=== PATIENT | male | born 1955 | race Caucasian/White ===

== ENCOUNTER 2020-04-02 14:04 | Outpatient (REF) | payer OTHER, SELFPAY ==
--- NOTE | 2020-04-02 14:09 | XR_ITS ---
EXAMINATION: XR CHEST CLINICAL INFORMATION: Wheezing COMPARISON: None TECHNIQUE: 2 views of the chest were obtained. FINDINGS: No significant abnormality is noted involving the heart, lungs, mediastinum, bony thorax or soft tissues. XR/XR chest 2V IMPRESSION: Unremarkable chest exam.
== END 2020-04-02 14:05 | disposition home or self-care (01) ==
LOC: HO.HMGCX 14:04
PROVIDERS: PCP Nurse Practitioner Family; Visit Provider Nurse Practitioner Family
DX: R06.2 Wheezing (principal)
CPT/HCPCS: 71046

== ENCOUNTER 2020-04-08 13:48 | Outpatient (REF) | payer OTHER, SELFPAY ==
--- NOTE | 2020-04-13 | PFT_ITS ---
Forced vital capacity and FEV1 are both slightly decreased. [id number] slightly decreased. The MVV normal. Post bronchodilator therapy, significant improvement noted in [id number]. No other significant change. Total lung capacity and residual volume normal. Diffusion capacity normal. CONCLUSION: A very mild degree of small airway obstructive disorder is noted, which improves after bronchodilator therapy. This finding may be indicative of mild bronchial asthma. Clinical correlation recommended. MD JOHANNA Baker/CONCHA / [id number]
== END 2020-04-08 13:49 | disposition home or self-care (01) ==
LOC: HO.RESP 13:48
PROVIDERS: PCP Nurse Practitioner Family; Visit Provider Nurse Practitioner Family
DX: R06.2 Wheezing (principal)
CPT/HCPCS: 94060; 94727; 94729

== ENCOUNTER → 2020-04-28 14:52 | Outpatient (BNVA) | payer OTHER, SELFPAY | PROVIDERS: PCP Nurse Practitioner Family; Visit Provider Internal Medicine | DX: Z76.89 Persons encountering health services in other specified circumstances (principal) ==

== ENCOUNTER 2020-07-05 | Outpatient (REF) | payer OTHER, SELFPAY ==
[2020-07-06 11:38] LABS: Urine Cytology See Pathology rpt
== END 2020-07-05 00:01 | disposition home or self-care (01) ==
LOC: HO.LNP
PROVIDERS: Visit Provider Nurse Practitioner Family
DX: R31.9 Hematuria, unspecified (principal)
CPT/HCPCS: 87086; 88112

== ENCOUNTER → 2020-08-09 13:29 | Outpatient (BNVA) | payer OTHER, SELFPAY | PROVIDERS: PCP Nurse Practitioner Family; Visit Provider Internal Medicine ==

== ENCOUNTER 2020-08-11 12:06 | Outpatient (REF) | payer OTHER, SELFPAY ==
[2020-08-11 14:04] LABS: MANUAL DIFF FLAG NO
[2020-08-11 14:19] LABS: Basophils Percent Auto 0.6 % (0-2); Eosinophils Absolute Auto 0.3 X10*3/uL (0.0-0.4); Hemoglobin 13.9 g/dl (14.0-18.0); Imm Gran Abs Auto 0.02 X10*3/uL (0.00-0.03); Imm Gran Pct Auto 0.3 % (0.0-0.4); Lymphocytes Absolute Auto 1.5 X10*3/uL (1.2-4.9); Lymphocytes Percent Auto 21.2 % (20-40); Mean Corpuscular HGB Conc 33.9 g/dl (31.0-36.0); Mean Corpuscular Hemoglobin 34.8 pg (27.0-33.0); Mean Corpuscular Volume 102.5 fL (80-98); Mean Platelet Volume 10.2 fL (9.4-12.4); Monocytes Absolute Auto 0.6 X10*3/uL (0.1-1.2); Monocytes Percent Auto 8.2 % (2-11); Neutrophils Absolute Auto 4.5 X10*3/uL (2.0-8.3); Neutrophils Percent Auto 65.7 % (45-73); Platelet Count 254 X10*3/uL (160-400); Red Cell Distribution Width 12.3 % (11.0-16.0); White Blood Count 6.8 X10*3/uL (4.8-10.8)
[2020-08-11 14:50] LABS: Alanine Aminotransferase 19 U/L (0-40); Albumin Level 4.1 g/dL (3.5-5.0); Alkaline Phosphatase 61 U/L (39-117); Anion Gap 13 (12-20); Aspartate Amino Transferase 25 U/L (5-37); Bilirubin Total 1.1 mg/dL (0.0-1.0); Blood Urea Nitrogen 12 mg/dL (9-16); Calcium 9.5 mg/dL (8.4-10.2); Carbon Dioxide 27 mmol/L (22-29); Chloride 103 mmol/L (96-108); Cholesterol 161 mg/dL; Estimated Glomerular Filt Rate > 60; Glucose Fasting 75 mg/dL (60-99); HDL Cholesterol 86 mg/dL; LDL Cholesterol Calculated 63 mg/dl; Potassium 4.5 mmol/L (3.3-5.1); Sodium 138 mmol/L (135-145); Total Protein 6.2 g/dL (6.5-8.0); Triglycerides 61 mg/dL
[2020-08-11 14:59] LABS: TSH reflex Free T4 0.92 uIU/mL (0.32-4.0)
[2020-08-11 15:40] LABS: Prostate Specific Antigen Scr 21.28 ng/mL (<0.05-4.0)
== END 2020-08-11 12:07 | disposition home or self-care (01) ==
LOC: HO.HMGCLDS 12:06
PROVIDERS: PCP Nurse Practitioner Family; Visit Provider Urology
DX: Z12.5 Encounter for screening for malignant neoplasm of prostate (principal); C61 Malignant neoplasm of prostate
CPT/HCPCS: 36415; 80053; 80061; 84153; 84443; 85025

== ENCOUNTER 2020-11-03 11:14 | Outpatient (REF) | payer OTHER, SELFPAY ==
[2020-11-03 13:55] LABS: MANUAL DIFF FLAG NO
[2020-11-03 14:03] LABS: Basophils Percent Auto 0.6 % (0-2); Eosinophils Absolute Auto 0.2 X10*3/uL (0.0-0.4); Hematocrit 40.9 % (42-52); Hemoglobin 14.2 g/dl (14.0-18.0); Imm Gran Abs Auto 0.04 X10*3/uL (0.00-0.03); Imm Gran Pct Auto 0.6 % (0.0-0.4); Lymphocytes Absolute Auto 1.4 X10*3/uL (1.2-4.9); Lymphocytes Percent Auto 21.2 % (20-40); Mean Corpuscular HGB Conc 34.7 g/dl (31.0-36.0); Mean Corpuscular Hemoglobin 35.5 pg (27.0-33.0); Mean Corpuscular Volume 102.3 fL (80-98); Mean Platelet Volume 9.8 fL (9.4-12.4); Monocytes Absolute Auto 0.8 X10*3/uL (0.1-1.2); Monocytes Percent Auto 11.4 % (2-11); Neutrophils Absolute Auto 4.3 X10*3/uL (2.0-8.3); Neutrophils Percent Auto 63.2 % (45-73); Platelet Count 242 X10*3/uL (160-400); Red Cell Distribution Width 12.3 % (11.0-16.0); White Blood Count 6.8 X10*3/uL (4.8-10.8)
[2020-11-03 14:17] LABS: Alanine Aminotransferase 34 U/L (0-40); Albumin Level 4.6 g/dL (3.5-5.0); Alkaline Phosphatase 71 U/L (39-117); Anion Gap 15 (12-20); Aspartate Amino Transferase 42 U/L (5-37); Blood Urea Nitrogen 14 mg/dL (9-16); Calcium 9.8 mg/dL (8.4-10.2); Carbon Dioxide 26 mmol/L (22-29); Chloride 98 mmol/L (96-108); Estimated Glomerular Filt Rate > 60; Glucose Random 77 mg/dL (60-115); Potassium 4.4 mmol/L (3.3-5.1); Sodium 135 mmol/L (135-145); Total Protein 6.9 g/dL (6.5-8.0)
[2020-11-03 14:43] LABS: PSA,Total (Free>4and<10) 31.81 ng/mL (0.00-4.00); TSH reflex Free T4 1.17 uIU/mL (0.32-4.0)
== END 2020-11-03 11:15 | disposition home or self-care (01) ==
LOC: HO.HMGCLDS 11:14
PROVIDERS: PCP Nurse Practitioner Family; Visit Provider Nurse Practitioner Family
DX: Z12.5 Encounter for screening for malignant neoplasm of prostate (principal); C64.9 Malignant neoplasm of unspecified kidney, except renal pelvis; R97.20 Elevated prostate specific antigen [PSA]
CPT/HCPCS: 36415; 80053; 84153; 84443; 85025

== ENCOUNTER 2020-11-29 13:23 | Outpatient (REF) | payer OTHER, SELFPAY ==
--- NOTE | ~2020-11-29 | CT_ITS ---
EXAMINATION: CT CHEST SCREENING CLINICAL INFORMATION: Nicotine dependence. COMPARISON: Chest x-ray 04/02/2020 TECHNIQUE: Multidetector volumetric CT imaging of the chest is performed without contrast using low dose technique. Additional 2D coronal and sagittal reformatted images and axial 3D maximum intensity projection (MIP) images are generated on the CT workstation. This CT examination was performed using dose optimization techniques as appropriate, variously including the following: *Automated exposure control *Adjustment of mA and/or kV according to patient size (this includes techniques or standardized protocols for targeted exams where dose is matched to indication/reason for exam; i.e. extremities or head) *Use of iterative reconstruction technique DLP: 64 mGy-cm FINDINGS: LUNGS: The lungs are well-expanded and clear of acute pneumonic process. There is a 2 mm nodule, right upper lobe, axial image 23/4. There is a linear 2 mm calcification in the lingula, axial image 25/4. No additional nodules seen. MEDIASTINUM: The thyroid lobes are symmetrical and normal. The central trachea and the bronchi are widely patent. The heart size and great vessels are normal caliber. There are coronary artery calcifications present. No pericardial effusion seen. No abnormal size mediastinal or hilar lymph nodes seen. PLEURA: There is no pleural effusion. No pleural mass or thickening. AXILLA: No lymphadenopathy. UPPER ABDOMEN: Visualized liver, spleen, pancreas and bilateral adrenal glands are unremarkable. OSSEOUS STRUCTURES: No gross bony abnormality seen. Moderate spondylosis seen in mid and lower dorsal spine. CT/CT lung screening IMPRESSION: There are 2 mm nodules in the right upper lobe and lingula. ASSESSMENT: Lung-RADS category 2: Benign RECOMMENDATION: Low dose annual CT chest
== END 2020-11-29 13:24 | disposition home or self-care (01) ==
LOC: HO.CT 13:23
PROVIDERS: PCP Nurse Practitioner Family; Visit Provider Physician Assistant Medical
DX: Z12.2 Encounter for screening for malignant neoplasm of respiratory organs (principal); F17.210 Nicotine dependence, cigarettes, uncomplicated
CPT/HCPCS: 71271

== ENCOUNTER → 2021-02-22 13:26 | Outpatient (BNVA) | payer OTHER, SELFPAY | PROVIDERS: PCP Nurse Practitioner Family; Visit Provider Internal Medicine ==

== ENCOUNTER 2021-07-04 10:39 | Outpatient (REF) | payer OTHER, SELFPAY ==
[2021-07-04 11:50] LABS: Appearance Urine CLEAR; Color Urine DK YELLOW; Glucose Urine UA NEG (NEG); Leukocyte Esterase Urine NEG (NEG); Nitrite Urine NEG (NEG); Specific Gravity - Urine 1.025 (1.005-1.025); UACC Culture Trigger NO; Urine Blood 1+ (NEG); Urine Ketones NEG (NEG); Urine Protein TRACE MG/DL (NEG-TRACE)
[2021-07-04 12:54] LABS: Alanine Aminotransferase 18 U/L (0-40); Albumin Level 4.1 g/dL (3.5-5.0); Alkaline Phosphatase 72 U/L (39-117); Anion Gap 16 (12-20); Aspartate Amino Transferase 24 U/L (5-37); Bilirubin Total 0.7 mg/dL (0.0-1.0); Blood Urea Nitrogen 9 mg/dL (9-16); Calcium 9.6 mg/dL (8.4-10.2); Carbon Dioxide 24 mmol/L (22-29); Chloride 104 mmol/L (96-108); Cholesterol 187 mg/dL; Estimated Glomerular Filt Rate > 60; Glucose Fasting 81 mg/dL (60-99); HDL Cholesterol 79 mg/dL; LDL Cholesterol Calculated 86 mg/dl; Potassium 4.3 mmol/L (3.3-5.1); Sodium 140 mmol/L (135-145); Total Protein 6.5 g/dL (6.5-8.0); Triglycerides 114 mg/dL
[2021-07-04 13:14] LABS: Squamous Epithelial Cell Urine 1+ /LPF; WBC Urine 0 /HPF (0-4)
== END 2021-07-04 10:40 | disposition home or self-care (01) ==
LOC: HO.HMGCLDS 10:39
PROVIDERS: Visit Provider Nurse Practitioner Family
DX: I10 Essential (primary) hypertension (principal)
CPT/HCPCS: 36415; 80053; 80061; 81001; 84443

== ENCOUNTER 2021-07-10 14:27 | Emergency (ER) | payer OTHER, SELFPAY ==
--- NOTE | ~2021-07-10 | XR_ITS ---
EXAMINATION: RIGHT HAND. CLINICAL INFORMATION: Right hand pain COMPARISON: None TECHNIQUE: 4 views. FINDINGS: There is a dorsal dislocation third metacarpal phalangeal joint. There is suspicion for incomplete fracture involving the distal fourth metacarpal. There is better visualized on the lateral view. There is moderate soft tissue swelling along the dorsal hand. The scaphoid view reveals no fracture. XR/XR hand wrist RT IMPRESSION: Posterior dislocated third metacarpal phalangeal joint. Suspect partial fracture distal fourth metacarpal. Moderate dorsal hand soft tissue swelling.
--- NOTE | ~2021-07-10 | XR_ITS ---
EXAMINATION: XR HAND, RIGHT CLINICAL INFORMATION: Postreduction. COMPARISON: Right hand 07/10/2021 performed at 3:09 PM TECHNIQUE: PA, lateral, and oblique views of the right hand. FINDINGS: There is satisfactory alignment of third metacarpophalangeal joint status post reduction. Deformity of fourth metacarpal head likely fracture or old injury. XR/XR hand RT 2V IMPRESSION: Satisfactory alignment of third metacarpophalangeal joint status post reduction. Old deformity versus subtle fracture fourth metatarsal head
[2021-07-10 14:44] VITALS: BP 150/103; PULSE 96; RESP 12; TEMP 36.6; O2SAT 98; BMI 29.1
[2021-07-10] MEDS: Ibuprofen 600 MG TABLET PO (15:31)
--- NOTE | 2021-07-10 15:45 | ED_ITS ---
HPI - Extremity Problem General Chief complaint: Extremity Injury, Upper Stated complaint: broken hand Time Seen by Provider: 07/10/21 15:06 Source: patient and RN notes reviewed Mode of arrival: ambulatory Limitations: no limitations History of Present Illness HPI Narrative: fell while shoveling last night. pain and swelling to left hand, left middle finger Complaint: extremity pain and extremity swelling Associated symptoms: denies other symptoms Related Data Home Medications Medication Instructions Recorded Confirmed leuprolide (3 month) 22.5 mg (3 22.5 mg SUBCUT [id number] 07/06/21 07/06/21 month) subcutaneous syringe (EliDNS:Netd) Previous Rx's Medication Instructions Recorded albuterol sulfate 90 mcg/actuation 1 puff INHALATION QID PRN 30 Days 03/31/20 aerosol inhaler #8.5 g atorvastatin 20 mg tablet 20 mg PO DAILY #90 tab 08/02/20 epinephrine 0.3 mg/0.3 mL 0.3 mg (0.3 mL) IM Q10M PRN 30 02/02/21 injection, auto-injector (EpiPen Days #2 ea 2-Reji) paroxetine HCl 30 mg tablet 30 mg PO QAM 90 Days #90 tab 02/02/21 fluticasone 250 mcg-salmeterol 50 1 ea PO BID #180 cap 03/03/21 mcg/dose blistr powdr for inhalation (Advair Diskus) cholecalciferol (vitamin D3) 50 50 mcg PO DAILY #90 tab 04/29/21 mcg (2,000 unit) tablet (Vitamin D3) metoprolol tartrate 25 mg tablet 25 mg PO BID #180 tab 07/03/21 losartan 100 mg tablet 100 mg PO DAILY 90 Days #90 tab 07/06/21 oxycodone-acetaminophen 5 mg-325 1 tab PO Q6H PRN #10 tab 07/10/21 mg tablet (Percocet) Allergies Allergy/AdvReac Type Severity Reaction Status Date / Time tetracycline Allergy Intermediate anaphylaxis Verified 07/06/21 11:21 [Tetracycline] bee venom protein Allergy Unknown swelling, Verified 07/06/21 10:23 (honey bee) hives Review of Systems Verdana 4l Review of Systems: Verdana 4d Verdana 4d Constitutional : No Weight loss, No Fever, No Chills, ENT/Mouth : No Hearing loss, No Ear Pain, No Nasal Congestion, No Sinus Pain, No Hoarseness, No sore throat, No Rhinorrhea, No Swallowing Difficulty Cardiovascular : No Chest Pain, No SOB Respiratory : No Cough, No Dyspnea Gastrointestinal : No Nausea, No Vomiting, No Diarrhea, No abdominal Pain, Musculoskeletal : left hand pain and swelling, no Back pain, No neck pain, Skin : No Skin Lesions, No rash or signs of infection Neuro : No Weakness, No radiation, No Numbness, No Paresthesias, No headache, Yes all other systems are reviewed and are negative [facility] Past Medical History Attestation statement: The following information was validated with the patient. Medical History (Updated 07/10/21 @ 17:25 by SHIRIN Machado) Asthma Asthma COPD (chronic obstructive pulmonary disease) Coronary atherosclerosis Depression Foraminal stenosis of lumbar region HTN (hypertension) Nodule on liver FAUSTO on CPAP Prostate CA Renal mass Thoracic aortic aneurysm Surgical History History of knee surgery History of prostatectomy History of prostatectomy History of total knee replacement (TKR) History of total right knee replacement (TKR) Lipoma of back Family History Family History Father Leukemia Substance use disorder Mother Breast cancer CVD (cardiovascular disease) Takotsubo cardiomyopathy Brother Substance use disorder Sister No problems noted. Maternal Aunt No problems noted. Maternal Grandfather No problems noted. Maternal Grandmother No problems noted. Maternal Uncle No problems noted. Paternal Aunt No problems noted. Paternal Grandfather No problems noted. Paternal Grandmother No problems noted. Paternal Uncle No problems noted. Social History Social History Housing: House Alcohol intake: current Alcohol intake frequency: 3 or more drinks per day Patient Tobacco Use Status: Former Tobacco user Years Smoked: 35 years ago e-Cigarette/Vaping Use: Never Used Second Hand Smoke Exposure: No Advance Directives: No Advance Directives Information Provided: Yes service: No Current occupational status: retired Physical Exam Verdana 4l Vital Signs: Verdana 4d Verdana 4d Vital Signs: Verdana 4d Verdana 4Bd Last Vital Signs Verdana 4d Vial Gauger New 4d Vial Gauger New 4d Temp 98 F 07/10/21 14:44 4d Pulse 96 07/10/21 14:44 4d Resp 12 07/10/21 14:44 BP 150/103 H 07/10/21 14:44 Pulse Ox 98 07/10/21 14:44 BMI result Body Mass Index 29.1 vital signs have been reviewed as normal and appeared to be correct.? Blood pressure elevated.? Heart rate normal.? Respiration rate normal.? Temperature normal.? Oxygen saturation normal. ? ? ?PE GENERAL Appearance: Alert. Oriented X3. No acute distress. ? Head: Normal external exam. Normocephalic. Atraumatic.? Eyes: PERRLA. EOMI. Conjunctiva and sclera normal. Eyelids normal. ? CVS: Normal heart rate and rhythm. Respiratory: No respiratory distress. Painless inspiration. Back: ? Full range of motion noted. Skin: Skin warm and dry.? Normal skin color.? Normal skin turgor. No rashes/lesions/lacerations noted. Extremities: 1+ edema left hand dorsum. limited flexion left middle finger, tenderness over 4th metacarpal. no abrasions. No lower extremity edema. ? Extremities exhibit normal range of motion.?Good cap refill. able to flex and extend other phalanges. Normal gait Neuro: Oriented X 3.? No motor deficit noted. No sensory deficit noted. Course Course Course Narrative: RADIATION ONCOLOGIST reviewed before prescription for percocet Procedures Procedure Narrative Procedure Narrative: Reduction left 3rd metacarpal/phalangeal joint. local anesthesia with 2%lidocaine base of 3rd ph[address]ange[address] Dr. Meredith to see pt as well and dislocation reduced and confirmed on xray. pt then placed in volar/ulnar gutter splint to immobilize both the 3rd phalange and fx of 4th metacarpal. pt's hand large and ulnar gutter splint alone would not immobilize both 3rd and 4th digits. pt. neuro/vasc intact after splint. splint applied by myself and RN. Discharge Plan Discharge Clinical Impression: Dislocation of finger, Fracture of fourth metacarpal bone of right hand Patient Disposition: Home, Self-Care Instructions: Hand Fracture (ED), Finger Dislocation (ED) Additional Instructions: Leave splint on until seen by orthopedist. elevate hand at or above level of your heart. apply ice directly over splint. return if worse: increased swellin g or numbness, discoloration of fingers. Prescriptions: New oxycodone-acetaminophen [Percocet] 5-325 mg tablet 1 tab PO Q6H PRN (Reason: pain) Qty: 10 0RF No Action atorvastatin 20 mg tablet 20 mg PO DAILY Qty: 90 5RF fluticasone propion-salmeterol [Advair Diskus] 250-50 mcg/dose blister with device 1 ea PO BID Qty: 180 1RF cholecalciferol (vitamin D3) [Vitamin D3] 50 mcg (2,000 unit) tablet 50 mcg PO DAILY Qty: 90 2RF metoprolol tartrate 25 mg tablet 25 mg PO BID Qty: 180 0RF paroxetine HCl 30 mg tablet 30 mg PO QAM 90 Days Qty: 90 3RF epinephrine [EpiPen 2-Reji] 0.3 mg/0.3 mL auto-injector 0.3 mg IM Q10M PRN (Reason: anaphylaxis) 30 Days Qty: 2 0RF Rx Instructions: for 2 doses albuterol sulfate 90 mcg/actuation HFA aerosol inhaler 1 puff inhalation QID PRN (Reason: shortness of breath or wheezing) 30 Days Qty: 8.5 2RF Eligard (3 month) 22.5 mg syringe 22.5 mg subcut [id number] 0RF losartan 100 mg tablet 100 mg PO DAILY 90 Days Qty: 90 0RF Referrals: Anali Duffy MD [Physician] - 2 days (Call tomorrow for follow up appointment this week.)
--- NOTE | 2021-07-10 17:36 | PC.NURSE ---
PT MIDDLE FINGER PULLED BACK INTO BY SHIRIN LIRA AND DR ANIRUDH GRACIA WITH VOLAR SPLINT PLACE TO RIGHT HAND +CMS PLACE BY SHIRIN LIRA. 2ND IMAGING COMFIRMED FINGER BACK IN PLACE.
== END 2021-07-10 17:48 | disposition home or self-care (01) ==
PROVIDERS: Emergency Provider Emergency Medicine; PCP Nurse Practitioner Family
DX: S62.304A Unspecified fracture of fourth metacarpal bone, right hand, initial encounter for closed fracture (principal); S63.253A Unspecified dislocation of left middle finger, initial encounter; M79.642 Pain in left hand; R06.02 Shortness of breath; X58.XXXA Exposure to other specified factors, initial encounter; Y93.9 Activity, unspecified; Y92.9 Unspecified place or not applicable; Y99.9 Unspecified external cause status; Z79.899 Other long term (current) drug therapy; Z87.891 Personal history of nicotine dependence
CPT/HCPCS: 29130; 73110; 73120; 73130; 96372; 99284

== ENCOUNTER 2021-07-12 09:01 | Outpatient (REF) | payer OTHER, SELFPAY ==
--- NOTE | ~2021-07-12 | XR_ITS ---
EXAMINATION: XR HAND, RIGHT CLINICAL INFORMATION: Trauma COMPARISON: Previous x-rays 07/10/2021 TECHNIQUE: PA, lateral, and oblique views of the right hand. FINDINGS: There is a minimally displaced fracture of the fourth metacarpal head. This appears unchanged. No other fracture is seen. There is mild arthritis at the first SENIOR LIVING joint. Joint spaces are otherwise normal. Soft tissues are normal. XR/XR hand RT min 3V IMPRESSION: Minimally displaced fracture of the fourth metacarpal head.
== END 2021-07-12 09:02 | disposition home or self-care (01) ==
LOC: HO.HOSX 09:01
PROVIDERS: Visit Provider Orthopaedic Surgery
DX: M25.521 Pain in right elbow (principal); S62.335A Displaced fracture of neck of fourth metacarpal bone, left hand, initial encounter for closed fracture; S63.263A Dislocation of metacarpophalangeal joint of left middle finger, initial encounter; W00.0XXA Fall on same level due to ice and snow, initial encounter; Y93.H1 Activity, digging, shoveling and raking; Y92.9 Unspecified place or not applicable; Y99.8 Other external cause status; I10 Essential (primary) hypertension; J45.909 Unspecified asthma, uncomplicated; G47.33 Obstructive sleep apnea (adult) (pediatric); Z87.891 Personal history of nicotine dependence; Z88.1 Allergy status to other antibiotic agents; Z91.030 Bee allergy status; Z99.89 Dependence on other enabling machines and devices
CPT/HCPCS: 73130

== ENCOUNTER 2021-07-19 09:11 | Outpatient (REF) | payer OTHER, SELFPAY ==
--- NOTE | ~2021-07-19 | XR_ITS ---
EXAMINATION: XR HAND, RIGHT CLINICAL INFORMATION: Fracture. Pain. COMPARISON: Previous x-rays most recent from earlier this month TECHNIQUE: PA, lateral, and oblique views of the right hand. FINDINGS: There is a minimally displaced fracture of the fourth metacarpal head that appears unchanged. No other fracture is seen. There is mild arthritis at the first FPC joint. Joint spaces are otherwise normal. Soft tissues are normal. XR/XR hand RT min 3V IMPRESSION: No change in right fourth metacarpal head fracture.
== END 2021-07-19 09:12 | disposition home or self-care (01) ==
LOC: HO.HOSX 09:11
PROVIDERS: Visit Provider Orthopaedic Surgery
DX: S63.263D Dislocation of metacarpophalangeal joint of left middle finger, subsequent encounter (principal); S62.335D Displaced fracture of neck of fourth metacarpal bone, left hand, subsequent encounter for fracture with routine healing
CPT/HCPCS: 73130

== ENCOUNTER 2021-07-28 13:50 | Outpatient (REF) | payer OTHER, SELFPAY ==
--- NOTE | ~2021-07-28 | CT_ITS ---
EXAMINATION: CT ANGIOGRAM CHEST CLINICAL INFORMATION: Thoracic aortic aneurysm. COMPARISON: None. TECHNIQUE: Multiple axial images were obtained through the chest after the administration of 50 mL of Omnipaque 350 intravenous contrast. Extensive vascular post-processing including two-dimensional and three-dimensional reformatted images were created and reviewed on an independent workstation. This CT examination was performed using dose optimization techniques as appropriate, variously including the following: *Automated exposure control *Adjustment of mA and/or kV according to patient size (this includes techniques or standardized protocols for targeted exams where dose is matched to indication/reason for exam; i.e. extremities or head) *Use of iterative reconstruction technique DLP: 131 mGy-cm FINDINGS: The ascending aorta is dilated measuring 4.6 x 4.3 cm on axial image 26/5 the descending thoracic aorta is of normal caliber measuring 2.8 x 2.5 cm. The arch measures 2.6 cm wide and 2.7 cm in the craniocaudad length. There is no thoracic aortic dissection or aneurysm. There is an aberrant right subclavian artery. The right brachiocephalic, left common carotid and left subclavian artery are widely patent. The pulmonary artery and its branches are widely patent. The central trachea and the bronchi widely patent. The thyroid lobes are symmetrical and normal. No abnormal-sized mediastinal or hilar lymphadenopathy seen. Heart size is normal. No pericardial effusion seen. The lungs are well expanded with plate-like atelectatic changes right middle lobe and lingula. There is no pleural effusion, thickening or calcification. Visualized liver, spleen appear unremarkable. CT/CT angio chest aorta IMPRESSION: Ascending aortic aneurysm. The arch and the descending thoracic aorta is of normal caliber. No evidence of aortic dissection. Plate-like atelectasis right middle lobe and lingula. Fleischner guidelines were followed.
[2021-07-28] MEDS: iohexoL 350 MG/ML 75 ML INFUS..BTL 70 ML IV (14:57)
== END 2021-07-28 13:51 | disposition home or self-care (01) ==
LOC: HO.CT 13:50
PROVIDERS: Visit Provider Nurse Practitioner Family
DX: I71.2 Thoracic aortic aneurysm, without rupture (principal)
CPT/HCPCS: 71275; Q9967

== ENCOUNTER 2021-08-03 12:00 | Outpatient (RCR) | payer OTHER, SELFPAY ==
--- NOTE | 2021-07-20 13:16 | MHC.OT.OEV ---
[address] [phone] F: [phone] Occupational Therapy Evaluation Diagnosis: DISPLACED FRACTURE OF NECK OF 4TH METACARPAL Date of Onset: 07/10/21 Attending Provider: Anali Duffy Prescribed Treatment: AVINASH ROGERS Follow Up Appointment: 08/09/21 History of Current Condition: REPORTS FALLING ON ICE WHILE DOING SNOW REMOVAL. HE SUSTAINED A RIGHT MIDDLE FINGER DORSAL MCP DISLOCATION WELL A RIGHT 4TH METACARPAL NECK FRACTURE ON 07/10/21. RIGHT MIDDLE FINGER WAS REDUCED IN THE ED. XRAYS 07/19/21 There is a minimally displaced fracture of the fourth metacarpal head that appears unchanged. No other fracture is seen. There is mild arthritis at the first LONG-TERM joint. Joint spaces are otherwise normal. Soft tissues are normal. Significant Medical History: ARTHRITIS, PROSTATE CA, ASTHMA Precautions/Contraindications: DOI 07/10/21 MCP EXT BLOCKING SPLINT AT 20 DEGREES Patient Goals: TO HAVE NORMAL PAIN FREE MOVEMENT Hand Dominance: Left Observations: DORSAL BLOCKING SPLINT WITH VINH BANDAGE AND GAUZE IN PLACE QuickDASH Score: 66% Prior Level of Function and Occupation Self Care, Employment, Leisure: RETIRED. IND ADLs AND IADLs INCLUDING YARD WORK AND SNOW REMOVAL Living Situation, Family and/or Social Support: LIVES WITH SPOUSE Current Level of Function and Occupation Self Care, Employment, Leisure: SPOUSE ASSISTING WITH MOST ADLs AND ALL IADLs. DIFFICULTIES WITH BUTTONING, ZIPPING SHIRT/PANTS. UNABLE TO WASH HIS BACK. UNABLE TO ENGAGE IN HOBBIES. Sleep: NO DIFFICULTIES, SLEEPING WITH RUE ELEVATED Driving: NO DIFFICULTIES Pain Assessment Pain Score: 0-7/10 Pain Scale Used: Numeric (0 - 10) Pain Location and Description: PAINFREE AT REST 7/10 WITH USE/ FLEXION AT R DORSAL MF OF MCP Aggravating Factors: DIGIT FLEXION Alleviating Factors: NOT CURRENTLY TAKING PAIN MEDICATION Skin and Soft Tissue Assessment Skin and Soft Tissue: Swelling Ecchymosis Comments: EDEMA TO HAND AND WRIST, WELL ECCHYMOSIS IN DIGITS OF D4/D5 Sensory Assessment Temperature: Light Touch: WFL Proprioception: Vibration: Comments: DENIES NUMBNESS/TINGLING THROUGH RUE Edema Assessment Upper Extremity: Right Impaired Lower Extremity: Comments: CIRCUMFERENCE OF MCPs D2-D5: RIGHT 23.3 CM, LEFT 22.2 CM CIRCUMFERENCE OF WRIST, DISTAL TO US: RIGHT 17.6 CM, LEFT 17.3 CM CIRCUMFERENCE OF PIPj OF MF: RIGHT 7.3 CM, LEFT 7.2 CM Dexterity Assessment Dexterity: Right Impaired Comments: DIFFICULTIES WITH BUTTONS, ZIPPERS AND FINE MOTOR TASKS Special Tests Comments: AROM(PROM) Strength Shoulder Flexion: Extension: Abduction: Internal Rotation: External Rotation: Comments: WFL Flexion: Extension: Abduction: Internal Rotation: External Rotation: Comments: Elbow Flexion: Extension: Pronation: Supination: Comments: WFL Flexion: Extension: Pronation: Supination: Comments: Wrist Flexion: R 75, L 75 Extension: R 55, L 65 Ulnar Deviation: Radial Deviation: Comments: UD/RD GROSSLY WFL Flexion: Extension: Ulnar Deviation: Radial Deviation: Comments: Thumb Thumb CMC Flexion: Thumb MCP Flexion: Thumb IP Flexion: Radial Abduction: Palmar Abduction: [place] (Kapandji 0-10): Comments: WFL Digits Index MCP: PIP: DIP: Long MCP: R 42, L 84 PIP: R 82, L 88 DIP: R 74, L 86 Ring MCP: R 42, L 80 PIP: R 86, L 92 DIP: R 64, L 70 Small MCP: PIP: DIP: Comments: Gross Grasp: R NT, L 70 Lateral Pinch: Two-Point Pinch: Three-Jaw Maco: Comments: Patient Education Primary Language: Honduran Title Search Manager Required: No Current Knowledge: Understands information with skills for self-management Teaching Method: Demonstration Handouts Phone Call Verbal Education Needs Identified on Evaluation: ADL's Disease Information Equipment Use Exercise Pain Safety How did patient/family demonstrate learning? Patient demonstrates Patient verbalizes Barriers to Learning: None Readiness for Learning: Accepting Who was educated? Patient Comments: Plan of Care Assessment: MR SUAREZ IS 10 DAYS S/P FALL ON ICE IN WHICH HE INJURED HIS NON DOMINANT RIGHT LONG AND RING FINGERS. HE REPORTS NO PAIN AT REST YET 7/10 WITH DIGIT FLEXION. A MODERATE AMOUNT OF EDEMA IS PRESENT IN HIS RIGHT HAND AND WRIST, WELL SOME ECCHYMOSIS THROUGH HIS DIGITS. AT THIS TIME, HE IS REQUIRING ASSISTANCE FROM HIS SPOUSE FOR MOST ADLs AND IADLs THAT REQUIRE TWO HANDS INCLUDING BUTTONING SHIRT, CUTTING FOOD AND DOING HOUSEHOLD TASKS. A 66% LIMITATION IS REPORTED PER THE QUICK DASH ASSESSMENT. A CUSTOM DORSAL BLOCKING SPLINT WAS FABRICATED TO ALLOW FOR DIGIT ROM YET BLOCK DIGIT EXTENSION MORE AT 20 DEGREES. ONGOING SKILLED OT IS WARRANTED TO ADDRESS THE AREAS MENTIONED ABOVE AND ACHIEVE MAXIMUM FUNCTIONAL LEVEL. 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 Goals: QUICK DASH <50% R GROSS GRASP >40 POUNDS REPORT <2/10 PAIN WITH LIGHT IADLs ACHIEVE R TIP TO DPC IND WEAN FROM ORTHOSIS Frequency and Duration: The patient will be seen 2X/WEEK FOR 6 WEEKS Treatment Plan: Therapeutic Exercise Therapeutic Activity Home Exercise Program Splinting Neuro Re-ed Patient Education Desensitization/Sensory Re-ed Edema Control ADL Training Ultrasound NMES Iontophoresis Paraffin Fluidotherapy MHP Cold Packs Joint Mobilization Soft Tissue Mobilization Kinesiotaping Other (see comments) RECOMMEND 1X/WEEK FOR 3 WEEKS THEN 2X/WEEK FOR ADDITIONAL 3 WEEKS Electronically Signed By: MARY JO QUINTANA OTR/L Reviewed/agree with student documentation: N/A Therapist: Please sign and return to therapist, Thank you for your referral.
--- NOTE | 2021-08-18 13:29 | MHC.OT.DC ---
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 HE HAD TWO ADDITIONAL F/U VISITS TO ADDRESS DIGIT FLEXION AND EDEMA MANAGEMENT. Pt WAS ABLE TO ACTIVELY BRING DIGITS TO THE PROXIMAL PALMAR CREASE AND REPORTED LOW TO MODERATE PAIN. Pt STATES HE IS READY TO TRANSITION TO A HOME MANAGEMENT PROGRAM AND IS A SELF D/C FROM OT. Electronically Signed By: ANNIA TELLO/Jaida Reviewed/agree with student documentation: N/A Therapist: Please Sign and return to therapist, thank you for your referral.
== END 2021-08-18 13:30 | disposition home or self-care (01) ==
LOC: HO.OT 12:00
PROVIDERS: Visit Provider Orthopaedic Surgery
DX: S62.335D Displaced fracture of neck of fourth metacarpal bone, left hand, subsequent encounter for fracture with routine healing (principal); S63.263D Dislocation of metacarpophalangeal joint of left middle finger, subsequent encounter
CPT/HCPCS: 29125; 97110; 97140; 97166; 97530; 97760

== ENCOUNTER 2021-08-09 10:43 | Outpatient (REF) | payer OTHER, SELFPAY ==
--- NOTE | ~2021-08-09 | XR_ITS ---
EXAMINATION: XR HAND, RIGHT CLINICAL INFORMATION: Right hand pain COMPARISON: Prior x-rays, latest 05/30/2022 TECHNIQUE: PA, lateral, and oblique views of the right hand. FINDINGS: There is a mildly displaced fracture of the fourth metacarpal head, there is unchanged in position and alignment. Small callus formation along the radial aspect of the fracture. Fracture plane remains visible. Soft tissue swelling. Mild first CMC arthritis. No new acute fractures seen. Ulna negative variance. XR/XR hand RT min 3V IMPRESSION: Stable positioning of the right fourth metacarpal head fracture. Suggestion of mild callus formation.
== END 2021-08-09 10:44 | disposition home or self-care (01) ==
LOC: HO.HOSX 10:43
PROVIDERS: Visit Provider Orthopaedic Surgery
DX: M25.642 Stiffness of left hand, not elsewhere classified (principal); S62.335A Displaced fracture of neck of fourth metacarpal bone, left hand, initial encounter for closed fracture; S63.263A Dislocation of metacarpophalangeal joint of left middle finger, initial encounter
CPT/HCPCS: 73130

== ENCOUNTER → 2021-08-25 13:08 | Outpatient (BNVA) | payer OTHER, SELFPAY | PROVIDERS: PCP Nurse Practitioner Family; Visit Provider Internal Medicine | DX: Z13.89 Encounter for screening for other disorder (principal) ==

== ENCOUNTER → 2021-08-30 13:07 | Outpatient (BNVA) | payer OTHER, SELFPAY | PROVIDERS: PCP Nurse Practitioner Family; Visit Provider Physician Assistant | DX: M25.642 Stiffness of left hand, not elsewhere classified (principal); S63.263D Dislocation of metacarpophalangeal joint of left middle finger, subsequent encounter; S62.335D Displaced fracture of neck of fourth metacarpal bone, left hand, subsequent encounter for fracture with routine healing; X58.XXXD Exposure to other specified factors, subsequent encounter | CPT/HCPCS: 99212 ==

== ENCOUNTER → 2021-09-15 13:55 | Outpatient (BNVA) | payer OTHER, SELFPAY | PROVIDERS: PCP Nurse Practitioner Family; Referring Provider Nurse Practitioner Family; Visit Provider Internal Medicine Cardiovascular Disease | DX: I25.10 Atherosclerotic heart disease of native coronary artery without angina pectoris (principal); I10 Essential (primary) hypertension; R06.00 Dyspnea, unspecified; J44.9 Chronic obstructive pulmonary disease, unspecified | CPT/HCPCS: 93005 ==

== ENCOUNTER → 2021-09-28 15:05 | Outpatient (REF) | payer OTHER, SELFPAY ==
--- NOTE | 2021-09-28 15:09 | CA_ITS ---
Transthoracic Echocardiogram Patient (Last, First, Middle): Anthony Granados M Gender: Male Date of : 1955 Age: 65 Procedure Date: 09/28/2021 Procedure Type: Transthoracic Echocardiogram Location: OP Height: 182.88 cm Weight: 95.71 kg BSA: 2.18 m2 Heart Rate: bpm BP: 130 / 82 mmHg Hide Inspector And Sorter: TIP Referring MD: Levon Cifuentes MD [employer]ware Lithograph Press Operator: Elias Cosby MD Symptoms: R06.00 - Dyspnea, unspecified Study Quality: Fair ECG Rhythm: Sinus Conclusions: - 1. Normal LV systolic function with impaired relaxation filling pattern 2. Mild aortic regurgitation 3. Mildly dilated ascending aorta at 4.3 cm 4. Normal RV systolic pressure 5. No pericardial effusion Findings Left Ventricle Normal left ventricular size, thickness, and systolic function. The visually estimated ejection fraction is between 60-65%. Spectral Doppler is indicative of an impaired relaxation filling pattern. E/E prime ratio is <8, consistent with normal filling pressures. Right Ventricle Normal right ventricular cavity size and systolic function. Atria The left atrium is normal in size. There is no evidence of interatrial shunt. The right atrium is normal in size. Aortic Valve Normal aortic valve structure and function. There is no aortic valve stenosis. There is mild aortic valve regurgitation. Mitral Valve Normal mitral valve structure and function. There is trace mitral valve regurgitation. There is no mitral valve stenosis. Pulmonic Valve The pulmonic valve is likely normal. Tricuspid Valve Likely normal tricuspid valve structure and function. There is mild tricuspid valve regurgitation. The right ventricular systolic pressure is normal. The right ventricular systolic pressure is 18 mmHg. There is no evidence of pulmonary hypertension. Great Vessels The pulmonary artery was not well visualized. There is mild dilatation of the ascending aorta. Venous The inferior vena cava is normal in size and collapses greater than 50% with inspiration. Pericardium/Pleural There is no evidence of pericardial effusion. Prior Study Comparison Changes noted compared to prior study dated: 09/04/2019. Ascending aorta is mildly dilated Measurements 2D Linear Measurements IVSd: 1.23 0.6-0.9/0.6-1.0 cm LVIDd: 4.91 3.9-5.3/4.2-5.9 cm LVIDd Index: 2.25 2.4-3.2/2.2-3.1 cm/m2 LVIDs: 3.07 2.0-3.6 cm LVPWd: 1.02 0.7-1.1 cm LA Diam: 3.70 2.7-3.8/3.0-4.0 cm LAIDs Index: 1.70 1.5-2.3 cm/m2 LV Mass: 258.64 67-162/88-224 g LV Mass Index: 118.64 43-95/49-115 g/m2 LVOT Diam: 2.40 3.0+(-)1.3 cm 2D Systolic Function EF 4C: 57.60 >55% EF 2C: 57.50 >55% EF BiP: 59.30 >55% Mitral Valve MV Pk E: 0.62 MV PK A: 0.69 MV Decel Time: 217.00 E/A: 0.90 E'Lateral: 8.59 E'Medial: 6.20 E/E' Med: 10.00 E/E' Lat: 7.20 PHT: 64.00 MVA PHT: 3.44 Decel Wilcox: 2.85 Aortic Valve AoV Pk Braden: 1.27 AoV Mn Braden: 0.94 AoV VTI: 0.26 AoV Pk Grad: 6.00 Aov Mn Grad: 4.00 MURTAZA Cont.VTI: 3.64 LVOT LVOT Pk Braden: 1.04 LVOT Mn Braden: 0.70 LVOT VTI: 0.21 LVOT Pk Grad: 4.00 LVOT Mn Grad: 2.00 LVOT Diam: 2.40 LVOT Area: 4.52 Diastolic Function MV Pk E: 0.62 MV Pk A: 0.69 E/A: 0.90 E'Medial: 6.20 E/E' Med: 10.00 E' Laterial: 8.59 E/E' Lat: 7.20 Right Ventricle TAPSE (mm): 18.70 TVS' Braden: 15.70 Tricuspid Valve TR Pk Braden: 1.91 TR Pk Grad: 15.00 RA Press: 3.00 RVSP: 18.00 Great Vessels Aorta Sinus of Valsalva: 3.88 2.0-3.[address] Ridge: 3.25 1.7-3.4 cm Ao Asc: 4.30 2.1-3.4 cm Ao Arch: 3.80 Updated in Other Vendor System with Status of Final Elias Cosby MD electronically signed on 09/29/2021 12:45:21 PM with status of Final
== END ==
LOC: HO.CARD 15:05
PROVIDERS: PCP Nurse Practitioner Family; Visit Provider Internal Medicine Cardiovascular Disease
DX: R06.00 Dyspnea, unspecified (principal)
CPT/HCPCS: 93306

== ENCOUNTER 2021-10-21 11:01 | Outpatient (REF) | payer OTHER, SELFPAY ==
[2021-10-21 13:52] LABS: Hematocrit 36.8 % (42.0-52.0); Mean Corpuscular HGB Conc 35.3 g/dl (31.0-36.0); Mean Corpuscular Hemoglobin 36.5 pg (27.0-33.0); Mean Corpuscular Volume 103.4 fL (80.0-98.0); Mean Platelet Volume 9.8 fL (9.4-12.4); Platelet Count 289 X10*3/uL (160-400); Red Blood Count 3.56 X10*6/uL (4.60-5.80); Red Cell Distribution Width 12.2 % (11.0-16.0); White Blood Count 5.3 X10*3/uL (4.8-10.8)
[2021-10-21 14:02] LABS: INTERNATIONAL NORM RATIO 0.9 (0.9-1.1)
[2021-10-21 14:03] LABS: Alanine Aminotransferase 20 U/L (0-40); Alkaline Phosphatase 62 U/L (39-117); Anion Gap 14 (12-20); Aspartate Amino Transferase 26 U/L (5-37); Bilirubin Total 0.8 mg/dL (0.0-1.0); Blood Urea Nitrogen 12 mg/dL (9-16); Calcium 9.4 mg/dL (8.4-10.2); Carbon Dioxide 24 mmol/L (22-29); Chloride 102 mmol/L (96-108); Cholesterol 167 mg/dL; Estimated Glomerular Filt Rate > 60; Glucose Fasting 91 mg/dL (60-99); HDL Cholesterol 76 mg/dL; LDL Cholesterol Calculated 77 mg/dl; Sodium 136 mmol/L (135-145); Total Protein 6.2 g/dL (6.5-8.0); Triglycerides 74 mg/dL
[2021-10-21 14:22] LABS: Appearance Urine CLOUDY; Glucose Urine UA NEG (NEG); Leukocyte Esterase Urine NEG (NEG); Nitrite Urine NEG (NEG); Specific Gravity - Urine >= 1.030 (1.005-1.025); UACC Culture Trigger NO; Urine Blood TRACE (NEG); Urine Ketones NEG (NEG); Urine Protein NEG (NEG-TRACE)
[2021-10-21 14:24] LABS: TSH reflex Free T4 1.09 uIU/mL (0.32-4.0)
[2021-10-21 14:31] LABS: Color Urine YELLOW
[2021-10-21 14:36] LABS: Amorphous Sediment Urine 4+ /LPF; RBC Urine 0 /HPF (0); WBC Urine 0 /HPF (0-4)
== END 2021-10-21 11:02 | disposition home or self-care (01) ==
LOC: HO.HMGCLDS 11:01
PROVIDERS: Absent Provider Internal Medicine Cardiovascular Disease; PCP Nurse Practitioner Family; Visit Provider Nurse Practitioner Family
DX: I10 Essential (primary) hypertension (principal); I25.10 Atherosclerotic heart disease of native coronary artery without angina pectoris
CPT/HCPCS: 36415; 80048; 80053; 80061; 81001; 81003; 84443; 85027; 85610

== ENCOUNTER 2021-11-15 12:48 | Outpatient (REF) | payer OTHER, SELFPAY ==
[2021-11-15 13:48] LABS: MANUAL DIFF FLAG NO
[2021-11-15 13:51] LABS: Basophils Percent Auto 0.7 % (0-2); Eosinophils Absolute Auto 0.2 X10*3/uL (0.0-0.4); Eosinophils Percent Auto 2.9 % (0-4); Hematocrit 38.5 % (42.0-52.0); Hemoglobin 13.3 g/dl (14.0-18.0); Imm Gran Abs Auto 0.04 X10*3/uL (0.00-0.03); Imm Gran Pct Auto 0.7 % (0.0-0.4); Immature Retic Fraction 7.2 % (2.3-13.4); Lymphocytes Absolute Auto 1.3 X10*3/uL (1.2-4.9); Lymphocytes Percent Auto 22.8 % (20-40); Mean Corpuscular HGB Conc 34.5 g/dl (31.0-36.0); Mean Corpuscular Hemoglobin 35.6 pg (27.0-33.0); Mean Corpuscular Volume 102.9 fL (80.0-98.0); Mean Platelet Volume 9.6 fL (9.4-12.4); Monocytes Absolute Auto 0.8 X10*3/uL (0.1-1.2); Monocytes Percent Auto 13.1 % (2-11); Neutrophils Absolute Auto 3.5 x10*3/uL (2.0-8.3); Neutrophils Percent Auto 59.8 % (45-73); Platelet Count 263 X10*3/uL (160-400); Red Blood Count 3.74 X10*6/uL (4.60-5.80); Retic HGB Equivalent 41.2 pg (30.0-35.0); Reticulocyte Percent 1.4 % (0.5-1.8); Reticulocytes Absolute 0.051 X10*6/uL (0.026-0.095); White Blood Count 5.9 X10*3/uL (4.8-10.8)
[2021-11-15 15:04] LABS: Folate 4.9 ng/mL (> or = 4.0); Vitamin B12 < 146 pg/mL (200-900)
== END 2021-11-15 12:49 | disposition home or self-care (01) ==
LOC: HO.HMGCLDS 12:48
PROVIDERS: PCP Nurse Practitioner Family; Visit Provider Nurse Practitioner Family
DX: I71.2 Thoracic aortic aneurysm, without rupture (principal); I25.10 Atherosclerotic heart disease of native coronary artery without angina pectoris; R06.00 Dyspnea, unspecified; D64.9 Anemia, unspecified; J44.9 Chronic obstructive pulmonary disease, unspecified; G47.33 Obstructive sleep apnea (adult) (pediatric); Z99.89 Dependence on other enabling machines and devices; Z98.890 Other specified postprocedural states
CPT/HCPCS: 36415; 82607; 82746; 85025; 85045

== ENCOUNTER 2021-12-07 12:17 | Day surgery (SDC) | payer OTHER, SELFPAY ==
--- NOTE | 2021-12-06 08:44 | P.CONAN_ITS ---
Documented by User: Dolores Ochoa NP 12/06/21 08:48 HPI - Anesthesia Eval Consult details Narrative: 65yo M for Upper Endoscopy and Colonoscopy Cardiac cleared (Cardiac cath 10/2021 with nml coronaries) [facility] Active Problems Active Problems: All Active Problems (Updated 12/01/21 @ 12:46 by Angy Malin, RN) HTN (hypertension) (Acute) Coronary atherosclerosis (Acute) Wheezing (Acute) Brittle asthma (Acute) FAUSTO on CPAP (Acute) Asthma (Acute) Hematuria (Acute) H/O radical prostatectomy (Acute) Physical exam (Acute) Screening PSA (prostate specific antigen) (Acute) COPD (chronic obstructive pulmonary disease) (Acute) Kidney malignant neoplasm (Acute) Elevated PSA (Acute) Thoracic aortic aneurysm (Acute) Displaced fracture of neck of left fourth metacarpal bone (Acute) Dislocation of metacarpophalangeal joint of left middle finger (Acute) Stiffness of finger joint of left hand (Acute) Dyspnea on exertion (Acute) Anemia (Acute) History of cardiac cath (Acute) B12 deficiency (Acute) Past Medical History Medical History (Updated 12/01/21 @ 12:46 by Angy Malin, RUTHANN) Ascending aortic aneurysm Coronary artery calcification Depression Foraminal stenosis of lumbar region Nodule on liver On beta hilary at home Prostate CA Renal mass SOB (shortness of breath) Family History Family History Father Leukemia Substance use disorder Mother Breast cancer CVD (cardiovascular disease) Takotsubo cardiomyopathy Brother Substance use disorder Sister No problems noted. Maternal Aunt No problems noted. Maternal Grandfather No problems noted. Maternal Grandmother No problems noted. Maternal Uncle No problems noted. Paternal Aunt No problems noted. Paternal Grandfather No problems noted. Paternal Grandmother No problems noted. Paternal Uncle No problems noted. Surgical History Surgical History (Updated 11/15/21 @ 14:11 by Cherry Sorenson NP-C) H/O colonoscopy History of knee surgery History of prostatectomy History of prostatectomy History of total knee replacement (TKR) History of total right knee replacement (TKR) Lipoma of back Social History Social History Housing: House Alcohol intake: current Alcohol intake frequency: 3 or more drinks per day Patient Tobacco Use Status: Former Tobacco user Years Smoked: 35 years ago e-Cigarette/Vaping Use: Never Used Second Hand Smoke Exposure: No Are you DNR?: No Advance Directives: No Advance Directives Information Provided: Yes service: No Current occupational status: retired Cognitive needs: No Hearing needs: No Vision needs: No Meds Allergies Allergy/AdvReac Type Severity Reaction Status Date / Time tetracycline [Tetracycline] Allergy Intermediate anaphylaxis Verified 12/01/21 12:44 bee venom protein (honey bee) Allergy Unknown swelling, Verified 12/01/21 12:44 hives Home Medications Medication Instructions Recorded Confirmed Last Taken Type leuprolide (3 month) 22.5 mg (3 22.5 mg subcut [id number] 07/06/21 12/01/21 Unknown History month) subcutaneous syringe (EliHashCubed) fluticasone 250 mcg-salmeterol 50 1 puff PO BID 12/07/21 12/07/21 11/30/21 H istory mcg/dose blistr powdr for inhalation (Advair Diskus) Exam Exam Date and Time: December 06, 2021 0844 Pertinent Lab Results Pertinent Lab Results: Laboratory Tests 10/21/21 11/15/21 11:09 12:58 WBC 5.9 Hgb 13.3 L Hct 38.5 L Plt Count 263 Sodium 136 Potassium 4.0 Chloride 102 Carbon Dioxide 24 BUN 12 Creatinine 0.92 Narrative Narrative: Ekg 09/2021 Sinus rhythm 64 beats per minute, normal axis, low-voltage, poor R-wave progression cannot rule out anteroseptal infarct, nonspecific T-wave changes, QTC interval is 416 milliseconds echocardiogram on 09/28/2021 showing EF 60-65%, mild AR, no reported regional wall motion abnormalities.? cardiac catheterization on 11/01/2021 showing normal coronary arteries. PFT 2019 CONCLUSION:? A very mild degree of small airway obstructive disorder is noted, which improves after bronchodilator therapy. ? This finding may be indicative of mild bronchial asthma. ? Clinical correlation recommended. Assessment and Plan Assessment Anesthesia Assessment: Chart Reviewed Documented by User: Mary Medina MD 12/07/21 13:29 [facility] Past Medical History Medical History (Updated 12/01/21 @ 12:46 by Angy Malin RN) Ascending aortic aneurysm Coronary artery calcification Depression Foraminal stenosis of lumbar region Nodule on liver On beta hilary at home Prostate CA Renal mass SOB (shortness of breath) Family History Family History Father Leukemia Substance use disorder Mother Breast cancer CVD (cardiovascular disease) Takotsubo cardiomyopathy Brother Substance use disorder Sister No problems noted. Maternal Aunt No problems noted. Maternal Grandfather No problems noted. Maternal Grandmother No problems noted. Maternal Uncle No problems noted. Paternal Aunt No problems noted. Paternal Grandfather No problems noted. Paternal Grandmother No problems noted. Paternal Uncle No problems noted. Family history of problems with anesthesia: No Surgical History Surgical History (Updated 11/15/21 @ 14:11 by Cheryr Sorenson, [employer]-C) H/O colonoscopy History of knee surgery History of prostatectomy History of prostatectomy History of total knee replacement (TKR) History of total right knee replacement (TKR) Lipoma of back History of Problems with Anesthesia: No Social History Social History Housing: House Alcohol intake: current Alcohol intake frequency: 3 or more drinks per day Patient Tobacco Use Status: Former Tobacco user Years Smoked: 35 years ago e-Cigarette/Vaping Use: Never Used Second Hand Smoke Exposure: No Are you DNR?: No Advance Directives: No Advance Directives Information Provided: Yes service: No Current occupational status: retired Cognitive needs: No Hearing needs: No Vision needs: No Meds Allergies Allergy/AdvReac Type Severity Reaction Status Date / Time tetracycline [Tetracycline] Allergy Intermediate anaphylaxis Verified 12/01/21 12:44 bee venom protein (honey bee) Allergy Unknown swelling, Verified 12/01/21 12:44 hives Home Medications Medication Instructions Recorded Confirmed Last Taken Type leuprolide (3 month) 22.5 mg (3 22.5 mg subcut [id number] 07/06/21 12/01/21 Unknown History month) subcutaneous syringe (Eligard) fluticasone 250 mcg-salmeterol 50 1 puff PO BID 12/07/21 12/07/21 11/30/21 History mcg/dose blistr powdr for inhalation (Advair Diskus) Exam Airway Mallampati Class: II ( MUltiple caps all over ) TM Dist: >3cm Neck ROM: Full Heart: rrr Lungs: cta Assessment and Plan Assessment Anesthesia Assessment: Anesthesia Plan Discussed and Chart Reviewed Final Anesthetic Review Family History of Problems with Anesthesia: No History of Problems with Anesthesia: No NPO: Yes ASA Class: III Final Preanesthetic Review: No Changes in Pt Med Stat, Meds/Allgs Chart Reviewed and Consent Obtained/Reviewed Patient Risk: Intermediate Procedure Risk: Intermediate Anesthetic Plan Anesthetic Plan: MAC: Disposition: Standard PACU
[2021-12-07 07:41] VITALS: BMI 27.6
[2021-12-07 12:22] VITALS: BP 158/90; PULSE 66; RESP 17; TEMP 36.9; O2SAT 98
[2021-12-07] MEDS: Lactated Ringers 1,000 ML 100 ML IVCONT (12:51)
--- NOTE | 2021-12-07 13:50 | MHC.SHP ---
Pre-Procedural Eval Section A Date of Service: 12/07/21 Section B Chief Complaint: reflux disease,screening Details of Present Illness: see H&P no changes Relevant Family History (Specify if Yes): No Relevant Social History: None Present Medications: see Short Stay Collaborative assessment Medical History: No relevant PMH History of Previous Operations: No relevant previous surgery Allergies: Allergies Allergy/AdvReac Type Severity Reaction Status Date / Time tetracycline [Tetracycline] Allergy Intermediate anaphylaxis Verified 12/01/21 12:44 bee venom protein (honey bee) Allergy Unknown swelling, Verified 12/01/21 12:44 hives Review of Systems Sugical H&P ROS: Negative: Constitution, Cardiovascular, Respiratory, Neurological, Psychiatric, Hem-Onc, Allergic/Immunologic, Gastrointestinal, Genitourinary, Musculoskeletal, Integumentary, Endocrine and Eyes/Ears/Nose/Throat Exam Surgical H&P Exam: Normal: HEENT, Normal: Heart, Normal: Lungs, Normal: Extremities, Normal: Abdomen, Normal: Skin and Normal: Neurological Plan Diagnosis/Plan: Unchanged I have reviewed the history and physical and performed a pertinent physical examination on my patient. No changes have occurred unless specified.
--- NOTE | 2021-12-07 14:30 | PM.OP ---
Brief Operative Note Date of Service: 12/07/21 Pre-op diagnosis: gerd screening Post-op diagnosis: same (duodenitis, colon polyps) Surgeon: Collins Salmeron Anesthesia: MAC Estimated blood loss (mL): 5 Pathology: other (see req) Condition: stable Disposition: PACU
[2021-12-07 14:33] VITALS: BP 109/71; PULSE 86; RESP 16; TEMP 36.1; O2SAT 100
[2021-12-07 14:48] VITALS: BP 136/85; PULSE 62; RESP 16; TEMP 36.1; O2SAT 100
--- NOTE | 2021-12-08 03:01 | OP_ITS ---
SURGEON: Collins Salmeron MD INDICATIONS: 1. Gastroesophageal reflux disease. 2. Colon cancer screening and prior history of adenomatous colon polyps. PREOPERATIVE DIAGNOSIS: POSTOPERATIVE DIAGNOSIS: PROCEDURE PERFORMED: Upper endoscopy with biopsy, colonoscopy to the terminal ileum with snare polypectomy. ESTIMATED BLOOD LOSS: COMPLICATIONS: ANESTHESIA: Monitored anesthesia care. ASSISTANTS: SPECIMENS: DESCRIPTION OF PROCEDURE: History and physical performed. The risks and benefits of the procedure were explained to the patient. Informed consent was obtained. The patient was placed in the left lateral decubitus position. The Olympus video gastroscope was introduced into the esophagus, stomach, and duodenum. Examination was performed. The scope was removed. He was repositioned for colonoscopy. A digital rectal exam was performed, and was found to be normal. The Olympus pediatric video colonoscope was introduced into the rectum and advanced to the cecum without difficulty. The cecum was identified by transillumination, palpation, and identification of the ileocecal valve. Examination was performed. The scope was removed. He tolerated both procedures well and was returned to the recovery area in stable condition. FINDINGS: Upper endoscopy: 1. Esophagus: There was a small hiatal hernia. Biopsies were obtained from the EG junction, which was slightly irregular. 2. Stomach: The stomach showed some focal inflammation in the body consistent with gastritis. Antral biopsies were obtained. 3. Duodenum: There was duodenitis involving the bulb and second portion. Biopsies were obtained from the duodenum. Colonoscopy: The terminal ileum was normal visualized colonic mucosa was normal. The quality of the prep was good. Two polyps were identified. At 80 cm was a 10 mm polyp, which was snared and recovered via suction. At 20 cm was an 8 mm polyp, which was also snared. There was mild sigmoid diverticulosis. The quality of the prep was good. Retroflexed examination showed moderate to large sized internal hemorrhoids. IMPRESSION: 1. Duodenitis. 2. Colon polyps. RECOMMENDATION: Follow up the biopsy results. MD GIGI Alva/CONCHA / [id number]
== END 2021-12-07 15:06 | disposition home or self-care (01) ==
PROVIDERS: PCP Nurse Practitioner Family; Visit Provider Internal Medicine Gastroenterology
PROC: (CPT 45385; principal; 2021-12-07 13:40)
DX: Z12.11 Encounter for screening for malignant neoplasm of colon (principal); Z86.010 Personal history of colon polyps; D12.4 Benign neoplasm of descending colon; K63.5 Polyp of colon; K57.30 Diverticulosis of large intestine without perforation or abscess without bleeding; K64.8 Other hemorrhoids; K21.9 Gastro-esophageal reflux disease without esophagitis; K29.80 Duodenitis without bleeding; K29.50 Unspecified chronic gastritis without bleeding; K44.9 Diaphragmatic hernia without obstruction or gangrene; G47.33 Obstructive sleep apnea (adult) (pediatric); I10 Essential (primary) hypertension; F32.A Depression, unspecified; E78.00 Pure hypercholesterolemia, unspecified; Z85.46 Personal history of malignant neoplasm of prostate; Z92.3 Personal history of irradiation; Z99.89 Dependence on other enabling machines and devices; Z79.899 Other long term (current) drug therapy; Z88.1 Allergy status to other antibiotic agents; Z96.653 Presence of artificial knee joint, bilateral
CPT/HCPCS: 45385; 43239; 88305; 88342

== ENCOUNTER 2022-01-03 13:10 | Outpatient (REF) | payer OTHER, SELFPAY ==
[2022-01-03 15:02] LABS: Folate 5.5 ng/mL (> or = 4.0); Vitamin B12 559 pg/mL (200-900)
[2022-01-07 20:11] LABS: Parietal Cell Antibody <=20.0 Unit (<=20.0)
[2022-01-08 23:17] LABS: Intrinsic Factor Antibodies Negative (Negative)
== END 2022-01-03 13:11 | disposition home or self-care (01) ==
LOC: HO.HMGCLDS 13:10
PROVIDERS: Visit Provider Nurse Practitioner Family
DX: E53.8 Deficiency of other specified B group vitamins (principal)
CPT/HCPCS: 36415; 82607; 82746; 83516; 86340

== ENCOUNTER 2022-03-16 11:05 | Outpatient (REF) | payer OTHER, SELFPAY ==
[2022-03-16 13:51] LABS: MANUAL DIFF FLAG NO
[2022-03-16 14:04] LABS: Basophils Percent Auto 0.3 % (0-2); Eosinophils Absolute Auto 0.2 X10*3/uL (0.0-0.4); Eosinophils Percent Auto 1.3 % (0-4); Hematocrit 37.6 % (42.0-52.0); Imm Gran Abs Auto 0.07 X10*3/uL (0.00-0.03); Imm Gran Pct Auto 0.6 % (0.0-0.4); Lymphocytes Absolute Auto 0.7 X10*3/uL (1.2-4.9); Lymphocytes Percent Auto 6.3 % (20-40); Mean Corpuscular HGB Conc 34.6 g/dl (31.0-36.0); Mean Corpuscular Hemoglobin 33.5 pg (27.0-33.0); Mean Corpuscular Volume 96.9 fL (80.0-98.0); Mean Platelet Volume 10.7 fL (9.4-12.4); Monocytes Absolute Auto 0.6 X10*3/uL (0.1-1.2); Monocytes Percent Auto 4.9 % (2-11); Neutrophils Percent Auto 86.6 % (45-73); Platelet Count 302 X10*3/uL (160-400); Red Blood Count 3.88 X10*6/uL (4.60-5.80); Red Cell Distribution Width 11.9 % (11.0-16.0); White Blood Count 11.5 X10*3/uL (4.8-10.8)
[2022-03-16 14:11] LABS: Alanine Aminotransferase 13 U/L (0-40); Albumin Level 4.2 g/dL (3.5-5.0); Alkaline Phosphatase 76 U/L (39-117); Anion Gap 15 (12-20); Aspartate Amino Transferase 14 U/L (5-37); Bilirubin Total 0.9 mg/dL (0.0-1.0); Blood Urea Nitrogen 13 mg/dL (9-16); Calcium 9.6 mg/dL (8.4-10.2); Carbon Dioxide 26 mmol/L (22-29); Chloride 103 mmol/L (96-108); Estimated Glomerular Filt Rate > 60; Glucose Fasting 104 mg/dL (60-99); Potassium 4.6 mmol/L (3.3-5.1); Sodium 139 mmol/L (135-145); Total Protein 6.3 g/dL (6.5-8.0)
[2022-03-16 14:50] LABS: Folate 3.8 ng/mL (> or = 4.0); Vitamin B12 475 pg/mL (200-900)
== END 2022-03-16 11:06 | disposition home or self-care (01) ==
LOC: HO.HMGCLDS 11:05
PROVIDERS: PCP Nurse Practitioner Family; Visit Provider Nurse Practitioner Family
DX: E53.8 Deficiency of other specified B group vitamins (principal)
CPT/HCPCS: 36415; 80053; 82607; 82746; 85025

== ENCOUNTER 2022-05-24 10:45 | Outpatient (REF) | payer OTHER, SELFPAY ==
[2022-05-24 13:58] LABS: MANUAL DIFF FLAG NO
[2022-05-24 14:03] LABS: Basophils Absolute Auto 0.1 X10*3/uL (0.0-0.2); Basophils Percent Auto 0.7 % (0-2); Eosinophils Absolute Auto 0.1 X10*3/uL (0.0-0.4); Eosinophils Percent Auto 1.7 % (0-4); Hematocrit 38.5 % (42.0-52.0); Hemoglobin 12.9 g/dl (14.0-18.0); Imm Gran Abs Auto 0.04 X10*3/uL (0.00-0.03); Imm Gran Pct Auto 0.5 % (0.0-0.4); Lymphocytes Absolute Auto 1.2 X10*3/uL (1.2-4.9); Lymphocytes Percent Auto 15.2 % (20-40); Mean Corpuscular HGB Conc 33.5 g/dl (31.0-36.0); Mean Corpuscular Hemoglobin 32.1 pg (27.0-33.0); Mean Corpuscular Volume 95.8 fL (80.0-98.0); Mean Platelet Volume 10.4 fL (9.4-12.4); Monocytes Absolute Auto 0.7 X10*3/uL (0.1-1.2); Monocytes Percent Auto 8.5 % (2-11); Neutrophils Absolute Auto 5.6 x10*3/uL (2.0-8.3); Neutrophils Percent Auto 73.4 % (45-73); Platelet Count 302 X10*3/uL (160-400); Red Blood Count 4.02 X10*6/uL (4.60-5.80); Red Cell Distribution Width 12.2 % (11.0-16.0); White Blood Count 7.6 X10*3/uL (4.8-10.8)
[2022-05-24 14:12] LABS: Appearance Urine Clear; Color Urine Yellow; Glucose Urine UA Negative (Negative); Leukocyte Esterase Urine Negative (Negative); Nitrite Urine Negative (Negative); PH 6.5 (5.0-9.0); Urine Blood Negative (Negative); Urine Ketones Negative (Negative); Urine Protein Negative (Neg-Trace)
[2022-05-24 15:08] LABS: Alanine Aminotransferase 13 U/L (0-40); Alkaline Phosphatase 84 U/L (39-117); Anion Gap 12 (12-20); Aspartate Amino Transferase 13 U/L (5-37); Bilirubin Total 0.7 mg/dL (0.0-1.0); Blood Urea Nitrogen 13 mg/dL (9-16); Calcium 9.6 mg/dL (8.4-10.2); Carbon Dioxide 28 mmol/L (22-29); Chloride 103 mmol/L (96-108); Cholesterol 157 mg/dL; Estimated Glomerular Filt Rate > 60; Glucose Fasting 101 mg/dL (60-99); HDL Cholesterol 60 mg/dL; LDL Cholesterol Calculated 80 mg/dl; Potassium 4.4 mmol/L (3.3-5.1); Sodium 139 mmol/L (135-145); TSH reflex Free T4 1.36 uIU/mL (0.32-4.0); Total Protein 6.2 g/dL (6.5-8.0); Triglycerides 86 mg/dL
== END 2022-05-24 10:46 | disposition home or self-care (01) ==
LOC: HO.HMGCLDS 10:45
PROVIDERS: PCP Nurse Practitioner Family; Visit Provider Nurse Practitioner Family
DX: I10 Essential (primary) hypertension (principal)
CPT/HCPCS: 36415; 80053; 80061; 81003; 84443; 85025

== ENCOUNTER 2022-09-07 13:39 | Outpatient (REF) | payer OTHER, SELFPAY ==
--- NOTE | ~2022-09-07 | MR_ITS ---
EXAMINATION: MRI ABDOMEN WITH AND WITHOUT CONTRAST CLINICAL INFORMATION: LT COMPLEX RENAL MASS COMPARISON: Multiple prior studies including the T1 CT scan and the 08/31/2021 MRI and the 10/17/2018 MRI TECHNIQUE: Multiple routine MRI sequences through the abdomen were obtained on a high-field 1.5Tesla MRI. Pre-and postcontrast images with 10 mL of Gadavist intravenous contrast were obtained. This included a dynamic contrast-enhanced technique. FINDINGS: Lung bases: The visualized lung bases are unremarkable. Liver: The liver is normal in size, shape, and signal. No suspicious focal hepatic lesions seen. Specifically no suspicious arterial phase enhancing lesions or suspicious washout of contrast on later phases. No biliary ductal dilatation. Gallbladder: Gallbladder is unremarkable. No suspicious gallstones or filling defects. No gallbladder wall thickening or pericholecystic inflammatory changes. Pancreas: Pancreas is atrophic but otherwise homogeneous in signal. No pancreatic ductal dilatation or obstruction. No peripancreatic inflammatory changes or fluid. Spleen: Unremarkable Adrenals: Unremarkable Kidneys: Right: The right kidney measures 10.1 cm in length. No hydronephrosis or perinephric stranding. No suspicious lesion in the right renal cortex. Left: The left kidney measures 10.8 cm in length. In the lateral posterior lower pole there is a T2 dark T1 bright 1.5 cm nonenhancing hemorrhagic cyst. This has been present on prior studies as well. In the anterior mid to lower pole there is a T2 bright cyst measuring 4.0 x 3.9 x 4.4 cm in size. There is now a solid 1.5 cm nodular component along the anteromedial superior aspect of this cyst. This nodule demonstrates enhancement. Interestingly, this nodule was not present in the cyst on the 2019 MRI but retrospect is present on the more recent 08/31/2021 outside MRI Other: No bulky adenopathy. Incidental circumaortic left renal vein with a dominant retroaortic retroaortic left renal vein component. MR/MR abdomen wo/w con IMPRESSION: 1. There is a 4.4 cm complex cyst with a new solid 1.5 cm enhancing nodular component along the anteromedial superior aspect of the cyst in the mid to lower pole of the left kidney. This nodule was not present on the 2019 MRI but retrospect is present on the more recent 08/31/2021 outside MRI. This is concerning for a small renal cell carcinoma until proven otherwise. This would represent Bosniak 4 criteria with this new nodular enhancing solid component 2. There is a small hemorrhagic cyst in the posterior lateral lower pole of the left kidney.
== END 2022-09-07 13:40 | disposition home or self-care (01) ==
LOC: HO.MRI 13:39
PROVIDERS: PCP Nurse Practitioner Family; Visit Provider Urology
DX: N28.1 Cyst of kidney, acquired (principal); N28.89 Other specified disorders of kidney and ureter
CPT/HCPCS: 74183; A9585

== ENCOUNTER → 2022-09-11 09:55 | Outpatient (REF) | payer OTHER, SELFPAY ==
--- NOTE | 2022-09-11 09:58 | CA_ITS ---
Transthoracic Echocardiogram Patient (Last, First, Middle): Anthony Granados M Gender: Male Date of : 1955 Age: 66 Procedure Date: 09/11/2022 Procedure Type: Transthoracic Echocardiogram Location: OP Height: 182.88 cm Weight: 106.6 kg BSA: 2.28 m2 Heart Rate: 57 bpm BP: 130 / 86 mmHg Supply Coordinator: TIP Referring MD: Cherry Sorenson ONCOLOGY REP SPECIALIST-C Symptoms: I71.2 - Thoracic aortic aneurysm, without rupture Study Quality: Adequate ECG Rhythm: Bradycardia Conclusions: - The left ventricular systolic function is normal. The calculated ejection fraction is 60% by biplane method. - No obvious valvular pathology seen on this study. - There is mild dilatation of the ascending aorta measuring 4.40 cm and mild dilatation of the aortic arch measuring 3.90 cm. Findings Procedure Information Contrast agent, definity, is being given per protocol without apparent complications. Left Ventricle Mildly increased left ventricular cavity size. There is mildly increased left ventricular wall thickness. The left ventricular systolic function is normal. The calculated ejection fraction is 60% by biplane method. There is no evidence of regional wall motion abnormalities. Diastolic function is normal for age. Right Ventricle Normal right ventricular cavity size and systolic function. Atria The left atrium is moderately dilated. The right atrium is normal in size. Aortic Valve There is a normal trileaflet aortic valve. There is no aortic valve stenosis. There is trace (trivial) aortic valve regurgitation. Mitral Valve The mitral valve appears normal. There is trace mitral valve regurgitation. There is no mitral valve stenosis. Pulmonic Valve The pulmonic valve is likely normal. Tricuspid Valve There is trace tricuspid valve regurgitation. There is no evidence of pulmonary hypertension. Great Vessels There is mild dilatation of the ascending aorta measuring 4.40 cm and mild dilatation of the aortic arch measuring 3.90 cm. Small plaque is seen in the sino tubular ridge. Venous The inferior vena cava is normal in size and collapses greater than 50% with inspiration. Pericardium/Pleural There is no evidence of pericardial effusion. Prior Study Comparison Changes noted compared to prior study dated: 09/28/2021. Slight increase in ascending aortic size, but could also be technical. Recommendations, Care & Conclusions No obvious valvular pathology seen on this study. Measurements 2D Linear Measurements IVSd: 1.28 0.6-0.9/0.6-1.0 cm LVIDd: 5.83 3.9-5.3/4.2-5.9 cm LVIDd Index: 2.56 2.4-3.2/2.2-3.1 cm/m2 LVIDs: 3.98 2.0-3.6 cm LVPWd: 1.01 0.7-1.1 cm LA Diam: 4.80 2.7-3.8/3.0-4.0 cm LAIDs Index: 2.11 1.5-2.3 cm/m2 LV Mass: 350.72 67-162/88-224 g LV Mass Index: 153.83 43-95/49-115 g/m2 LVOT Diam: 2.50 3.0+(-)1.3 cm 2D Systolic Function EF 4C: 59.20 >55% EF 2C: 64.50 >55% EF BiP: 60.30 >55% Mitral Valve MV Pk E: 0.75 MV PK A: 0.73 MV Decel Time: 218.00 E/A: 1.00 E'Lateral: 10.10 E'Medial: 7.40 E/E' Med: 10.10 E/E' Lat: 7.40 PHT: 64.00 MVA PHT: 3.44 Decel [place]: 3.44 Aortic Valve AoV Pk Braden: 1.03 AoV Mn Braden: 0.69 AoV VTI: 0.23 AoV Pk Grad: 4.00 Aov Mn Grad: 2.00 MURTAZA Cont.VTI: 4.48 LVOT LVOT Pk Braden: 0.80 LVOT Mn Braden: 0.56 LVOT VTI: 0.21 LVOT Pk Grad: 3.00 LVOT Mn Grad: 1.00 LVOT Diam: 2.50 LVOT Area: 4.91 Diastolic Function MV Pk E: 0.75 MV Pk A: 0.73 E/A: 1.00 E'Medial: 7.40 E/E' Med: 10.10 E' Laterial: 10.10 E/E' Lat: 7.40 Right Ventricle TAPSE (mm): 18.40 TVS' Braden: 10.70 Tricuspid Valve TR Pk Braden: 2.10 TR Pk Grad: 18.00 RA Press: 3.00 RVSP: 21.00 Great Vessels Aorta Sinus of Valsalva: 4.17 2.0-3.[address] Ridge: 3.59 1.7-3.4 cm Ao Asc: 4.40 2.1-3.4 cm Ao Arch: 3.90 Updated in Other Vendor System with Status of Final Rylan Lucero MD electronically signed on 09/11/2022 12:34:01 PM with status of Final
== END ==
LOC: HO.CARD 09:55
PROVIDERS: PCP Nurse Practitioner Family; Visit Provider Nurse Practitioner Family
DX: I71.20 Thoracic aortic aneurysm, without rupture, unspecified (principal)
CPT/HCPCS: 93306; Q9957

== ENCOUNTER 2022-10-23 10:06 | Outpatient (REF) | payer OTHER, SELFPAY ==
[2022-10-23 11:20] LABS: MANUAL DIFF FLAG NO
[2022-10-23 11:27] LABS: Appearance Urine Clear; Color Urine Yellow; Glucose Urine UA Negative (Negative); Leukocyte Esterase Urine Negative (Negative); Nitrite Urine Negative (Negative); PH 7.5 (5.0-9.0); Specific Gravity - Urine 1.015 (1.005-1.025); Urine Blood Negative (Negative); Urine Ketones Negative (Negative); Urine Protein Negative (Neg-Trace)
[2022-10-23 11:37] LABS: Basophils Percent Auto 0.7 % (0-2); Eosinophils Absolute Auto 0.2 X10*3/uL (0.0-0.4); Eosinophils Percent Auto 2.8 % (0-4); Hematocrit 40.1 % (42.0-52.0); Hemoglobin 13.8 g/dl (14.0-18.0); INTERNATIONAL NORM RATIO 0.9 (0.9-1.1); Imm Gran Abs Auto 0.03 X10*3/uL (0.00-0.03); Imm Gran Pct Auto 0.5 % (0.0-0.4); Lymphocytes Absolute Auto 1.2 X10*3/uL (1.2-4.9); Lymphocytes Percent Auto 20.4 % (20-40); Mean Corpuscular HGB Conc 34.4 g/dl (31.0-36.0); Mean Corpuscular Hemoglobin 32.5 pg (27.0-33.0); Mean Corpuscular Volume 94.4 fL (80.0-98.0); Mean Platelet Volume 9.9 fL (9.4-12.4); Monocytes Absolute Auto 0.6 X10*3/uL (0.1-1.2); Monocytes Percent Auto 9.1 % (2-11); Neutrophils Percent Auto 66.5 % (45-73); Platelet Count 271 X10*3/uL (160-400); Prothrombin Time 9.9 SEC (10.0-13.1); Red Blood Count 4.25 X10*6/uL (4.60-5.80); Red Cell Distribution Width 12.1 % (11.0-16.0)
[2022-10-23 11:40] LABS: Partial Thromboplastin Time 33.3 SEC (26.0-36.4)
[2022-10-23 12:12] LABS: Alanine Aminotransferase 14 U/L (0-40); Alkaline Phosphatase 93 U/L (39-117); Anion Gap 10 (12-20); Aspartate Amino Transferase 15 U/L (5-37); Bilirubin Total 0.9 mg/dL (0.0-1.0); Blood Urea Nitrogen 11 mg/dL (9-16); Calcium 9.6 mg/dL (8.4-10.2); Carbon Dioxide 31 mmol/L (22-29); Chloride 101 mmol/L (96-108); Cholesterol 164 mg/dL; Estimated Glomerular Filt Rate > 60; Glucose Fasting 107 mg/dL (60-99); HDL Cholesterol 58 mg/dL; LDL Cholesterol Calculated 76 mg/dl; Potassium 4.9 mmol/L (3.3-5.1); Sodium 137 mmol/L (135-145); Total Protein 6.1 g/dL (6.5-8.0); Triglycerides 154 mg/dL
[2022-10-23 12:17] LABS: TSH reflex Free T4 1.69 uIU/mL (0.32-4.0)
== END 2022-10-23 10:07 | disposition home or self-care (01) ==
LOC: HO.HMGCLDS 10:06
PROVIDERS: PCP Nurse Practitioner Family; Visit Provider Nurse Practitioner Family
DX: Z01.818 Encounter for other preprocedural examination (principal); I10 Essential (primary) hypertension; Z91.89 Other specified personal risk factors, not elsewhere classified
CPT/HCPCS: 36415; 80053; 80061; 81003; 84443; 85025; 85610; 85730

== ENCOUNTER → 2022-11-01 14:27 | Outpatient (BNVA) | payer OTHER, SELFPAY | PROVIDERS: PCP Nurse Practitioner Family; Visit Provider Internal Medicine Cardiovascular Disease ==

== ENCOUNTER 2022-11-29 14:04 | Emergency (ER) | payer OTHER, SELFPAY ==
--- NOTE | ~2022-11-29 | CT_ITS ---
EXAMINATION: CT ABDOMEN AND PELVIS WITH CONTRAST CLINICAL INFORMATION: nausea, vomiting, recent partial nephrectomy COMPARISON: MR abdomen 09/07/2022, CT abdomen pelvis 06/01/2022 TECHNIQUE: Multidetector volumetric images were obtained from the superior aspect of the liver through the pubic symphysis following administration 85 mL of Omnipaque 350 intravenous contrast. Sagittal and coronal reformatted images were obtained on the technologist's workstation. Oral contrast: No This CT examination was performed using dose optimization techniques as appropriate, variously including the following: *Automated exposure control *Adjustment of mA and/or kV according to patient size (this includes techniques or standardized protocols for targeted exams where dose is matched to indication/reason for exam; i.e. extremities or head) *Use of iterative reconstruction technique DLP: 721 mGy-cm FINDINGS: LUNG BASES: The visualized lung bases are unremarkable. Left basilar atelectasis is present LIVER, GALLBLADDER, AND BILIARY TREE: The liver is normal in size, shape, and attenuation. No focal hepatic lesion or biliary ductal dilatation is present. The gallbladder is unremarkable with no evidence of radiopaque gallstones, gallbladder wall thickening, or obvious pericholecystic inflammatory changes. PANCREAS: Unremarkable. SPLEEN: Unremarkable. ADRENAL GLANDS: Unremarkable. KIDNEYS AND URETERS: The kidneys are normal in size, shape, and attenuation. There is a residual water density cyst present in the left kidney near the lower pole on its ventral surface. The previously seen soft tissue nodular component is no longer present. Again seen is a 0.5 cm slightly high density cyst at the lower pole the left kidney posteriorly (3:50). A millimeters sized cortical hypodensities are seen. The kidneys are otherwise normal without worrisome masses. No hydronephrosis, hydroureter, or calculi seen. No perinephric stranding. BLADDER: Unremarkable. GASTROINTESTINAL TRACT: A small hiatal hernia is present The small and large bowel are unremarkable aside from some scattered diverticula without diverticulitis. The appendix is not seen but there is no evidence of appendicitis appendicitis. ABDOMINAL WALL: No significant hernia is appreciated. LYMPH NODES: No retroperitoneal lymphadenopathy VASCULAR: Unremarkable. PELVIC VISCERA: Patient appears to be status post prostatectomy with no prostatic tissue or seminal vesicles visible. OSSEOUS STRUCTURES: Degenerative changes present in the spine most marked at L3-(L5-S1. CT/CT abdomen pelvis w IV con IMPRESSION: 1. A cause for the patient's nausea and vomiting has not been found. 2. Incidental findings as described above. Fleischner guidelines were followed.
--- NOTE | 2022-11-29 14:14 | ECG_ITS ---
Test Reason : BRADYCARDIA Blood Pressure : / mmHG Vent. Rate : 050 BPM Atrial Rate : 050 BPM P-R Int : 142 ms QRS Dur : 086 ms QT Int : 496 ms P-R-T Axes : 023 -18 -11 degrees QTc Int : [address] & T wave abnormality, consider anterior ischemia Abnormal ECG When compared with ECG of 23-JUN-2014 13:16, T wave inversion now evident in Anterior leads Referred By: Celena Shepard Electronically Signed By:KALANI IBARRA
--- NOTE | 2022-11-29 14:19 | ED_ITS ---
HPI - General Adult General Chief complaint: General Medical Stated complaint: NAUSEA VOMITING X3DAYS Time Seen by Provider: 11/29/22 14:12 Source: patient, EMS and RN notes reviewed Mode of arrival: EMS Limitations: no limitations History of Present Illness HPI narrative: Patient is a 66-year-old male with history of recent malignant neoplasm removal and left partial nephrectomy at [facility] 2 weeks ago, HTN, coronary atherosclerosis, brittle asthma, COPD, FAUSTO on CPAP, radical prostatectomy, and thoracic aortic aneurism presenting to the emergency department with three days of nausea, vomiting and diarrhea. Also endorses some shortness of breath. He denies any abdominal pain. Denies any back or flank pain. Denies any bloody or coffee ground emesis. Denies any bloody or dark, tarry stool. Denies fevers or cough. Denies neck pain. Denies dysuria, hematuria, or other urinary symptoms. Has not tried to eat or drink anything today. states that he was discharged home with oxycodone, Tylenol, and a stool softener but has not taken any of them. She states he was able to eat dinner last night. They called his surgeon today who felt symptoms were unrelated to his surgery. MD complaint: nausea, vomiting, diarrhea Onset (ago): day(s) Location: abdomen Associated symptoms: nausea/vomiting and shortness of breath Treatments prior to arrival: none Related Data Home Medications Medication Instructions Recorded Confirmed omeprazole 20 mg capsule,delayed 20 mg PO DAILY 03/02/22 11/01/22 release calcium carbonate 500 mg calcium 500 mg PO DAILY 10/19/22 11/01/22 (1,250 mg) chewable tablet (Calcium 500) pantoprazole 20 mg tablet,delayed 20 mg PO DAILY 10/19/22 11/01/22 release Previous Rx's Medication Instructions Recorded albuterol sulfate 90 mcg/actuation 1 puff inhalation QID PRN 03/31/20 aerosol inhaler shortness of breath or wheezing 30 days #8.5 grams epinephrine 0.3 mg/0.3 mL 0.3 mg (0.3 mL) IM Q10M PRN 02/02/21 injection, auto-injector (EpiPen anaphylaxis 30 days #2 ea 2-Reji) atorvastatin 20 mg tablet 20 mg PO DAILY #90 tabs 10/31/21 cholecalciferol (vitamin D3) 50 50 mcg PO DAILY #90 tabs 01/23/22 mcg (2,000 unit) tablet (Vitamin D3) paroxetine HCl 30 mg tablet 30 mg PO QAM 90 days #90 tabs 01/23/22 cyanocobalamin (vitamin B-12) 1,000 mcg sublingual DAILY 90 days 07/31/22 1,000 mcg sublingual tablet #90 tabs fluticasone 250 mcg-salmeterol 50 1 ea PO BID #180 ea 08/02/22 mcg/dose blistr powdr for inhalation (Advair Diskus) losartan 100 mg tablet 100 mg PO DAILY 90 days #90 tabs 10/02/22 metoprolol tartrate 25 mg tablet 25 mg PO BID #180 tabs 11/24/22 prochlorperazine maleate 10 mg 10 mg PO Q8H PRN nausea and 11/29/22 tablet (Compazine) vomiting #7 tabs Allergies Allergy/AdvReac Type Severity Reaction Status Date / Time tetracycline [Tetracycline] Allergy Intermediate anaphylaxis Verified 11/01/22 14:31 bee venom protein (honey bee) Allergy Unknown swelling, Verified 11/01/22 14:31 hives Review of Systems Review of Systems: As per HPI. [facility] Past Medical History Medical History (Updated 11/29/22 @ 19:26 by SHIRIN Burkett) Ascending aortic aneurysm Asthma COPD (chronic obstructive pulmonary disease) Coronary artery calcification Coronary atherosclerosis Depression Foraminal stenosis of lumbar region HTN (hypertension) Nodule on liver On beta hilary at home FAUSTO on CPAP Osteopenia Prostate CA Renal mass SOB (shortness of breath) Thoracic aortic aneurysm Surgical History (Updated 11/21/22 @ 07:38 by Pablo Rivero [facility]) H/O colonoscopy History of cardiac cath History of knee surgery History of partial nephrectomy History of prostatectomy History of prostatectomy History of total knee replacement (TKR) History of total right knee replacement (TKR) Lipoma of back Family History Family History Father Leukemia Substance use disorder Mother Breast cancer CVD (cardiovascular disease) Takotsubo cardiomyopathy Brother Substance use disorder Sister No problems noted. Maternal Aunt No problems noted. Maternal Grandfather No problems noted. Maternal Grandmother No problems noted. Maternal Uncle No problems noted. Paternal Aunt No problems noted. Paternal Grandfather No problems noted. Paternal Grandmother No problems noted. Paternal Uncle No problems noted. Social History Social History Housing: House Alcohol intake: current Alcohol intake frequency: 3 or more drinks per day Patient Tobacco Use Status: Former Tobacco user Years Smoked: 35 years ago e-Cigarette/Vaping Use: Never Used Second Hand Smoke Exposure: No Advance Directives: No Advance Directives Information Provided: Yes service: No Current occupational status: retired Cognitive needs: No Hearing needs: No Vision needs: No Physical Exam ED Vital Signs: Vital Signs - 24 hr 11/29/22 14:20 11/29/22 14:31 11/29/22 16:49 Temperature 96.8 F Pulse Rate 53 61 Respiratory Rate 22 H 20 Blood Pressure 141/73 H 167/93 H 138/93 H Pulse Oximetry 99 100 Oxygen Delivery Method Room Air Room Air 11/29/22 19:29 11/29/22 19:31 Temperature Pulse Rate 91 76 Respiratory Rate 16 18 Blood Pressure 124/84 150/93 H Pulse Oximetry 98 Oxygen Delivery Method BMI result Body Mass Index 33.5 Vital signs have been reviewed and appear to be correct. Blood pressure mildly elevated. Heart rate bradycaridc. Respiratory rate slightly elevated. Temperature normal. Oxygen saturation normal. Const General: alert, awake and ill appearing acutely Nutritional Appearance: overweight Orientation/consciousness: patient oriented x3 Limitations: no limitations HENMT Head: Yes normocephalic and Yes atraumatic Ears: external ears normal General nose exam: Normal external nose present Mouth: Normal oral and palatal mucosa present and oropharynx normal Throat: Yes posterior oropharynx normal and Yes uvula midline Eyes Pupils: Equal, round and reactive pupils present EOM: EOMs intact bilaterally Neck Neck: Yes normal visual inspection, Yes no meningeal signs and Yes supple Chest Chest palpation & inspection: normal inspection of the chest and normal palpation of entire chest wall Resp Effort & Inspection: normal respiratory effort Auscultation: clear to auscultation bilaterally Cardio Rate: bradycardic Rhythm: regular rhythm Heart sounds: S1 normal heart sound present and S2 normal heart sound present Peripheral pulses: Peripheral pulses 2+ throughout GI Inspection: Yes obesity and Yes scar Palpation (GI): Soft to palpation and nontender Auscultation: normoactive bowel sounds Abdomen image: 1. Surgical incision, CDI 2. Surgical incision, mild surrounding erythema no drainage 3. Surgical incision, mild surrounding erythema no drainage 4. Surgical incision, CDI 5. Wound from drain, CDI 6. Healing ecchymosis General: Yes no CVA tenderness (no tenderness on right, not assessed on left r/t recent surgery) Back/Spine/Pelvis Back: no CVA tenderness (no tenderness on right, not assessed on left r/t recent surgery) Skin General skin exam: no rashes or lesions noted and pallor Neuro General: patient oriented x3, tone normal, moves all extremities, no meningeal signs and CN's II-XI intact bilaterally Cranial nerves: Yes Equal, round and reactive pupils present Cognition (Neuro): normal cognition Extrem General: Yes normal to inspection, Yes full ROM and Yes capillary refill normal Psych Appearance: grossly normal Mental Status: mental status grossly normal Speech and movement: Normal speech and movement present Affect: normal affect Thought process: Normal thought process present Course Course Course Narrative: 15:45 No leukocytosis, mildly elevated bilirubin likely related to vomiting, troponin negative, lactic WNL. Awaiting results of CT and UA. 16:16 Patient signed out to SHIRIN Cagle pending UA and CT results. Reevaluation(s) Reevaluation #1: Patient was so significantly nauseated after her 1 L fluids and Zofran. He was given a 2 L fluids and a dose of Compazine. He is starting to feel better. He is able to tolerate a sip of ice water. He was given gil inga and a cracker for p.o. trial. Will re-evaluate. Time: 19:25 Reevaluation #2: Patient tolerating p.o.. He is feeling better. Most likely suffering from gastroenteritis. He will be sent home with antiemetics and supportive care. He was given return precautions and he is comfortable discharge home. Stable for DC Time: 20:37 Medications Administered Discontinued Medications Generic Name Dose Route Start Last Admin Trade Name Freq PRN Reason Stop Dose Admin Sodium Chloride 1,000 mls @ 999 mls/hr 11/29/22 14:45 11/29/22 17:34 Ns IV 11/29/22 15:45 Infused .Q1H1M PABLO Infusion Lactated Ringer's 1,000 mls @ 999 mls/hr 11/29/22 17:00 11/29/22 19:30 Lr IV 11/29/22 18:00 Infused .Q1H1M PABLO Infusion Iohexol 85 ml 11/29/22 15:35 11/29/22 15:35 Iohexol 350 Mg/Ml 100 Ml Infus..Btl IV 11/29/22 15:36 85 ml ONCE ONE Administration Ondansetron HCl 4 mg 11/29/22 14:30 11/29/22 14:44 Ondansetron Hcl 4 Mg/2 Ml Vial IVPUSH 11/29/22 14:31 4 mg ONCE ONE Administration Prochlorperazine Edisylate 10 mg 11/29/22 16:49 11/29/22 17:32 Prochlorperazine Edisylate 10 Mg/2 Ml Vial IVPUSH 11/29/22 16:50 10 mg ONCE ONE Administration Medical Decision Making Medical Decision Making [facility] Narrative: Patient is a 66-year-old male with history of recent malignant neoplasm removal and left partial nephrectomy at [facility] 2 weeks ago, HTN, coronary atherosclerosis, brittle asthma, COPD, FAUSTO on CPAP, radical prostatectomy, and thoracic aortic aneurism presenting to the emergency department with three days of nausea, vomiting and diarrhea. On exam patient is ill-appearing, awake, A+Ox3, pallor, actively dry heaving on arrival, LS CTA throughout, abdomen soft, nontender to palpation, surgical incisions present on left and above umbilicus, superior scars on left with mild surrounding erythema, no drainage, small area of healing ecchymosis superior to incision sites, no right CVA tenderness, did not assess left CVA tenderness r/t recent surgery. Concern for ACS, post- operative infection/abscess, bowel obstruction, gastroenteritis, electrolyte abnormality. Unlikely cholecystitis, appendicitis, pancreatitis, ruptured AAA, perforated viscous as patient denies any abdominal pain and has been symptomatic for 3 days. Do not suspect severe sepsis but will continue to reassess. Plan: EKG, labs including troponin, blood cultures, lactic, CT abdomen/pelvis, UA, records requested from Please refer to course for remaining clinical decision making. Differential Diagnosis Differential Diagnoses: The differential diagnosis associated with the presentation includes As above Lab Data [facility] Lab Attestation statement: I reviewed the patient's lab results. 11/29/22 14:40 11/29/22 14:40 Labs: Lab Results 11/29/22 11/29/2211/29/23 Range/Units 14:40 14:40 14:40 WBC 10.7 (4.8-10.8) X10*3/uL RBC 4.20 L (4.60-5.80) X10*6/uL Hgb 13.5 L (14.0-18.0) g/dl Hct 38.8 L (42.0-52.0) % MCV 92.4 (80.0-98.0) fL MCH 32.1 (27.0-33.0) pg MCHC 34.8 (31.0-36.0) g/dl RDW 11.7 (11.0-16.0) % Plt Count 423 H D (160-400) X10*3/uL MPV 9.5 (9.4-12.4) fL Immature Gran % (Auto) 0.5 H (0.0-0.4) % Neut % (Auto) 82.7 H (45-73) % Lymph % (Auto) 8.8 L (20-40) % [place] % (Auto) 5.2 (2-11) % Eos % (Auto) 2.0 (0-4) % Baso % (Auto) 0.8 (0-2) % Lymph # (Auto) 0.9 L (1.2-4.9) X10*3/uL [place] # (Auto) 0.6 (0.1-1.2) X10*3/uL Eos # (Auto) 0.2 (0.0-0.4) X10*3/uL Baso # (Auto) 0.1 (0.0-0.2) X10*3/uL Abs Immat Gran (auto) 0.05 H (0.00-0.03) X10*3/uL Absolute Neuts (auto) 8.8 H (2.0-8.3) x10*3/uL Absolute Nucleated RBC 0.000 (0.0-0.012) X10*3/uL Nucleated RBC % (auto) 0.0 (0.0-0.2) /100WBC PT 11.7 (10.0-13.1) SEC INR 1.0 (0.9-1.1) Sodium 138 (135-145) mmol/L Potassium 4.3 (3.3-5.1) mmol/L Chloride 106 (96-108) mmol/L Carbon Dioxide 23 (22-29) mmol/L Anion Gap 13 (12-20) BUN 10 (9-16) mg/dL Creatinine 0.94 (0.5-1.4) mg/dL Estim Creat Clear Calc 92.9 Estimated GFR > 60 POC Glucose (60-115) mg/dL Random Glucose 123 H (60-115) mg/dL Lactic Acid (0.5-2.0) mmol/L Calcium 9.9 (8.4-10.2) mg/dL Total Bilirubin 1.1 H (0.0-1.0) mg/dL AST 12 (5-37) U/L ALT 11 (0-40) U/L Alkaline Phosphatase 76 (39-117) U/L Troponin I High Sens (<3.5-35.0) ng/L Total Protein 6.8 (6.5-8.0) g/dL Albumin 4.1 (3.5-5.0) g/dL Lipase 21 (8-78) U/L Urine Color Urine Appearance Urine pH (5.0-9.0) Ur Specific [place] (1.005-1.025) Urine Protein (Neg-Trace) mg/dL Urine Glucose (UA) (Negative) mg/dL Urine Ketones (Negative) mg/dL Urine Blood (Negative) Urine Nitrite (Negative) Ur Leukocyte Esterase (Negative) 11/29/22 11/29/22 11/29/22 Range/Units 14:40 14:40 14:49 WBC (4.8-10.8) X10*3/uL RBC (4.60-5.80) X10*6/uL Hgb (14.0-18.0) g/dl Hct (42.0-52.0) % MCV (80.0-98.0) fL MCH (27.0-33.0) pg MCHC (31.0-36.0) g/dl RDW (11.0-16.0) % Plt Count (160-400) X10*3/uL MPV (9.4-12.4) fL Immature Gran % (Auto) (0.0-0.4) % Neut % (Auto) (45-73) % Lymph % (Auto) (20-40) % [place] % (Auto) (2-11) % Eos % (Auto) (0-4) % Baso % (Auto) (0-2) % Lymph # (Auto) (1.2-4.9) X10*3/uL [place] # (Auto) (0.1-1.2) X10*3/uL Eos # (Auto) (0.0-0.4) X10*3/uL Baso # (Auto) (0.0-0.2) X10*3/uL Abs Immat Gran (auto) (0.00-0.03) X10*3/uL Absolute Neuts (auto) (2.0-8.3) x10*3/uL Absolute Nucleated RBC (0.0-0.012) X10*3/uL Nucleated RBC % (auto) (0.0-0.2) /100WBC PT (10.0-13.1) SEC INR (0.9-1.1) Sodium (135-145) mmol/L Potassium (3.3-5.1) mmol/L Chloride (96-108) mmol/L Carbon Dioxide (22-29) mmol/L Anion Gap (12-20) BUN (9-16) mg/dL Creatinine (0.5-1.4) mg/dL Estim Creat Clear Calc Estimated GFR POC Glucose 100 (60-115) mg/dL Random Glucose (60-115) mg/dL Lactic Acid 1.7 (0.5-2.0) mmol/L Calcium (8.4-10.2) mg/dL Total Bilirubin (0.0-1.0) mg/dL AST (5-37) U/L ALT (0-40) U/L Alkaline Phosphatase (39-117) U/L Troponin I High Sens < 2.7 (<3.5-35.0) ng/L Total Protein (6.5-8.0) g/dL Albumin (3.5-5.0) g/dL Lipase (8-78) U/L Urine Color Urine Appearance Urine pH (5.0-9.0) Ur Specific [place] (1.005-1.025) Urine Protein (Neg-Trace) mg/dL Urine Glucose (UA) (Negative) mg/dL Urine Ketones (Negative) mg/dL Urine Blood (Negative) Urine Nitrite (Negative) Ur Leukocyte Esterase (Negative) 11/29/22 Range/Units 19:31 WBC (4.8-10.8) X10*3/uL RBC (4.60-5.80) X10*6/uL Hgb (14.0-18.0) g/dl Hct (42.0-52.0) % MCV (80.0-98.0) fL MCH (27.0-33.0) pg MCHC (31.0-36.0) g/dl RDW (11.0-16.0) % Plt Count (160-400) X10*3/uL MPV (9.4-12.4) fL Immature Gran % (Auto) (0.0-0.4) % Neut % (Auto) (45-73) % Lymph % (Auto) (20-40) % [place] % (Auto) (2-11) % Eos % (Auto) (0-4) % Baso % (Auto) (0-2) % Lymph # (Auto) (1.2-4.9) X10*3/uL [place] # (Auto) (0.1-1.2) X10*3/uL Eos # (Auto) (0.0-0.4) X10*3/uL Baso # (Auto) (0.0-0.2) X10*3/uL Abs Immat Gran (auto) (0.00-0.03) X10*3/uL Absolute Neuts (auto) (2.0-8.3) x10*3/uL Absolute Nucleated RBC (0.0-0.012) X10*3/uL Nucleated RBC % (auto) (0.0-0.2) /100WBC PT (10.0-13.1) SEC INR (0.9-1.1) Sodium (135-145) mmol/L Potassium (3.3-5.1) mmol/L Chloride (96-108) mmol/L Carbon Dioxide (22-29) mmol/L Anion Gap (12-20) BUN (9-16) mg/dL Creatinine (0.5-1.4) mg/dL Estim Creat Clear Calc Estimated GFR POC Glucose (60-115) mg/dL Random Glucose (60-115) mg/dL Lactic Acid (0.5-2.0) mmol/L Calcium (8.4-10.2) mg/dL Total Bilirubin (0.0-1.0) mg/dL AST (5-37) U/L ALT (0-40) U/L Alkaline Phosphatase (39-117) U/L Troponin I High Sens (<3.5-35.0) ng/L Total Protein (6.5-8.0) g/dL Albumin (3.5-5.0) g/dL Lipase (8-78) U/L Urine Color Yellow Urine Appearance Clear Urine pH 7.5 (5.0-9.0) Ur Specific [place] >= 1.030 H (1.005-1.025) Urine Protein Negative (Neg-Trace) mg/dL Urine Glucose (UA) Negative (Negative) mg/dL Urine Ketones 15 (Negative) mg/dL Urine Blood Negative (Negative) Urine Nitrite Negative (Negative) Ur Leukocyte Esterase Negative (Negative) Independent Interpretation I performed an independent interpretation of an: EKG Interpretation: EKG: sinus bradycardia, rate 50bpm, T wave inversion in anterior leads Independent Historian Clinical information obtained from an independent historian. History obtained from or confirmed by: Spouse External Record Review External record reviewed: Inpatient record, Office record and Outpatient record Prescription Management I considered prescription management with: Other (antiemetics) Discharge Plan Discharge Clinical Impression: Gastroenteritis Patient Disposition: Home, Self-Care Instructions: Gastroenteritis (DC) Additional Instructions: Your labs and CT scan were normal today. You most likely have a viral GI bug also known as gastroenteritis. Treatment is supportive care, symptoms usually resolve on their own in 48-72 hours. Recommend rest and plenty of oral hydration. Stick to a bland diet like soup and toast while you are not feeling well. Take the prescribed medication as needed for nausea. Recommend over the counter Pepto Bismol or Imodium for upset stomach and diarrhea. Follow up with your doctor as needed. If you develop new or worsening symptoms call 911 or come back to the ER for further evaluation. Prescriptions: New prochlorperazine maleate [Compazine] 10 mg tablet 10 mg PO Q8H PRN (Reason: nausea and vomiting) Qty: 7 0RF No Action atorvastatin 20 mg tablet 20 mg PO DAILY Qty: 90 5RF cholecalciferol (vitamin D3) [Vitamin D3] 50 mcg (2,000 unit) tablet 50 mcg PO DAILY Qty: 90 2RF paroxetine HCl 30 mg tablet 30 mg PO QAM 90 Days Qty: 90 3RF cyanocobalamin (vitamin B-12) 1,000 mcg tablet, sublingual 1,000 mcg sublingual DAILY 90 Days Qty: 90 0RF fluticasone propion-salmeterol [Advair Diskus] 250-50 mcg/dose blister with device 1 ea PO BID Qty: 180 1RF losartan 100 mg tablet 100 mg PO DAILY 90 Days Qty: 90 0RF metoprolol tartrate 25 mg tablet 25 mg PO BID Qty: 180 1RF epinephrine [EpiPen 2-Reji] 0.3 mg/0.3 mL auto-injector 0.3 mg IM Q10M PRN (Reason: anaphylaxis) 30 Days Qty: 2 0RF Rx Instructions: for 2 doses albuterol sulfate 90 mcg/actuation HFA aerosol inhaler 1 puff inhalation QID PRN (Reason: shortness of breath or wheezing) 30 Days Qty: 8.5 2RF pantoprazole 20 mg tablet,delayed release (DR/EC) 20 mg PO DAILY calcium carbonate [Calcium 500] 500 mg calcium (1,250 mg) tablet,chewable 500 mg PO DAILY omeprazole 20 mg capsule,delayed release(DR/EC) 20 mg PO DAILY
[2022-11-29 14:20] VITALS: BP 141/73; BP 150/70; PULSE 53; RESP 22; TEMP 36; O2SAT 100; O2SAT 99; BMI 33.5
[2022-11-29 14:31] VITALS: BP 167/93
[2022-11-29] MEDS: ondansetron HCL 4 MG/2 ML VIAL IVPUSH (14:44)
[2022-11-29] MEDS: 0.9 % Sodium Chloride 1,000 ML 999 ML IV (14:44)
[2022-11-29 14:53] LABS: MANUAL DIFF FLAG NO
[2022-11-29 14:55] LABS: Glucose, Whole Blood 100 mg/dL (60-115)
[2022-11-29 14:57] LABS: Basophils Absolute Auto 0.1 X10*3/uL (0.0-0.2); Basophils Percent Auto 0.8 % (0-2); Eosinophils Absolute Auto 0.2 X10*3/uL (0.0-0.4); Hematocrit 38.8 % (42.0-52.0); Hemoglobin 13.5 g/dl (14.0-18.0); Imm Gran Abs Auto 0.05 X10*3/uL (0.00-0.03); Imm Gran Pct Auto 0.5 % (0.0-0.4); Lymphocytes Absolute Auto 0.9 X10*3/uL (1.2-4.9); Lymphocytes Percent Auto 8.8 % (20-40); Mean Corpuscular HGB Conc 34.8 g/dl (31.0-36.0); Mean Corpuscular Hemoglobin 32.1 pg (27.0-33.0); Mean Corpuscular Volume 92.4 fL (80.0-98.0); Mean Platelet Volume 9.5 fL (9.4-12.4); Monocytes Absolute Auto 0.6 X10*3/uL (0.1-1.2); Monocytes Percent Auto 5.2 % (2-11); Neutrophils Absolute Auto 8.8 x10*3/uL (2.0-8.3); Neutrophils Percent Auto 82.7 % (45-73); Platelet Count 423 X10*3/uL (160-400); Red Cell Distribution Width 11.7 % (11.0-16.0); White Blood Count 10.7 X10*3/uL (4.8-10.8)
[2022-11-29 15:01] LABS: Prothrombin Time 11.7 SEC (10.0-13.1)
[2022-11-29 15:11] LABS: Lactic Acid 1.7 mmol/L (0.5-2.0)
[2022-11-29 15:14] LABS: Alanine Aminotransferase 11 U/L (0-40); Albumin Level 4.1 g/dL (3.5-5.0); Alkaline Phosphatase 76 U/L (39-117); Anion Gap 13 (12-20); Aspartate Amino Transferase 12 U/L (5-37); Bilirubin Total 1.1 mg/dL (0.0-1.0); Blood Urea Nitrogen 10 mg/dL (9-16); Calcium 9.9 mg/dL (8.4-10.2); Carbon Dioxide 23 mmol/L (22-29); Chloride 106 mmol/L (96-108); Creatinine Clr Calc Pharmacy 92.9; Estimated Glomerular Filt Rate > 60; Glucose Random 123 mg/dL (60-115); Lipase 21 U/L (8-78); Potassium 4.3 mmol/L (3.3-5.1); Sodium 138 mmol/L (135-145); Total Protein 6.8 g/dL (6.5-8.0)
[2022-11-29 15:30] LABS: Troponin-I High Sensitivity < 2.7 ng/L (<3.5-35.0)
[2022-11-29] MEDS: iohexoL 350 MG/ML 100 ML INFUS..BTL 85 ML IV (15:35)
[2022-11-29 16:49] VITALS: BP 138/93; PULSE 61; RESP 20; O2SAT 100
[2022-11-29] MEDS: Prochlorperazine Edisylate 10 MG/2 ML VIAL IVPUSH (17:32)
[2022-11-29] MEDS: Lactated Ringers 1,000 ML 999 ML IV (17:34)
--- NOTE | 2022-11-29 17:47 | PC.NURSE ---
at bedside, pt alert and oriented. still states he is feeling nauseas after medications. appears more comfortable at this time. LR infusing.
--- NOTE | 2022-11-29 18:38 | PC.NURSE ---
pt appears to be sleeping in room, awaiting dispo at this time
[2022-11-29 19:29] VITALS: BP 124/84; PULSE 91; RESP 16; O2SAT 98
[2022-11-29 19:31] VITALS: BP 150/93; PULSE 76; RESP 18
[2022-11-29 19:42] LABS: Appearance Urine Clear; Color Urine Yellow; Glucose Urine UA Negative (Negative); Leukocyte Esterase Urine Negative (Negative); Nitrite Urine Negative (Negative); PH 7.5 (5.0-9.0); Specific Gravity - Urine >= 1.030 (1.005-1.025); Urine Blood Negative (Negative); Urine Ketones 15 mg/dL (Negative); Urine Protein Negative (Neg-Trace)
--- NOTE | 2022-11-29 20:21 | PC.NURSE ---
Pt enters my care- pt states he feels much better after the medication- denied any pain and/or nausea. pt able to tolerate crackers and gingerale- urine collected.VSS
== END 2022-11-29 21:06 | disposition home or self-care (01) ==
PROVIDERS: Registered Nurse Emergency; Emergency Provider Emergency Medicine
DX: K52.9 Noninfective gastroenteritis and colitis, unspecified (principal); R11.2 Nausea with vomiting, unspecified; I10 Essential (primary) hypertension; C64.9 Malignant neoplasm of unspecified kidney, except renal pelvis; I25.10 Atherosclerotic heart disease of native coronary artery without angina pectoris; Z87.891 Personal history of nicotine dependence
CPT/HCPCS: 74177; 80053; 81003; 82947; 83605; 83690; 84484; 85025; 85610; 87040; 93005; 96361; 96374; 96375; 99285; J2405; Q9967

== ENCOUNTER 2023-02-19 12:57 | Outpatient (AMB) | payer OTHER, SELFPAY ==
--- NOTE | 2023-02-19 13:03 | MHC.PC.OV ---
Vital Signs 02/19/23 13:05 Height 5 ft 10 in Weight 233 lb 6 oz BMI 33.5 BP 100/68 Blood Pressure Location Rt brachial Position Sitting Pulse 72 Pulse Source Pulse Oximeter Pulse Oximetry (%) 99 Oxygen Delivery Method Room Air Intake Visit Reasons: 4 month follow up Allergies tetracycline [Tetracycline] Allergy (Intermediate, Verified 02/19/23 13:07) anaphylaxis bee venom protein (honey bee) Allergy (Unknown, Verified 02/19/23 13:07) swelling, hives Tobacco use date assessed: 02/19/23 Fall risk assessment: No Falls in past year Last assessed Fall Risk: 02/19/23 Dental Screening Dental Screen Date: 02/19/23 Did you have a dental visit in the last 12 months?: Yes Did you have a dental problem in the last 6 months where you did not have access to dental care?: No Was dental information given to patient?: Patient has dentist HPI 4 month follow up HPI Details HTN: Blood pressure is managed with losartan 100mg and metoprolol 25mg bid. Pt's blood pressure is lower today, though he denies any dizziness. Denies chest pain, shortness of breath, headache, dizziness, and blurred vision. Pt reports some hearing loss. Cerumen noted bilat, will flush in office. [facility] Medical History (Updated 02/19/23 @ 13:55 by DOUGLAS Real) Cannabinoid hyperemesis syndrome Osteopenia On beta hilary at home Coronary artery calcification SOB (shortness of breath) Ascending aortic aneurysm Thoracic aortic aneurysm COPD (chronic obstructive pulmonary disease) Asthma FAUSTO on CPAP Nodule on liver Coronary atherosclerosis HTN (hypertension) Prostate CA Depression Renal mass Foraminal stenosis of lumbar region Surgical History (Updated 11/21/22 @ 07:38 by HU Real-GIGI) History of partial nephrectomy History of cardiac cath H/O colonoscopy History of prostatectomy History of total right knee replacement (TKR) History of total knee replacement (TKR) Lipoma of back History of prostatectomy History of knee surgery Family History Father Leukemia Substance use disorder Mother Breast cancer CVD (cardiovascular disease) Takotsubo cardiomyopathy Brother Substance use disorder Sister No problems noted. Maternal Aunt No problems noted. Maternal Grandfather No problems noted. Maternal Grandmother No problems noted. Maternal Uncle No problems noted. Paternal Aunt No problems noted. Paternal Grandfather No problems noted. Paternal Grandmother No problems noted. Paternal Uncle No problems noted. Social History Housing: House Alcohol intake: current Alcohol intake frequency: 3 or more drinks per day Patient Tobacco Use Status: Former Tobacco user Years Smoked: 35 years ago e-Cigarette/Vaping Use: Never Used Second Hand Smoke Exposure: No service: No Current occupational status: retired Cognitive needs: No Hearing needs: No Vision needs: No Questionnaire Thrive Questionnaire Date Thrive assessed: 10/19/22 DREAD-7 AMB Questionnaire DREAD-7 Date DREAD - 7 assessed: 10/19/22 Source: Developed by Drs. Vicente Call, Ara Silva, Coy Obregon and colleagues, with an educational bijan from [employer]. Review of Systems Const Reports as per HPI Physical exam (Primary Care) Vital Signs: Last Vital Signs Pulse 72 02/19/23 13:05 BP 100/68 02/19/23 13:05 Pulse Ox 99 02/19/23 13:05 Oxygen Delivery Method Room Air 02/19/23 13:05 BMI result Body Mass Index 33.5 Tobacco/Smoking Status: Tobacco use Status Tobacco use date assessed 02/19/23 02/19/23 13:10 Patient Tobacco Use Status Former Tobacco user 02/19/23 13:03 e-Cigarette/Vaping Use Never Used 02/19/23 13:03 Thrive Assessment: Date of Thrive Assessment Date Thrive assessed 10/19/22 02/19/23 13:03 Const General: cooperative Nutritional Appearance: obese Orientation/consciousness: patient oriented x3 HENMT Other: cerumen noted bilat, after ear lavage TMs easily seen Neuro General: patient oriented x3 Extrem Right lower extremity: no edema Left lower extremity: no edema Psych Appearance: grossly normal Mental Status: mental status grossly normal Speech and movement: Normal speech and movement present Affect: normal affect Attitude: cooperative Thought process: Normal thought process present Thought content: Normal thought content present Insight: Good insight present (Psych) Judgement: Good judgement present (Psych) Office Procedures Cerumen Removal From which ear canal was the cerumen removed: bilateral Removal: irrigation Notes: patient tolerated procedure well [id number] Irrigation/Lavage Assessment and Plan Assessment & Plan (1) Screening for colon cancer: Code(s): Z12.11 - Encounter for screening for malignant neoplasm of colon (2) HTN (hypertension): Code(s): I10 - Essential (primary) hypertension Plan The patient agreed to the use of a medical records analyst for this encounter. Scribed for HU Gates-BC by Kala Guthrie medical records analyst, on 02/19/2023 at 13:20 EST. Orders: Orders Comprehensive [place]. Panel Fast Today I10 - Essential (primary) hypertension TSH reflex Free T4 Today I10 - Essential (primary) hypertension UA CC w/rflx Micro + Cult Today I10 - Essential (primary) hypertension Complete Blood Count Auto Diff Today I10 - Essential (primary) hypertension Lipid Panel Today I10 - Essential (primary) hypertension Referrals Gastroenterology Referral Z12.11 - Encounter for screening for malignant neoplasm of colon Coding Level of Care Code Est Pt Level 3 (77782) Diagnoses Screening for colon cancer Z12.11 HTN (hypertension) I10 CPT Codes Office Procedure - CPT: 42948-Dcu Irrigation/Lavage ([id number])
[2023-02-19 13:05] VITALS: BP 100/68; PULSE 72; O2SAT 99; BMI 33.5
== END 2023-02-19 13:53 | disposition home or self-care (01) ==
PROVIDERS: Visit Provider Nurse Practitioner Family
DX: I10 Essential (primary) hypertension (principal); H61.23 Impacted cerumen, bilateral
CPT/HCPCS: 69209; 99213

== ENCOUNTER 2023-07-26 09:59 | Outpatient (AMB) | payer OTHER, SELFPAY ==
[2023-07-26 10:07] VITALS: BP 114/76; PULSE 80; TEMP 37.5; O2SAT 96; BMI 33.7
--- NOTE | 2023-07-26 10:07 | AM.OFFWIN_ITS ---
Intake Vital Signs 07/26/23 10:07 Height 5 ft 10 in Weight 235 lb BMI 33.7 BP 114/76 Blood Pressure Location Rt brachial Position Sitting Pulse 80 Pulse Source Pulse Oximeter Temp 99.5 F Temp Source Oral Pulse Oximetry (%) 96 Oxygen Delivery Method Room Air Intake Visit Reasons: EP RSV swab wheezing cough Intake Note: Pt is here requesting to be swabbed for RSV as well as an inhaler. Pt states he has been wheezing for three days. Patient Tobacco Use Status: Former Tobacco user Allergies tetracycline [Tetracycline] Allergy (Intermediate, Verified 07/26/23 10:09) anaphylaxis bee venom protein (honey bee) Allergy (Unknown, Verified 07/26/23 10:09) swelling, hives HPI HPI Comments History of Present Illness Details This is a 67-year-old male with past medical history of prostate cancer, renal cancer, hypertension, hyperlipidemia, COPD and asthma presenting for evaluation of a cough and wheezing that has been present for the past 3 days. Patient states that his symptoms are worse at night. Patient has been taking his Advair twice daily as prescribed. He denies having any fevers, chills, sore throat or ear pain and denies having any sick contacts. Patient states he made an appointment to see his medical leader however was asked to be tested for RSV prior to this appointment. Patient has no known exposures to RSV. [facility] Medical History Cannabinoid hyperemesis syndrome Osteopenia On beta hilary at home Coronary artery calcification SOB (shortness of breath) Ascending aortic aneurysm Thoracic aortic aneurysm COPD (chronic obstructive pulmonary disease) Asthma FAUSTO on CPAP Nodule on liver Coronary atherosclerosis HTN (hypertension) Prostate CA Depression Renal mass Foraminal stenosis of lumbar region Surgical History History of partial nephrectomy History of cardiac cath H/O colonoscopy History of prostatectomy History of total right knee replacement (TKR) History of total knee replacement (TKR) Lipoma of back History of prostatectomy History of knee surgery Family History Father Leukemia Substance use disorder Mother Breast cancer CVD (cardiovascular disease) Takotsubo cardiomyopathy Brother Substance use disorder Sister No problems noted. Maternal Aunt No problems noted. Maternal Grandfather No problems noted. Maternal Grandmother No problems noted. Maternal Uncle No problems noted. Paternal Aunt No problems noted. Paternal Grandfather No problems noted. Paternal Grandmother No problems noted. Paternal Uncle No problems noted. Social History Housing: House Alcohol intake: current Alcohol intake frequency: 3 or more drinks per day Patient Tobacco Use Status: Former Tobacco user Years Smoked: 35 years ago e-Cigarette/Vaping Use: Never Used Second Hand Smoke Exposure: No service: No Current occupational status: retired Cognitive needs: No Hearing needs: No Vision needs: No Review of Systems Const All systems reviewed & are unremarkable except as noted in HPI and below Denies body aches, Denies chills, Denies fatigue and Denies fever(s) ENT Reports no additional complaints Card Reports no additional complaints and Denies dyspnea Resp Denies change in phlegm color (clear phlegm), Denies chest congestion, Reports cough, Denies hemoptysis, Denies dyspnea and Reports wheezing Skin/Breast Reports system reviewed and no additional complaints, except as documented Psych Reports no additional complaints Endo Denies fatigue Aller/Immun Reports wheezing Physical Exam Vital Signs: Last Vital Signs Temp 99.5 F 07/26/23 10:07 Pulse 80 07/26/23 10:07 BP 114/76 07/26/23 10:07 Pulse Ox 96 07/26/23 10:07 Oxygen Delivery Method Room Air 07/26/23 10:07 BMI result Body Mass Index 33.7 POX 96% on room air. Const General: cooperative, comfortable, well developed, alert and awake Nutritional Appearance: overweight Orientation/consciousness: patient oriented x3 Limitations: no limitations HEENT Head: Yes normal to inspection and Yes normocephalic Ears: hearing grossly normal bilaterally, external ears normal, TM's normal bilaterally and EAC's normal General nose exam: Normal external nose present and Normal nares present Face and sinus: Yes normal facial exam and Yes sinuses nontender Mouth: Normal oral and palatal mucosa present Teeth and gingiva: dentition normal Throat: Yes posterior oropharynx normal and No postnasal drainage Eyes Eyelids: Yes eyelids normal Conjunctivae: conjunctivae normal Sclerae: sclerae normal Corneas: corneas normal Pupils: Equal, round and reactive pupils present EOM: EOMs intact bilaterally Neck Lymphatic: no lymphadenopathy noted Resp Effort & Inspection: normal respiratory effort, no audible wheezes, Actively coughing, respiratory effort not decreased, no respiratory distress and no use of accessory muscles Auscultation: clear to auscultation bilaterally and diminished lung sounds Cardio Rate: regular rate Rhythm: regular rhythm Skin General skin exam: no rashes or lesions noted Neuro General: patient oriented x3 Cranial nerves: Yes Equal, round and reactive pupils present Psych Appearance: grossly normal Mental Status: mental status grossly normal Insight: Good insight present (Psych) Judgement: Good judgement present (Psych) Assessment & Plan Assessment & Plan (1) Cough: Comment: Lungs are clear to auscultation bilaterally and the patient is not hypoxic; therefore chest x-ray is deferred at this time. Code(s): R05.9 - Cough, unspecified Qualifiers: Cough type: acute Qualified Code(s): R05.1 - Acute cough Plan: SARS panel is ordered and pending; albuterol inhaler will be refilled today. Orders: Orders SARS-CoV2/FLU/RSV Today R05.9 - Cough, unspecified Medications: New albuterol sulfate 90 mcg/actuation 2 puffs inhalation Q6H PRN 8.5 grams 0RF shortness of breath or wheezing Coding Level of Care Code Est Pt Level 3 (48978) Diagnoses Acute cough R05.1 Cough type: acute Time Spent (min) 20
== END 2023-07-26 10:52 | disposition home or self-care (01) ==
PROVIDERS: PCP Nurse Practitioner Family; Visit Provider Physician Assistant
DX: R05.1 Acute cough (principal)
CPT/HCPCS: 99213

== ENCOUNTER 2023-07-26 13:06 | Outpatient (REF) | payer OTHER, SELFPAY ==
[2023-07-26 14:02] LABS: Influenza A PCR POSITIVE (Negative); Influenza B PCR NEGATIVE (Negative); Resp Syncy Virus RNA Qual PCR NEGATIVE (Negative); SARS COV2 PCR INHOUSE NEGATIVE (Negative)
== END 2023-07-26 13:07 | disposition home or self-care (01) ==
LOC: HO.HMGCLNP 13:06
PROVIDERS: Visit Provider Physician Assistant
DX: Z11.52 Encounter for screening for COVID-19 (principal); Z20.822 Contact with and (suspected) exposure to COVID-19; R05.9 Cough, unspecified
CPT/HCPCS: 0241U

== ENCOUNTER 2023-08-27 14:37 | Outpatient (AMB) | payer OTHER, SELFPAY ==
[2023-08-27 14:42] VITALS: BP 122/78; PULSE 63; O2SAT 97; BMI 33.7
--- NOTE | 2023-08-27 14:42 | MHC.OFFVIS ---
Intake Vital Signs 08/27/23 14:42 Height 5 ft 10 in Weight 234 lb 12.677 oz BMI 33.7 BP 122/78 Blood Pressure Location Lt brachial Position Sitting Pulse 63 Pulse Source Pulse Oximeter Pulse Oximetry (%) 97 Oxygen Delivery Method Room Air Intake Visit Reasons: Cough Intake Note: pt is here for follow up and was dx with flu, but he is still struggling with mucous in the lungs and coughing up stuff all day, wearing him down, short of breath with exertion. 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 Allergies tetracycline [Tetracycline] Allergy (Intermediate, Verified 08/27/23 15:07) anaphylaxis bee venom protein (honey bee) Allergy (Unknown, Verified 08/27/23 15:07) swelling, hives Medication List - Last Reconciled 08/27/23 by Lucy Wilson MD albuterol sulfate 90 mcg/actuation 2 puffs inhalation Q6H PRN atorvastatin 20 mg PO DAILY calcium carbonate (Calcium 500) 500 mg PO DAILY cholecalciferol (vitamin D3) (Vitamin D3) 50 mcg PO DAILY cyanocobalamin (vitamin B-12) 1,000 mcg sublingual DAILY 90 days epinephrine (EpiPen 2-Reji) 0.3 mg (0.3 mL) IM Q10M PRN 30 days fluticasone propion-salmeterol 250-50 mcg/dose (Wixela Inhub) 1 inh inhalation BID 30 days losartan 50 mg PO DAILY metoprolol tartrate 25 mg PO BID pantoprazole 20 mg PO DAILY paroxetine HCl 30 mg PO QAM 90 days Do you need a note to return to daycare/school/sports/work: No HPI Cough HPI Details Mr. Granados has not been seen for the past few years. He has history of COPD/asthma and also FAUSTO. He states that he has not use CPAP for a few years. According to his he is still snoring a lot and she has moved to another bed room. His sleep is fragmented, and he does feel tired during the daytime. He still has his CPAP device but has not gotten any supplies for last 2 years. He also has history of COPD which is being treated with the fluticasone-salmeterol 250-51 inhalation b.i.d.. Since last month he has had ongoing cough with congested feeling. He was seen in the urgent care clinic, treated with cough medication and a short course of prednisone. He comes today with the complaint that he still continues to feel congested in the chest and also still has frequent cough. He thinks there is something going on in his lungs. [facility] Medical History (Updated 08/30/23 @ 12:54 by Pablo Rivero, [facility]) Barretts esophagus Renal cell carcinoma GERD (gastroesophageal reflux disease) Papillary adenocarcinoma of left kidney Cannabinoid hyperemesis syndrome Osteopenia On beta hilary at home Coronary artery calcification SOB (shortness of breath) Ascending aortic aneurysm Thoracic aortic aneurysm COPD (chronic obstructive pulmonary disease) Asthma FAUSTO on CPAP Nodule on liver Coronary atherosclerosis HTN (hypertension) Prostate CA Depression Renal mass Foraminal stenosis of lumbar region Surgical History History of esophagogastroduodenoscopy (EGD) History of partial nephrectomy History of cardiac cath H/O colonoscopy History of prostatectomy History of total right knee replacement (TKR) History of total knee replacement (TKR) Lipoma of back History of prostatectomy History of knee surgery Family History Father Leukemia Substance use disorder Mother Breast cancer CVD (cardiovascular disease) Takotsubo cardiomyopathy Brother Substance use disorder Sister No problems noted. Maternal Aunt No problems noted. Maternal Grandfather No problems noted. Maternal Grandmother No problems noted. Maternal Uncle No problems noted. Paternal Aunt No problems noted. Paternal Grandfather No problems noted. Paternal Grandmother No problems noted. Paternal Uncle No problems noted. Social History Housing: House Alcohol intake: current Alcohol intake frequency: 3 or more drinks per day Patient Tobacco Use Status: Former Tobacco user Years Smoked: 35 years ago e-Cigarette/Vaping Use: Never Used Second Hand Smoke Exposure: No service: No Current occupational status: retired Cognitive needs: No Hearing needs: No Vision needs: No Review of Systems Const All systems reviewed & are unremarkable except as noted in HPI and below Eyes Reports no additional complaints ENT Reports no additional complaints Card Denies chest pain, Denies irregular heart rhythm and Denies leg edema Resp Reports as per HPI GI Reports no additional complaints Reports no additional complaints Musc Reports arthralgias (Some pain in knees on walking) Skin/Breast Reports system reviewed and no additional complaints, except as documented Neuro Reports no additional complaints Psych Reports depression (Controlled with med) Physical Exam Vital Signs: Last Vital Signs Pulse 63 08/27/23 14:42 BP 122/78 08/27/23 14:42 Pulse Ox 97 08/27/23 14:42 Oxygen Delivery Method Room Air 08/27/23 14:42 BMI result Body Mass Index 33.7 Const General: comfortable, no acute distress, alert and awake Orientation/consciousness: patient oriented x3 HEENT Head: Yes normal to inspection General nose exam: No nasal polyps present and No nasal discharge present Face and sinus: Yes sinuses nontender Mouth: oropharynx abnormals (Very narrow or crowded, Mallampati class 4) Throat: Yes posterior oropharynx normal Eyes General: appearance normal, both eyes and all related structures Neck Neck: Yes normal visual inspection, Yes no lymphadenopathy, Yes trachea midline and Yes no JVD Thyroid: Thyroid normal Chest Chest palpation & inspection: normal inspection of the chest, normal palpation of entire chest wall and no tenderness Resp Other: Percussion note is resonant, breath sounds are distant on both sides with prolonged expiratory phase. There are scattered rhonchi and a few crepitations over the basilar areas. Breath sounds are slightly diminished over the left lower lobe. Cardio Palpation: normal PMI Rate: regular rate Rhythm: regular rhythm Heart sounds: no gallops and no murmurs GI Palpation (GI): Soft to palpation, nontender, No hepatosplenomegaly present and no masses Auscultation: normal bowel sounds Back/Spine/Pelvis Thoracic/Lumbar Spine: thoracic and lumbar spine normal to inspection Skin General skin exam: no rashes or lesions noted Neuro General: patient oriented x3 and no focal motor deficits Cranial nerves: Yes CN's II-XII intact bilaterally Extrem General: Yes normal to inspection, Yes no clubbing, cyanosis or edema and Yes no calf tenderness Psych Speech and movement: Normal speech and movement present Assessment & Plan Assessment & Plan (1) COPD (chronic obstructive pulmonary disease): Comment: He has mild COPD associated with bronchial asthma. Normally it has been well controlled with use of Wixela 250-50 1 inhalation b.i.d.. Now since 3-4 weeks he seems to have a low-grade acute exacerbation, may have persistent bronchitis. Code(s): J44.9 - Chronic obstructive pulmonary disease, unspecified Plan: Chest x-ray is ordered. Advised to continue using Wixela 250-50 . 1 inhalation b.i.d. Use albuterol HFA 2 puffs Q. 4-6 hours p.r.n. A short course of prednisone 20 mg b.i.d. for 5 days is prescribed. Depending upon the findings of the chest x-ray will see if he needs any antibiotic. (2) Asthma: Comment: His symptoms are predominantly those of BRONCHIAL ASTHMA, AND MILD COPD. Currently doing well on his the regimen of Wixela 250-50 1 inhalation b.i.d.. He can use albuterol HFA 2 puffs q.6 hours p.r.n. but hardly needs to use it Code(s): J45.909 - Unspecified asthma, uncomplicated Plan: As under COPD (3) Cough: Comment: He continues to have mild to moderate intermittent cough, I think he has a low-grade bronchitis following the initial flu symptoms. Code(s): R05.9 - Cough, unspecified Qualifiers: Cough type: acute Qualified Code(s): R05.1 - Acute cough Plan: OK to use OTC cough medicine ,( guaifenesin syrup) 2 tsp t.i.d. p.r.n.. (4) FAUSTO on CPAP: Comment: He does have obstructive sleep apnea, was doing very well was using CPAP. In the last 2 years has not use CPAP at night due to excessive sweating. He wants to go back on using it regularly because it does make him sleep better. Code(s): G47.33 - Obstructive sleep apnea (adult) (pediatric); Z99.89 - Dependence on other enabling machines and devices Plan: Will check with DME supplier. If it is okay to order the CPAP supplies, will do it. Or if he needs a repeat sleep study, will make arrangement for that. Will be rechecked in 2 months for follow-up Orders: Orders XR chest 2V 08/27/23 R05.9 - Cough, unspecified, J44.9 - Chronic obstructive pulmonary disease, unspecified Medications: New prednisone 20 mg PO BID 10 tabs 0RF COPD EXCERBATION 5 days MDD COPD EXCERBATION Coding Level of Care Code Est Pt Level 4 (97856) Diagnoses COPD (chronic obstructive pulmonary disease) J44.9 Asthma J45.909 Acute cough R05.1 Cough type: acute FAUSTO on CPAP G47.33; Z99.89
== END 2023-08-27 15:05 | disposition home or self-care (01) ==
PROVIDERS: PCP Nurse Practitioner Family; Visit Provider Internal Medicine
DX: J44.9 Chronic obstructive pulmonary disease, unspecified (principal); J45.909 Unspecified asthma, uncomplicated; R05.1 Acute cough; G47.33 Obstructive sleep apnea (adult) (pediatric); Z99.89 Dependence on other enabling machines and devices
CPT/HCPCS: 99214

== ENCOUNTER 2023-08-27 14:37 | Outpatient (REF) | payer OTHER, SELFPAY ==
--- NOTE | ~2023-08-27 | XR_ITS ---
EXAMINATION: XR CHEST CLINICAL INFORMATION: Cough. COMPARISON: CTA chest dated 07/28/2021; chest radiographs dated 04/02/2020. TECHNIQUE: Frontal and lateral views of the chest were obtained. FINDINGS: The heart, great vessels, pulmonary vasculature and mediastinum are normal. The lungs show no focal infiltrate, effusion or pneumothorax. There is no acute osseous abnormality. There is multi-level thoracic spondylosis. XR/XR chest 2V IMPRESSION: No active cardiopulmonary disease.
== END 2023-08-27 14:38 | disposition home or self-care (01) ==
LOC: HO.XRAY 14:37
PROVIDERS: PCP Nurse Practitioner Family; Visit Provider Internal Medicine
DX: R05.9 Cough, unspecified (principal); J44.9 Chronic obstructive pulmonary disease, unspecified
CPT/HCPCS: 71046

== ENCOUNTER 2023-08-28 09:15 | Day surgery (SDC) | payer OTHER, SELFPAY ==
[2023-08-24 14:11] VITALS: BMI 32.1
--- NOTE | 2023-08-27 11:50 | HO.ANESPROP2 ---
Documented by User: Dolores Ochoa NP 08/27/23 11:55 HPI - Anesthesia Eval Consult details Narrative: 67yo M for Upper Endoscopy [place] [facility] [place], CAD, AAA - Last office visit 10/2022, cleared for nephrectomy r/t malignancy. Due for f/u 10/2023 [facility] Active Problems Active Problems: All Active Problems (Updated 08/24/23 @ 13:55 by Stacia Evans RN) Cough (Acute) Screening for colon cancer (Acute) Pre-op evaluation (Acute) B12 deficiency (Acute) Anemia (Acute) Dyspnea on exertion (Acute) Stiffness of finger joint of left hand (Acute) Dislocation of metacarpophalangeal joint of left middle finger (Acute) Displaced fracture of neck of left fourth metacarpal bone (Acute) Elevated PSA (Acute) Kidney malignant neoplasm (Acute) Screening PSA (prostate specific antigen) (Acute) Physical exam (Acute) H/O radical prostatectomy (Acute) Hematuria (Acute) Brittle asthma (Acute) Wheezing (Acute) HTN (hypertension) (Acute) Coronary atherosclerosis (Acute) FAUSTO on CPAP (Acute) Asthma (Acute) COPD (chronic obstructive pulmonary disease) (Acute) Thoracic aortic aneurysm (Acute) History of cardiac cath (Acute) Past Medical History Medical History Renal cell carcinoma GERD (gastroesophageal reflux disease) Papillary adenocarcinoma of left kidney Cannabinoid hyperemesis syndrome Osteopenia On beta hilary at home Coronary artery calcification SOB (shortness of breath) Ascending aortic aneurysm Thoracic aortic aneurysm COPD (chronic obstructive pulmonary disease) Asthma FAUSTO on CPAP Nodule on liver Coronary atherosclerosis HTN (hypertension) Prostate CA Depression Renal mass Foraminal stenosis of lumbar region Family History Family History Father Leukemia Substance use disorder Mother Breast cancer CVD (cardiovascular disease) Takotsubo cardiomyopathy Brother Substance use disorder Sister No problems noted. Maternal Aunt No problems noted. Maternal Grandfather No problems noted. Maternal Grandmother No problems noted. Maternal Uncle No problems noted. Paternal Aunt No problems noted. Paternal Grandfather No problems noted. Paternal Grandmother No problems noted. Paternal Uncle No problems noted. Family history of problems with anesthesia: No Surgical History Surgical History History of esophagogastroduodenoscopy (EGD) History of partial nephrectomy History of cardiac cath H/O colonoscopy History of prostatectomy History of total right knee replacement (TKR) History of total knee replacement (TKR) Lipoma of back History of prostatectomy History of knee surgery History of Problems with Anesthesia: No Social History Social History Housing: House Alcohol intake: current Alcohol intake frequency: 3 or more drinks per day Patient Tobacco Use Status: Former Tobacco user Years Smoked: 35 years ago e-Cigarette/Vaping Use: Never Used Second Hand Smoke Exposure: No service: No Current occupational status: retired Cognitive needs: No Hearing needs: No Vision needs: No Meds Allergies Allergy/AdvReac Type Severity Reaction Status Date / Time tetracycline [Tetracycline] Allergy Intermediate anaphylaxis Verified 08/27/23 15:07 bee venom protein (honey bee) Allergy Unknown swelling, Verified 08/27/23 15:07 hives Home Medications Medication Instructions Recorded Confirmed Last Taken Type calcium carbonate 500 mg calcium 500 mg PO DAILY 10/19/22 08/27/23 Unknown History (1,250 mg) chewable tablet (Calcium 500) pantoprazole 20 mg tablet,delayed 20 mg PO DAILY 10/19/22 08/27/23 08/28/23 History release losartan 100 mg tablet 50 mg PO DAILY 08/24/23 08/27/23 Unknown History Exam Height,Weight and Vital Signs: Height 6 ft Weight 107.501 kg Narrative Narrative: ECHO 2022 Conclusions: - The left ventricular systolic function is normal. The calculated ejection fraction is 60% by biplane method. - No obvious valvular pathology seen on this study. - There is mild dilatation of the ascending aorta measuring 4.40 cm and mild dilatation of the aortic arch measuring 3.90 cm. Assessment and Plan Assessment Anesthesia Assessment: Chart Reviewed Final Anesthetic Review Family History of Problems with Anesthesia: No History of Problems with Anesthesia: No Documented by User: Deborah Whatley MD 08/28/23 11:05 [facility] Active Problems Active Problems: All Active Problems (Updated 08/27/23 @ 10:25 by Deborah Whatley MD) Cough (Acute). Patient states Flu about a month ago. Persistent cough. Saw MD. Steroid taper ordered but not started yet Screening for colon cancer (Acute) Pre-op evaluation (Acute) B12 deficiency (Acute) Anemia (Acute) Dyspnea on exertion (Acute) Stiffness of finger joint of left hand (Acute) Dislocation of metacarpophalangeal joint of left middle finger (Acute) Displaced fracture of neck of left fourth metacarpal bone (Acute) Elevated PSA (Acute). Treated for prostate cancer Kidney malignant neoplasm (Acute) Screening PSA (prostate specific antigen) (Acute) Physical exam (Acute) H/O radical prostatectomy (Acute) Hematuria (Acute) Brittle asthma (Acute) Wheezing (Acute) HTN (hypertension) (Acute) Coronary atherosclerosis (Acute) FAUSTO. 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 In process of being re-evaluated for FAUSTO Asthma (Acute) COPD (chronic obstructive pulmonary disease) (Acute) Thoracic aortic aneurysm (Acute) History of cardiac cath (Acute) ETOH abuse - a few beers per day. Over 4 H/o cannabinoid emesis syndrome. 11/2022. Stopped cannabis for a while but restarted use. Uses daily. Last used yesterday Renal Cell Ca. S/p Left partial nephrectomy 11/2022 Past Medical History Medical History Renal cell carcinoma GERD (gastroesophageal reflux disease) Papillary adenocarcinoma of left kidney Cannabinoid hyperemesis syndrome Osteopenia On beta hilary at home Coronary artery calcification SOB (shortness of breath) Ascending aortic aneurysm Thoracic aortic aneurysm COPD (chronic obstructive pulmonary disease) Asthma FAUSTO on CPAP Nodule on liver Coronary atherosclerosis HTN (hypertension) Prostate CA Depression Renal mass Foraminal stenosis of lumbar region Family History Family History Father Leukemia Substance use disorder Mother Breast cancer CVD (cardiovascular disease) Takotsubo cardiomyopathy Brother Substance use disorder Sister No problems noted. Maternal Aunt No problems noted. Maternal Grandfather No problems noted. Maternal Grandmother No problems noted. Maternal Uncle No problems noted. Paternal Aunt No problems noted. Paternal Grandfather No problems noted. Paternal Grandmother No problems noted. Paternal Uncle No problems noted. Family history of problems with anesthesia: No Surgical History Surgical History History of esophagogastroduodenoscopy (EGD) History of partial nephrectomy History of cardiac cath H/O colonoscopy History of prostatectomy History of total right knee replacement (TKR) History of total knee replacement (TKR) Lipoma of back History of prostatectomy History of knee surgery History of Problems with Anesthesia: No Social History Social History Housing: House Alcohol intake: current Alcohol intake frequency: 3 or more drinks per day Patient Tobacco Use Status: Former Tobacco user Years Smoked: 35 years ago e-Cigarette/Vaping Use: Never Used Second Hand Smoke Exposure: No service: No Current occupational status: retired Cognitive needs: No Hearing needs: No Vision needs: No Meds Allergies Allergy/AdvReac Type Severity Reaction Status Date / Time tetracycline [Tetracycline] Allergy Intermediate anaphylaxis Verified 08/27/23 15:07 bee venom protein (honey bee) Allergy Unknown swelling, Verified 08/27/23 15:07 hives Home Medications Medication Instructions Recorded Confirmed Last Taken Type calcium carbonate 500 mg calcium 500 mg PO DAILY 10/19/22 08/27/23 Unknown History (1,250 mg) chewable tablet (Calcium 500) pantoprazole 20 mg tablet,delayed 20 mg PO DAILY 10/19/22 08/27/23 08/28/23 History release losartan 100 mg tablet 50 mg PO DAILY 08/24/23 08/27/23 Unknown History Exam Height,Weight and Vital Signs: Height 6 ft Weight 107.501 kg Vital Signs Temp Pulse Resp BP Pulse Ox O2 Del Method 08/28/23 10:45 56 16 08/28/23 09:59 98.1 F 56 18 136/84 99 Room Air Airway Mallampati Class: III TM Dist: >3cm Neck ROM: Full Loose/Missing/Broken Teeth: No (Denies broken or loose teeth) Heart: RRR Lungs: Wheezes. For respiratory treatment Assessment and Plan Assessment Anesthesia Assessment: Anesthesia Plan Discussed and Chart Reviewed Final Anesthetic Review Family History of Problems with Anesthesia: No History of Problems with Anesthesia: No NPO: Yes ASA Class: III Final Preanesthetic Review: No Changes in Pt Med Stat, Meds/Allgs Chart Reviewed, Consent Obtained/Reviewed and Anes Risks/Benef Reviewed Patient Risk: Intermediate Procedure Risk: Low Assessment/Block/Sedation in SS: Assess/Block/Sedation-SS Anesthetic Plan Anesthetic Plan: GA and TIVA Disposition: Standard PACU
[2023-08-28 09:44] VITALS: BMI 31.9
[2023-08-28] MEDS: Lactated Ringers 1,000 ML 100 ML IVCONT (09:50)
[2023-08-28 09:59] VITALS: BP 136/84; PULSE 56; RESP 18; TEMP 36.7; O2SAT 99
--- NOTE | 2023-08-28 10:00 | PC.NURSE ---
dr. alejandra aware that pt saw pcp yesterday due to still feeling sob after flu one month ago will start prednisone taper today lcta occ. cough noted with clear sputum. no interventions at this time.
[2023-08-28] MEDS: Albuterol Sulfate (0.083%) 2.5 MG/3 ML VIAL.NEB INHALE (10:44)
[2023-08-28 10:45] VITALS: PULSE 56; RESP 16; O2SAT 98
--- NOTE | 2023-08-28 10:47 | MHC.SHP ---
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 Details of Present Illness: see H&P no changes Relevant Family History (Specify if Yes): No Relevant Social History: None Present Medications: see Short Stay Collaborative assessment Medical History: No relevant PMH History of Previous Operations: No relevant previous surgery Allergies: Allergies Allergy/AdvReac Type Severity Reaction Status Date / Time tetracycline [Tetracycline] Allergy Intermediate anaphylaxis Verified 08/27/23 15:07 bee venom protein (honey bee) Allergy Unknown swelling, Verified 08/27/23 15:07 hives Review of Systems Sugical H&P ROS: Negative: Constitution, Cardiovascular, Respiratory, Neurological, Psychiatric, Hem-Onc, Allergic/Immunologic, Gastrointestinal, Genitourinary, Musculoskeletal, Integumentary, Endocrine and Eyes/Ears/Nose/Throat Exam Surgical H&P Exam: Normal: HEENT, Normal: Heart, Normal: Lungs, Normal: Extremities, Normal: Abdomen, Normal: Skin and Normal: Neurological Plan Diagnosis/Plan: Unchanged I have reviewed the history and physical and performed a pertinent physical examination on my patient. No changes have occurred unless specified. Time Spent With Patient Time: Total time managing care of this patient today ____ minutes.
[2023-08-28 11:14] VITALS: BP 110/72; PULSE 105; RESP 18; TEMP 36.2; O2SAT 94
[2023-08-28 11:29] VITALS: BP 122/89; PULSE 103; RESP 18; TEMP 36.2; O2SAT 95
--- NOTE | 2023-08-28 11:46 | OP_ITS ---
DATE OF SERVICE: 08/28/2023 SURGEON: Collins Salmeron MD INDICATIONS: Pedroza esophagus PREOPERATIVE DIAGNOSIS: POSTOPERATIVE DIAGNOSIS: PROCEDURE PERFORMED: Upper endoscopy with biopsy. ESTIMATED BLOOD LOSS: COMPLICATIONS: ANESTHESIA: Monitored anesthesia care. ASSISTANTS: SPECIMENS: DESCRIPTION OF PROCEDURE: A history and physical was performed. The risks and benefits of the procedure were explained to the patient, and informed consent was obtained. The patient was placed in the left lateral decubitus position. The Olympus video gastroscope was introduced into the esophagus, stomach, and duodenum. Examination was performed. The scope was removed. He tolerated the procedure well and was returned to the recovery area in stable condition. FINDINGS: Esophagus: The esophagus showed a 1 cm area of Pedroza esophagus. Biopsies were obtained from the EG junction and just above. There was no ulceration. There were no raised lesions. There was a small sliding hiatal hernia. Stomach: The stomach showed no evidence of masses or ulcers. Duodenum: There was some nodularity to the 2nd portion with some very superficial duodenitis. Biopsies were obtained from the mucosa. IMPRESSION: Pedroza esophagus. RECOMMENDATION: Follow up the biopsy results. MD GIGI Alva/CONCHA / [id number]
== END 2023-08-28 11:57 | disposition home or self-care (01) ==
PROVIDERS: PCP Nurse Practitioner Family; Visit Provider Internal Medicine Gastroenterology
PROC: 0DJ08ZZ Inspection of Upper Intestinal Tract, Via Natural or Artificial Opening Endoscopic (ICD-10-PCS; CPT 43235; principal; 2023-08-28 10:30)
DX: K22.70 Barrett's esophagus without dysplasia (principal); K29.80 Duodenitis without bleeding; K20.80 Other esophagitis without bleeding; K44.9 Diaphragmatic hernia without obstruction or gangrene; Z85.46 Personal history of malignant neoplasm of prostate
CPT/HCPCS: 43239; 88305; 88313; 94640; J1596; J2250; J2704

== ENCOUNTER 2023-11-01 13:40 | Outpatient (AMB) | payer OTHER, SELFPAY ==
[2023-11-01 13:44] VITALS: BP 102/72; PULSE 78; O2SAT 96; BMI 30.6
--- NOTE | 2023-11-01 13:44 | MHC.OFFVIS ---
Vital Signs 11/01/23 13:44 Height 6 ft Weight 225 lb 15.581 oz BMI 30.6 BP 102/72 Blood Pressure Location Lt brachial Position Sitting Pulse 78 Pulse Source Pulse Oximeter Pulse Oximetry (%) 96 Intake Visit Reasons: cough Intake Note: pt is here for follow up of FAUSTO and need of restarting cpap Shake Loader Required: No Allergies tetracycline [Tetracycline] Allergy (Intermediate, Verified 11/01/23 13:52) anaphylaxis bee venom protein (honey bee) Allergy (Unknown, Verified 11/01/23 13:52) swelling, hives Medication List - Last Reconciled 11/01/23 by Lucy Wilson MD albuterol sulfate 90 mcg/actuation 2 puffs inhalation Q6H PRN atorvastatin 20 mg PO DAILY calcium carbonate (Calcium 500) 500 mg PO DAILY cholecalciferol (vitamin D3) (Vitamin D3) 50 mcg PO DAILY cyanocobalamin (vitamin B-12) 1,000 mcg sublingual DAILY 90 days epinephrine (EpiPen 2-Reji) 0.3 mg (0.3 mL) IM Q10M PRN 30 days fluticasone propion-salmeterol 250-50 mcg/dose (Wixela Inhub) 1 inh inhalation BID 30 days losartan 50 mg PO DAILY metoprolol tartrate 25 mg PO BID pantoprazole 20 mg PO DAILY paroxetine HCl 30 mg PO QAM 90 days prednisone 20 mg PO BID PRN Do you need a note to return to daycare/school/sports/work: No HPI HPI cough: Details: 67 YEARS OLD GENTLEMAN IS BEING SEEN, WITH THE CHIEF COMPLAINT OF HAVING POOR SLEEP AT NIGHT, AND EXCESSIVE DAYTIME SLEEPINESS. HE WAKES UP 2-3 TIMES DURING THE NIGHT AND GOES BACK TO SLEEP. 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 WHEN HE WAKES UP IN THE MORNING HE FEELS UN-REFRESHED AND DURING THE DAYTIME HE HAS A TENDENCY TO FALL ASLEEP AT INAPPROPRIATE TIMES. EPWORTH SLEEPINESS SCALE IS 12. HE HAS HISTORY OF OBSTRUCTIVE SLEEP APNEA IN THE PAST, BUT STOPPED USING THE CPAP ABOUT 3 YEARS AGO, BECAUSE HE WAS NOT GETTING SUPPLIES. THE CPAP DEVICE IS QUITE OLD. LATELY WITH HIS INCREASED SYMPTOMS DESCRIBED ABOVE, HE WANTS TO GO BACK TO USING THE CPAP. FOR THIS REASON WE HAVE TO DO ANOTHER SLEEP STUDY, AND PROVIDE HIM A NEW CPAP DEVICE. HE IS KNOWN TO HAVE CHRONIC OBSTRUCTIVE PULMONARY DISEASE WHICH IS MILD. HIS MAIN COMPLAINT IS GETTING SHORT OF BREATH ON WALKING A FEW BLOCKS OR ON CLIMBING STAIRS, HE DENIES ANY ACTIVE COUGH OR WHEEZING EPISODES. HE HAS TRY TO USE WIXELA BUT IT DID NOT MAKE ANY DIFFERENCE. SO AT PRESENT HE JUST USING ALBUTEROL HFA 2 PUFFS Q 6 HOURS NEEDED. [facility] Medical History (Updated 11/01/23 @ 16:03 by Lucy Wilson MD) Snoring Somnolence, daytime FAUSTO (obstructive sleep apnea) Obesity Barretts esophagus Renal cell carcinoma GERD (gastroesophageal reflux disease) Papillary adenocarcinoma of left kidney Cannabinoid hyperemesis syndrome Osteopenia On beta hilary at home Coronary artery calcification SOB (shortness of breath) Ascending aortic aneurysm Thoracic aortic aneurysm COPD (chronic obstructive pulmonary disease) Asthma FAUSTO on CPAP Nodule on liver Coronary atherosclerosis HTN (hypertension) Prostate CA Depression Renal mass Foraminal stenosis of lumbar region Surgical History History of esophagogastroduodenoscopy (EGD) History of partial nephrectomy History of cardiac cath H/O colonoscopy History of prostatectomy History of total right knee replacement (TKR) History of total knee replacement (TKR) Lipoma of back History of prostatectomy History of knee surgery Family History Father Leukemia Substance use disorder Mother Breast cancer CVD (cardiovascular disease) Takotsubo cardiomyopathy Brother Substance use disorder Sister No problems noted. Maternal Aunt No problems noted. Maternal Grandfather No problems noted. Maternal Grandmother No problems noted. Maternal Uncle No problems noted. Paternal Aunt No problems noted. Paternal Grandfather No problems noted. Paternal Grandmother No problems noted. Paternal Uncle No problems noted. Social History Housing: House Alcohol intake: current Alcohol intake frequency: 3 or more drinks per day Patient Tobacco Use Status: Former Tobacco user Years Smoked: 35 years ago e-Cigarette/Vaping Use: Never Used Second Hand Smoke Exposure: No service: No Current occupational status: retired Cognitive needs: No Hearing needs: No Vision needs: No Review of Systems Const All systems reviewed & are unremarkable except as noted in HPI and below Eyes Reports no additional complaints ENT Reports no additional complaints Card Denies chest pain, Denies irregular heart rhythm and Denies leg edema Resp Reports as per HPI GI Reports no additional complaints Reports no additional complaints Musc Reports arthralgias (Some pain in knees on walking) Skin/Breast Reports system reviewed and no additional complaints, except as documented Neuro Reports no additional complaints Psych Reports depression (Controlled with med) Physical Exam Vital Signs: Last Vital Signs Pulse 78 11/01/23 13:44 BP 102/72 11/01/23 13:44 Pulse Ox 96 11/01/23 13:44 BMI result Body Mass Index 30.6 Const General: comfortable, no acute distress, alert and awake Orientation/consciousness: patient oriented x3 HEENT Head: Yes normal to inspection General nose exam: No nasal polyps present and No nasal discharge present Face and sinus: Yes sinuses nontender Mouth: oropharynx abnormals (Very narrow or crowded, Mallampati class 4) Throat: Yes posterior oropharynx normal Eyes General: appearance normal, both eyes and all related structures Neck Neck: Yes normal visual inspection, Yes no lymphadenopathy, Yes trachea midline and Yes no JVD Thyroid: Thyroid normal Chest Chest palpation & inspection: normal inspection of the chest, normal palpation of entire chest wall and no tenderness Resp Other: Percussion note is resonant, breath sounds are distant on both sides with prolonged expiratory phase. There are scattered rhonchi and a few crepitations over the basilar areas. Breath sounds are slightly diminished over the left lower lobe. Cardio Palpation: normal PMI Rate: regular rate Rhythm: regular rhythm Heart sounds: no gallops and no murmurs GI Palpation (GI): Soft to palpation, nontender, No hepatosplenomegaly present and no masses Auscultation: normal bowel sounds Back/Spine/Pelvis Thoracic/Lumbar Spine: thoracic and lumbar spine normal to inspection Skin General skin exam: no rashes or lesions noted Neuro General: patient oriented x3 and no focal motor deficits Cranial nerves: Yes CN's II-XII intact bilaterally Extrem General: Yes normal to inspection, Yes no clubbing, cyanosis or edema and Yes no calf tenderness Psych Speech and movement: Normal speech and movement present Results Reviewed Results Reviewed: CHEST X-RAY WAS UNREMARKABLE HIS LAST PULMONARY FUNCTION TEST WAS IN 2019 SHOWING MILD OBSTRUCTIVE AIRWAY DISORDER AND NO RESPONSE TO BRONCHODILATOR CHALLENGE. Assessment & Plan Assessment & Plan (1) Obesity: Comment: HE IS MODERATELY OBESE, CURRENT BMI 30.6. NECK CIRCUMFERENCE IS 17 IN. MALLAMPATI CLASS 3 Code(s): E66.9 - Obesity, unspecified Category: Medical Plan: PATIENT MADE AWARE OF BEING OVERWEIGHT AND HE NEEDS TO RESTRICT HIS DIET, AND WALK DAILY EVEN THOUGH HE WALKS SLOWLY. (2) FAUSTO (obstructive sleep apnea): Comment: PATIENT DOES HAVE LONGSTANDING HISTORY OF OBSTRUCTIVE SLEEP APNEA. HE HAS HISTORY OF USING CPAP IN THE PAST, BUT STOPPED USING THE CPAP ABOUT 3 YEARS AGO. AT PRESENT HE IS SYMPTOMATIC, AND HE WANTS TO GO BACK TO CPAP THERAPY. HE NEEDS A NEW SLEEP STUDY TO DETERMINE THE DIAGNOSIS AND ALSO TO DETERMINE THE OPTIMAL PRESSURE TO BE USED. Code(s): G47.33 - Obstructive sleep apnea (adult) (pediatric) Category: Medical Plan: I WILL REQUEST A POLYSOMNOGRAM STUDY TO BE DONE IN THE SLEEP LAB TO DETERMINE THE DIAGNOSIS OF FAUSTO, AND TO DETERMINE THE OPTIMAL PRESSURE WELL APPROPRIATE INTERFACE. (3) COPD (chronic obstructive pulmonary disease): Comment: He has mild COPD associated with bronchial asthma. His present symptom is mainly shortness of breath on walking. At rest he does not have much. Cough or wheezing He claims that he does not find much difference on using Wixela. Code(s): J44.9 - Chronic obstructive pulmonary disease, unspecified Category: Medical Plan: Advised to use albuterol 2 puffs Q 4-6 hours only p.r.n.. Advised to do deep breathing exercises, . To improve his lung function Advised to stop using Wixela, and use albuterol 2 puffs Q 4-6 hours p.r.n. if he has any cough or wheezing. (4) Somnolence, daytime: Comment: At present he does have daytime fatigue and sleepiness. [place] Sleepiness Scale=12 This is due to un-treated FAUSTO Code(s): R40.0 - Somnolence Category: Medical Plan: Try to get the new sleep study and then start him on CPAP therapy Orders: Orders RT PSG in-lab sleep study Today E66.9 - Obesity, unspecified, G47.33 - Obstructive sleep apnea (adult) (pediatric), R06.83 - Snoring, R40.0 - Somnolence Coding Level of Care Code Est Pt Level 4 (35592) Diagnoses Obesity E66.9 FAUSTO (obstructive sleep apnea) G47.33 COPD (chronic obstructive pulmonary disease) J44.9 Somnolence, daytime R40.0
== END 2023-11-01 14:13 | disposition home or self-care (01) ==
PROVIDERS: PCP Nurse Practitioner Family; Visit Provider Internal Medicine
DX: E66.9 Obesity, unspecified (principal); G47.33 Obstructive sleep apnea (adult) (pediatric); J44.9 Chronic obstructive pulmonary disease, unspecified; R40.0 Somnolence
CPT/HCPCS: 99214

== ENCOUNTER → 2023-11-01 13:40 | Outpatient (BNVA) | payer OTHER, SELFPAY | PROVIDERS: PCP Nurse Practitioner Family; Visit Provider Internal Medicine ==

== ENCOUNTER 2023-11-06 08:57 | Outpatient (REF) | payer OTHER, SELFPAY ==
[2023-11-06 10:22] LABS: MANUAL DIFF FLAG NO
[2023-11-06 10:33] LABS: Appearance Urine Clear; Basophils Absolute Auto 0.1 X10*3/uL (0.0-0.2); Basophils Percent Auto 0.7 % (0-2); Color Urine Dark Yellow; Eosinophils Absolute Auto 0.2 X10*3/uL (0.0-0.4); Eosinophils Percent Auto 2.3 % (0-4); Glucose Urine UA Negative (Negative); Hematocrit 41.4 % (42.0-52.0); Hemoglobin 14.7 g/dl (14.0-18.0); Imm Gran Abs Auto 0.06 X10*3/uL (0.00-0.03); Imm Gran Pct Auto 0.8 % (0.0-0.4); Leukocyte Esterase Urine Trace (Negative); Lymphocytes Absolute Auto 1.7 X10*3/uL (1.2-4.9); Lymphocytes Percent Auto 23.3 % (20-40); Mean Corpuscular HGB Conc 35.5 g/dl (31.0-36.0); Mean Corpuscular Hemoglobin 34.4 pg (27.0-33.0); Mean Platelet Volume 9.8 fL (9.4-12.4); Monocytes Absolute Auto 0.8 X10*3/uL (0.1-1.2); Monocytes Percent Auto 10.1 % (2-11); Neutrophils Absolute Auto 4.7 x10*3/uL (2.0-8.3); Neutrophils Percent Auto 62.8 % (45-73); Nitrite Urine Negative (Negative); Platelet Count 272 X10*3/uL (160-400); Red Blood Count 4.27 X10*6/uL (4.60-5.80); Red Cell Distribution Width 12.6 % (11.0-16.0); Specific Gravity - Urine 1.015 (1.005-1.025); UMIC TRIGGER UACC YES; Urine Blood Trace (Negative); Urine Ketones Trace mg/dL (Negative); Urine Protein 30 (1+) mg/dL (Neg-Trace); White Blood Count 7.4 X10*3/uL (4.8-10.8)
[2023-11-06 10:39] LABS: Bacteria Urine None Seen (None Seen); Hyaline Casts Urine 0-2 /LPF (0-2); Squamous Epithelial Cell Urine 0-2 /HPF (0-2); WBC Urine 0-5 /HPF (0-5)
[2023-11-06 11:08] LABS: Alanine Aminotransferase 15 U/L (0-40); Albumin Level 4.1 g/dL (3.5-5.0); Alkaline Phosphatase 59 U/L (39-117); Anion Gap 14 (12-20); Aspartate Amino Transferase 19 U/L (5-37); Bilirubin Total 0.8 mg/dL (0.0-1.0); Blood Urea Nitrogen 8 mg/dL (9-16); Calcium 9.2 mg/dL (8.4-10.2); Carbon Dioxide 24 mmol/L (22-29); Chloride 99 mmol/L (96-108); Cholesterol 159 mg/dL (<200); Estimated Glomerular Filt Rate > 60; Glucose Fasting 93 mg/dL (60-99); HDL Cholesterol 67 mg/dL (>40); LDL Cholesterol Calculated 73 mg/dL (<100); Potassium 4.3 mmol/L (3.3-5.1); Sodium 133 mmol/L (135-145); Total Protein 6.7 g/dL (6.5-8.0); Triglycerides 98 mg/dL (<150)
== END 2023-11-06 08:58 | disposition home or self-care (01) ==
LOC: HO.HMGCLDS 08:57
PROVIDERS: PCP Nurse Practitioner Family; Visit Provider Nurse Practitioner Family
DX: I10 Essential (primary) hypertension (principal)
CPT/HCPCS: 36415; 80053; 80061; 81001; 84443; 85025

== ENCOUNTER 2023-11-08 15:20 | Outpatient (AMB) | payer OTHER, SELFPAY ==
[2023-11-08 15:28] VITALS: BP 118/70; PULSE 70; O2SAT 96; BMI 30.5
--- NOTE | 2023-11-08 15:28 | A.OFFPC_ITS ---
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 Required: No Allergies tetracycline [Tetracycline] Allergy (Intermediate, Verified 11/08/23 15:50) anaphylaxis bee venom protein (honey bee) Allergy (Unknown, Verified 11/08/23 15:50) swelling, hives Medication List - Last Reconciled 11/08/23 by Odell Vazquez, ELECTROMECHANIC albuterol sulfate 90 mcg/actuation 2 puffs inhalation Q6H PRN atorvastatin 20 mg PO DAILY calcium carbonate (Calcium 500) 500 mg PO DAILY cholecalciferol (vitamin D3) (Vitamin D3) 50 mcg PO DAILY cyanocobalamin (vitamin B-12) 1,000 mcg sublingual DAILY 90 days epinephrine (EpiPen 2-Reji) 0.3 mg (0.3 mL) IM Q10M PRN 30 days fluticasone propion-salmeterol 250-50 mcg/dose (Wixela Inhub) 1 inh inhalation BID 30 days losartan 50 mg PO DAILY metoprolol tartrate 25 mg PO BID pantoprazole 20 mg PO DAILY paroxetine HCl 30 mg PO QAM 90 days Tobacco use date assessed: 11/08/23 Fall risk assessment: No Falls in past year Last assessed Fall Risk: 11/08/23 Dental Screening Dental Screen Date: 11/08/23 Did you have a dental visit in the last 12 months?: Yes Did you have a dental problem in the last 6 months where you did not have access to dental care?: No Was dental information given to patient?: Patient has dentist HPI HPI Comments History of Present Illness Details Patient is a 67-year-old male in today for preoperative clearance for cataract surgery. He has a past medical history significant for: Hypertension-currently utilizing metoprolol and losartan. GERD-controlled with pantoprazole sodium 20 mg p.o. daily. Anxiety and depression-controlled with paroxetine 30 mg daily. Mild COPD- Occasional use of albuterol. FAUSTO- Scheduled for sleep study upcoming. Hyperlipidemia-currently taking 20 mg atorvastatin [facility] Medical History (Updated 11/08/23 @ 16:10 by HU Monge) Snoring Somnolence, daytime FAUSTO (obstructive sleep apnea) Obesity Barretts esophagus Renal cell carcinoma GERD (gastroesophageal reflux disease) Papillary adenocarcinoma of left kidney Cannabinoid hyperemesis syndrome Osteopenia On beta hilary at home Coronary artery calcification SOB (shortness of breath) Ascending aortic aneurysm Thoracic aortic aneurysm COPD (chronic obstructive pulmonary disease) Asthma FAUSTO on CPAP Nodule on liver Coronary atherosclerosis HTN (hypertension) Prostate CA Depression Renal mass Foraminal stenosis of lumbar region Surgical History History of esophagogastroduodenoscopy (EGD) History of partial nephrectomy History of cardiac cath H/O colonoscopy History of prostatectomy History of total right knee replacement (TKR) History of total knee replacement (TKR) Lipoma of back History of prostatectomy History of knee surgery Family History Father Leukemia Substance use disorder Mother Breast cancer CVD (cardiovascular disease) Takotsubo cardiomyopathy Brother Substance use disorder Sister No problems noted. Maternal Aunt No problems noted. Maternal Grandfather No problems noted. Maternal Grandmother No problems noted. Maternal Uncle No problems noted. Paternal Aunt No problems noted. Paternal Grandfather No problems noted. Paternal Grandmother No problems noted. Paternal Uncle No problems noted. Social History Housing: House Alcohol intake: current Alcohol intake frequency: 3 or more drinks per day Patient Tobacco Use Status: Former Tobacco user Years Smoked: 35 years ago e-Cigarette/Vaping Use: Never Used Second Hand Smoke Exposure: No service: No Current occupational status: retired Cognitive needs: No Hearing needs: No Vision needs: No Questionnaire Thrive Questionnaire Date Thrive assessed: 10/19/22 AUDIT C Alcohol Use Questionnaire (AUDIT-C) 1. How often do you have a drink containing alcohol?: 4 or more times a week 2. How many drinks containing alcohol do you have on a typical day when you are drinking?: 3 or 4 3. How often do you have six or more drinks on one occasion?: Weekly Total Score: 8 Score Reviewed/Action Taken: Yes DREAD-7 AMB Questionnaire DREAD-7 Date DREAD - 7 assessed: 10/19/22 Source: Developed by Drs. Vicente Call, Ara Silva, Coy Obregon and colleagues, with an educational bijan from [employer]. Review of Systems Const All systems reviewed & are unremarkable except as noted in HPI and below Denies chills and Denies fever(s) Physical exam (Primary Care) Care Plan Goal for BP management: Blood pressure currently controlled Tobacco/Smoking Status: Tobacco use Status Tobacco use date assessed 11/08/23 11/08/23 15:30 Patient Tobacco Use Status Former Tobacco user 11/08/23 15:30 e-Cigarette/Vaping Use Never Used 11/08/23 15:30 Thrive Assessment: Date of Thrive Assessment Date Thrive assessed 10/19/22 11/08/23 15:30 Const Other: Appearance: Alert.? Oriented X3.? No acute distress.? Head: Normocephalic, atraumatic, no step-offs or deformities Eyes: Pupils equal, round and reactive to light.? Neck: Normal inspection.? Neck supple.? CVS: Normal heart rate and rhythm.? Pulses normal.? Respiratory: No respiratory distress.? Breath sounds normal.? Neuro: Oriented X 3.? Results Reviewed Results Reviewed: Sodium 133 L 135-145 mmol/L Potassium 4.3 3.3-5.1 mmol/L CL 99 96-108 mmol/L CO2 24 22-29 mmol/L Gap 14 12-20 BUN 8 L 9-16 mg/dL Creat 0.82 0.5-1.4 mg/dL EGFR > 60 NOTE: For -Dominican individuals, multiply the result by 1.210. Chronic Kidney Disease: Estimated GFR < 60 mL/min/1.73m2 Severe Kidney Disease: Estimated GFR < 15 mL/min/1.73m2 FBS 93 60-99 mg/dL CA 9.2 # 8.4-10.2 mg/dL Total Bili 0.8 0.0-1.0 mg/dL AST (GOT) 19 5-37 U/L ALT (GPT) 15 0-40 U/L Protein, Total 6.7 6.5-8.0 g/dL Alb 4.1 3.5-5.0 g/dL Triglyceride 98 <150 mg/dL Desirable Triglyceride: less than 150 mg/dL Borderline High Triglyceride 150-199 mg/dL High Triglyceride: 200-499 mg/dL Very High Triglyceride: greater than or equal to 5OO mg/dL Cholesterol 159 <200 mg/dL Desirable Cholesterol: less than 200 mg/dL Borderline High Cholesterol: 200-239 mg/dL High Cholesterol: greater than 239 mg/dL LDL Calculated 73 <100 mg/dL Desirable LDL: less than 100 mg/dL Near Optimal/Above Optimal LDL: 110-129 mg/dL Borderline High LDL: 130-159 mg/dL High LDL: 160-189 mg/dL Very High LDL: greater than or equal to 190 mg/dL HDL 67 >40 mg/dL Desirable HDL: greater than 40 mg/dL Note: This HDL assay may give artificially low results in patients with liver disease. Alk Phos 59 39-117 U/L TSH 1.30 0.32-4.0 uIU/mL Assessment and Plan Assessment & Plan (1) Pre-op evaluation: Comment: Patient had labs drawn 4 days prior to appointment. Not on blood thinners. Patient low cardiac risk for procedure. 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 Patient has discontinued Wixela as a gave him no benefit. Currently utilizing albuterol infrequently. Code(s): J44.9 - Chronic obstructive pulmonary disease, unspecified Qualifiers: COPD type: unspecified COPD Qualified Code(s): J44.9 - Chronic obstructive pulmonary disease, unspecified (3) Kidney malignant neoplasm: Comment: In remission currently being followed by Nephrology. Code(s): C64.9 - Malignant neoplasm of unspecified kidney, except renal pelvis Qualifiers: Laterality: unspecified laterality Qualified Code(s): C64.9 - Malignant neoplasm of unspecified kidney, except renal pelvis (4) FAUSTO (obstructive sleep apnea): Comment: PATIENT DOES HAVE LONGSTANDING HISTORY OF OBSTRUCTIVE SLEEP APNEA. HE HAS HISTORY OF USING CPAP IN THE PAST, BUT STOPPED USING THE CPAP ABOUT 3 YEARS AGO. AT PRESENT HE IS SYMPTOMATIC, AND HE WANTS TO GO BACK TO CPAP THERAPY. HE NEEDS A NEW SLEEP STUDY TO DETERMINE THE DIAGNOSIS AND ALSO TO DETERMINE THE OPTIMAL PRESSURE TO BE USED. Code(s): G47.33 - Obstructive sleep apnea (adult) (pediatric) Coding Level of Care Code Est Pt Level 3 (64992) Diagnoses Pre-op evaluation Z01.818 Chronic obstructive pulmonary disease, unspecified COPD type J44.9 COPD type: unspecified COPD Malignant neoplasm of kidney, unspecified laterality C64.9 Laterality: unspecified laterality FAUSTO (obstructive sleep apnea) G47.33 Time Spent (min) 25
== END 2023-11-08 16:24 | disposition home or self-care (01) ==
PROVIDERS: PCP Nurse Practitioner Family; Visit Provider Nurse Practitioner Primary Care
DX: Z01.818 Encounter for other preprocedural examination (principal); J44.9 Chronic obstructive pulmonary disease, unspecified; C64.9 Malignant neoplasm of unspecified kidney, except renal pelvis; G47.33 Obstructive sleep apnea (adult) (pediatric)
CPT/HCPCS: 99213

== ENCOUNTER → 2023-11-23 20:30 | Outpatient (REF) | payer OTHER, SELFPAY | LOC: HO.SL 20:30 | PROVIDERS: PCP Nurse Practitioner Family; Visit Provider Internal Medicine | DX: G47.33 Obstructive sleep apnea (adult) (pediatric) (principal); R06.83 Snoring; R40.0 Somnolence; E66.9 Obesity, unspecified; G25.81 Restless legs syndrome; G47.61 Periodic limb movement disorder; Z68.30 Body mass index [BMI] 30.0-30.9, adult | CPT/HCPCS: 95811 ==

== ENCOUNTER 2023-12-31 13:41 | Outpatient (AMB) | payer OTHER, SELFPAY ==
[2023-12-31 13:46] VITALS: BP 110/70; PULSE 63; O2SAT 97; BMI 30.2
--- NOTE | 2023-12-31 13:46 | MHC.OFFVIS ---
Vital Signs 12/31/23 13:46 Height 6 ft Weight 222 lb 10.67 oz BMI 30.2 BP 110/70 Blood Pressure Location Lt brachial Position Sitting Pulse 63 Pulse Source Pulse Oximeter Pulse Oximetry (%) 97 Oxygen Delivery Method Room Air Intake Visit Reasons: cough Intake Note: pt is here for follow up and sleep study. feeling good about it. Cap Maker Required: No Allergies tetracycline [Tetracycline] Allergy (Intermediate, Verified 12/31/23 13:54) anaphylaxis bee venom protein (honey bee) Allergy (Unknown, Verified 12/31/23 13:54) swelling, hives Medication List - Last Reconciled 12/31/23 by Lucy Wilson MD albuterol sulfate 90 mcg/actuation 2 puffs inhalation Q6H PRN atorvastatin 20 mg PO DAILY calcium carbonate (Calcium 500) 500 mg PO DAILY cholecalciferol (vitamin D3) (Vitamin D3) 50 mcg PO DAILY cyanocobalamin (vitamin B-12) 1,000 mcg sublingual DAILY 90 days epinephrine (EpiPen 2-Reji) 0.3 mg (0.3 mL) IM Q10M PRN 30 days fluticasone propion-salmeterol 250-50 mcg/dose (Wixela Inhub) 1 inh inhalation BID 30 days losartan 50 mg (1/2 x 100 mg) PO DAILY metoprolol tartrate 25 mg PO BID pantoprazole 20 mg PO DAILY paroxetine HCl 30 mg PO QAM 90 days Do you need a note to return to daycare/school/sports/work: No HPI HPI cough: Details: Anthony is 68 years old gentleman, who did complete polysomnogram study in the sleep lab. The diagnosis of obstructive sleep apnea was confirmed with total sleep time AHI 21.5 . He did have periodic limb movements with the PLM index 138 and PLM arousal index 9.5, patient is not aware of any leg movements or leg jerks at night. He does have history of obstructive sleep apnea and has used CPAP in the past, but not in the last 3 years. [facility] Medical History Prostate CA Papillary adenocarcinoma of left kidney Coronary artery calcification Coronary atherosclerosis Ascending aortic aneurysm Thoracic aortic aneurysm HTN (hypertension) Personal history of nicotine dependence FAUSTO (obstructive sleep apnea) Snoring Somnolence, daytime Obesity Barretts esophagus GERD (gastroesophageal reflux disease) Cannabinoid hyperemesis syndrome Osteopenia On beta hilary at home SOB (shortness of breath) COPD (chronic obstructive pulmonary disease) Asthma Nodule on liver Depression Foraminal stenosis of lumbar region Surgical History History of cardiac cath History of prostatectomy History of partial nephrectomy History of total right knee replacement (TKR) History of total knee replacement (TKR) History of knee surgery History of esophagogastroduodenoscopy (EGD) H/O colonoscopy Lipoma of back Family History Father Leukemia Substance use disorder Mother Breast cancer CVD (cardiovascular disease) Takotsubo cardiomyopathy Brother Substance use disorder Sister No problems noted. Maternal Aunt No problems noted. Maternal Grandfather No problems noted. Maternal Grandmother No problems noted. Maternal Uncle No problems noted. Paternal Aunt No problems noted. Paternal Grandfather No problems noted. Paternal Grandmother No problems noted. Paternal Uncle No problems noted. Social History Housing: House Alcohol intake: current Alcohol intake frequency: 3 or more drinks per day Patient Tobacco Use Status: Former Tobacco user Years Smoked: 35 years ago e-Cigarette/Vaping Use: Never Used Second Hand Smoke Exposure: No service: No Current occupational status: retired Cognitive needs: No Hearing needs: No Vision needs: No Review of Systems Const All systems reviewed & are unremarkable except as noted in HPI and below Eyes Reports no additional complaints ENT Reports no additional complaints Card Denies chest pain, Denies irregular heart rhythm and Denies leg edema Resp Reports as per HPI GI Reports no additional complaints Reports no additional complaints Musc Reports arthralgias (Some pain in knees on walking) Skin/Breast Reports system reviewed and no additional complaints, except as documented Neuro Reports no additional complaints Psych Reports depression (Controlled with med) Physical Exam Const General: comfortable, no acute distress, alert and awake Orientation/consciousness: patient oriented x3 HEENT Head: Yes normal to inspection General nose exam: No nasal polyps present and No nasal discharge present Face and sinus: Yes sinuses nontender Mouth: oropharynx abnormals (Very narrow or crowded, Mallampati class 4) Throat: Yes posterior oropharynx normal Eyes General: appearance normal, both eyes and all related structures Neck Neck: Yes normal visual inspection, Yes no lymphadenopathy, Yes trachea midline and Yes no JVD Thyroid: Thyroid normal Chest Chest palpation & inspection: normal inspection of the chest, normal palpation of entire chest wall and no tenderness Resp Other: Percussion note is resonant, breath sounds are distant on both sides with prolonged expiratory phase. There are scattered rhonchi and a few crepitations over the basilar areas. Breath sounds are slightly diminished over the left lower lobe. Cardio Palpation: normal PMI Rate: regular rate Rhythm: regular rhythm Heart sounds: no gallops and no murmurs GI Palpation (GI): Soft to palpation, nontender, No hepatosplenomegaly present and no masses Auscultation: normal bowel sounds Back/Spine/Pelvis Thoracic/Lumbar Spine: thoracic and lumbar spine normal to inspection Skin General skin exam: no rashes or lesions noted Neuro General: patient oriented x3 and no focal motor deficits Cranial nerves: Yes CN's II-XII intact bilaterally Extrem General: Yes normal to inspection, Yes no clubbing, cyanosis or edema and Yes no calf tenderness Psych Speech and movement: Normal speech and movement present Results Reviewed Results Reviewed: Polysomnogram study on 11/22 -2023 results are reviewed with the patient. c/w moderately severe obstructive sleep apnea and also periodic limb movement disorder. Assessment & Plan Assessment & Plan (1) Obesity: Comment: HE IS MODERATELY OBESE, CURRENT BMI 30.2 NECK CIRCUMFERENCE IS 17 IN. MALLAMPATI CLASS 3 Code(s): E66.9 - Obesity, unspecified Category: Medical Plan: Patient is aware of being overweight, He is trying to watch his diet but can not do much exercise. (2) FAUSTO (obstructive sleep apnea): Comment: PATIENT DOES HAVE LONGSTANDING HISTORY OF OBSTRUCTIVE SLEEP APNEA. HE HAS HISTORY OF USING CPAP IN THE PAST, BUT STOPPED USING THE CPAP ABOUT 3 YEARS AGO. AT PRESENT HE IS SYMPTOMATIC, His polysomnogram study is positive for moderately severe obstructive sleep apnea. Explained the results to the patient. Code(s): G47.33 - Obstructive sleep apnea (adult) (pediatric) Category: Medical Plan: Plan to start him on CPAP therapy with auto PAP mode and pressure setting 6-20 cm, will follow him closely for compliance and benefits. Will check him back in 6 weeks and review his compliance data. (3) COPD (chronic obstructive pulmonary disease): Comment: Mild COPD per PFT . Currently using only albuterol HFA as needed, . His shortness of breath is mainly experienced when he climbs 1 flight of stairs or walks up [place] Code(s): J44.9 - Chronic obstructive pulmonary disease, unspecified Category: Medical Qualifiers: COPD type: unspecified COPD Qualified Code(s): J44.9 - Chronic obstructive pulmonary disease, unspecified Plan: Advised to keep Wixela 250-50 inhaler on hand. Use 1 inhalation b.i.d. if symptoms get any worse. Use albuterol HFA 2 puffs Q 6 hours p.r.n. for acute symptoms Coding Level of Care Code Est Pt Level 3 (77956) Diagnoses Obesity E66.9 FAUSTO (obstructive sleep apnea) G47.33 Chronic obstructive pulmonary disease, unspecified COPD type J44.9 COPD type: unspecified COPD
== END 2023-12-31 14:08 | disposition home or self-care (01) ==
PROVIDERS: PCP Nurse Practitioner Family; Visit Provider Internal Medicine
DX: E66.9 Obesity, unspecified (principal); G47.33 Obstructive sleep apnea (adult) (pediatric); J44.9 Chronic obstructive pulmonary disease, unspecified
CPT/HCPCS: 99213

== ENCOUNTER → 2023-12-31 13:41 | Outpatient (BNVA) | payer OTHER, SELFPAY | PROVIDERS: PCP Nurse Practitioner Family; Visit Provider Internal Medicine ==

== ENCOUNTER 2024-01-02 11:19 | Outpatient (AMB) | payer OTHER, SELFPAY ==
--- NOTE | 2024-01-02 11:32 | MHC.OFFVIS ---
Vital Signs 01/02/24 11:33 Height 6 ft Weight 220 lb 7.396 oz BMI 29.9 BP 110/80 Blood Pressure Location Lt brachial Position Sitting Pulse 57 Pulse Source Monitor Intake Visit Reasons: 1 yr f/up Intake Note: 1 yr f/up Title Vehicle Service Attendant Required: No Accompanied by: Self / Same As Patient Allergies tetracycline [Tetracycline] Allergy (Intermediate, Verified 12/31/23 13:54) anaphylaxis bee venom protein (honey bee) Allergy (Unknown, Verified 12/31/23 13:54) swelling, hives Medication List - Last Reconciled 01/02/24 by Levon Cifuentes MD albuterol sulfate 90 mcg/actuation 2 puffs inhalation Q6H PRN atorvastatin 20 mg PO DAILY calcium carbonate (Calcium 500) 500 mg PO DAILY cholecalciferol (vitamin D3) (Vitamin D3) 50 mcg PO DAILY cyanocobalamin (vitamin B-12) 1,000 mcg sublingual DAILY 90 days epinephrine (EpiPen 2-Reji) 0.3 mg (0.3 mL) IM Q10M PRN 30 days losartan 50 mg (1/2 x 100 mg) PO DAILY metoprolol tartrate 25 mg PO BID pantoprazole 20 mg PO DAILY paroxetine HCl 30 mg PO QAM 90 days HPI Comments Details: Pleasant 66 gentleman here for follow-up. He has been diagnosed with renal cell cancer and will need surgery. He is here for perioperative cardiovascular risk assessment. He was previously seen for dyspnea on exertion and after discussion was taken for left and right heart catheterization. His filling pressures at rest were normal. He did not have any coronary artery disease. He continues to get dyspnea on exertion which is due to underlying lung disease from tobacco abuse in the past. He also has some deconditioning due to lack of activity. He had prostate cancer and was on medications which led to fatigue and he has not been exercising regularly due to that. He is saying that he is off the medication currently and is feeling somewhat better. 01/02/2024: He returns for follow-up. He has been fine. No chest discomfort. Continues to have chronic dyspnea on exertion he has mild dilation of ascending aorta. He has hypertension but blood pressure is well controlled. [facility] Medical History (Updated 01/02/24 @ 11:36 by Leah Ross [facility]) Eyelid retraction unspecified eye, unspecified lid Prostate CA Papillary adenocarcinoma of left kidney Coronary artery calcification Coronary atherosclerosis Ascending aortic aneurysm Thoracic aortic aneurysm HTN (hypertension) Personal history of nicotine dependence FAUSTO (obstructive sleep apnea) Snoring Somnolence, daytime Obesity Barretts esophagus GERD (gastroesophageal reflux disease) Cannabinoid hyperemesis syndrome Osteopenia On beta hilary at home SOB (shortness of breath) COPD (chronic obstructive pulmonary disease) Asthma Nodule on liver Depression Foraminal stenosis of lumbar region Surgical History History of cardiac cath History of prostatectomy History of partial nephrectomy History of total right knee replacement (TKR) History of total knee replacement (TKR) History of knee surgery History of esophagogastroduodenoscopy (EGD) H/O colonoscopy Lipoma of back Family History Father Leukemia Substance use disorder Mother Breast cancer CVD (cardiovascular disease) Takotsubo cardiomyopathy Brother Substance use disorder Sister No problems noted. Maternal Aunt No problems noted. Maternal Grandfather No problems noted. Maternal Grandmother No problems noted. Maternal Uncle No problems noted. Paternal Aunt No problems noted. Paternal Grandfather No problems noted. Paternal Grandmother No problems noted. Paternal Uncle No problems noted. Social History Housing: House Alcohol intake: current Alcohol intake frequency: 3 or more drinks per day Patient Tobacco Use Status: Former Tobacco user Years Smoked: 35 years ago e-Cigarette/Vaping Use: Never Used Second Hand Smoke Exposure: No service: No Current occupational status: retired Cognitive needs: No Hearing needs: No Vision needs: No Review of Systems Const Denies chills, Denies fatigue, Denies fever(s), Denies frequent falls, Denies weakness, Denies weight gain and Denies weight loss ENT Denies dizziness Card Denies chest pain, Denies leg edema, Denies lightheadedness, Denies palpitations, Denies dyspnea and Denies dyspnea on exertion Resp Denies cough, Denies dyspnea and Denies dyspnea on exertion GI Denies hematochezia Musc Denies abnormal gait, Denies muscle weakness, Denies numbness, Denies radiating pain into limb and Denies tingling Neuro Denies abnormal gait, Denies dizziness, Denies frequent falls, Denies numbness, Denies tingling and Denies weakness Endo Denies fatigue and Denies palpitations Physical Exam Vital Signs: Last Vital Signs Pulse 57 01/02/24 11:33 BP 110/80 01/02/24 11:33 BMI result Body Mass Index 29.9 GENERAL APPEARANCE: in no acute distress, pleasant. NECK: no carotid bruit, no jugular venous distention. SKIN: no suspicious lesions, warm and dry. HEART: no murmurs, regular rate and rhythm. LUNGS: clear to auscultation bilaterally. ABDOMEN: soft, nontender. EXTREMITIES: no edema. PERIPHERAL PULSES: equal. NEUROLOGIC: No gross deficits, AAO X 3 Office Procedures EKG Details: Sinus bradycardia 57 beats per minute, normal axis, QTC 420 milliseconds. [id number], Complete Assessment & Plan Assessment & Plan (1) Thoracic aortic aneurysm: Code(s): I71.2 - Thoracic aortic aneurysm, without rupture Category: Medical (2) HTN (hypertension): Code(s): I10 - Essential (primary) hypertension Category: Medical (3) Dyspnea on exertion: Code(s): R06.00 - Dyspnea, unspecified Category: Medical Plan [age] year gentleman here for follow-up. He has background history of dyspnea on exertion. He had extensive workup and it was felt that dyspnea is due to COPD and deconditioning. Clinically not in heart failure. Blood pressure is well controlled. He has mild to moderate dilation of ascending aorta at 4.3 cm. We will check repeat echocardiogram to reassess the ascending aorta size. Thank you for allowing me to participate in the care of your patient. Please feel free to contact me if you have any questions. Orders: Orders CA echo transthoracic complete Today I71.2 - Thoracic aortic aneurysm, without rupture Coding Level of Care Code Est Pt Level 4 (05113) Diagnoses Thoracic aortic aneurysm I71.2 HTN (hypertension) I10 Dyspnea on exertion R06.00 CPT Codes EKG - CPT: 10020-[id number], Complete ([id number])
[2024-01-02 11:33] VITALS: BP 110/80; PULSE 57; BMI 29.9
== END 2024-01-02 11:54 | disposition home or self-care (01) ==
PROVIDERS: PCP Nurse Practitioner Family; Visit Provider Internal Medicine Cardiovascular Disease
DX: I71.20 Thoracic aortic aneurysm, without rupture, unspecified (principal); I10 Essential (primary) hypertension; R06.00 Dyspnea, unspecified
CPT/HCPCS: 93010; 99214

== ENCOUNTER → 2024-01-02 11:19 | Outpatient (BNVA) | payer OTHER, SELFPAY | PROVIDERS: PCP Nurse Practitioner Family; Visit Provider Internal Medicine Cardiovascular Disease | DX: Z01.810 Encounter for preprocedural cardiovascular examination (principal); R06.09 Other forms of dyspnea; I71.20 Thoracic aortic aneurysm, without rupture, unspecified; I10 Essential (primary) hypertension | CPT/HCPCS: 93005 ==

== ENCOUNTER 2024-01-09 12:51 | Outpatient (REF) | payer OTHER, SELFPAY ==
--- NOTE | ~2024-01-09 | CT_ITS ---
EXAMINATION: CT LOW-DOSE SCREENING CHEST WITHOUT CONTRAST CLINICAL INFORMATION: Personal history of nicotine dependence. The patient has a 15 pack-year history of smoking, having quit 35 years ago. COMPARISON: X-ray chest 08/27/2023. CT chest 07/28/2021. TECHNIQUE: Multidetector volumetric CT imaging of the chest is performed on a Siemens SOMATOM Definition scanner without contrast using low dose technique. Additional 2D coronal and sagittal reformatted images and axial 3D maximum intensity projection (MIP) images are generated on the CT workstation. This CT examination was performed using dose optimization techniques as appropriate, variously including the following: *Automated exposure control *Adjustment of mA and/or kV according to patient size (this includes techniques or standardized protocols for targeted exams where dose is matched to indication/reason for exam; i.e. extremities or head) *Use of iterative reconstruction technique TOTAL EXAM DLP: 70 mGy-cm. CTDIvol: 1.85 mGy. FINDINGS: PULMONARY NODULES: Some scattered punctate granulomas are seen. Some small micronodules are seen, the largest of which is 5.3 mm in the left lower lobe (5:334 and jain images) which is unchanged when compared to 07/28/2021 (7:320 ). There is no new, increasing sized or suspicious pulmonary nodule. LUNGS: Lungs bilaterally symmetrically expanded. Mild emphysema is present along with bronchial thickening without bronchiectasis. No effusion or pneumothorax. Central airways patent. MEDIASTINUM: No mediastinal, hilar or axillary adenopathy or free fluid collection. CORONARY ARTERY CALCIFICATION: Mild. THYROID GLAND: Unremarkable to the extent seen. CARDIOVASCULAR STRUCTURES: The ascending aorta remains aneurysmal at 4.6 cm maximal transverse dimension at the level of the main pulmonary artery. 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 Heart size normal. No pericardial effusion. CHEST WALL/AXILLA: Unremarkable. UPPER ABDOMEN: Included portions of the solid organs in the upper abdomen unremarkable on noncontrast imaging. OSSEOUS STRUCTURES: No suspicious focal findings. CT/CT lung screening IMPRESSION: Stable pulmonary nodules with no evidence to suggest malignancy. ASSESSMENT: 1. Lung-RADS Category 2: Benign appearance or behavior of nodules. N/A 2. Lung-RADS Category S: Positive. There are clinically significant or potentially clinically significant findings not related to the lungs requiring further workup. RECOMMENDATION: Continued routine annual low-dose CT lung screening in 1 year is recommended. An order for CT CHEST LOW DOSE CANCER SCREENING ([id number]) can be placed. 3. There is a known 4.6 cm aneurysm involving the ascending aorta. Consider vascular consultation. Electronically signed by: Mamadou Mills MD 03/04/2024 09:32 AM EDT
== END 2024-01-09 12:52 | disposition home or self-care (01) ==
LOC: HO.CT 12:51
PROVIDERS: PCP Nurse Practitioner Family; Visit Provider Physician Assistant Medical
DX: Z12.2 Encounter for screening for malignant neoplasm of respiratory organs (principal); Z87.891 Personal history of nicotine dependence
CPT/HCPCS: 71271

== ENCOUNTER → 2024-02-04 14:53 | Outpatient (REF) | payer OTHER, SELFPAY ==
--- NOTE | 2024-02-04 14:57 | CA_ITS ---
Transthoracic Echocardiogram Patient (Last, First, Middle): Anthony Granados M Gender: Male Date of : 1955 Age: 68 Procedure Date: 02/04/2024 Procedure Type: Transthoracic Echocardiogram Location: OP Height: 182. cm Weight: 99.79 kg BSA: 2.21 m2 Heart Rate: 92 bpm BP: 118 / 82 mmHg Recreational Director: SHARMILA Enamorado MD: Levon Cifuentes MD Foundation Engineer: Elias Cosby MD Symptoms: I71.2 - Thoracic aortic aneurysm, without rupture Study Quality: Adequate w/Contrast ECG Rhythm: Sinus Conclusions: - 1. Normal LV ejection fraction of 60 65% with impaired relaxation filling pattern 2. Trivial aortic regurgitation 3. Mildly dilated ascending aorta 4.2 cm 4. No pericardial effusion Findings Procedure Information Contrast agent, definity, is being given per protocol without apparent complications. Left Ventricle Normal left ventricular size, thickness, and systolic function. The visually estimated ejection fraction is between 60-65%. Spectral Doppler is indicative of an impaired relaxation filling pattern. E/E prime ratio is between 8 and 15 consistent with indeterminate filling pressures. Right Ventricle Normal right ventricular cavity size and systolic function. Atria Both atria are normal in size. There is lipomatous hypertrophy of the interatrial septum. There is no evidence of interatrial shunt. Aortic Valve Normal aortic valve structure and function. There is no aortic valve stenosis. There is trace (trivial) aortic valve regurgitation. Mitral Valve Normal mitral valve structure and function. There is trace mitral valve regurgitation. There is no mitral valve stenosis. Pulmonic Valve The pulmonic valve is likely normal. There is trace pulmonic valve regurgitation. Tricuspid Valve Normal tricuspid valve structure. Tricuspid regurgitation envelope is inadequate for calculation of right ventricular systolic pressure. Normal right atrial pressure. Great Vessels The pulmonary artery was not well visualized. There is mild dilatation of the ascending aorta measuring 4.20 cm. Venous The inferior vena cava is normal in size and collapses greater than 50% with inspiration. Pericardium/Pleural There is no evidence of pericardial effusion. Prior Study Comparison No significant change compared to prior study dated: 09/11/2022. Measurements 2D Linear Measurements IVSd: 1.28 0.6-0.9/0.6-1.0 cm LVIDd: 5.24 3.9-5.3/4.2-5.9 cm LVIDd Index: 2.37 2.4-3.2/2.2-3.1 cm/m2 LVIDs: 3.17 2.0-3.6 cm LVPWd: 1.10 0.7-1.1 cm LA Diam: 4.30 2.7-3.8/3.0-4.0 cm LAIDs Index: 1.95 1.5-2.3 cm/m2 LV Mass: 310.52 67-162/88-224 g LV Mass Index: 140.50 43-95/49-115 g/m2 LVOT Diam: 2.50 3.0+(-)1.3 cm 2D Systolic Function EF 4C: 65.50 >55% EF 2C: 61.30 >55% EF BiP: 64.10 >55% Mitral Valve MV Pk E: 0.59 MV PK A: 0.68 MV Decel Time: 271.00 E/A: 0.90 E'Lateral: 10.90 E'Medial: 7.94 E/E' Med: 7.40 E/E' Lat: 5.40 PHT: 79.00 MVA PHT: 2.78 Decel [place]: 2.17 Aortic Valve AoV Pk Braden: 1.21 AoV Mn Braden: 0.84 AoV VTI: 0.23 AoV Pk Grad: 6.00 Aov Mn Grad: 3.00 MURTAZA Cont.VTI: 4.03 LVOT LVOT Pk Braden: 0.94 LVOT Mn Braden: 0.67 LVOT VTI: 0.19 LVOT Pk Grad: 4.00 LVOT Mn Grad: 2.00 LVOT Diam: 2.50 LVOT Area: 4.91 Diastolic Function MV Pk E: 0.59 MV Pk A: 0.68 E/A: 0.90 E'Medial: 7.94 E/E' Med: 7.40 E' Laterial: 10.90 E/E' Lat: 5.40 Right Ventricle TAPSE (mm): 22.60 TVS' Braden: 16.80 Tricuspid Valve RA Press: 3.00 Great Vessels Aorta Sinus of Valsalva: 3.90 2.0-3.5 cm Ao Asc: 4.20 2.1-3.4 cm Pulmonary Valve PV Pk Braden: 1.21 Peak PV Grad: 6.00 Updated in Other Vendor System with Status of Final Elias Cosby MD electronically signed on 02/04/2024 5:13:35 PM with status of Final
== END ==
LOC: HO.CARD 14:53
PROVIDERS: PCP Nurse Practitioner Family; Visit Provider Internal Medicine Cardiovascular Disease
DX: I71.20 Thoracic aortic aneurysm, without rupture, unspecified (principal)
CPT/HCPCS: 93306; Q9957

== ENCOUNTER → 2024-02-04 14:57 | Outpatient (BNV) | payer OTHER, SELFPAY | PROVIDERS: PCP Nurse Practitioner Family; Visit Provider Internal Medicine Cardiovascular Disease | DX: I35.1 Nonrheumatic aortic (valve) insufficiency (principal); I71.21 Aneurysm of the ascending aorta, without rupture | CPT/HCPCS: 93306 ==

== ENCOUNTER 2024-04-22 13:22 | Outpatient (AMB) | payer OTHER, SELFPAY ==
--- NOTE | 2024-04-22 13:23 | A.OFFVIS_ITS ---
Vital Signs 04/22/24 13:26 Height 6 ft Weight 220 lb BMI 29.8 BP 126/80 Blood Pressure Location Lt brachial Position Sitting Respiration 14 Pulse 78 Pulse Source Pulse Oximeter Pulse Oximetry (%) 98 Oxygen Delivery Method Room Air Intake Visit Reasons: Cough, FAUSTO (obstructive sleep apnea) Allergies tetracycline [Tetracycline] Allergy (Intermediate, Verified 04/22/24 13:46) anaphylaxis bee venom protein (honey bee) Allergy (Unknown, Verified 04/22/24 13:46) swelling, hives Medication List - Last Reconciled 04/22/24 by Lucy Wilson MD albuterol sulfate 90 mcg/actuation 2 puffs inhalation Q6H PRN atorvastatin 20 mg PO DAILY calcium carbonate (Calcium 500) 500 mg PO DAILY cholecalciferol (vitamin D3) (Vitamin D3) 50 mcg PO DAILY cyanocobalamin (vitamin B-12) 1,000 mcg sublingual DAILY 90 days epinephrine (EpiPen 2-Reji) 0.3 mg (0.3 mL) IM Q10M PRN 30 days losartan 50 mg (1/2 x 100 mg) PO DAILY metoprolol tartrate 25 mg PO BID pantoprazole 20 mg PO DAILY paroxetine HCl 30 mg PO QAM 90 days Do you need a note to return to daycare/school/sports/work: No HPI HPI Cough: Details: Anthony 68 years old gentleman is here for his follow-up. He was read diagnosed to have moderately severe obstructive sleep apnea. Has been started on CPAP therapy since his last visit. He is using CPAP every night regularly, claims that he does sleep for 4-5 hours and then the mask may come off. However his compliance report indicates that he is using for about 7 hours every night. Is definitely benefiting and denies any daytime sleepiness.. The only issue he has is some nasal congestion in the morning hours which makes him cough and bring up clear phlegm. During the daytime he has very little cough but occasional wheeze and uses albuterol only once in a while. [facility] Medical History Eyelid retraction unspecified eye, unspecified lid Prostate CA Papillary adenocarcinoma of left kidney Coronary artery calcification Coronary atherosclerosis Ascending aortic aneurysm Thoracic aortic aneurysm HTN (hypertension) Personal history of nicotine dependence FAUSTO (obstructive sleep apnea) Snoring Somnolence, daytime Obesity Barretts esophagus GERD (gastroesophageal reflux disease) Cannabinoid hyperemesis syndrome Osteopenia On beta hilary at home SOB (shortness of breath) COPD (chronic obstructive pulmonary disease) Asthma Nodule on liver Depression Foraminal stenosis of lumbar region Surgical History History of cardiac cath History of prostatectomy History of partial nephrectomy History of total right knee replacement (TKR) History of total knee replacement (TKR) History of knee surgery History of esophagogastroduodenoscopy (EGD) H/O colonoscopy Lipoma of back Family History Father Leukemia Substance use disorder Mother Breast cancer CVD (cardiovascular disease) Takotsubo cardiomyopathy Brother Substance use disorder Sister No problems noted. Maternal Aunt No problems noted. Maternal Grandfather No problems noted. Maternal Grandmother No problems noted. Maternal Uncle No problems noted. Paternal Aunt No problems noted. Paternal Grandfather No problems noted. Paternal Grandmother No problems noted. Paternal Uncle No problems noted. Social History Housing: House Alcohol intake: current Alcohol intake frequency: 3 or more drinks per day Patient Tobacco Use Status: Former Tobacco user Years Smoked: 35 years ago e-Cigarette/Vaping Use: Never Used Second Hand Smoke Exposure: No service: No Current occupational status: retired Cognitive needs: No Hearing needs: No Vision needs: No Review of Systems Const All systems reviewed & are unremarkable except as noted in HPI and below Eyes Reports no additional complaints ENT Reports no additional complaints Card Denies chest pain, Denies irregular heart rhythm and Denies leg edema Resp Reports as per HPI GI Reports no additional complaints Reports no additional complaints Musc Reports arthralgias (Some pain in knees on walking) Skin/Breast Reports system reviewed and no additional complaints, except as documented Neuro Reports no additional complaints Psych Reports depression (Controlled with med) Physical Exam Vital Signs: Last Vital Signs Pulse 78 04/22/24 13:26 Resp 14 04/22/24 13:26 BP 126/80 04/22/24 13:26 Pulse Ox 98 04/22/24 13:26 Oxygen Delivery Method Room Air 04/22/24 13:26 BMI result Body Mass Index 29.8 Const General: comfortable, no acute distress, alert and awake Orientation/consciousness: patient oriented x3 HEENT Head: Yes normal to inspection General nose exam: No nasal polyps present and No nasal discharge present Face and sinus: Yes sinuses nontender Mouth: oropharynx abnormals (Very narrow or crowded, Mallampati class 4) Throat: Yes posterior oropharynx normal Eyes General: appearance normal, both eyes and all related structures Neck Neck: Yes normal visual inspection, Yes no lymphadenopathy, Yes trachea midline and Yes no JVD Thyroid: Thyroid normal Chest Chest palpation & inspection: normal inspection of the chest, normal palpation of entire chest wall and no tenderness Resp Other: Percussion note is resonant, breath sounds are distant on both sides with prolonged expiratory phase. No wheezing or crepitations are heard this time. Cardio Palpation: normal PMI Rate: regular rate Rhythm: regular rhythm Heart sounds: no gallops and no murmurs GI Palpation (GI): Soft to palpation, nontender, No hepatosplenomegaly present and no masses Auscultation: normal bowel sounds Back/Spine/Pelvis Thoracic/Lumbar Spine: thoracic and lumbar spine normal to inspection Skin General skin exam: no rashes or lesions noted Neuro General: patient oriented x3 and no focal motor deficits Cranial nerves: Yes CN's II-XII intact bilaterally Extrem General: Yes normal to inspection, Yes no clubbing, cyanosis or edema and Yes no calf tenderness Psych Speech and movement: Normal speech and movement present Results Reviewed Results Reviewed: Compliance report for the last 30 nights is reviewed. He has used 30/30 nights 100%. Average use it per night 7 hours 7 minutes. Pressure is CPAP 10. There is mild to moderate air leak. Residual AHI 5 Assessment & Plan Assessment & Plan (1) FAUSTO (obstructive sleep apnea): Comment: PATIENT DOES HAVE LONGSTANDING HISTORY OF OBSTRUCTIVE SLEEP APNEA. HE HAS HISTORY OF USING CPAP IN THE PAST, BUT STOPPED USING THE CPAP ABOUT 3 YEARS AGO. Recent polysomnogram study was positive for moderately severe obstructive sleep apnea. AHI 21 He has been restarted on CPAP therapy and now he is using CPAP regularly every night. Feels better and sleeps better. Code(s): G47.33 - Obstructive sleep apnea (adult) (pediatric) Category: Medical Plan: I reviewed the results of his compliance. Report and he is quite happy with that Advised to continue using CPAP regularly every night. Advised to use warm mode of humidification. May use Claritin or Zyrtec 10 mg p.r.n. at night if he feels that his nose. Is congested May also use Flonase 2 spray in each nostril before he puts on the CPAP mask. Coding Level of Care Code Est Pt Level 3 (12041) Diagnoses FAUSTO (obstructive sleep apnea) G47.33
[2024-04-22 13:26] VITALS: BP 126/80; PULSE 78; RESP 14; O2SAT 98; BMI 29.8
== END 2024-04-22 13:45 | disposition home or self-care (01) ==
PROVIDERS: PCP Nurse Practitioner Family; Visit Provider Internal Medicine
DX: G47.33 Obstructive sleep apnea (adult) (pediatric) (principal)
CPT/HCPCS: 99213

== ENCOUNTER → 2024-04-22 13:22 | Outpatient (BNVA) | payer OTHER, SELFPAY | PROVIDERS: PCP Nurse Practitioner Family; Visit Provider Internal Medicine ==

== ENCOUNTER 2024-07-08 13:19 | Outpatient (AMB) | payer OTHER, SELFPAY ==
[2024-07-08 13:34] VITALS: BP 120/68; PULSE 60; O2SAT 96; BMI 30.3
--- NOTE | 2024-07-08 13:34 | A.OFFVIS_ITS ---
Vital Signs 07/08/24 13:34 Height 6 ft Weight 223 lb 12.307 oz BMI 30.3 BP 120/68 Blood Pressure Location Lt brachial Position Sitting Pulse 60 Pulse Source Pulse Oximeter Pulse Oximetry (%) 96 Oxygen Delivery Method Room Air Intake Visit Reasons: cough/wheeze Intake Note: pt is here for follow up and states he has a cough for over a month, all clear and had to stop using the cpap, ? relation to his symptoms. When he did stop all the phlegm was better. Telesales Specialist Required: No Allergies tetracycline [Tetracycline] Allergy (Intermediate, Verified 07/08/24 13:41) anaphylaxis bee venom protein (honey bee) Allergy (Unknown, Verified 07/08/24 13:41) swelling, hives Medication List - Last Reconciled 07/08/24 by Lucy Wilson MD albuterol sulfate 90 mcg/actuation 2 puffs inhalation Q6H PRN atorvastatin 20 mg PO DAILY calcium carbonate (Calcium 500) 500 mg PO DAILY cholecalciferol (vitamin D3) (Vitamin D3) 50 mcg PO DAILY cyanocobalamin (vitamin B-12) 1,000 mcg sublingual DAILY 90 days epinephrine (EpiPen 2-Reji) 0.3 mg (0.3 mL) IM Q10M PRN 30 days losartan 50 mg (1/2 x 100 mg) PO DAILY metoprolol tartrate 25 mg PO BID pantoprazole 20 mg PO DAILY paroxetine HCl 30 mg PO QAM 90 days Do you need a note to return to daycare/school/sports/work: No HPI HPI cough/wheeze: Details: This 68 years old gentleman is here for a special visit because he has not been able to use his CPAP for the last few weeks. He was using CPAP regularly but started having cough especially at night when he was wearing the CPAP. So he stopped using it. He claims that after he stopped using the CPAP the cough disappeared, he is not using any inhaler, He does not even need to use the albuterol. He does not have any chest infection, the mucus that he was expectorating was white and clear. He comes today asking if he should restart the use of CPAP [facility] Medical History Eyelid retraction unspecified eye, unspecified lid Prostate CA Papillary adenocarcinoma of left kidney Coronary artery calcification Coronary atherosclerosis Ascending aortic aneurysm Thoracic aortic aneurysm HTN (hypertension) Personal history of nicotine dependence FAUSTO (obstructive sleep apnea) Snoring Somnolence, daytime Obesity Barretts esophagus GERD (gastroesophageal reflux disease) Cannabinoid hyperemesis syndrome Osteopenia On beta hilary at home SOB (shortness of breath) COPD (chronic obstructive pulmonary disease) Asthma Nodule on liver Depression Foraminal stenosis of lumbar region Surgical History History of cardiac cath History of prostatectomy History of partial nephrectomy History of total right knee replacement (TKR) History of total knee replacement (TKR) History of knee surgery History of esophagogastroduodenoscopy (EGD) H/O colonoscopy Lipoma of back Family History Father Leukemia Substance use disorder Mother Breast cancer CVD (cardiovascular disease) Takotsubo cardiomyopathy Brother Substance use disorder Sister No problems noted. Maternal Aunt No problems noted. Maternal Grandfather No problems noted. Maternal Grandmother No problems noted. Maternal Uncle No problems noted. Paternal Aunt No problems noted. Paternal Grandfather No problems noted. Paternal Grandmother No problems noted. Paternal Uncle No problems noted. Social History Housing: House Alcohol intake: current Alcohol intake frequency: 3 or more drinks per day Patient Tobacco Use Status: Former Tobacco user Years Smoked: 35 years ago e-Cigarette/Vaping Use: Never Used Second Hand Smoke Exposure: No service: No Current occupational status: retired Cognitive needs: No Hearing needs: No Vision needs: No Review of Systems Const All systems reviewed & are unremarkable except as noted in HPI and below Eyes Reports no additional complaints ENT Reports no additional complaints Card Denies chest pain, Denies irregular heart rhythm and Denies leg edema Resp Reports as per HPI GI Reports no additional complaints Reports no additional complaints Musc Reports arthralgias (Some pain in knees on walking) Skin/Breast Reports system reviewed and no additional complaints, except as documented Neuro Reports no additional complaints Psych Reports depression (Controlled with med) Physical Exam Vital Signs: Last Vital Signs Pulse 60 07/08/24 13:34 BP 120/68 07/08/24 13:34 Pulse Ox 96 07/08/24 13:34 Oxygen Delivery Method Room Air 07/08/24 13:34 BMI result Body Mass Index 30.3 Const General: comfortable, no acute distress, alert and awake Orientation/consciousness: patient oriented x3 HEENT Head: Yes normal to inspection General nose exam: No nasal polyps present and No nasal discharge present Face and sinus: Yes sinuses nontender Mouth: oropharynx abnormals (Very narrow or crowded, Mallampati class 4) Throat: Yes posterior oropharynx normal Eyes General: appearance normal, both eyes and all related structures Neck Neck: Yes normal visual inspection, Yes no lymphadenopathy, Yes trachea midline and Yes no JVD Thyroid: Thyroid normal Chest Chest palpation & inspection: normal inspection of the chest, normal palpation of entire chest wall and no tenderness Resp Other: Percussion note is resonant, breath sounds are distant on both sides with prolonged expiratory phase. No wheezing or crepitations are heard this time. Cardio Palpation: normal PMI Rate: regular rate Rhythm: regular rhythm Heart sounds: no gallops and no murmurs GI Palpation (GI): Soft to palpation, nontender, No hepatosplenomegaly present and no masses Auscultation: normal bowel sounds Back/Spine/Pelvis Thoracic/Lumbar Spine: thoracic and lumbar spine normal to inspection Skin General skin exam: no rashes or lesions noted Neuro General: patient oriented x3 and no focal motor deficits Cranial nerves: Yes CN's II-XII intact bilaterally Extrem General: Yes normal to inspection, Yes no clubbing, cyanosis or edema and Yes no calf tenderness Psych Speech and movement: Normal speech and movement present Assessment & Plan Assessment & Plan (1) Obesity: Comment: HE IS MODERATELY OBESE, CURRENT BMI 30.3 NECK CIRCUMFERENCE IS 17 IN. MALLAMPATI CLASS 3 Code(s): E66.9 - Obesity, unspecified Category: Medical Plan: Encouraged to lose some weight, my cutting down on the calories intake and also by walking about 2 miles every day. (2) FAUSTO (obstructive sleep apnea): Comment: PATIENT DOES HAVE LONGSTANDING HISTORY OF OBSTRUCTIVE SLEEP APNEA. HE HAS HISTORY OF USING CPAP IN THE PAST, BUT STOPPED USING THE CPAP ABOUT 3 YEARS AGO. Recent polysomnogram study was positive for moderately severe obstructive sleep apnea. AHI 21 He has been restarted on CPAP therapy and he was using CPAP quite regularly up until a few weeks ago. Started having increased cough and expectoration at night and he thought it was due to the use of CPAP so stopped using it. After that slowly his cough has resolved. Code(s): G47.33 - Obstructive sleep apnea (adult) (pediatric) Category: Medical Plan: I told him that it was probably coincidental happening, and I do not think that using the CPAP was causing his cough. I have advised him to clean the CPAP device thoroughly. He complains of discomfort over the nasal bridge from the current fullface mask that he has . We have given him a sample of Air fit F-40 mask , and he is advised to start using the CPAP regularly. (3) Cough: Comment: He continues to have mild to moderate intermittent cough, I think he has a low-grade bronchitis following the initial flu symptoms. Code(s): R05.9 - Cough, unspecified Category: Medical Qualifiers: Cough type: acute Qualified Code(s): R05.1 - Acute cough Plan: May use cough drops as needed and also may use albuterol inhaler p.r.n. for sustained bouts of cough. Coding Level of Care Code Est Pt Level 3 (08402) Diagnoses Obesity E66.9 FAUSTO (obstructive sleep apnea) G47.33 Acute cough R05.1 Cough type: acute
--- OUTSIDE RECORDS SUMMARY | 2024-07-08 14:16 | XMS_ITS | Encounter Summary ---
Author Organization [facility] Address [address] [place] [address] Care Team Providers Care Home Management Supervisor Name Role Phone Pablo Rivero MD Primary Care Provider [phone] Memo Grant MD Unavailable [phone] Encounter Details Date Type Department Care Team (Late st Contact Info) Description 08/24/2023 Telephone [facility] Urologic Surgery [address] [address] Mamadou Hernandez MD [address] [address] Social History Tobacco Use Types Packs/Day Years Used Date Smoking Tobacco: Never Smokeless Tobacco: Never Alcohol Use Standard Drinks/Week Comments Not Currently 5 (1 standard drink = 0.6 oz pur e alcohol) AUDIT-C Answer Date Recorded Q1: How often do you have a drink containing alcohol? 4 or more times a week 11/08/2022 Q2: How many drinks containi ng alcohol do you have on a typical day when you are drinking? 5 or 6 Q3: How often do you have si x or more drinks on one occasion? Weekly 11/08/2022 Sex and Gender Information Value Date Recorded Sex Assigned at Male 10/23/2022 6:53 AM EDT Gender Identity Male 10/23/2022 6:53 AM EDT Sexual Orientation Other 10/23/2022 6: 53 AM EDT documented as of this encounter Plan of Treatment Upcoming Encounters Date Type Department Care Team (Late st Contact Info) Description 10/31/2024 10:00 AM EDT Office Visit [facility] Urology [place] [address] [place] [phone] Mamadou Hernandez MD [address] [place] [address] documented as of this encounter Visit Diagnoses Not on filedocumented in this encounter Care Teams Home Management Supervisor Relationship Specialty Start Date End Date Pablo Rivero MD [address] [facility] [place] [address] PCP - General Family Medicine 06/23/22 [place] [address] Cardiovascular Disease 10/27/22 documented as of this encounter
--- OUTSIDE RECORDS SUMMARY | 2024-07-08 14:16 | XMS_ITS | Encounter Summary ---
Author Organization [facility] Address [address] [place] [address] Care Team Providers Care Medical Practitioners Name Role Phone Pablo Rivero MD Primary Care Provider [phone] Memo Grant MD Unavailable Reason for Visit * Reason Comments Appointment Encounter Details Date Type Department Care Team ([facility] st Contact Info) Description 02/23/2023 Telephone [facility] Urologic Surgery [address] [address] Mamadou Hernandez MD [address] [place] [address] Appointment Social History Tobacco Use Types Packs/Day Years [...] AM EDT documented as of this encounter Miscellaneous Notes * Telephone Encounter - Angelika Sanchez - 02/23/2023 10:52 AM EDT Delia rescheduled documented in this encounter Plan of Treatment Upcoming Encounters Date Type Department Care Team (Late st Contact Info) Description 10/31/2024 10:00 AM EDT Office Visit [facility] Urology [place] [address] [place] [address] Mamadou Hernandez MD [address] [address] documented as of this encounter Visit Diagnoses Not on filedocumented in this encounter Care Teams Medical Practitioners Relationship Specialty Start Date End Date Pablo Rivero MD [address] [facility] [place] [address] PCP - General Family Medicine 06/23/22 Memo Grant [place] [address] Cardiovascular Disease 10/27/22 documented as of this encounter
--- OUTSIDE RECORDS SUMMARY | 2024-07-08 14:16 | XMS_ITS | Encounter Summary ---
Author Organization [facility] Address [address] [place] [address] Care Team Providers Care Zinc Plate Cutter Name Role Phone Pablo Rivero MD Primary Care Provider [phone] Memo Grant MD Unavailable [phone] Encounter Details Date Type Department Care Team (Late st Contact Info) Description 08/28/2023 Scanned Document [facility] Urologic Surgery [address] [place] [address] Guillermina Irving, DO [address] [place] [address] Social History Tobacco Use Types Packs/Day Years [...] Description 10/31/2024 10:00 AM EDT Office Visit [facility] Urology [place] [address] [place] [id number] Mamadou Hernandez MD [address] [place] [id number] documented as of this encounter Visit Diagnoses Not on filedocumented in this encounter Care Teams Zinc Plate Cutter Relationship Specialty Start Date End Date Pablo Rivero MD [address] [facility] [place] [address] PCP - General Family Medicine 06/23/22 [place] [address] Cardiovascular Disease 10/27/22 documented as of this encounter
--- OUTSIDE RECORDS SUMMARY | 2024-07-08 14:17 | XMS_ITS | Clinical Summary ---
Author Organization [facility] Address [address] [place], [place] [id number] Care Team Providers Care Molded Goods Operator Name Role Phone Pablo Rivero MD Primary Care Provider [phone] Memo Grant MD Unavailable [phone] Allergies Active Allergy Reactions Criticality Noted Date Comments Bee Venom Anaphylaxis High 07/14/2022 Tetracycline Hives,Other (See Comments) Medium 010 Medications Medication Sig Dispensed Refills Start Date End Date Status atorvastatin (LIPITOR) 20 MG tablet Take 1 tablet (20 mg total) by mouth nightly. Active Cholecalciferol (VITAMIN D3) 2000 UNITS Cap capsule Take 1 capsule (2,000 Units total) by mouth every morning. Active losartan (COZAAR) 100 MG tablet Take 1 tablet (100 mg total) by mouth every morning. 07/04/2022 Active metoPROLOL TARTRATE (LOPRESSOR) 25 MG tablet Take 1 tablet (25 mg total) by mouth 2 (two) times a day. 05/29/2022 Active PARoxetine (PAXIL) 30 MG tablet Take 1 tablet (30 mg total) by mouth every morning. 05/02/2022 Active PANTOprazole (PROTONIX) 20 MG tablet Take 1 tablet (20 mg total) by mouth daily. 10/09/2022 Active cyanocobalamin (VITAMIN B-12) 250 MCG tablet Take 8 split tablet (1,000 mcg total) by mouth every morning. Active albuterol (PROAIR RESPICLICK) 108 (90 Base) MCG/ACT inhaler Inhale. 11/01/2021 Active amoxicillin (AMOXIL) 500 MG capsule TAKE 4 CAPSULES BY MOUTH 1 HOUR BEFORE DENTAL APPOINTMENT 08/18/2022 Active fluticasone-salmet pravin (ADVAIR) 250-50 mcg/inh diskus inhaler Inhale 1 puff 2 times a day. 11/01/2021 Active Beclomethasone (QVAR HFA) 40 MCG/ACT inhaler Inhale 2 puffs (80 mcg total) 2 (two) times a day as needed. Active EPINEPHrine 0.15 mg/0.3 mL IJ auto-injection Inject 0.3 mL (0.15 mg total) into the shoulder, thigh, or buttocks once as needed for allergic reaction (allergic reaction). Active acetaminophen (TYLENOL) 325 MG tabletIndications: Left renal mass Take 3 tablets (975 mg total) by mouth every 6 (six) hours around the clock. 360 tablet 11/16/2022 Active docusate sodium (COLACE) 100 MG capsuleIndications :Left renal mass Take 1 capsule (100 mg total) by mouth 2 (two) times a day. While taking pain medication to prevent constipation 60 capsule 11/16/2022 Active oxyCODONE (ROXICODONE) 5 MG immediate release tabletIndications: Left renal mass Take 1 tablet (5 mg total) by mouth every 4 (four) hours as needed for severe pain. Max Daily Amount: 30 mg 13 tablet 11/16/2022 Active Calcium Carbonate-Vit D-Min (CALCIUM 1200 PO) Take by mouth. Active Active Problems Problem Noted Date Diagnosed Date CKD (chronic kidney disease) stage 2, GFR 60-89 ml/min 03/23/2023 Malignant neoplasm of left kidney 12/08/2022 Left renal mass 11/15/2022 Renal mass, left 08/11/2022 Renal lesion 07/14/2022 Prostate cancer 07/14/2022 Complex renal cyst 07/14/2022 Social History Tobacco Use Types Packs/Day Years Used Date Smoking Tobacco: Never Smokeless Tobacco: Never Tobacco Cessation:Counseling Given: Not Answered Alcohol Use Standard Drinks/Week Comments Not Currently [...] Orientation Other 10/23/2022 6: 53 AM EDT Last Filed Vital Signs Vital Sign Reading Time Taken Comments Blood Pressure 120/70 11/17/2022 3:15 PM EDT Pulse 87 11/17/2022 3:15 PM EDT Temperature 37.3 ??C (99.1 ??F) 11/17/2022 3:15 PM ED T Respiratory Rate 18 11/17/2022 3:15 PM EDT Oxygen Saturation 96% 11/17/2022 3:15 PM EDT Inhaled Oxygen Concentration - - Weight 107 kg (235 lb) 10/26/2023 10:11 AM EDT Height 182.9 cm (6') 10/26/2023 10:11 AM EDT Body Mass Index 31.87 10/26/2023 10:11 AM EDT Plan of Treatment Upcoming Encounters Date Type Department Care Team (Late st Contact Info) Description 10/31/2024 10:00 AM EDT Office Visit [facility] [place] [address] [place] [address] Mamadou Hernandez MD [address] [place] [address] Health Maintenance Due Date Last Done Comments Hepatitis C Virus Screening 1955 COVID-19 Vaccine (#1) 12/14/1959 DTaP/Tdap/Td Vaccines (1 - Tdap) 1973 Pneumococcal Vaccines 50+ (1 of 2 - PCV) 1973 Zoster (Shingles) Vaccine (1 of 2) 1973 Colonoscopy 12/14/1999 Influenza Vaccine 01/10/2024 RSV Vaccine 60 years and old er and Patients (1 - 1-dose 75+ series) 2029 Hepatitis B Vaccines Aged Out No long er eligible based on patient's age to complete this topic Advance Directives * Full Code (Latest Code Status on File) Date Activated Date Inactivated Comments 11/15/2022 8:03 PM * Full Code Date Activated Date Inactivated Comments 11/15/2022 10:25 AM 11/15/2022 8:03 PM Care Teams Molded Goods Operator Relationship Specialty Start Date End Date Pablo Rivero MD [address] [place] [address] [place] [address] PCP - General Family Medicine 06/23/22 Memo Grant [place] [address] [place] [address] Cardiovascular Disease 10/27/22
--- OUTSIDE RECORDS SUMMARY | 2024-07-08 14:17 | XMS_ITS | Encounter Summary ---
Author Organization [facility] Address [address] [place] [address] Care Team Providers Care Retreader Name Role Phone Pablo Rivero MD Primary Care Provider [phone] Memo Grant MD Unavailable [phone] Encounter Details Date Type Department Care Team (Late st Contact Info) Description 06/16/2022 Scanned Document [address] [address] Tonya Hernandez MD [address] [place] [address] Social History Tobacco Use Types Packs/Day Years Used Date Smoking Tobacco: Never Assessed Sex and Gender Information Value Date Recorded Sex Assigned at Male 10/23/2022 6:53 AM EDT Gender Identity Male 10/23/2022 6:53 AM EDT Sexual Orientation Other 10/23/2022 6: 53 AM EDT documented as of this encounter Plan of Treatment Upcoming Encounters Date Type Department Care Team (Late st Contact Info) Description 10/31/2024 10:00 AM EDT Office Visit [facility] [place] [address] [place] [address] Mamadou Hernandez MD [address] [place] [address] documented as of this encounter Visit Diagnoses Not on filedocumented in this encounter Care Teams Retreader Relationship Specialty Start Date End Date Pablo Rivero MD [address] [place] [address] PCP - General Family Medicine 06/23/22 Memo Grant [place] [address] [place] [address] Cardiovascular Disease 10/27/22 documented as of this encounter
--- OUTSIDE RECORDS SUMMARY | 2024-07-08 14:17 | XMS_ITS | Encounter Summary ---
Author Organization [facility] Address [address] [place] [address] Care Team Providers Care Medical Resident Name Role Phone Pablo Rivero NP Primary Care Provider Encounter Details Date Type Department Care Team (Late st Contact Info) Description 04/03/2024 2:39 PM EDT Hospital Encounter TH HISTORIC ENCOUNTERS EASTERN CONVERSION ONLY Guillermina Irving, [address] [place] [address] Social History Tobacco Use Types Packs/Day Years Used Date Smoking Tobacco: Former Smokeless Tobacco: Never Alcohol Use Standard Drinks/Week Comments Yes 0 (1 standard drink = 0.6 oz pur e alcohol) Sex and Gender Information Value Date Recorded Sex Assigned at Not on file Gender Identity Not on file Sexual Orientation Not on file Job Start Date Occupation Industry Not on file Not on file Not on file documented as of this [...] in follow-up upon a recommendation from his court commissioner. 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 CC: Pablo Rivero documented in this encounter Plan of Treatment Upcoming Encounters Date Type Department Care Team (Late st Contact Info) Description 10/21/2024 1:30 PM EDT Office Visit [facility] Hematology Oncology [address] [place] [address] Guillermina Irving DO [address] [place] [address] documented as of this encounter Visit Diagnoses Not on filedocumented in this encounter Care Teams Medical Resident Relationship Specialty Start Date End Date Pablo Rivero, DRAIN LAYER [address] [place], [place] PCP - General Family Medicine 04/10/18 documented as of this encounter
--- OUTSIDE RECORDS SUMMARY | 2024-07-08 14:17 | XMS_ITS | Clinical Summary ---
Author Organization [facility] Address [address] [place] [phone] Phone Care Team Providers Care Financial Operations Consultant Name Role Phone Pablo Rivero NP Primary Care Provider Allergies Active Allergy Reactions Criticality Noted Date Comments Amoxicillin Other 04/26/2010 Bee Venom Protein (Honey Bee) Swelling,Anaphylaxis High 03/03/2022 Erythromycin 08/17/2023 Tetracycline 01/23/2017 Medications Medication Sig Dispensed Refills Start Date End Date Status atorvastatin (LIPITOR) 20 mg tablet Take 1 tablet (20 mg total) by mouth daily. Active cholecalciferol (VITAMIN D-3) 50 mcg (2,000 unit) capsule Take 2,000 Units by mouth daily. Active losartan (COZAAR) 50 mg tablet Take 1 tablet (50 mg total) by mouth daily. Active metoprolol tartrate (LOPRESSOR) 25 mg tablet Take by mouth 2 (two) times a day. Active omeprazole (PriLOSEC) [address] capsule Take 1 capsule (20 mg total) by mouth daily. Active PARoxetine (PAXIL) 30 mg tablet Take 1 tablet (30 mg total) by mouth every morning. Active CYANOCOBALAMIN, VITAMIN B-12, ORAL Take by mouth. Ac tive FLUTICASONE PROPION-SALMETEROL INHL Inhale into the lungs. Active LEUPROLIDE ACETATE, 6 MONTH, SUBQ Inject under the skin. - Subcutaneous Patient not taking: Reported on 09/28/2022 Active Active Problems Problem Noted Date Diagnosed Date Prostate cancer 01/24/2017 Encounters Date Type Department Care Team Description 05/27/2024 1:59 PM EST - 05/27/2024 11:59 PM EST Hospital Encounter [facility] PET Scan [address] [place] [phone] Rising PSA following treatment for malignant neoplasm of prostate Discharge Disposition: Home or Self Care from Last 3 Months Surgical History Surgery Date Site/Laterality Comments PROSTATE SURGERY PROCEDURE:PROSTATE SURGERY OTHER SURGICAL HISTORY PROCEDURE:knee replacement both Medical History Medical History Date Comments Prostate cancer (CMS/HCC) DX:Pro state cancer (HCC) Hypertension DX:Hypertension Depression DX:Depression Family History Medical History Relation Name Comments Cancer Brother pancreatic ca. Cancer Father lymphoma/leukem ia Cancer Mother ovarian/breast cancer Relation Name Status Comments Brother Father Mother Social History Tobacco Use Types Packs/Day Years [...] file Not on file Not on file Obstetrics History Last Filed Vital Signs Vital Sign Reading [...] Mass Index 29.84 02/18/2024 1:34 PM EDT Plan of Treatment Upcoming Encounters Date Type Department Care Team (Late st Contact Info) Description 10/21/2024 1:30 PM EDT Office Visit [facility] Hematology Oncology [address] [place] [phone] Guillermina Irving, [address] [place] [address] Health Maintenance Due Date Last Done Comments Zoster Vaccines (1 of 2) 05/31/2016 04/05/2016 Abdominal Aortic Aneurysm (AAA) Screen 05/18/2022 Cholesterol Screening (Lipid Panel) 05/18/2022 Colorectal Cancer Screening: Colonoscopy 05/18/2022 Depression Screening 05/18/2022 Falls Risk Assessment 05/18/2022 Hepatitis C Screening 05/18/2022 Social Influencers of Health Screening 05/18/2022 COVID-19 Vaccine ( season) 2024 03/27/2022, 03/22/2021, 09/08/2020, Additional history exists DTaP,Tdap,and Td Vaccines (2 - Td or Tdap) 05/25/2027 05/25/2017 Pneumococcal Vaccine: 65+ Years Completed 03/15/2022, 05/28/2015 Influenza Vaccine Completed 04/25/2024, , 03/15/2022, Additional history exists RSV Immunization Patients 60+ Years Old Completed 04/25/2024 HIB Vaccines Aged Out No longer eligi ble based on patient's age to complete this topic HPV Vaccines Aged Out No longer eligi ble based on patient's age to complete this topic Hepatitis A Vaccines Aged Out No long er eligible based on patient's age to complete this topic Hepatitis B Vaccines Aged Out No long er eligible based on patient's age to complete this topic IPV Vaccines Aged Out No longer eligi ble based on patient's age to complete this topic MMR Vaccines Aged Out No longer eligi ble based on patient's age to complete this topic Meningococcal ACWY Vaccine Aged Out N o longer eligible based on patient's age to complete this topic RSV Immunization Patients Under 20 months Aged Out No longer eligible based on patient's age to complete this topic Varicella Vaccines Aged Out No longer eligible based on patient's age to complete this topic Procedures Procedure Name Priority Date/Time Associated Diagnosis Comments PET CT SKULL TO MID THIGH SUBSEQUENT Routine 05/27/2024 3:24 PM EST Rising PSA following treatment for malignant neoplasm of prostate from Last 3 Months Results * PET CT Skull to Mid Thigh Subsequent (05/27/2024 3:24 PM EST) Anatomical Region Laterality Modality Body Radiographic Farhana ging 05/28/2024 5:07 AM EST Impressions 05/28/2024 10:38 AM EST 1. ??Nonspecific focal metabolic activity overlying the celiac axis. ??This may represent an overlying lymph node versus vascular signal. 2. ??Nonenlarged thoracic, abdominal and pelvic lymph nodes not demonstrating significant FDG activity. -------- FINAL REPORT -------- Dictated By: Lisa Posada Dictated Date: 05/28/2024 05:07 ET Assigned Physician: Lisa Posada Reviewed and Electronically Signed By: Lisa Posada Signed Date: 05/28/2024 10:38 ET Workstation ID: [id number] Transcribed By: Self Edit Transcribed Date: 05/28/2024 06:23 ET Narrative 05/28/2024 10:38 AM EST HISTORY: Prostate carcinoma, rising prostate-specific antigen. ??History of prior radical prostatectomy status post salvage radiation therapy in 2013 for recurrence. ??History of partial nephrectomy in 2022. PRIOR IMAGING STUDIES: Correlation is made with prior Axumin scan performed on 2019 RADIOPHARMACEUTICAL: 9.8 mCi F-18 piflufolastat IV INJECTION SITE: Left antecubital INJECTION TIME TO SCAN TIME: 64 min PROCEDURE: Routine body PET-CT imaging performed from the top of the head to the upper thighs and reconstructed in axial, coronal, sagittal planes at the computer workstation with fused data from both the PET imaging study and attenuation correction CT study. Please note, CT imaging utilized strictly for attenuation correction and anatomic localization: CT not designed to produce and cannot replace vmhiu-qe-ebm-art true diagnostic CT examination with specific protocols. ??Standardized uptake values (SUV) normalized to patient body weight and indicate the highest active concentration (SUV max) in a given disease site. DLP: ??723 mGy-cm IMAGING FINDINGS: ??Reference Values SUV Max: Parotid Gland: 22 Blood Pool: 2.6 ??Liver: ??7.5 Expected pattern of physiological activity noted. HEAD AND NECK: No abnormal activity. ??Retention cyst versus polyp in the right maxillary sinus. THORAX: Nonenlarged mediastinal lymph nodes without significant FDG activity. ??For example, left paratracheal/AP window SUV Max ABDOMEN/PELVIS: Nonspecific focal metabolic activity overlying the celiac axis SUV Max 3.1. Nonenlarged gastrohepatic lymph node SUV max 1.2. ??Nonenlarged bilateral inguinal lymph nodes without significant metabolic activity measuring up to SUV Max 1.5. ??Nonenlarged bilateral external iliac lymph nodes without significant metabolic activity SUV max 2 on the right and 1.5 on the left. ??Nonenlarged retroperitoneal lymph nodes without significant activity SUV max 0.8. No abnormal metabolic activity noted within the kidneys. ??Low-attenuation lesion in the inferior aspect of the left kidney without significant activity. Diverticulosis. MUSCULOSKELETAL: No abnormal activity. Procedure Note Lisa Posada MD - 05/28/2024 HISTORY: Prostate carcinoma, rising prostate-specific antigen. History ofprior radical prostatectomy status post salvage radiation therapy in 2013for recurrence. History of partial nephrectomy in 2022. PRIOR IMAGING STUDIES: Correlation is made with prior Axumin scanperformed on 2019 RADIOPHARMACEUTICAL: 9.8 mCi F-18 piflufolastat IV INJECTION SITE: Left antecubital INJECTION TIME TO SCAN TIME: 64 min PROCEDURE: Routine body PET-CT imaging performed from the top of the head to theupper thighs and reconstructed in axial, coronal, sagittal planes at theWireless Toyz workstation with fused data from both the PET imaging study andattenuation correction CT study. Please note, CT imaging utilized strictlyfor attenuation correction and anatomic localization: CT not designed toproduce and cannot replace cudkd-cu-reu-art true diagnostic CT examinationwith specific protocols. Standardized uptake values (SUV) normalized topatient body weight and indicate the highest active concentration (SUVmax) in a given disease site. DLP: 723 mGy-cm IMAGING FINDINGS: Reference Values SUV Max: Parotid Gland: 22 Blood Pool:2.6 Liver: 7.5 Expected pattern of physiological activity noted. HEAD AND NECK: No abnormal activity. Retention cyst versus polyp in theright maxillary sinus. THORAX: Nonenlarged mediastinal lymph nodes without significant FDGactivity. For example, left paratracheal/AP window SUV Max ABDOMEN/PELVIS: Nonspecific focal metabolic activity overlying the celiacaxis SUV Max 3.1. Nonenlarged gastrohepatic lymph node SUV max 1.2. Nonenlarged bilateralinguinal lymph nodes without significant metabolic activity measuring upto SUV Max 1.5. Nonenlarged bilateral external iliac lymph nodes withoutsignificant metabolic activity SUV max 2 on the right and 1.5 on the left.Nonenlarged retroperitoneal lymph nodes without significant activity SUVmax 0.8. No abnormal metabolic activity noted within the kidneys. Low-attenuationlesion in the inferior aspect of the left kidney without significantactivity. Diverticulosis. MUSCULOSKELETAL: No abnormal activity. IMPRESSION: 1. Nonspecific focal metabolic activity overlying the celiac axis. Thismay represent an overlying lymph node versus vascular signal. 2. Nonenlarged thoracic, abdominal and pelvic lymph nodes notdemonstrating significant FDG activity. -------- FINAL REPORT -------- Dictated By: Lisa Posada Dictated Date: 05/28/2024 05:07 ET Assigned Physician: Lisa Posada Reviewed and Electronically Signed By: Lisa Posada Signed Date: 05/28/2024 10:38 ET Workstation ID: [id number] Transcribed By: Self Edit Transcribed Date: 05/28/2024 06:23 ET Mal JIANG from Last 3 Months Care Teams Financial Operations Consultant Relationship Specialty Start Date End Date Pablo Rivero NP [address] [facility] [place] CHARITY Caldera PCP - General Family Medicine 04/10/18
--- OUTSIDE RECORDS SUMMARY | 2024-07-08 14:17 | XMS_ITS | Encounter Summary ---
Author Organization [facility] Address [address] [place] [address] Care Team Providers Care Guard Manager Name Role Phone Pablo Rivero MD Primary Care Provider [phone] Memo Grant MD Unavailable [phone] Encounter Details Date Type Department Care Team (Late st Contact Info) Description 09/26/2022 Scanned Document [facility] Urologic Surgery [place] [address] [address] Mamadou Hernandez MD [address] [id number] Social History Tobacco Use Types Packs/Day Years Used Date Smoking Tobacco: Never Smokeless Tobacco: Never Alcohol Use Standard Drinks/Week Comments Yes 21 (1 standard drink = 0.6 oz pu re alcohol) Sex and Gender Information Value Date Recorded Sex Assigned at Male 10/23/2022 6:53 AM EDT Gender Identity Male 10/23/2022 6:53 AM EDT Sexual Orientation Other 10/23/2022 6: 53 AM EDT COVID-19 Exposure Response Date Recorded In the last 10 days, have yo u been in contact with someone who was confirmed or suspected to have Coronavirus/COVID-19? No / Unsure 09/22/2022 2:48 PM EDT documented as of this encounter Plan of Treatment Upcoming Encounters Date Type Department Care Team (Late st Contact Info) Description 10/31/2024 10:00 AM EDT Office Visit [facility] Urology [place] [address] [place] [address] Mamadou Hernandez MD [address] [place] [address] documented as of this encounter Visit Diagnoses Not on filedocumented in this encounter Care Teams Guard Manager Relationship Specialty Start Date End Date Pablo Rivero MD [address] [place] [address] PCP - General Family Medicine 06/23/22 Memo Grant MD [facility] [place] [address] [place] [address] Cardiovascular Disease 10/27/22 documented as of this encounter
--- OUTSIDE RECORDS SUMMARY | 2024-07-08 14:17 | XMS_ITS ---
Author Organization [facility] Address [address] [place] [address] Care Team Providers Care Comfort Station Supervisor Name Role Phone BASILIA CAROLINA Primary Care Provider Collins Rivera Jr Unavailable ALLERGIES Allergen (clinical drug ingredient) Drug/Non Drug Allergy documented on EMR Reaction Allergy Type Onset Date Status tetracycline Tetracycline HCl Unknown Drug Allergy Active REASON FOR VISIT Patient presents today for mcdonald's MEDICATIONS Medication SIG (Take, Route, Frequency, Duration) Notes Start Date End Date Status Eligard 7.5 MG as directed Subcutaneous 08/22/2021 Not-Taking Metoprolol Tartrate 25 MG Oral for 90 Active Pantoprazole Sodium 20 MG TAKE 1 TABLET BY MOUTH EVERY DAY FOR 30 DAYS for 90 Active PARoxetine HCl 30 MG 1 tablet in the mor hellen Orally Once a day Active Vitamin D3 50 MCG (1999) Oral for 90 Active Calcium 1 tab Oral for 14 days Active Atorvastatin Calcium 20 MG 1 tablet Orally Once a day Active Losartan Potassium 50 MG 1 tablet Orally Once a day Active Vitamin B12 Active SOCIAL HISTORY Sex Assigned At : Social History Observation Description Sex Assigned At Unknown Alcohol Screen Question Answer Notes Did you have a drink contain ing alcohol in the past year? Yes How often did you have a dri nk containing alcohol in the past year? 4 or more times a week (4 points) How many drinks did you have on a typical day when you were drinking in the past year? 3 or 4 drinks (1 point) How often did you have 6 or more drinks on one occasion in the past year? 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 ASSESSMENTS Encounter Date Diagnosis Assessment Notes Treatment Notes Treatment Clinical Notes 07/19/2023 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
--- OUTSIDE RECORDS SUMMARY | 2024-07-08 14:17 | XMS_ITS | Patient Health Record ---
Author Organization [facility] Address [address] [place] [address] Care Team Providers Care Traffic Police Officer Name Role Phone BASILIA CAROLINA Primary Care Provider Collins Rivera Jr Unavailable ALLERGIES Allergen (clinical drug ingredient) Drug/Non Drug Allergy documented on EMR Reaction Allergy Type Onset Date Status tetracycline Tetracycline HCl Unknown Drug Allergy Active RESULTS Component Value Reference Range Notes Pathology Reviewed date:09/03/2023 08:23:54 AM Interpretation: Performing Lab:[facility], [address] [place] [id number] Notes/Report: REASON FOR REFERRAL No Information MEDICATIONS Medication SIG (Take, Route, Frequency, Duration) Notes Start Date End Date Status Calcium 1 tab Oral for 14 days Active Eligard 7.5 MG as directed Subcutaneous 08/22/2021 Not-Taking Metoprolol Tartrate 25 MG Oral for 90 Active PARoxetine HCl 30 MG 1 tablet in the mor hellen Orally Once a day Active Vitamin D3 50 MCG (1999 [place]) Oral for 90 Active Atorvastatin Calcium 20 MG 1 tablet Orally Once a day Active Losartan Potassium 50 MG 1 tablet Orally Once a day Active Pantoprazole Sodium 20 MG TAKE 1 TABLET BY MOUTH EVERY DAY FOR 30 DAYS for 90 Active Vitamin B12 Active IMMUNIZATIONS Vaccine Route Administration Date Status Comme nts Influenza Unknown 05/04/2021 Administered Influenza Unknown 02/09/2022 Administered SOCIAL HISTORY Sex Assigned At : Social [...] Monthly (2 points) Points 7 Interpretation Positive PROBLEMS Problem Type ICD Code Onset Dates Problem Status W/U Status Risk SNOMED Code Notes Problem Colon cancer screening (Z12.11) Active confirmed 394397637 Problem Encounter for other preprocedural examination (Z01.818) Active confirmed 55026788 Problem 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) Active confirmed 085516202 Problem Gastroesophageal reflux disease without esophagitis (K21.9) Active confirmed 852854822 Problem Gastroesophageal reflux (K21.9) Active confirmed Esophageal reflux finding (094410250) Problem Adenomatous polyp of colon, unspecified part of colon (D12.6) Active confirmed 261428873 Problem 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 Pedroza's esophagus (005082241) VITAL SIGNS Temperature 98.2 degrees Fahrenheit 07/19/2023 Blood pressure diastolic 00 mm Hg 07/19/2023 Height 72 in 07/19/2023 Blood pressure systolic 00 mm Hg 07/19/2023 Weight 237 lbs 07/19/2023 BMI 32.14 kg/m2 07/19/2023 Encounters Encounter Location Date Provider Diagnosis [facility] [address] [place] [phone] 08/28/2023 Collins Salmeron Jr Pedroza''s esophagus 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 [facility] [address] [place] [phone] 07/19/2023 Collins Salmeron Jr 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 [facility] [address] [place] [phone] 09/03/2023 Collins Salmeron Jr ASSESSMENTS Encounter Date Diagnosis Assessment Notes Treatment Notes Treatment Clinical Notes 08/28/2023 Pedroza''s esophagus without dysplasia (ICD-10 - K22.70) 07/19/2023 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 (ICD-10 - K22.70) Heartburn - what to ask your provider material was printed PLAN OF TREATMENT Future Test Test Name Order Date COLONOSCOPY 11/11/2014 COLONOSCOPY 02/06/2018 UPPER GI ENDOSCOPY 08/22/2021 COLONOSCOPY 08/22/2021 UPPER GI ENDOSCOPY 07/19/2023 Next Appt Details Provider Name:Collins Cody Silvestre miller Jr, 10/09/2024 01:35:00 PM, [address], [address], [place], [address], Insurance Providers Payer Name Payer Address Payer Phone Subscriber Number Group Number Insured Name Patient Relationship to Insured Coverage Start Date Coverage End Date [employer] [address] [place] [address] [id number] MARIO SUAREZ Self - patient is the insured MEDICAL (GENERAL) HISTORY Medical History History ICD Code Colon polyps, colonoscopy , 10 mm tubular adenoma, three-year followup Moderate sized internal hemorrhoids Hypertension Depression Hyperlipidemia Prostate cancer status post radiation therapy for elevated PSA after prostatectomy, off Eligard COPD FAUSTO/CPAP Gastroesophageal reflux dise ase, EGD 12/07/21 small area of 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, two-year followup Left kidney cystic lesion/ s urgery and partial nephrectomy with renal cell carcinoma Ascending aortic aneurysm Surgical History Surgery Date(Month/Year) radical prostatectomy for prostate cance r Bilateral knee replacements Left partial nephrectomy
--- OUTSIDE RECORDS SUMMARY | 2024-07-08 14:17 | XMS_ITS | Encounter Summary ---
Author Organization [facility] Address [address] [place], [place] [address] Care Team Providers Care Benefits Sales Consultant Name Role Phone Pablo Rivero MD Primary Care Provider [phone] Memo Grant MD Unavailable [phone] Reason for Visit * Reason Comments Other Medical record reque st Encounter Details Date Type Department Care Team ([facility] st Contact Info) Description 06/21/2023 Telephone [facility] Urologic Surgery [address] [address] Mamadou Hernandez MD [address] [address] Other (Medical record request) Social History Tobacco Use Types Packs/Day Years [...] Description 10/31/2024 10:00 AM EDT Office Visit [facility] Urology [address] [place] [address] Mamadou Hernandez MD [address] [address] documented as of this encounter Visit Diagnoses Not on filedocumented in this encounter Care Teams Benefits Sales Consultant Relationship Specialty Start Date End Date Pablo Rivero MD [address] [facility] [address] [place] [address] PCP - General Family Medicine 06/23/22 Memo Grant [place] [address] Cardiovascular Disease 10/27/22 documented as of this encounter
--- OUTSIDE RECORDS SUMMARY | 2024-07-08 14:17 | XMS_ITS ---
Author Organization [facility] Address [address] [place] [address] Care Team Providers Care Nutrition And Dietetics Instructor Name Role Phone BASILIA CAROLINA Primary Care Provider Collins Rivera Jr [phone] REASON FOR VISIT pathology Encounters Encounter Location Date Provider Diagnosis [facility] [address] [place] [address] 09/03/2023 Collins Salmeron Jr PLAN OF TREATMENT Next Appt Details Provider Name:Collins miller Jr, 10/09/2024 01:35:00 PM, [address], [address], [place], [address],
--- OUTSIDE RECORDS SUMMARY | 2024-07-08 14:17 | XMS_ITS | Encounter Summary ---
Author Organization [facility] Address [address] [place] [address] Care Team Providers Care Optical Glass Inspector Name Role Phone Pablo Rivero MD Primary Care Provider [phone] Memo Grant MD Unavailable [phone] Reason for Visit * Reason Comments Appointment Encounter Details Date Type Department Care Team (Late st Contact Info) Description 12/01/[address] [address] Mamadou Hernandez MD [address] [address] Appointment Social History Tobacco Use Types Packs/Day [...] suspected to have Coronavirus/COVID-19? No / Unsure 11/15/2022 11:01 AM EDT documented as of this encounter Miscellaneous Notes * Telephone Encounter - Jessika Byrd - 12/01/2022 9:41 AM EDT Called patient to reschedule, left detailed voicemail with new appointment date and time (a week out 12/08). Please advise, can reschedule as needed. documented in this encounter Plan of Treatment Upcoming Encounters Date Type Department Care Team (Late st Contact Info) Description 10/31/2024 10:00 AM EDT Office Visit [facility] Urology [address] [address] Mamadou Hernandez MD [address] [address] documented as of this encounter Visit Diagnoses Not on filedocumented in this encounter Care Teams Optical Glass Inspector Relationship Specialty Start Date End Date Pablo Rivero MD [address] [facility] [place] [address] PCP - General Family Medicine 06/23/22 Memo Grant [place] [address] Cardiovascular Disease 10/27/22 documented as of this encounter
--- OUTSIDE RECORDS SUMMARY | 2024-07-08 14:17 | XMS_ITS ---
Author Organization [facility] Address 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, [address], [place], [address],
--- OUTSIDE RECORDS SUMMARY | 2024-07-08 14:17 | XMS_ITS ---
Author Name [facility] Organization Unknown History of Medication Use Medication Directions Dispensed Refills Start Date End Date Stat us EPINEPHrine 0.15 mg/0.3 mL IJ auto-injection Inject 0.3 mL (0.15 mg total) into the shoulder, thigh, or buttocks once as needed for allergic reaction (allergic reaction). active PANTOprazole (PROTONIX) 20 MG tablet Take 1 tablet (20 mg total) by mouth daily. 10/09/2022 active Leuprolide Acetate (ELIGARD SC) Inject under the skin. active Myrbetriq 50 MG ER tablet 06/16/2022 active Beclomethasone (QVAR HFA) 40 MCG/ACT inhaler Inhale 2 puffs (80 mcg total) 2 (two) times a day as needed. active Cyanocobalamin (B-12) 1000 MCG Lozenge Take 1 tablet by mouth daily. 04/21/2022 active atorvastatin (LIPITOR) 20 MG tablet Take 1 tablet (20 mg total) by mouth nightly. active losartan (COZAAR) 100 MG tablet Take 1 tablet (100 mg total) by mouth daily. 07/04/2022 active Problems Problem Status Onset Date Problem Type Date of Resoluti on Source CKD (chronic kidney disease) stage 2, GFR 60-89 ml/min active 2023-03-23 ProblemAct CCT Renal lesion active 2022-07-14 ProblemAct [facility] Left renal mass active 2022-11-15 ProblemAct CCT Prostate cancer active 2022-07-14 ProblemAct CCT Malignant neoplasm of left kidney active 2022-12-08 ProblemAct [facility] Complex renal cyst active 2022-07-14 ProblemAct [facility]
--- OUTSIDE RECORDS SUMMARY | 2024-07-08 14:17 | XMS_ITS ---
Author Organization [facility] Address [address] [place] [address] Care Team Providers Care Flux Core Welder Name Role Phone Pablo Rivero Primary Care Provider [phone] Active Problems Problem Noted Date Diagnosed Date Prostate cancer 01/24/2017 Current Oncology Plans No current plan information found. Past Plans ONCOLOGY INFUSION THERAPY Plan Name Start Date Discontinue Date Treatment Medications Discontinue Reason Plan Provider [facility] BCN LEUPROLIDE 45 MG (ELIGARD) EVERY 6 MONTHS 12/08/2021 07/19/2023 leuprolide (ELIGARD) Therapy Complete Brown Damon MD Radiation Treatments * No radiation treatments are documented for this patient in [facility]. Treatments may have been administered in another system.
--- OUTSIDE RECORDS SUMMARY | 2024-07-08 14:17 | XMS_ITS | Encounter Summary ---
Author Organization [facility] Address [address] [place] [address] Care Team Providers Care Professor Of Business Administration Name Role Phone Pablo Rivero MD Primary Care Provider [phone] Memo Grant MD Unavailable [phone] Reason for Visit * Reason Comments Advice Only Encounter Details Date Type Department Care Team ([facility] Contact Info) Description 03/22/2023 Telephone [facility] Urologic Surgery [address] [phone] Mamadou Hernandez MD [address] [place] [address] Advice Only Social History Tobacco Use Types Packs/Day Years [...] Encounters Date Type Department Care Team (Late Contact Info) Description 10/31/2024 10:00 AM EDT Office Visit [facility] Urology [address] [place] [address] Mamadou Hernandez MD [address] [address] documented as of this encounter Visit Diagnoses Not on filedocumented in this encounter Care Teams Professor Of Business Administration Relationship Specialty Start Date End Date Pablo Rivero MD [address] [facility] [place] [address] PCP - General Family Medicine 06/23/22 Memo Grant MD [address] [place] [address] Cardiovascular Disease 10/27/22 documented as of this encounter
--- OUTSIDE RECORDS SUMMARY | 2024-07-08 14:17 | XMS_ITS | Clinical Summary ---
Author Organization [facility] Address [address] [place] [address] Care Team Providers Care Berry Picker Name Role Phone Pablo Rivero Primary Care Provider [phone] Allergies Active Allergy Reactions Criticality Noted Date Comments Amoxicillin Other (See Comments) 04/26/2010 Bee Venom Anaphylaxis High 07/14/2022 Erythromycin 08/17/2023 Tetracycline 01/23/2017 Medications Medication Sig Dispensed Refills Start Date End Date Status PARoxetine (PAXIL) 30 MG tablet Take 1 tablet (30 mg total) by mouth every morning. 0 Active atorvastatin (LIPITOR) tablet 20 mg Take 1 tablet (20 mg total) by mouth daily. 0 Active losartan (COZAAR) tablet 50 mg Take 1 tablet (50 mg total) by mouth daily. 0 Active metoprolol tartrate (LOPRESSOR) 25 MG tablet Take by mouth 2 (two) times a day. 0 Active Cholecalciferol (VITAMIN D3) 2000 units capsule Take 2,000 Units by mouth daily. 0 Active omeprazole (PriLOSEC) 20 MG capsule Take 1 capsule (20 mg total) by mouth daily. 0 Active Leuprolide Acetate (ELIGARD SC) Inject under the skin. 0 Active Cyanocobalamin (VITAMIN B 12 PO) Take by mouth. 0 Act danny Fluticasone-Salmeterol (ADVAIR DISKUS IN) Inhale into the lungs. 0 Active Active Problems Problem Noted Date Diagnosed Date Prostate cancer 01/24/2017 Family History Medical History Relation Name Comments [...] file Not on file Not on file Last Filed Vital Signs Vital Sign Reading Time Taken Comments Blood Pressure 115/73 04/03/2024 2:43 PM EDT Pulse 83 04/03/2024 2:43 PM EDT Temperature 36.5 ??C (97.7 ??F) 04/03/2024 2:43 PM ED T Respiratory Rate - - Oxygen Saturation 100% 04/03/2024 2:43 PM EDT Inhaled Oxygen Concentration - - Weight 99.8 kg (220 lb) 04/03/2024 2:43 PM EDT Height 182.9 cm (6') 02/18/2024 1:34 PM EDT Body Mass Index 29.84 02/18/2024 1:34 PM EDT Plan of Treatment Health Maintenance Due Date Last Done Comments Hepatitis C Screening 1955 COVID-19 Vaccine (#1) 12/14/1959 Pneumococcal Vaccine (1 of 2 - PCV) 1960 Depression Screening 1966 BMI Counseling 1972 Preventative Health Evaluation 1972 DTap / Tdap / Td (1 - Tdap) 1973 Shingrix-Zoster Vaccine (1 of 2) 1973 Colon Cancer Screening (Colonoscopy) 12/14/1999 Fall Risk Assessment 12/14/2019 Influenza Vaccine (#1) 2024 RSV Adult > 60+ Yrs or Pregn ant (1 - 1-dose 75+ series) 2029 Hepatitis B Vaccines Aged Out No long er eligible based on patient's age to complete this topic RSV Ped < 20 months Aged Out No longe r eligible based on patient's age to complete this topic Care Teams Berry Picker Relationship Specialty Start Date End Date Pablo Rivero [address] [facility] [place] [address] PCP - General Family Medicine 04/10/18
== END 2024-07-08 13:56 | disposition home or self-care (01) ==
PROVIDERS: PCP Nurse Practitioner Family; Visit Provider Internal Medicine
DX: E66.9 Obesity, unspecified (principal); G47.33 Obstructive sleep apnea (adult) (pediatric); R05.1 Acute cough
CPT/HCPCS: 99213

== ENCOUNTER 2024-08-15 09:50 | Outpatient (REF) | payer OTHER, SELFPAY ==
--- OUTSIDE RECORDS SUMMARY | 2024-08-15 10:45 | XMS_ITS | Encounter Summary ---
Author Organization [facility] Address [address] [place] [address] Care Team Providers Care Biophysics Professor Name Role Phone Pablo Rivero MD Primary Care Provider [phone] Memo Grant MD Unavailable [phone] Encounter Details Date Type Department Care Team (Late st Contact Info) Description 08/28/2023 Scanned Document [facility] Urologic Surgery [address] [place] [address] Guillermina Irving, DO [address] [place] [address] Social History Tobacco Use Types Packs/Day Years [...] EDT Office Visit [facility] Urology [place] [address] [place] [phone] Mamadou Hernandez MD [address] [place] [address] documented as of this encounter Visit Diagnoses Not on filedocumented in this encounter Care Teams Biophysics Professor Relationship Specialty Start Date End Date Pablo Rivero MD [address] [facility] [place] [address] PCP - General Family Medicine 06/23/22 [place] [address] Cardiovascular Disease 10/27/22 documented as of this encounter
--- OUTSIDE RECORDS SUMMARY | 2024-08-15 10:45 | XMS_ITS | Encounter Summary ---
Author Organization [facility] Address [address] [place] [address] Care Team Providers Care Application Defense Manager Name Role Phone Pablo Rivero MD Primary Care Provider [phone] Memo Grant MD Unavailable [phone] Encounter Details Date Type Department Care Team (Late st Contact Info) Description 08/24/2023 Telephone [facility] Urologic Surgery [address] [address] Mamadou Hernandez MD [address] [address] Social History Tobacco Use Types [...] Description 10/31/2024 10:00 AM EDT Office Visit [facility] Urology [place] [address] [place] [phone] Mamadou Hernandez MD [address] [place] [address] documented as of this encounter Visit Diagnoses Not on filedocumented in this encounter Care Teams Application Defense Manager Relationship Specialty Start Date End Date Pablo Rivero MD [address] [facility] [place] [address] PCP - General Family Medicine 06/23/22 [place] [address] Cardiovascular Disease 10/27/22 documented as of this encounter
--- OUTSIDE RECORDS SUMMARY | 2024-08-15 10:45 | XMS_ITS | Encounter Summary ---
Author Organization [facility] Address [address] [place] [address] Care Team Providers Care Massage Operator Name Role Phone Pablo Rivero MD Primary Care Provider [phone] Memo Grant MD Unavailable [phone] Reason for Visit * Reason Comments Appointment Encounter Details Date Type Department Care Team ([facility] st Contact Info) Description 02/23/2023 Telephone [facility] Urologic Surgery [address] [address] Mamadou Hernandez MD [address] [place] [address] Appointment Social History Tobacco Use Types [...] Description 10/31/2024 10:00 AM EDT Office Visit [facility] Urology [address] [place] [address] Mamadou Hernandez MD [address] [address] documented as of this encounter Visit Diagnoses Not on filedocumented in this encounter Care Teams Massage Operator Relationship Specialty Start Date End Date Pablo Rivero MD [address] [place] [address] PCP - General Family Medicine 06/23/22 [place] [address] Cardiovascular Disease 10/27/22 documented as of this encounter
--- OUTSIDE RECORDS SUMMARY | 2024-08-15 10:46 | XMS_ITS | Encounter Summary ---
Author Organization [facility] Address [address] [place] [address] Care Team Providers Care Escrow Manager Name Role Phone Pablo Rivero MD Primary Care Provider [phone] Memo Grant MD Unavailable Encounter Details Date Type Department Care Team (Late st Contact Info) Description 09/26/2022 Scanned Document [facility] Urologic Surgery [place] [address] [address] Mamadou Hernandez MD [address] [phone] Social History Tobacco Use Types Packs/Day Years [...] Description 10/31/2024 10:00 AM EDT Office Visit [facility] Urology [address] [place] [address] Mamadou Hernandez MD [address] [place] [address] documented as of this encounter Visit Diagnoses Not on filedocumented in this encounter Care Teams Escrow Manager Relationship Specialty Start Date End Date Pablo Rivero MD [address] [place] [address] PCP - General Family Medicine 06/23/22 Memo Grant MD [facility] [place] [address] Cardiovascular Disease 10/27/22 documented as of this encounter
--- OUTSIDE RECORDS SUMMARY | 2024-08-15 10:46 | XMS_ITS | Encounter Summary ---
Author Organization [facility] Address [address] [place] [address] Care Team Providers Care Cattle Brander Name Role Phone Pablo Rivero MD Primary Care Provider [phone] Memo Grant MD Unavailable [phone] Reason for Visit * Reason Comments Appointment Encounter Details Date Type Department Care Team (Late st Contact Info) Description 12/01/[address] [address] Mamadou Hernandez MD [address] [address] Appointment Social History Tobacco Use Types Packs/Day [...] Description 10/31/2024 10:00 AM EDT Office Visit [facility] Urology [address] [address] Mamadou Hernandez MD [address] [address] documented as of this encounter Visit Diagnoses Not on filedocumented in this encounter Care Teams Cattle Brander Relationship Specialty Start Date End Date Pablo Rivero MD [address] [facility] [place] [address] PCP - General Family Medicine 06/23/22 Memo Grant MD [place] [address] Cardiovascular Disease 10/27/22 documented as of this encounter
--- OUTSIDE RECORDS SUMMARY | 2024-08-15 10:46 | XMS_ITS ---
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 confirmed Encounters Encounter Location Date Provider Diagnosis [facility] [address] [place] [phone] 08/28/2023 Collins Salmeron Jr Mcdonald''s esophagus 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 Assessments Encounter Date Diagnosis (ICD Code) Assessment Notes Treatment Notes Treatment Clinical Notes Section Notes 08/28/2023 Mcdonald''s esophagus without dysplasia (ICD-10 - K22.70) Plan Of Treatment Next Appt Details Provider Name:Collins miller Jr, 10/09/2024 01:35:00 PM, [address], [address], [place], [address], Progress Notes * MARIO SUAREZ MDOB:[birth year] (68 yo M)Acc No.[id number]:08/28/2023 EGD/MAC Patient:?MARIO SUAREZ Provider:?Collins Salmeron MD :1955???Age:67 Y???Sex:Male Anastacio e:08/28/2023 Address: [place] Pcp:BASILIA CAROLINA Subjective: * Chief Complaints: * ???1. Mcdonald's esophagus. * Medical History:? Objective: * Vitals:? Assessment: * Assessment: 1.?Mcdonald''s esophagus with out dysplasia - K22.70 (Primary)??? Plan: * Treatment: * Procedure Codes:?34942 UPPER GI ENDOSCOPY, BIOPSY * * The named appointment provid er may or may not be the originator of this progress note, and it is not deemed complete until electronically signed by the appointment provider. Sign off status: Pending * Provider:?Collins Salmeron MD Date:?0 08/28/2023 Generated for Stacey pfeiffer/Cammy/Lorenzoitting on:?08/15/2024 10:46 AM EST
--- OUTSIDE RECORDS SUMMARY | 2024-08-15 10:46 | XMS_ITS | Clinical Summary ---
Author Organization [facility] Address [address] [place] [address] Care Team Providers Care Dough Brake Machine Operator Name Role Phone Pablo Rivero MD Primary Care Provider [phone] Memo Grant MD Unavailable [phone] Allergies Active Allergy Reactions Criticality Noted [...] Description 10/31/2024 10:00 AM EDT Office Visit [facility] Urology [place] [address] [place] [address] Mamadou Hernandez MD [address] [place] [address] Health Maintenance Due Date Last Done Comments [...] 10:25 AM 11/15/2022 8:03 PM Care Teams Dough Brake Machine Operator Relationship Specialty Start Date End Date Pablo Rivero MD [address] [place] [address] [place] [address] PCP - General Family Medicine 06/23/22 Memo Grant [place] [address] Cardiovascular Disease 10/27/22
--- OUTSIDE RECORDS SUMMARY | 2024-08-15 10:46 | XMS_ITS | Encounter Summary ---
Author Organization [facility] Address [address] [place] [address] Care Team Providers Care Psychosocial Rehabilitation Counselor Name Role Phone Pablo Rivero NP Primary Care Provider Encounter Details Date Type Department Care Team (Late st Contact Info) Description 07/15/2024 Telephone [facility] Hematology Oncology [address] [place] [phone] Guillermina Irving, DO [address] [place] [address] Social History Tobacco Use Types Packs/Day Years [...] on file documented as of this encounter Progress Notes * Dev Lee MD - 07/16/2024 4:48 PM EST PSA gone up slightly 1.5 now, previously 1.2 in April, I called the patient and left voicemail for him explaining the results. * Wilda Iyer MA - 07/16/2024 4:18 PM EST Labs completed at [facility]. I scanned results into patient chart. * Dev Lee MD - 07/16/2024 3:17 PM EST I do not see any results in epic? Where did he do this test can you please check * Anne Handley - 07/16/2024 2:53 PM EST Patient calling in again requesting psa results. [phone] * Anne Handley - 07/15/2024 11:45 AM EST Calling for psa results. [phone] documented in this encounter Plan of Treatment Upcoming Encounters Date Type Department Care Team (Late st Contact Info) Description 10/21/2024 1:30 PM EDT Office Visit [facility] Hematology Oncology [address] [place] [phone] Guillermina Irving, [address] [place] [address] documented as of this encounter Visit Diagnoses Not on filedocumented in this encounter Care Teams Psychosocial Rehabilitation Counselor Relationship Specialty Start Date End Date Pablo Rivero NP [address] [place], [place] PCP - General Family Medicine 04/10/18 documented as of this encounter
--- OUTSIDE RECORDS SUMMARY | 2024-08-15 10:46 | XMS_ITS ---
Author Organization [facility] Address [address] [place] [address] Care Team Providers Care Patient Manager Name Role Phone Pablo Rivero Primary Care Provider [phone] Active Problems Problem Noted Date Diagnosed Date Prostate cancer 01/24/2017 Current Oncology Plans No current plan information found. Past Plans ONCOLOGY INFUSION THERAPY Plan Name Start Date Discontinue Date Treatment Medications Discontinue Reason Plan Provider [facility] LEUPROLIDE 45 MG (ELIGARD) EVERY 6 MONTHS 12/08/2021 07/19/2023 leuprolide (ELIGARD) Therapy Complete Brown Damon MD Radiation Treatments * No radiation treatments are documented for this patient in [facility]. Treatments may have been administered in another system.
--- OUTSIDE RECORDS SUMMARY | 2024-08-15 10:46 | XMS_ITS ---
Author Organization [facility] Address [address] [place] [address] Care Team Providers Care Echo Vascular Technologist Name Role Phone BASILIA CAROLINA Primary Care Provider Collins Rivera Jr Unavailable Allergies Allergen (clinical drug ingredient) Drug/Non Drug Allergy documented on EMR Reaction Allergy Type Onset Date Status tetracycline Tetracycline HCl Unknown Drug Allergy Active REASON FOR VISIT Patient presents today for mcdonald's Medications Medication SIG (Take, Route, Frequency, Duration) Notes [...] Once a day Active Vitamin B12 Active Social History Alcohol Screen Question Answer Notes Did you [...] Monthly (2 points) Points 7 Interpretation Positive Section Notes: drinks beer Vital Signs Temperature 98.2 degrees Fahrenheit 07/19/19 24 Blood pressure systolic 00 mm Hg 07/19/19 24 Blood pressure diastolic 00 mm Hg 024 Height 72 in 07/19/2023 Weight 237 lbs 07/19/2023 BMI 32.14 kg/m2 07/19/2023 Encounters Encounter Location Date Provider Diagnosis [facility] [address] [place] [address] 07/19/2023 Collins Salmeron Jr 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 He is due for surveillance of his Mcdonald's esophagus. We reviewed this today. He understands risks and benefits and agrees to proceed. Endoscopy will be arranged at his convenience. 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 Patient presents today for mcdonald's. * HPI: ???New symptom(s):? Anthony is a pleasant 67-year-old man seen today in followup of Mcdonald's esophagus and colon cancer screening. Since we saw him last year, he's been doing well. He reports reflux symptoms are well-controlled on pantoprazole 20 mg daily. He has no complaints of dysphagia, hematemesis, or melena. He is due for followup endoscopy. He also has a history of prostate cancer and is off hormone therapy, feeling much better. * Medical History:?Colon polyp s, colonoscopy 12/07/21, 10 mm tubular adenoma, three-year followup, Moderate sized internal hemorrhoids, Hypertension, Depression, Hyperlipidemia, Prostate cancer status post radiation therapy for elevated PSA after prostatectomy, off Eligard, COPD, FAUSTO/CPAP, Gastroesophageal reflux disease, EGD 12/07/21 small area of Mcdonald's esophagus without dysplasia, two-year followup, Left kidney cystic lesion/ surgery and partial nephrectomy with renal cell carcinoma, Ascending aortic aneurysm. * Surgical History:? radical p rostatectomy for prostate cancer , Bilateral knee replacements , Left partial nephrectomy . * Family History:?Father: dece ased, diagnosed with HTN (hypertension).?Mother: .? No family history of colon cancer or liver cancer. * Social History:?Tobacco Use:?Tobacco Use/Smoking?Are you a: nonsmoker.?Drugs/Alcohol:?Alcohol Screen?Did you have a drink containing alcohol in the past year??Yes,?How often did you have a drink containing alcohol in the past year??4 or more times a week (4 points),?How many drinks did you have on a typical day when you were drinking in the past year??3 or 4 drinks (1 point),?How often did you have 6 or more drinks on one occasion in the past year??Monthly (2 points),?Points?7,?Interpretation?Positive.?Miscellaneous:?Marital status: . Occupation: retired. ???drinks beer. * Medications:?Taking Calcium 1 tab Oral , Taking Vitamin B12 , Taking Atorvastatin Calcium 20 MG Tablet 1 tablet Orally Once a day, Taking Losartan Potassium 50 MG Tablet 1 tablet Orally Once a day, Taking PARoxetine HCl 30 MG Tablet 1 tablet in the morning Orally Once a day, Taking Vitamin D3 50 MCG (1999 UT) Tablet Oral , Taking Metoprolol Tartrate 25 MG Tablet Oral , Taking Pantoprazole Sodium 20 MG Tablet Delayed Release TAKE 1 TABLET BY MOUTH EVERY DAY FOR 30 DAYS , Not-Taking/PRN Eligard 7.5 MG Kit as directed Subcutaneous , Medication List reviewed and reconciled with the patient * Allergies:?Tetracycline HCl. Objective: * Vitals:?Wt: 237 lbs, Ht: 72 in, BMI:32.14 Index, BP: 00/00 mm Hg, Temp: 98.2. * Examination: ???General Examination: ???On examination today, he appears well. Skin is anicteric. Lungs are clear. Heart shows regular rate and rhythm. Abdomen is soft without focal mass or tenderness. Extremities are without edema. Assessment: * Assessment: 1.?Mcdonald's esophagus witho ut dysplasia - K22.70 (Primary)? His reflux disease under goo d control on pantoprazole 20 mg daily. He is due for surveillance of his Mcdonald's esophagus. We reviewed this today. He understands risks and benefits and agrees to proceed. Endoscopy will be arranged at his convenience. Plan: * Treatment: Notes: Heartburn - what to ask your provider material was printed?? * Procedure Codes:?3017F COLOR ECTAL CA SCREEN DOC REV, G9903 Pt scrn tbco id as non user, G9745 DOC RSN FOR NOT SCREEN/REC F/U HBP * Preventive Medicine:? ??Counseling:?Care goal follow-up plan:?Above Normal BMI Follow-up?Giving encouragement to exercise,?BMI management provided?Yes.? * Follow Up:?1 Year * * Sign off status: Completed true * Provider:?Collins Salmeron MD Date:?0 07/19/2023 Generated for Stacey pfeiffer/Cammy/eTransmitting on:?08/15/2024 10:45 AM EST History and Physical Notes * HPI (History of Present Illness) Category Sub-Category Detail Notes Category Not es New symptom(s) Anthony is a pleasant 67-year-old man seen today in followup of Mcdonald's esophagus and colon cancer screening. Since we saw him last year, he's been doing well. He reports reflux symptoms are well-controlled on pantoprazole 20 mg daily. He has no complaints of dysphagia, hematemesis, or melena. He is due for followup endoscopy. He also has a history of prostate cancer and is off hormone therapy, feeling much better. Examination Category Sub-Category Detail Notes Category Not es General Examination On exami nation today, he appears well. Skin is anicteric. Lungs are clear. Heart shows regular rate and rhythm. Abdomen is soft without focal mass or tenderness. Extremities are without edema.
--- OUTSIDE RECORDS SUMMARY | 2024-08-15 10:46 | XMS_ITS | Encounter Summary ---
Author Organization [facility] Address [address] [place] [address] Care Team Providers Care Capsule Maker Name Role Phone Pablo Rivero MD Primary Care Provider [phone] Memo Grant MD Unavailable [phone] Reason for Visit * Reason Comments Advice Only Encounter Details Date Type Department Care Team ([facility] Contact Info) Description 03/22/[address] [facility] [place] Urologic Surgery [address] [phone] Mamadou Hernandez MD [address] [place] [address] Advice Only Social History Tobacco Use [...] Description 10/31/2024 10:00 AM EDT Office Visit [facility] Urology [place] [address] [place] [address] Mamadou Hernandez MD [address] [address] documented as of this encounter Visit Diagnoses Not on filedocumented in this encounter Care Teams Capsule Maker Relationship Specialty Start Date End Date Pablo Rivero MD [address] [facility] [place] [address] PCP - General Family Medicine 06/23/22 Memo Grant [place] [address] Cardiovascular Disease 10/27/22 documented as of this encounter
--- OUTSIDE RECORDS SUMMARY | 2024-08-15 10:46 | XMS_ITS | Clinical Summary ---
Author Organization [facility] Address [address] [place] [address] Phone Care Team Providers Care Hardware Sales Assistant Name Role Phone Pablo Rivero NP Primary Care Provider Allergies Active Allergy Reactions Criticality Noted Date Comments Amoxicillin Other 04/26/2010 Bee Venom Protein (Honey Bee) Swelling,Anaphylaxis High 03/03/2022 Erythromycin 08/17/2023 Tetracycline 01/23/2017 Medications atorvastatin (LIPITOR) 20 mg tablet Take 1 [...] CYANOCOBALAMIN, VITAMIN B-12, ORAL Take by mouth. Activ e FLUTICASONE PROPION-SALMETE ROL INHL Inhale into the lungs. Active LEUPROLIDE ACETATE, 6 MONTH, SUBQ Inject under the skin. - Subcutaneous Patient not taking: Reported on 09/28/2022 Active Active Problems Problem Noted Date Diagnosed Date Prostate cancer 01/24/2017 Encounters Date Type Department Care Team Description 07/15/2024 Telephone [facility] Hematology Oncology [address] [place] [phone] Guillermina Irving, 05/27/2024 1:59 PM EST - 05/27/2024 11:59 PM EST Hospital Encounter [facility] PET Scan [address] [place] [phone] Rising PSA following treatment for malignant neoplasm [...] on file Sexual Orientation Not on file Obstetrics History Last Filed [...] Description 10/21/2024 1:30 PM EDT Office Visit [facility] Hematology Oncology [address] [place] [phone] Guillermina Irving, DO [address] [place] [address] Health Maintenance Due Date Last Done Comments [...] Td or Tdap) 05/25/2027 05/25/2017 Pneumococcal Vaccine: 50+ Years Completed 03/15/2022, 05/28/2015 Influenza Vaccine Completed [...] patient's age to complete this topic Meningococcal B Vacine Aged Out No lo nger eligible based on patient's age to complete [...] Signed Date: 05/28/2024 10:38 ET Workstation ID: [id number] Transcribed By: Self Edit Transcribed Date: 05/28/2024 [...] not designed to produce and cannot replace oyafv-zc-qzg-art true diagnostic CT examination with specific protocols. [...] reconstructed in axial, coronal, sagittal planes at the[employer] workstation with fused data from both the PET imaging study andattenuation correction CT study. Please note, CT imaging utilized strictlyfor attenuation correction and anatomic localization: CT not designed toproduce and cannot replace ucbee-qo-utb-art true diagnostic CT examinationwith specific protocols. Standardized [...] Signed Date: 05/28/2024 10:38 ET Workstation ID: [id number] Transcribed By: Self Edit Transcribed Date: 05/28/2024 06:23 ET Mal Schwartz MD IMG NM PROCEDURES Fi nal Result from Last 3 Months Insurance [facility] Care Teams Hardware Sales Assistant Relationship Specialty Start Date End Date Pablo Rivero NP [address] [facility] [place] PCP - General Family Medicine 04/10/18
--- OUTSIDE RECORDS SUMMARY | 2024-08-15 10:46 | XMS_ITS | Encounter Summary ---
Author Organization [facility] Address [address] [place], [place] [address] Care Team Providers Care Computer Trainer Name Role Phone Pablo Rivero MD Primary Care Provider [phone] Memo Grant MD Unavailable [phone] Reason for Visit * Reason Comments Other Medical record reque st Encounter Details Date Type Department Care Team ([facility] st Contact Info) Description 06/21/2023 Telephone [facility] Urologic Surgery [address] [address] Mamadou Hernandez MD [address] [address] Other (Medical record request) Social [...] Description 10/31/2024 10:00 AM EDT Office Visit [facility] Urology [place] [address] [place] [address] Mamadou Hernandez MD [address] [address] documented as of this encounter Visit Diagnoses Not on filedocumented in this encounter Care Teams Computer Trainer Relationship Specialty Start Date End Date Pablo Rivero MD [address] [facility] [address] [place] [address] PCP - General Family Medicine 06/23/22 Memo Grant [place] [address] Cardiovascular Disease 10/27/22 documented as of this encounter
--- OUTSIDE RECORDS SUMMARY | 2024-08-15 10:46 | XMS_ITS | Encounter Summary ---
Author Organization [facility] Address [address] [place] [address] Care Team Providers Care Trust Accounts Supervisor Name Role Phone Pablo Rivero MD Primary Care Provider [phone] Memo Grant MD Unavailable [phone] Encounter Details Date Type Department Care Team (Late st Contact Info) Description 06/16/2022 Scanned Document [address] [address] Tonya Hernandez MD [address] [place] [address] Social History Tobacco Use Types Packs/Day Years [...] 10/31/2024 10:00 AM EDT Office Visit [facility] Urology [place] [address] [place] [address] Mamadou Hernandez MD [address] [place] [address] documented as of this encounter Visit Diagnoses Not on filedocumented in this encounter Care Teams Trust Accounts Supervisor Relationship Specialty Start Date End Date Pablo Rivero MD [address] [place] [address] PCP - General Family Medicine 06/23/22 Memo Grant [place] [address] Cardiovascular Disease 10/27/22 documented as of this encounter
--- OUTSIDE RECORDS SUMMARY | 2024-08-15 10:46 | XMS_ITS ---
Author Organization [facility] Address [address] [place] [address] Care Team Providers Care Ball Points Inspector Name Role Phone BEVERLYLORNE BASILIA Primary Care Provider Collins Rivera Jr REASON FOR VISIT pathology Encounters Encounter Location Date Provider Diagnosis [facility] [address] [place] [address] 09/03/2023 Collins Salmeron Jr Plan Of Treatment Next Appt Details Provider Name:Collins miller Jr, 10/09/2024 01:35:00 PM, [address], [address], [place], [address], Progress Notes * MARIO SUAREZ MDOB:[birth year] (67 yo M)Acc No.[id number]:09/03/2023 Patient:?MARIO SUAREZ :1955???Age:67 Y???Sex:Male Address:[place] [address] * true * Date:? Generated for Printi margarette/Cammy/eTransmitting on:?08/15/2024 10:45 AM EST
--- OUTSIDE RECORDS SUMMARY | 2024-08-15 10:46 | XMS_ITS | Clinical Summary ---
Author Organization [facility] Address [address] [place] [address] Care Team Providers Care Nitroglycerin Nitrator Operator Batch Name Role Phone Pablo Rivero Primary Care Provider [phone] Allergies Active Allergy Reactions Criticality Noted Date [...] age to complete this topic Care Teams Nitroglycerin Nitrator Operator Batch Relationship Specialty Start Date End Date Pablo Rivero [address] [facility] [place] [address] PCP - General Family Medicine 04/10/18
--- OUTSIDE RECORDS SUMMARY | 2024-08-15 10:46 | XMS_ITS | Patient Health Record ---
Author Organization [facility] Address [address] [place] [address] Care Team Providers Care Systems Protection Technician Name Role Phone BASILIA RIVERO Primary Care Provider Collins Rivera Jr Allergies Allergen (clinical drug ingredient) Drug/Non Drug Allergy documented on EMR Reaction Allergy Type Onset Date Status tetracycline Tetracycline HCl Unknown Drug Allergy Active Results Component Value Reference Range Notes Pathology Reviewed date:09/03/2023 08:23:54 AM Interpretation: Performing Lab:[facility], [address] [place] [phone] Notes/Report: Name: Anthony Granados Age/Sex: 67/M : 1955 Unit#: [id number] Attend Dr: Collins Salmeron MD Re08/28/23 Status : [facility] Location: [facility] Disch: SPEC : [id number] RECD : 08/28/23 STATUS: CHUY MASSEY NUM: [id number] EFFIE: 08/28/23-[address] [facility] [address]: Collins Salmeron MD ENTERED: 08/28/23-11 43 SP TYPE: Surgical OTHR DR: Basilia Rivero [facility] ORDERED: HE Stain/6, Gross Micro L4/2, Special st. 2, AB/PAS Diagnosis A. Duodenum, biopsy: Duodenal mucosa within normal limits. B. EG junction, biopsy: - Pedroza esophagus with background moderate chronic active inflammation. - No dysplasia seen. - Active esophagitis (maximum eosinophil count 7 per high powered field). Clinical History Pre-Op Dx: 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 Post-Op Dx: Pedroza's Microscopic Description A, B. Microscopic se ctions examined. No metaplastic changes are seen, supported by AB/PAS stains (A). Material Received A. Duodenum bx's B. EG junction bx's Gross Description Received in 2 parts. Part A: Received in formalin labeled ?duodenum bx's? are 2 capps-pink irregular tissue fragments each measu ring 0.35 cm, submitted in toto a cassette labeled A. Part B: Received in formalin labeled ?EG junction bx's? are 4 capps-pink irregular and rectangular tissue f ragments ranging 0.2-0.35 cm, submitted in toto in a cassette labeled B. CEDS Special studies orde red and performed: AB/PAS stains on A Copies To: Collins Salmeron MD [address] [place] [address] [id number] [place] [id number] CONTINUED ON NEXT PAGE Name: Anthony Granados Age/Sex: 67/M : 1955 Unit#: [id number] Attend Dr: Collins Salmeron MD Re08/28/23 Status : [facility] Location: [facility] Disch: SPEC : [id number] RECD : 08/28/23-1136 STATUS: CHUY MASSEY NUM: [id number] EFFIE: 08/28/23-[address] [facility] [address]: Collins Salmeron MD ENTERED: 08/28/23-11 43 SP TYPE: Surgical OTHR DR: Basilia Rivero- ORDERED: HE Stain/6, Gross Micro L4/2, Special st. 2, AB/PAS Copies To: (Continued) Basilia Rivero-GIGI [address] [place] [address] Signed (si gnature on file) Jose Alfredo Cole MD 08/30/23 1139 END OF REPORT Reason For Referral No Information Medications Medication SIG (Take, Route, Frequency, Duration) [...] DAYS for 90 Active Vitamin B12 Active Immunizations Vaccine Route Administration Date Status Comme nts Influenza Unknown 05/04/2021 Administered Influenza Unknown 02/09/2022 Administered Social History Alcohol Screen Question Answer Notes [...] 7 Interpretation Positive Section Notes: drinks beer drinks beer Problems Problem Type SNOMED Code ICD Code Onset Dates Problem Status W/U Status Risk Notes Problem 366038487 Colon cancer screening (Z12.11) Active confirmed Problem 87350936 Encounter for ot her preprocedural examination (Z01.818) Active confirmed Problem 999796045 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 Problem 718991973 Gastroesophageal reflux disease without esophagitis (K21.9) Active confirmed Problem Esophageal reflux finding (289979587) Gastroesophageal reflux (K21.9) Active confirmed Problem 561112088 Adenomatous poly p of colon, unspecified part of colon (D12.6) Active confirmed Problem Pedroza's esophagus (445563711) 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 Encounters Encounter Location Date Provider Diagnosis [facility] Outpatient [address] [place] [id number] 08/28/2023 Collins Salmeron Jr Pedroza''s esophagus 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 [facility] [address] [place] [address] 09/03/2023 Collins Salmeron Jr Assessments Encounter Date Diagnosis (ICD Code) Assessment Notes Treatment Notes Treatment Clinical Notes Section Notes 08/28/2023 Pedroza''s esophagus without dysplasia (ICD-10 - K22.70) Plan Of Treatment Future Test Test Name Order Date COLONOSCOPY 11/11/2014 COLONOSCOPY 02/06/2018 UPPER GI ENDOSCOPY 08/22/2021 COLONOSCOPY 08/22/2021 UPPER GI ENDOSCOPY 07/19/2023 Next Appt Details Provider Name:Collins miller Jr, 10/09/2024 01:35:00 PM, [address], [address], [place], [address], Insurance Providers Payer Name Payer Address Payer Phone Subscriber Number Group Number Insured Name Patient Relationship to Insured Coverage Start Date Coverage End Date [facility] IN[facility] [address] [place] [address] [id number] ANTHONY GRANADOS Self - patient is the insured Medical (General) History Medical History History ICD Code Colon polyps, [...]
--- OUTSIDE RECORDS SUMMARY | 2024-08-15 10:46 | XMS_ITS | Encounter Summary ---
Author Organization [facility] Address [address] [place] [address] Care Team Providers Care Truck Driver Teamster Name Role Phone Pablo Rivero NP Primary Care Provider Encounter Details Date Type Department Care Team (Late st Contact Info) Description 04/03/2024 2:39 PM EDT Hospital Encounter TH HISTORIC ENCOUNTERS EASTERN CONVERSION ONLY Guillermina Irving, [address] [place] [address] Social History Tobacco Use Types Packs/Day Years [...] in follow-up upon a recommendation from his general maintenance technician. He went to see dermatology for increasing [...] Sign Maryanne Irving DO - Hematology/Oncology Sister [place] [facility] CC: Pablo Rivero documented in this encounter Plan of Treatment Upcoming Encounters Date Type Department Care Team (Late st Contact Info) Description 10/21/2024 1:30 PM EDT Office Visit [facility] Hematology Oncology [address] [place] [address] Guillermina Irving DO [address] [place] [address] documented as of this encounter Visit Diagnoses Not on filedocumented in this encounter Care Teams Truck Driver Teamster Relationship Specialty Start Date End Date Pablo Rivero, FAIRGROUND OPERATOR [address] [place], [place] PCP - General Family Medicine 04/10/18 documented as of this encounter
[2024-08-15 13:10] LABS: Appearance Urine Clear; Color Urine Yellow; Glucose Urine UA Negative (Negative); Leukocyte Esterase Urine Negative (Negative); Nitrite Urine Negative (Negative); PH 8.5 (5.0-9.0); Specific Gravity - Urine 1.015 (1.005-1.025); UMIC TRIGGER UACC YES; Urine Blood Negative (Negative); Urine Ketones Trace mg/dL (Negative); Urine Protein 30 (1+) mg/dL (Neg-Trace)
[2024-08-15 13:18] LABS: Bacteria Urine None Seen (None Seen); Hyaline Casts Urine 0-2 /LPF (0-2); RBC Urine 0-2 /HPF (0-2); Squamous Epithelial Cell Urine 0-2 /HPF (0-2); WBC Urine 0-5 /HPF (0-5)
[2024-08-15 13:24] LABS: MANUAL DIFF FLAG NO
[2024-08-15 13:31] LABS: Basophils Absolute Auto 0.1 X10*3/uL (0.0-0.2); Basophils Percent Auto 1.1 % (0-2); Eosinophils Absolute Auto 0.2 X10*3/uL (0.0-0.4); Eosinophils Percent Auto 2.6 % (0-4); Hematocrit 40.3 % (42.0-52.0); Hemoglobin 14.1 g/dl (14.0-18.0); Imm Gran Abs Auto 0.07 X10*3/uL (0.00-0.03); Imm Gran Pct Auto 1.1 % (0.0-0.4); Lymphocytes Absolute Auto 1.7 X10*3/uL (1.2-4.9); Lymphocytes Percent Auto 25.7 % (20-40); Mean Corpuscular Hemoglobin 33.9 pg (27.0-33.0); Mean Corpuscular Volume 96.9 fL (80.0-98.0); Mean Platelet Volume 9.7 fL (9.4-12.4); Monocytes Absolute Auto 0.8 X10*3/uL (0.1-1.2); Monocytes Percent Auto 11.7 % (2-11); Neutrophils Absolute Auto 3.7 x10*3/uL (2.0-8.3); Neutrophils Percent Auto 57.8 % (45-73); Platelet Count 248 X10*3/uL (160-400); Red Blood Count 4.16 X10*6/uL (4.60-5.80); Red Cell Distribution Width 12.2 % (11.0-16.0); White Blood Count 6.4 X10*3/uL (4.8-10.8)
[2024-08-15 14:09] LABS: Alanine Aminotransferase 14 U/L (0-40); Alkaline Phosphatase 46 U/L (39-117); Anion Gap 13 (12-20); Aspartate Amino Transferase 22 U/L (5-37); Bilirubin Total 0.8 mg/dL (0.0-1.0); Blood Urea Nitrogen 9 mg/dL (9-16); Calcium 9.2 mg/dL (8.4-10.2); Carbon Dioxide 27 mmol/L (22-29); Chloride 99 mmol/L (96-108); Cholesterol 154 mg/dL (<200); Estimated Glomerular Filt Rate > 60; Glucose Fasting 91 mg/dL (60-99); HDL Cholesterol 73 mg/dL (>40); LDL Cholesterol Calculated 64 mg/dL (<100); Potassium 4.7 mmol/L (3.3-5.1); Sodium 134 mmol/L (135-145); Triglycerides 87 mg/dL (<150)
[2024-08-15 14:10] LABS: TSH reflex Free T4 1.87 uIU/mL (0.32-4.0)
[2024-08-15 14:20] LABS: Vitamin B12 1374 pg/mL (200-900)
== END 2024-08-15 09:51 | disposition home or self-care (01) ==
LOC: HO.HMGCLDS 09:50
PROVIDERS: PCP Nurse Practitioner Family; Visit Provider Nurse Practitioner Family
DX: E66.9 Obesity, unspecified (principal); E55.9 Vitamin D deficiency, unspecified; E53.8 Deficiency of other specified B group vitamins
CPT/HCPCS: 36415; 80053; 80061; 81001; 82306; 82607; 82746; 84443; 85025

== ENCOUNTER 2024-08-20 09:06 | Outpatient (AMB) | payer OTHER, SELFPAY ==
[2024-08-20 09:08] VITALS: BP 130/72; PULSE 76; TEMP 36.8; O2SAT 97; BMI 30.6
--- NOTE | 2024-08-20 09:08 | MHC.PC.OV ---
Vital Signs 08/20/24 09:08 Height 6 ft Weight 226 lb BMI 30.6 BP 130/72 Blood Pressure Location Lt brachial Position Sitting Pulse 76 Pulse Source Pulse Oximeter Temp 98.2 F Temp Source Oral Pulse Oximetry (%) 97 Intake Visit Reasons: Annual PE Finger Buff Sewer Required: No Accompanied by: Self / Same As Patient Allergies tetracycline [Tetracycline] Allergy (Intermediate, Verified 08/20/24 10:16) anaphylaxis bee venom protein (honey bee) Allergy (Unknown, Verified 08/20/24 10:16) swelling, hives Medication List - Last Reconciled 08/20/24 by Pablo Rivero ELECTRICAL SIGN WIRER- albuterol sulfate 90 mcg/actuation 2 puffs inhalation Q6H PRN atorvastatin 20 mg PO DAILY calcium carbonate (Calcium 500) 500 mg PO DAILY cholecalciferol (vitamin D3) (Vitamin D3) 50 mcg PO DAILY cyanocobalamin (vitamin B-12) 1,000 mcg sublingual DAILY 90 days epinephrine (EpiPen 2-Reji) 0.3 mg (0.3 mL) IM Q10M PRN 30 days folic acid PO DAILY folic acid 1 mg PO DAILY levetiracetam 1,000 mg PO BID losartan 50 mg (1/2 x 100 mg) PO DAILY metoprolol tartrate 25 mg PO BID pantoprazole 20 mg PO DAILY paroxetine HCl 30 mg PO QAM 90 days pyridoxine (vitamin B6) 50 mg PO DAILY Tobacco use date assessed: 08/20/24 Fall risk assessment: No Falls in past year Last assessed Fall Risk: 08/20/24 Dental Screening Dental Screen Date: 08/20/24 Did you have a dental visit in the last 12 months?: Yes Did you have a dental problem in the last 6 months where you did not have access to dental care?: No Was dental information given to patient?: Patient has dentist HPI Annual PE HPI Details Chief Complaint The patient presents following a recent unresponsive episode and subsequent seizure. History of Present Illness The patient is a 68-year-old male presenting for follow-up after a recent unresponsive episode and suspected seizure. The event included a tongue bite and significant postictal confusion, but no memory of the occurrence. He consumes significant amounts of beer daily, and abstinence for two days before the episode likely triggered the seizures due to alcohol withdrawal. At the hospital, nervous system investigations were ordered. CT and MRI results were unrevealing, yet EEG indicated potential temporal lobe issues. Neurological consultation resulted in a prescription of Keppra, and thiamine, with advice against driving, and lifestyle adjustments. His diagnosis includes possible left temporal lesion and hyponatremia potentially due to beer potomania, underscoring the need for continued alcohol abstinence and monitoring. A referral for a neurology outpatient follow-up is confirmed. Social History - Regular alcohol consumption reported at six beers daily. - Patient denies recent alcohol use two days prior to the episode. Health Maintenance Review of Systems - Neurological: Reports significant postictal confusion and fatigue. - Musculoskeletal: Denies tremors. - Respiratory: Reports complete sentences with some difficulty (trauma to tongue) -denies any cp or sob Physical Exam General: Cooperative, healthy appearing, comfortable, no acute distress and well developed, but somewhat fatigued Orientation: Patient oriented x3 Limitations: No limitations Head: Normal to inspection mouth: tongue right mid/distal with faint swelling/? blood blister, no signs of infection Ears: Hearing grossly normal bilaterally Nose: Normal external nose present Face and sinus: Normal facial exam Eyes: Appearance normal, both eyes and all related structures Neck: Normal visual inspection and Yes full ROM Respiratory: Normal respiratory effort and able to speak in complete sentences. Clear to auscultation bilaterally Cardiovascular: Regular rate and rhythm. Normal S1 and S2 GI: Normal to inspection. Soft to palpation and nontender Skin: No rashes or lesions noted Neuro: Patient oriented x3, CN2-12 intact, negative arm pull test, jyrj-hk-[id number] intact, negative Romberg Extremities: Normal to inspection Results - Tests: EEG suggesting possible left temporal lesion. - Labs: Negligible ethanol levels, positive urine toxicology for cannabis, hyponatremia noted. Plan Considering the recent seizure episode may be linked to alcohol withdrawal, the patient will remain on Keppra as a seizure prophylaxis. Alcohol cessation is prioritized through thiamine supplementation to counter potential deficiency. Nutritional adjustment is needed to address hyponatremia related to beer consumption. Continued folic acid and pyridoxine intake is advised. Further neurological evaluation will occur on an outpatient basis to explore possible temporal lobe pathology. Driving is discouraged for the upcoming six months, and referrals have been made for necessary follow-ups. Discussion Notes I discussed with the patient the probability that the seizure was associated with alcohol withdrawal, highlighting the need for abstinence and the benefits of maintaining thiamine supplementation. We reviewed the EEG results, which suggested a potential temporal lesion, and I explained the importance of ongoing neurological evaluation and seizure management, including the prescription of Keppra. The risks of driving post-seizure were communicated clearly, necessitating a six-month abstention from driving. Follow-up in a neurology outpatient clinic was agreed upon, and a referral has been initiated. Patient Instructions - Continue taking Keppra as directed. - Avoid alcohol consumption completely. - Refrain from driving for six months due to recent seizure. - Attend follow-up neurology appointments as scheduled. - Continue thiamine, folic acid, and pyridoxine supplements. - Report any recurrence of seizure-like activity or confusion. - labs next week, encouraged in crease fluids (sip sugar free sport drinks and water) -any worsening symptoms, please seek medical attention [facility] Medical History Eyelid retraction unspecified eye, unspecified lid Prostate CA Papillary adenocarcinoma of left kidney Coronary artery calcification Coronary atherosclerosis Ascending aortic aneurysm Thoracic aortic aneurysm HTN (hypertension) Personal history of nicotine dependence FAUSTO (obstructive sleep apnea) Snoring Somnolence, daytime Obesity Barretts esophagus GERD (gastroesophageal reflux disease) Cannabinoid hyperemesis syndrome Osteopenia On beta hilary at home SOB (shortness of breath) COPD (chronic obstructive pulmonary disease) Asthma Nodule on liver Depression Foraminal stenosis of lumbar region Surgical History History of cardiac cath History of prostatectomy History of partial nephrectomy History of total right knee replacement (TKR) History of total knee replacement (TKR) History of knee surgery History of esophagogastroduodenoscopy (EGD) H/O colonoscopy Lipoma of back Family History Father Leukemia Substance use disorder Mother Breast cancer CVD (cardiovascular disease) Takotsubo cardiomyopathy Brother Substance use disorder Sister No problems noted. Maternal Aunt No problems noted. Maternal Grandfather No problems noted. Maternal Grandmother No problems noted. Maternal Uncle No problems noted. Paternal Aunt No problems noted. Paternal Grandfather No problems noted. Paternal Grandmother No problems noted. Paternal Uncle No problems noted. Social History Housing: House Alcohol intake: current Alcohol intake frequency: 3 or more drinks per day Patient Tobacco Use Status: Former Tobacco user Years Smoked: 35 years ago e-Cigarette/Vaping Use: Never Used Second Hand Smoke Exposure: No service: No Current occupational status: retired Cognitive needs: No Hearing needs: No Vision needs: No Questionnaire PHQ-9 Over the last 2 weeks, how often have you been bothered by any of the following problems? 1. Little interest or pleasure in doing things: more than half the days 2. Feeling down, depressed, or hopeless: several days 3. Trouble falling or staying asleep, or sleeping too much: several days 4. Feeling tired or having little energy: several days 5. Poor appetite or overeating: several days 6. Feeling bad about yourself - or that you are a failure or have let yourself or your family down: several days 7. Trouble concentrating on things, such as reading the newspaper or watching television: several days 8. Moving or speaking so slowly that other people could have noticed. Or the opposite - being so fidgety or restless that you have been moving around a lot more than usual: several days 9. Thoughts that you would be better off or of hurting yourself in some way: not at all Total score: 9 Depression Screening Interpretation: Positive (declines therapist currently) Depression Screening Follow-up: Existing condition Depression Screening Done: Yes 92118 - PHQ-9 Billing: Yes Source: Developed by Drs. Vicente Call, Ara [place], Coy Obregon and colleagues, with an educational bijan from [employer]. Thrive Questionnaire Date Thrive assessed: 08/20/24 I am a: Patient What is your living situation today?: I have a steady place to live Within the past 12 months, did the food you bought not last and you didn't have the money to get more?: Never true Within the past 12 months, did you worry whether your food would run out before you got money to buy more?: Never true Do you have trouble paying for medicines?: No Do you have trouble getting transportation to medical appointments?: No Do you have trouble paying your heating and electricity bill?: No Do you have trouble taking care of your child, family member or friend?: No Do you have trouble with day-to-day activities such as bathing, preparing meals, shopping, managing finances, etc.?: No Are you currently unemployed and looking for a job?: No Are you interested in more education?: No Please select the resources that you would like help with: None Currently or been in a relationship where the following occur: No concerns reported THRIVE Score: 0 AUDIT C Alcohol Use Questionnaire (AUDIT-C) 1. How often do you have a drink containing alcohol?: 4 or more times a week 2. How many drinks containing alcohol do you have on a typical day when you are drinking?: 3 or 4 3. How often do you have six or more drinks on one occasion?: Weekly Total Score: 8 Score Reviewed/Action Taken: Yes DREAD-7 AMB Questionnaire DREAD-7 Date DREAD - 7 assessed: 08/20/24 Feeling nervous, anxious, or on edge: 1 = Several days Not being able to stop or control worryin = Several days Worrying too much about different things: 1 = Several days Trouble relaxin = Several days Being so restless that it is hard to sit still: 1 = Several days Becoming easily annoyed or irritable: 1 = Several days Feeling afraid as if something awful might happen: 1 = Several days Total DREAD-7 score (0-4 normal; 5-9 mild; 10-14 moderate; 15-21 severe): 7 Source: Developed by Drs. Vicente Call, Ara [place], Coy Obregon and colleagues, with an educational bijan from [employer]. DREAD-7 Assessment Billing DREAD-7 Assessment Tool: DREAD-7 Assessment 11496 (denies any si or hi) Physical exam (Primary Care) Vital Signs: Last Vital Signs Temp 98.2 F 08/20/24 09:08 Pulse 76 08/20/24 09:08 BP 130/72 08/20/24 09:08 Pulse Ox 97 08/20/24 09:08 BMI result Body Mass Index 30.6 Tobacco/Smoking Status: Tobacco use Status Tobacco use date assessed 08/20/24 08/20/24 09:10 Patient Tobacco Use Status Former Tobacco user 08/20/24 09:10 e-Cigarette/Vaping Use Never Used 08/20/24 09:10 PHQ-9: PHQ-9 Score PHQ-9: Total score 9 08/20/24 10:07 Depression Screening Interpretation: Positive (declines therapist currently) Depression Screening Follow-up: Existing condition Thrive Assessment: Date of Thrive Assessment Date Thrive assessed 08/20/24 08/20/24 09:10 Currently or been in a relationship where the following occur: No concerns reported Coding Level of Care Code Est Pt Level 4 (01962) Diagnoses ETOH abuse F10.10 Seizures R56.9 Additional Codes PHQ-9 - 65845 - PHQ-9 Billing: Yes ([id number]) DREAD-7 Assessment Billing - DREAD-7 Assessment Tool: DREAD-7 Assessment 03628 ([id number]) Assessment & Plan Assessment & Plan (1) ETOH abuse: Code(s): F10.10 - Alcohol abuse, uncomplicated Category: Social Hx (2) Seizures: Code(s): R56.9 - Unspecified convulsions Category: Medical Plan . Orders: Orders Complete Blood Count Auto Diff Today F10.10 - Alcohol abuse, uncomplicated, R56.9 - Unspecified convulsions UA CC w/rflx Micro + Cult Today F10.10 - Alcohol abuse, uncomplicated, R56.9 - Unspecified convulsions Comprehensive Met. Panel Today F10.10 - Alcohol abuse, uncomplicated, R56.9 - Unspecified convulsions Magnesium Today F10.10 - Alcohol abuse, uncomplicated, R56.9 - Unspecified convulsions Referrals Neurology Referral R56.9 - Unspecified convulsions
--- OUTSIDE RECORDS SUMMARY | 2024-08-20 09:43 | XMS_ITS | Encounter Summary ---
Author Organization [facility] Address [address] [place] [address] Care Team Providers Care Medical Assisting Instructor Name Role Phone Pablo Rivero MD Primary Care Provider [phone] Memo Grant MD Unavailable [phone] Encounter Details Date Type Department Care Team (Late st Contact Info) Description 08/28/2023 Scanned Document [facility] Urologic Surgery [address] [place] [address] Guillermina Irving, DO [address] [place] [address] Social History Tobacco Use Types Packs/Day Years [...] EDT Office Visit [facility] [place] [address] [place] [phone] Mamadou Hernandez MD [address] [place] [address] documented as of this encounter Visit Diagnoses Not on filedocumented in this encounter Care Teams Medical Assisting Instructor Relationship Specialty Start Date End Date Pablo Rivero MD [address] [facility] [place] [address] PCP - General Family Medicine 06/23/22 [place] [address] Cardiovascular Disease 10/27/22 documented as of this encounter
--- OUTSIDE RECORDS SUMMARY | 2024-08-20 09:43 | XMS_ITS | Encounter Summary ---
Author Organization [facility] Address [address] [place] [address] Care Team Providers Care Sole Assessor Name Role Phone Pablo Rivero MD Primary Care Provider [phone] Memo Grant MD Unavailable [phone] Reason for Visit * Reason Comments Appointment Encounter Details Date Type Department Care Team ([facility] st Contact Info) Description 02/23/2023 Telephone [facility] Urologic Surgery [address] [address] Mamadou Hernandez MD [address] [place] [address] Appointment Social History Tobacco Use Types [...] 10:00 AM EDT Office Visit [facility] [place] [address] [place] [address] Mamadou Hernandez MD [address] [address] documented as of this encounter Visit Diagnoses Not on filedocumented in this encounter Care Teams Sole Assessor Relationship Specialty Start Date End Date Pablo Rivero MD [address] [place] [address] PCP - General Family Medicine 06/23/22 Memo Grant [place] [address] Cardiovascular Disease 10/27/22 documented as of this encounter
--- OUTSIDE RECORDS SUMMARY | 2024-08-20 09:43 | XMS_ITS | Continuity of Care Document ---
Author Organization [facility] ter Address [address] [place] [address]- Care Team Providers Care Gyro Mechanic Name Role Phone Not on Staff, PCP Primary Care Physician Unavail able Encounter 08/18/24 - 08/19/[address] [address]- Attending Physician: Not on Staff, Attending MD Referring Physician: Not on Staff, Referring MD Encounter Type: SMRI Allergies, Adverse Reactions, Alerts Substance Criticality Severity Reaction Reaction Severity Status tetracycline Active erythromycin Active Bee Stings High criticality Severe Ac tive Medications atorvastatin 20 mg oral tablet 1 tablet = 20 mg, By Mouth, Daily, # 30 tablet, 0 Refills, Maintenance, 06/01/20 7:38:00 PM EST, Tablet, Partial fill upon patient request if the prescription is for a schedule II opioid drug. Start Date: 06/01/20 Status: Ordered Quantity: 30.0 Unit: tablet Repeat number: 1 folic acid 1 mg oral tablet 1 mg, By Mouth, Daily, # 30 each, Refills 0, Tot. Refills 0, Maintenance, 08/19/24 3:02:00 PM EDT, Route to Pharmacy Electronically, [facility]/pharmacy #[id number], Partial fill upon patient request if the prescription is for a schedule II opioid drug., 184, cm, 08/19/24 10:52:00 EDT, Height, 104, kg, 08/18/24 19:51:00 EDT, Dry Weight Start Date: 08/19/24 Status: Ordered Quantity: 30.0 Unit: each Repeat number: 1 Keppra 500 mg oral tablet = 1,000 mg, By Mouth, 2 times a day, # 120 each, 2 Refills, Maintenance, 08/19/24 3:02:00 PM EDT, Tablet, [facility][id number], Partial fill upon patient request if the prescription is for a schedule IIopioid drug., 184, cm, 08/19/24 10:52:00 EDT, Height, 104, kg, 08/18/24 19:51:00 EDT, Dry Weight Start Date: 08/19/24 Status: Ordered Quantity: 120.0 Unit: each Repeat number: 3 losartan 100 mg oral tablet 0.5 tablet = 50 mg, By Mouth, Daily, # 90 tablet, 0 Refills, Maintenance, 11/01/21 10:22:00 AM EDT, Tablet, Partial fill upon patient request if the prescription is for a schedule II opioid drug. Start Date: 11/01/21 Status: Ordered Quantity: 90.0 Unit: tablet Repeat number: 1 Metoprolol Tartrate 25 mg oral tablet 1 tablet = 25 mg, By Mouth, 2 times a day, # 180 tablet, 0 Refills, Maintenance, 11/01/21 10:22:00 AM EDT, Tablet, Partial fill upon patient request if the prescription is for a schedule II opioid drug. Start Date: 11/01/21 Status: Ordered Quantity: 180.0 Unit: tablet Repeat number: 1 pantoprazole 20 mg oral delayed release tablet 1 tablet = 20 mg, By Mouth, Daily, # 30 tablet, 0 Refills, Maintenance, 08/18/24 7:44:00 PM EDT, CR Tablet Start Date: 08/18/24 Status: Ordered Quantity: 30.0 Unit: tablet Repeat number: 1 PARoxetine 30 mg oral tablet 1 tablet = 30 mg, By Mouth, Daily, # 30 tablet, 0 Refills, Maintenance, 08/31/16 2:47:58 PM EDT, Tablet Start Date: 08/31/16 Status: Ordered Quantity: 30.0 Unit: tablet Repeat number: 1 pyridoxine 50 mg oral tablet 50 mg, By Mouth, Daily, for 30 days, # 30 tablet, Refills 0, Tot. Refills 0, Acute 09/18/24 3:02:00 PM EDT, 08/19/24 3:02:00 PM EDT, Route to Pharmacy Electronically, [facility]/pharmacy #[id number], Partial fill upon patient request if the prescription is for a schedule II opioid drug., 184, cm, 08/19/24 10:52:00 EDT, Height, 104, kg, 08/18/24 19:51:00 EDT, Dry Weight Start Date: 08/19/24 Stop Date: 09/18/24 Status: Ordered Quantity: 30.0 Unit: tablet Repeat number: 1 thiamine 100 mg oral tablet 100 mg, By Mouth, Daily, for 30 days, # 30 tablet, Refills 0, Tot. Refills 0, Acute 09/18/24 3:02:00PM EDT, 08/19/24 3:02:00 PM EDT, Route to Pharmacy Electronically, [facility]/pharmacy #[id number], Partial fill upon patient request if the prescription is for a schedule II opioid drug., 184, cm, 08/19/24 10:52:00 EDT, Height, 104, kg, 08/18/24 19:51:00 EDT, Dry Weight Start Date: 08/19/24 Stop Date: 09/18/24 Status: Ordered Quantity: 30.0 Unit: tablet Repeat number: 1 Problem List Condition Confirmation Course Effective Dates Status Health St atus Informant Obese class I Confirmed Active Results Radiology Reports * Exam Date Time Procedure Performing Provider Status 08/18/24 5:17 PM MRI Brain W+W/O Contrast Auth (Verified) Notes: (MRI Brain W+W/O Contrast) Reason For Exam: Seizure Disorder Sudden Unresponsivness;Seizure Disorder Sudden Unresponsivness RESULT: MRI Brain W+W/O Contrast [place] [facility], [facility] VISIT NUMBER :[id number] Patient Name: Anthony Granados Date of : 1955 Date of Exam: 08-18-2024 Referring Physician: Alexi Brownlee [address] [address] Exam: MR Brain (C-/C+) CPT 46383 Room Description: [facility] 1.5 MR Brain (C-/C+) CPT 36852 INDICATION / CLINICAL QUESTION: Seizure Disorder Sudden Unresponsivness Seizure Disorder Sudden Unresponsivness MACEYK - Standard Department Protocol TECHNIQUE: MRI of the brain was performed with and without contrast utilizing sagittal and axial T1, axial T2, axial FLAIR, axial GRE, and axial DWI sequences, and post-contrast 3D T1 VIBE with multiplanar reformats. 20 mL Dotarem intravenous contrast was administered. COMPARISON: Head CT 08/18/2024. FINDINGS: Image quality is degraded by patient motion. BRAIN and EXTRA-AXIAL SPACES: The ventricles and sulci are mildly prominent reflecting volume loss. There are scattered nonspecific FLAIR hyperintensities in the white matter. There is no evidence of restricted diffusion to suggest acute infarction. There is no hemorrhage, midline shift, or mass effect. There is no extra-axial collection. Flow voids are preserved in the dominant intracranial vessels. No enhancing lesions. EXTRACRANIAL SOFT TISSUES: Orbits are unremarkable. Mild scattered paranasal sinus mucosal thickening with mucous retention cysts in the maxillary sinuses. BONES: Marrow signal is preserved. IMPRESSION: 1. No acute/subacute infarct, mass, hemorrhage, or other acute intracranial abnormality. 2. Mild scattered T2/FLAIR hyperintense foci in the white matter, nonspecific but most likely reflecting chronic small vessel disease. Electronically Signed By: Shaq Moy MD Dictated By: Not on Staff , ALIA ROGERS Dictated Date/Time: 08/19/24 11:58 a Reviewed By: Not on Staff , ALIA ROGERS Signed By: Not on Staff , ALIA ROGERS Signed Date/Time: 08/19/24 11:58 am Transcribed By: JUANCARLOS Transcribed Date/Time: 08/19/24 11:58 am Social History Social History Type Response Smoking Status Former smoker, quit more than 30 days ago; Other: QUIT45 YRS AGO; entered on: 08/18/24 Sex Sex Representation Male (finding) Patient Care team information Care Team Personnel Name: Shari Rondon RN Position: [facility] RN Member Role: Primary Care Nurse Name: Esha Bhardwaj RN Position: [facility] SN RN Member Role: Primary Care Nurse Name: Librado Sparks RN Position: S RN Member Role: Primary Care Nurse Name: Kamila Fine RN Position: S RN Member Role: Primary Care Nurse Name: Not on Staff, PCP Position: [facility] Physician (General Medicine) Member Role: PCP Name: Marla Trevino RN Position: S RN Member Role: Primary Care Nurse Name: Nafisa Henderson RN Position: S RN Member Role: Primary Care Nurse Care Team Related Persons Name: SHAQ GRANADOS Insurance Providers Guarantor name: ANTHONY GRANADOS Health Plan Information #: 1 Payer: [facility] Member Number: NA Policy Number: NA Group Number: NA
--- OUTSIDE RECORDS SUMMARY | 2024-08-20 09:43 | XMS_ITS | Encounter Summary ---
Author Organization [facility] Address [address] [place] [address] Care Team Providers Care Shore Hand Dredge Or Barge Name Role Phone Pablo Rivero MD Primary Care Provider [phone] Memo Grant MD Unavailable [phone] Encounter Details Date Type Department Care Team (Late st Contact Info) Description 08/24/2023 Telephone [facility] Urologic Surgery [address] [address] Mamadou Hernandez MD [address] [address] Social History Tobacco Use Types [...] 10:00 AM EDT Office Visit [facility] Urology [place] [address] [place] [phone] Mamadou Hernandez MD [address] [place] [address] documented as of this encounter Visit Diagnoses Not on filedocumented in this encounter Care Teams Shore Hand Dredge Or Barge Relationship Specialty Start Date End Date Pablo Rivero MD [address] [facility] [place] [address] PCP - General Family Medicine 06/23/22 [place] [address] Cardiovascular Disease 10/27/22 documented as of this encounter
--- OUTSIDE RECORDS SUMMARY | 2024-08-20 09:44 | XMS_ITS ---
Author Organization [facility] Address [address] [place] [address] Care Team Providers Care Juvenile Correctional Officer Name Role Phone Pablo Rivero Primary Care Provider [phone] Active Problems Problem Noted Date Diagnosed Date Prostate cancer 01/24/2017 Current Oncology Plans No current plan information found. Past Plans ONCOLOGY INFUSION THERAPY Plan Name Start Date Discontinue Date Treatment Medications Discontinue Reason Plan Provider [facility] BCN LEUPROLIDE 45 MG (ELIGARD) EVERY 6 MONTHS 12/08/2021 07/19/2023 leuprolide (ELIGARD) Therapy Complete Brown Damon MD Radiation Treatments * No radiation treatments are documented for this patient in [facility]. Treatments may have been administered in another system.
--- OUTSIDE RECORDS SUMMARY | 2024-08-20 09:44 | XMS_ITS | Encounter Summary ---
Author Organization [facility] Address [address] [place] [address] Care Team Providers Care Machine Puller Name Role Phone Pablo Rivero NP Primary Care Provider Encounter Details Date Type Department Care Team (Late st Contact Info) Description 04/03/2024 2:39 PM EDT Hospital Encounter TH HISTORIC ENCOUNTERS EASTERN CONVERSION ONLY Guillermina Irving, [address] [place] [address] Social History Tobacco Use Types Packs/Day Years [...] in follow-up upon a recommendation from his mangle catcher. 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: Labs [...] Sign Maryanne Irving DO - Hematology/Oncology Sister [facility] CC: Pablo Rivero documented in this encounter Plan of Treatment Upcoming Encounters Date Type Department Care Team (Late st Contact Info) Description 10/21/2024 1:30 PM EDT Office Visit [facility] Hematology Oncology [address] [place] [address] Guillermina Irving DO [address] [place] [address] documented as of this encounter Visit Diagnoses Not on filedocumented in this encounter Care Teams Machine Puller Relationship Specialty Start Date End Date Pablo Rivero, BORING INSPECTOR [address] [place], [place] PCP - General Family Medicine 04/10/18 documented as of this encounter
--- OUTSIDE RECORDS SUMMARY | 2024-08-20 09:44 | XMS_ITS ---
Author Organization [facility] Address [address] [place] [address] Care Team Providers Care Centrifugal Extractor Operator Name Role Phone BASILIA CAROLINA Primary Care [...] [facility] [address] [place] [address] 07/19/2023 Collins Salmeron Jr Mcdonald's esophagus without [...] 01:35:00 PM, [address], [address], [place], [address], Progress Notes * ANTHONY SUAREZ MDOB:[birth year] (67 yo M)Acc No.[id number]:07/19/2023 Progress Notes Patient:?ANTHONY SUAREZ Provider:?Collins Salmeron MD :1955???Age:67 Y???Sex:Male Anastacio e:07/19/2023 Address:[place] [address], [id number] Pcp:BASILIA CAROLINA Subjective: * Chief Complaints: * [...] Salmeron MD Date:?0 07/19/2023 Generated for Stacey pfeiffer/Cammy/eTstevesmitting on:?08/20/2024 09:43 AM EDT History and Physical Notes * HPI (History [...]
--- OUTSIDE RECORDS SUMMARY | 2024-08-20 09:44 | XMS_ITS | Encounter Summary ---
Author Organization [facility] Address [address] [place] [address] Care Team Providers Care Bottling Room Worker Name Role Phone Pablo Rivero MD Primary Care Provider [phone] Memo Grant MD Unavailable [phone] Reason for Visit * Reason Comments Advice Only Encounter Details Date Type Department Care Team ([facility] Contact Info) Description 03/22/2023 Telephone [facility] Urologic Surgery [address] [phone] Mamadou Hernandez MD [address] [address] Advice Only Social History Tobacco Use [...] Description 10/31/2024 10:00 AM EDT Office Visit [facility]rology [place] [address] [place] [address] Mamadou Hernandez MD [address] [address] documented as of this encounter Visit Diagnoses Not on filedocumented in this encounter Care Teams Bottling Room Worker Relationship Specialty Start Date End Date Pablo Rivero MD [address] [facility] [place] [address] [address] PCP - General Family Medicine 06/23/22 Memo Grant MD [address] [place] [address] Cardiovascular Disease 10/27/22 documented as of this encounter
--- OUTSIDE RECORDS SUMMARY | 2024-08-20 09:44 | XMS_ITS ---
Author Organization [facility] Address [address] [place] [address] Care Team Providers Care Housing Quality Standard Inspector Name Role Phone BEVERLYLORNE BASILIA Primary Care Provider Collins Rivera Jr REASON FOR VISIT pathology Encounters Encounter Location Date Provider Diagnosis [facility] [address] [place] [address] 09/03/2023 Collins Salmeron Jr Plan Of Treatment Next Appt Details Provider Name:Collins miller Jr, 10/09/2024 01:35:00 PM, [address], [address], [place], [address], Progress Notes * MARIO SUAREZ MDOB:[birth year] (67 yo M)Acc No.[id number]:09/03/2023 Patient:?MARIO SUAREZ :1955???Age:67 Y???Sex:Male Address:[place] [address] * true * Date:? Generated for Printi margarette/Cammy/eTransmitting on:?08/20/2024 09:43 AM EDT
--- OUTSIDE RECORDS SUMMARY | 2024-08-20 09:44 | XMS_ITS | Encounter Summary ---
Author Organization [facility] Address [address] [place] [address] Care Team Providers Care Germ Drier Name Role Phone Pablo Rivero MD Primary Care Provider [phone] Memo Grant MD Unavailable [phone] Encounter Details Date Type Department Care Team (Late st Contact Info) Description 06/16/2022 Scanned Document [address] [address] Tonya Hernandez MD [address] [place] [address] Social History Tobacco Use Types Packs/Day Years [...] Description 10/31/2024 10:00 AM EDT Office Visit [facility] Urology [place] [address] [place] [address] Mamadou Hernandez MD [address] [place] [address] documented as of this encounter Visit Diagnoses Not on filedocumented in this encounter Care Teams Germ Drier Relationship Specialty Start Date End Date Pablo Rivero MD [address] [place] [address] PCP - General Family Medicine 06/23/22 [place]o [place] [address] Cardiovascular Disease 10/27/22 documented as of this encounter
--- OUTSIDE RECORDS SUMMARY | 2024-08-20 09:44 | XMS_ITS ---
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 Encounters Encounter Location Date Provider Diagnosis [facility] Outpatient [address] [place] [phone] 08/28/2023 Collins Salmeron Jr Mcdonald''s esophagus 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 Assessments Encounter Date Diagnosis (ICD Code) Assessment Notes Treatment Notes Treatment Clinical Notes Section Notes 08/28/2023 Mcdonald''s esophagus without dysplasia (ICD-10 - K22.70) Plan Of Treatment Next Appt Details Provider Name:Collins miller Jr, 10/09/2024 01:35:00 PM, [address], [address], [place], [address], Progress Notes * MARIO SUAREZ MDOB:[birth year] (68 yo M)Acc No.[id number]:08/28/2023 EGD/MAC Patient:?MARIO SUAREZ Provider:?Collins Salmeron MD :1955???Age:67 Y???Sex:Male Anastacio e:08/28/2023 Address: [place] Pcp:BASILIA CAROLINA Subjective: * Chief Complaints: * ???1. Mcdonald's esophagus. * Medical History:? Objective: * Vitals:? Assessment: * Assessment: 1.?Mcdonald''s esophagus with out dysplasia - K22.70 (Primary)??? Plan: * Treatment: * Procedure Codes:?99512 UPPER GI ENDOSCOPY, BIOPSY * * The named appointment provid er may or may not be the originator of this progress note, and it is not deemed complete until electronically signed by the appointment provider. Sign off status: Pending * Provider:?Collins Salmeron MD Date:?0 08/28/2023 Generated for Stacey pfeiffer/Cammy/Lorenzoitting on:?08/20/2024 09:43 AM EDT
--- OUTSIDE RECORDS SUMMARY | 2024-08-20 09:44 | XMS_ITS | Patient Health Record ---
Author Organization [facility] Address [address] [place] [address] Care Team Providers Care Sand Mill Operator Facing Sand Name Role Phone BASILIA RIVERO Primary Care Provider Collins Rivera Jr Allergies Allergen (clinical drug ingredient) Drug/Non Drug Allergy documented on EMR Reaction Allergy Type Onset Date Status tetracycline Tetracycline HCl Unknown Drug Allergy Active Results Component Value Reference Range Notes Pathology Reviewed date:09/03/2023 08:23:54 AM Interpretation: Performing Lab:[facility], [address] [place] [address] Notes/Report: Name: Anthony Granados Age/Sex: 67/M : 1955 Unit#: [id number] Attend Dr: Collins Salmeron MD Re08/28/23 Status : [facility] Location: [facility] Disch: SPEC : [id number] RECD : 08/28/23 STATUS: CHUY MASSEY NUM: [id number] EFFIE: 08/28/23-1105 [facility] DR: Collins Salmeron MD ENTERED: 08/28/23-11 43 SP TYPE: Surgical OTHR DR: Basilia Rivero [facility] ORDERED: HE Stain/6, Gross Micro L4/2, Special [...] in formalin labeled ?duodenum bx's? are 2 capsp-pink irregular tissue fragments each measu ring 0.35 cm, submitted in toto a cassette labeled A. Part B: Received in formalin labeled ?EG junction bx's? are 4 capps-pink irregular and rectangular tissue f ragments ranging 0.2-0.35 cm, submitted in toto in a cassette labeled B. CEDS Special studies orde red and performed: AB/PAS stains on A Copies To: Collins Salmeron MD [address] [place] [address] [address] [place] [address] CONTINUED ON NEXT PAGE Name: Anthony Granados Age/Sex: 67/M : 1955 Unit#: [id number] Attend Dr: Collins Salmeron MD Re08/28/23 Status : [facility] Location: [facility] Disch: SPEC : [id number] RECD : 08/28/23-1136 STATUS: CHUY MASSEY NUM: [id number] EFFIE: 08/28/23-1105 [facility] DR: Collins Salmeron MD ENTERED: 08/28/23-11 43 SP TYPE: Surgical OTHR DR: Basilia Rivero- ORDERED: HE Stain/6, Gross Micro L4/2, Special st. 2, AB/PAS Copies To: (Continued) Basilia Rivero-GIGI [address] 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 Problem 129364520 Gastroesophageal reflux disease without esophagitis (K21.9) Active confirmed Problem Esophageal reflux finding (329610551) Gastroesophageal reflux (K21.9) Active confirmed Problem 202759780 Adenomatous poly p of colon, unspecified part of colon (D12.6) Active confirmed Problem Pedroza's esophagus (368130441) 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 Encounters Encounter Location Date Provider Diagnosis [facility] Outpatient [address] [place] [phone] 08/28/2023 Collins Salmeron Jr Pedroza''s esophagus 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 [facility] [address] [place] [address] 09/03/2023 Collins Salmeron Jr Assessments Encounter Date [...] 01:35:00 PM, [address], [address], [place], [address], Insurance Providers Payer Name Payer Address Payer Phone Subscriber Number Group Number Insured Name Patient Relationship to Insured Coverage Start Date Coverage End Date [facility] [address] [place] [address] [id number] ANTHONY GRANADOS Self - patient is the [...]
--- OUTSIDE RECORDS SUMMARY | 2024-08-20 09:44 | XMS_ITS | Encounter Summary ---
Author Organization [facility] Address [address] [place], [place] [address] Care Team Providers Care Checker In Name Role Phone Pablo Rivero MD Primary Care Provider [phone] Memo Grant MD Unavailable Reason for Visit * Reason Comments Other Medical record reque st Encounter Details Date Type Department Care Team ([facility] st Contact Info) Description 06/21/2023 Telephone [facility] Urologic Surgery [address] [address] Mamadou Hernandez MD [address] [address] Other (Medical record request) Social [...] AM EDT Office Visit [facility] [place] [facility] [place] [address] [place] [address] Mamadou Hernandez MD [address] [address] documented as of this encounter Visit Diagnoses Not on filedocumented in this encounter Care Teams Checker In Relationship Specialty Start Date End Date Pablo Rivero MD [address] [facility] [address] [place] [address] PCP - General Family Medicine 06/23/22 Memo Grant MD [place] [address] Cardiovascular Disease 10/27/22 documented as of this encounter
--- OUTSIDE RECORDS SUMMARY | 2024-08-20 09:44 | XMS_ITS | Encounter Summary ---
Author Organization [facility] Address [address] [place] [address] Care Team Providers Care Patient Service Specialist Name Role Phone Pablo Rivero NP Primary Care Provider [phone] Encounter Details Date Type Department Care Team (Late st Contact Info) Description 07/15/2024 Telephone [facility] Hematology Oncology [address] [place] [phone] Guillermina Irving, DO [address] [place] [address] Social History Tobacco Use Types Packs/Day Years [...] 07/16/2024 4:18 PM EST [facility] I scanned results into patient chart. * Dev Lee MD - 07/16/2024 3:17 PM EST I do not see any results in epic? Where did he do this test can you please check * Anne Handley - 07/16/2024 2:53 PM EST Patient calling in again requesting psa results. [phone] * Anne Handley - 07/15/2024 11:45 AM EST Calling for psa results. [phone] documented in this encounter Plan of Treatment Upcoming Encounters Date Type Department Care Team (Late st Contact Info) Description 10/21/2024 1:30 PM EDT Office Visit [facility] Hematology Oncology [address] [place] [phone] Guillermina Irving, [address] [place] [address] documented as of this encounter Visit Diagnoses Not on filedocumented in this encounter Care Teams Patient Service Specialist Relationship Specialty Start Date End Date Pablo Rivero NP [address] [place], [place] PCP - General Family Medicine 04/10/18 documented as of this encounter
--- OUTSIDE RECORDS SUMMARY | 2024-08-20 09:44 | XMS_ITS | Clinical Summary ---
Author Organization [facility] Address [address] [place] [address] Care Team Providers Care Rubber Covering Machine Operator Name Role Phone Pablo Rivero Primary Care Provider Allergies Active Allergy Reactions [...] age to complete this topic Care Teams Rubber Covering Machine Operator Relationship Specialty Start Date End Date Pablo Rivero [address] [facility] [place] [id number] PCP - General Family Medicine 04/10/18
--- OUTSIDE RECORDS SUMMARY | 2024-08-20 09:44 | XMS_ITS | Continuity of Care Document ---
Author Organization [facility] al Address [address] [place] [address]- Care Team Providers Care Emergency Department Aide Name Role Phone Not on Staff, PCP Primary Care Physician Unavail able Encounter [facility] Date(s): 08/18/24 - 08/19/[address] [address]- Discharge Disposition: A-D/C Home Attending Physician: Erendira Cordon MD Admitting Physician: Alexi Brownlee MD Referring Physician: Not on Staff, Referring MD Encounter Type: Disch IP Allergies, Adverse Reactions, Alerts Substance Criticality Severity [...] 3:02:00 PM EDT, Route to Pharmacy Electronically, [facility]/pharmacy #[id number], Partial fill upon patient request [...] Refills, Maintenance, 08/19/24 3:02:00 PM EDT, Tablet, [facility]/pharmacy #[id number], Partial fill upon patient request [...] Quantity: 90.0 Unit: tablet Repeat number: 1 losartan 50 mg oral tablet 50 mg, Tablet, By Mouth, 08/19/24 9:00:00 AM EDT Start Date: 08/19/24 Stop Date: 08/19/24 Status: Completed Repeat number: 1 metoprolol 25 mg oral tablet 25 mg, Tablet, By Mouth, 08/19/24 9:00:00 AM EDT Start Date: 08/19/24 Stop Date: 08/19/24 Status: Completed Repeat number: 1 Metoprolol Tartrate 25 mg [...] 3:02:00 PM EDT, Route to Pharmacy Electronically, [facility]/pharmacy #[id number], Partial fill upon patient request [...] 3:02:00 PM EDT, Route to Pharmacy Electronically, [facility]/pharmacy #[id number], Partial fill upon patient request if the prescription is for a schedule II opioid drug., 184, cm, 08/19/24 10:52:00 EDT, Height, 104, kg, 08/18/24 19:51:00 EDT, Dry Weight Start Date: 08/19/24 Stop Date: 09/18/24 Status: Ordered Quantity: 30.0 Unit: tablet Repeat number: 1 Problem List Condition Confirmation Course Effective Dates Status [facility] at[facility] Informant Obese class I Confirmed Active Results Radiology Reports * Exam Date Time Procedure Performing Provider Status 08/18/24 1:[address] Angio Abdomen and Pelvis Penny Mitchell (Verified) Notes: (CT Angio Abdomen and Pelvis) Reason For Exam: AAA, ? dissection;Other: RESULT: CT Angio Abdomen and Pelvis CT Angio Chest, CT Angio Abdomen and Pelvis INDICATION: Reason: Other:; Aortic disease, ? dissection; Clinical Question(s): Other:; AAA TECHNIQUE: An initial noncontrast CT of the chest was performed. Spiral CTA of the chest, abdomen, and pelvis was then performed after rapid IV contrast administration without cardiac gating triggered by an PADMINI on the aorta. Images are formatted in multiple planes using 2-D multiplanar and 3-D maximum intensity projection. 140 cc of Isovue 300 was administered intravenously. This study was performed without oral contrast. Weight-based protocol using automatic tube modulation was used to optimize exposure parameters. COMPARISONS: CTA of chest 06/01/2020 ANGIOGRAPHIC FINDINGS: Thoracic aorta: No evidence of intramural hematoma. No aortic dissection. The aortic diameter is 4.3 cm at the sinus of Valsalva and a maximum of 4.2 cm in the ascending segment. The transverse arch and descending segment are normal in caliber. There is an aberrant right subclavian artery. Great vessels arising from the arch otherwise demonstrate normal configuration and are widely patent withoutcalcification. There is only trace calcification in the thoracic aortic wall. Pulmonary arteries: Normal caliber. No evidence of pulmonary embolism on this nondedicated study. Abdominal aorta: No aortic aneurysm or dissection. Minimal wall calcification. Celiac axis: Patent. Superior mesenteric artery: Patent. Right renal artery: 3 patent right renal arteries and 2 patent left renal arteries. Left renal artery: Patent. Inferior mesenteric artery: Patent. Right: Common iliac artery: Patent. Internal iliac artery: Patent. External iliac artery: Patent. Common femoral artery: Patent. Visualized superficial and deep femoral arteries: Patent. Left: Common iliac artery: Patent. Internal iliac artery: Patent. External iliac artery: Patent. Common femoral artery: Patent. Visualized superficial and deep femoral arteries: Patent. NON-ANGIOGRAPHIC FINDINGS: E Business Project Manager view findings, lines and tubes: None. Trachea and airways: Patent without evidence of tracheal or endobronchial lesion. Lungs and pleura: Stable 2 mm noncalcified nodule in the left upper lobe in series 3 image 37. There is mild left lower lobe atelectasis. No effusion or pneumothorax. Mediastinum and miguel ángel: No mass or hematoma. No mediastinal or hilar lymphadenopathy. No esophageal abnormality. Normal thyroid. Heart: Heart is normal in size. No pericardial effusion. No coronary arterial calcifications. Chest wall soft tissues: No acute abnormality. Diaphragm: Intact. Liver: Diffusely diminished attenuation without focal lesion. Normal size and contour. No suspicious lesion. Gallbladder: No CT evidence of gallbladder pathology. Bile ducts: No biliary ductal dilation. Spleen: Normal in size. Pancreas: No suspicious lesion or ductal dilatation. Adrenal glands: No nodule. Kidneys and ureters: No hydronephrosis, stone, or suspicious lesion. Exophytic cyst along the inferior pole of the left kidney. Bladder: No wall thickening or surrounding stranding. Reproductive organs: Unremarkable. Stomach, small bowel, and large bowel: Sigmoid diverticulosis without diverticulitis. Stomach, small intestine, and colon are otherwise unremarkable. Appendix: No evidence of acute appendicitis. Peritoneum and retroperitoneum: No ascites or pneumoperitoneum. No omental or mesenteric lesions. Lymph nodes: No enlarged lymph nodes. Abdominal and pelvic wall soft tissues: No acute abnormality. Bones: No acute abnormality. Stable benign-appearing densely sclerotic focus in the T2 vertebral body. IMPRESSION: No evidence of aortic dissection. Dilated aortic root and ascending segment with diameters 4.3 cm and 4.2 cm respectively. Vascular structures are otherwise unremarkable. Sigmoid diverticulosis without diverticulitis. Diffuse hepatic steatosis. Stable benign-appearing sclerotic lesion in the T2 vertebral body. WSN: [id number] Ordering Physician: Vicente Haynes Dictated By: Memo Clemente MD Dictated Date/Time: 08/18/24 1:40 pm Reviewed By: Memo Clemente MD Signed By: Memo Clemente MD Signed Date/Time: 08/18/24 1:40 pm Transcribed By: ANTONETTE Transcribed Date/Time: 08/18/24 1:21 pm * Exam Date Time Procedure Performing Provider Status 08/18/24 1:[address] Angio Chest Penny Mitchell Notes: (CT Angio Chest) Reason For Exam: Aortic disease, ? dissection;Other: RESULT: CT Angio Chest CT Angio Chest, CT Angio Abdomen and Pelvis INDICATION: Reason: Other:; Aortic disease, ? dissection; Clinical Question(s): Other:; AAA TECHNIQUE: An initial noncontrast CT of the chest was performed. Spiral CTA of the chest, abdomen, and pelvis was then performed after rapid IV contrast administration without cardiac gating triggered by an PADMINI on the aorta. Images are formatted in multiple planes using 2-D multiplanar and 3-D maximum intensity projection. 140 cc of Isovue 300 was administered intravenously. This study was performed without oral contrast. Weight-based protocol using automatic tube modulation was used to optimize exposure parameters. COMPARISONS: CTA of chest 06/01/2020 ANGIOGRAPHIC FINDINGS: Thoracic aorta: No evidence of intramural hematoma. No aortic dissection. The aortic diameter is 4.3 cm at the sinus of Valsalva and a maximum of 4.2 cm in the ascending segment. The transverse arch and descending segment are normal in caliber. There is an aberrant right subclavian artery. Great vessels arising from the arch otherwise demonstrate normal configuration and are widely patent withoutcalcification. There is only trace calcification in the thoracic aortic wall. Pulmonary arteries: Normal caliber. No evidence of pulmonary embolism on this nondedicated study. Abdominal aorta: No aortic aneurysm or dissection. Minimal wall calcification. Celiac axis: Patent. Superior mesenteric artery: Patent. Right renal artery: 3 patent right renal arteries and 2 patent left renal arteries. Left renal artery: Patent. Inferior mesenteric artery: Patent. Right: Common iliac artery: Patent. Internal iliac artery: Patent. External iliac artery: Patent. Common femoral artery: Patent. Visualized superficial and deep femoral arteries: Patent. Left: Common iliac artery: Patent. Internal iliac artery: Patent. External iliac artery: Patent. Common femoral artery: Patent. Visualized superficial and deep femoral arteries: Patent. NON-ANGIOGRAPHIC FINDINGS: E Business Project Manager view findings, lines and tubes: None. Trachea and airways: Patent without evidence of tracheal or endobronchial lesion. Lungs and pleura: Stable 2 mm noncalcified nodule in the left upper lobe in series 3 image 37. There is mild left lower lobe atelectasis. No effusion or pneumothorax. Mediastinum and miguel ángel: No mass or hematoma. No mediastinal or hilar lymphadenopathy. No esophageal abnormality. Normal thyroid. Heart: Heart is normal in size. No pericardial effusion. No coronary arterial calcifications. Chest wall soft tissues: No acute abnormality. Diaphragm: Intact. Liver: Diffusely diminished attenuation without focal lesion. Normal size and contour. No suspicious lesion. Gallbladder: No CT evidence of gallbladder pathology. Bile ducts: No biliary ductal dilation. Spleen: Normal in size. Pancreas: No suspicious lesion or ductal dilatation. Adrenal glands: No nodule. Kidneys and ureters: No hydronephrosis, stone, or suspicious lesion. Exophytic cyst along the inferior pole of the left kidney. Bladder: No wall thickening or surrounding stranding. Reproductive organs: Unremarkable. Stomach, small bowel, and large bowel: Sigmoid diverticulosis without diverticulitis. Stomach, small intestine, and colon are otherwise unremarkable. Appendix: No evidence of acute appendicitis. Peritoneum and retroperitoneum: No ascites or pneumoperitoneum. No omental or mesenteric lesions. Lymph nodes: No enlarged lymph nodes. Abdominal and pelvic wall soft tissues: No acute abnormality. Bones: No acute abnormality. Stable benign-appearing densely sclerotic focus in the T2 vertebral body. IMPRESSION: No evidence of aortic dissection. Dilated aortic root and ascending segment with diameters 4.3 cm and 4.2 cm respectively. Vascular structures are otherwise unremarkable. Sigmoid diverticulosis without diverticulitis. Diffuse hepatic steatosis. Stable benign-appearing sclerotic lesion in the T2 vertebral body. WSN: [id number] Ordering Physician: Vicente Haynes Dictated By: Memo Clemente MD Dictated Date/Time: 08/18/24 1:40 pm Reviewed By: Memo Clemente MD Signed By: Memo Clemente MD Signed Date/Time: 08/18/24 1:40 pm Transcribed By: ANTONETTE Transcribed Date/Time: 08/18/24 1:21 pm * Exam Date Time Procedure Performing Provider Status 08/18/24 1:[address] Head/Brain W/O Contrast Penny Mitchell; Auth (Verified) Notes: (CT Head/Brain W/O Contrast) Reason For Exam: syncope;Other: RESULT: CT Head/Brain W/O Contrast CT Head/Brain W/O Contrast INDICATION: Reason: Other:; syncope; Clinical Question(s): Hematoma TECHNIQUE: Noncontrast head CT using axial technique and reconstructed in axial and coronal planes.Iterative reconstruction techniques are used to optimize dose and image quality. COMPARISON: None. FINDINGS: E Business Project Manager view findings, lines and tubes: None. BRAIN AND EXTRA-AXIAL SPACES: No parenchymal hemorrhage, midline shift, or mass effect. Lilly-white matter differentiation is wellpreserved. No acute infarct. Ventricles, sulci, and basilar cisterns are normal. Mild low-density white matter changes. No subarachnoid hemorrhage. No subdural or epidural collection. CALVARIUM, SKULL BASE, AND SOFT TISSUES: No fractures or suspicious bony lesions. Mucoperiosteal thickening throughout the paranasal sinuses. Mastoid air cells are clear. Visualized orbits and globes are intact. The extracranial soft tissues are unremarkable. IMPRESSION: No acute intracranial pathology. Mild mucoperiosteal thickening throughout the paranasal sinuses. WSN: [id number] Ordering Physician: Vicente Haynes Dictated By: Valentino Barclay MD Dictated Date/Time: 08/18/24 1:12 pm Reviewed By: Valentino Barclay MD Signed By: Valentino Barclay MD Signed Date/Time: 08/18/24 1:12 pm Transcribed By: ANTONETTE Transcribed Date/Time: 08/18/24 1:11 pm Vital Signs Most recent to oldest [Reference Range]: 1 2 3 4 Height 184 cm (08/19/24 3:07 PM) 184 cm (08/19/24 10:52 AM) 184 cm (08/19/24 8:17 AM) Weight 104.4 kg (08/18/24 7:51 PM) 100.8 kg (08/18/24 5:54 PM) 106.7 kg (08/18/24 1:16 PM) Oxygen Saturation [94-100 %] 100 % (08/19/24 3:07 PM) 99 % (08/19/24 10:52 AM) 97 % (08/19/24 8:17 AM) Pulse Rate [55-90 bpm] 63 bpm (08/19/24 3:07 PM) 70 bpm (08/19/24 10:52 AM) 73 bpm (08/19/24 9:31 AM) Body Mass Index [18.5-24.99 kg/m2] 30.84 kg/m2 *>HHI* (08/18/24 7:51 PM) 29.77 kg/m2 *H* (08/18/24 5:54 PM) Blood Pressure [90-138/55-84 mm Hg] 132/82mm Hg (08/19/24 3:07 PM) 126/82mm Hg (08/19/24 10:52 AM) 124/70mm Hg (08/19/24 9:31 AM) 124/70mm Hg (08/19/24 9:31 AM) Respiratory Rate [16-30 br/min] 18 br/min (08/19/24 3:07 PM) 18 br/min (08/19/24 10:52 AM) 18 br/min (08/19/24 8:17 AM) Temperature [96.8-100.4 DegF] 98.6 DegF (08/19/24 3:07 PM) 98.3 DegF (08/19/24 10:52 AM) 97.8 DegF (08/19/24 8:17 AM) Liters per Minute 2 L/min (08/18/24 7:51 PM) 2 L/min (08/18/24 5:54 PM) Mode of Delivery (Oxygen) Room air (08/19/24 3:07 PM) Room air (08/19/24 10:52 AM) Room air (08/19/24 8:17 AM) Blood pressure sites Arm, left (08/19/24 3:07 PM) Arm, left (08/19/24 10:52 AM) Arm, right (08/19/24 8:17 AM) Temperature Route Oral (08/19/24 3:07 PM) Oral (08/19/24 10:52 AM) Oral (08/19/24 8:17 AM) Dry Weight 104 kg (08/18/24 7:51 PM) 106.7 kg (08/18/24 1:16 PM) Weight Obtained Via Bed scale (08/18/24 7:51 PM) Standing scale (08/18/24 5:54 PM) Bed scale (08/18/24 1:16 PM) Social History Social History Type Response Smoking Status Former smoker, quit more than 30 days ago; Other: QUIT45 YRS AGO; entered on: 08/18/24 Sex Sex Representation Male (finding) Admission evaluation note * Alexi Brownlee MD: PERFORM Event Display: Admission Note Authored Date: [id number] Patient: ??MARIO SUAREZ ? Age:??68 Years?Sex:??Male?:??1955?? Chief Complaint/Reason for Consultation Pt was found unresponsive on toilet being held upward by local PD. Per Spouse, pt has a triple A that is being monitored. Per EMS, pt had blood coming from mouth and reports agonal breathing. Denies hx of seizures. History of Present Illness 68-year-old male??presented??to ED??after found unresponsive on toilet??witnessed by?? at bedside. Reported??bleeding from mouth??likely secondary to tongue bite. ??Noted to have tongue bite unclearwhether there is any urinary incontinence Complicated by postictal confusion now back to baseline No history of seizure in the past Chronic alcoholic??drinks about 5-6 beers per day??last drink yesterday. No evidence of alcohol withdrawal seizure in the past No focal weakness numbness??slurred speech visual blurring diplopia currently Only risk factor is hypertension History of??prostate and kidney cancer status post left partial nephrectomy??currently being followed in [facility] with serial CT scan Objective Vital Signs?? Temperature: 98.2 DegF (08/18/24 13:16:00) Temperature Route: Oral (08/18/24 13:16:00) Pulse Rate: 64 bpm (08/18/24 13:16:00) Respiratory Rate: 18 br/min (08/18/24 13:16:00) Systolic Blood Pressure:??140 mm Hg??High (08/18/24 13:16:00) Diastolic Blood Pressure: 80 mm Hg (08/18/24 13:16:00) Blood pressure sites: Arm, left (08/18/24 13:16:00) Mean Arterial Pressure: 100 mm Hg (08/18/24 13:16:00) Pulse Pressure: 60 mm Hg (08/18/24 13:16:00) Oxygen Saturation: 96 % (08/18/24 13:16:00) Mode of Delivery (Oxygen): Room air (08/18/24 13:16:00) ? Pain Scores PAINAD Scale Score: 0 (13:16) ? Intake/Output? 08/18 14:20 08/18 07:00 08/17 07:00 08/16 07:00 03 07:00 ?? 08/18 16:18 08/18 16:18 08/18 06:59 09 06:59 08 06:59 Intake ?104 ?104 ?0 ?0 ?0 Output ?0 ?0 ?0 ?0 ?0 Net Total ?104 ?104 ?0 ?0 ?0 ? Physical Exam Constitutional: Alert, in no acute distress. Head EENT: Extraocular muscle movement intact.??Moist mucous membranes.?Tongue bite noted on theright side Neck: Supple. No JVD. Respiratory: Clear to auscultation. No wheezing or crackles. No use of accessory muscles. Cardiovascular: S1S2 regular. No murmurs, rubs or gallops. Gastrointestinal: Abdomen soft, non-tender, non-distended. Normal bowel sounds. Genitourinary: No CVA tenderness. Extremities: No lower extremity pitting??edema. No cyanosis or clubbing. Neurologic: AAOx3, Speech normal. No focal neurological deficits. Skin: No rash. Psychiatric: Normal mood and affect Assessment/Plan Diagnoses Acute hyponatremia ??(E87.1) Alcohol abuse ??(F10.10) Essential hypertension ??(I10) Seizure ??(R56.9) ?? Essential hypertension (I10):??Continue losartan ?? Alcohol abuse (F10.10):??Ethanol negative.??Patient denied any drug use.??Urine toxicology ordered.??CIWA protocol ordered High-dose thiamine ordered funeral workers and case management specialist consult for??alcohol cessation resources ?? Acute hyponatremia (E87.1):??Likely secondary to beer potomania.??Urine electrolyte??serum and urine osmolality ordered TSH within normal limit.??Gentle hydration and follow-up??repeat BMP. ?? Seizure (R56.9):??Suspect secondary to tongue bite, unresponsiveness, postictal confusion and elevated lactic acid ???Alcohol withdrawal seizure versus structural brain lesion versus metastasis in the setting of kidney and prostate cancer No focal neurodeficit CT head nonacute Hemodynamically stable afebrile no hypoxia CBC/BMP grossly within normal limit except mild hyponatremia Degree of hyponatremia alone is unable to explain the seizure CT angio chest no evidence of aortic dissection, dilated aortic root which is known to patient frombefore/sigmoid diverticulosis without diverticulitis diffuse hepatic steatosis, stable appearing sclerotic lesion in the T2 vertebral body.??No obvious recurrence of malignancy noted in the left kidney except exophytic cyst along the inferior pole of the left kidney. 1.??UA ordered to rule out UTI 2.??MRI brain with and without contrast seizure protocol 3.??EEG 4.??Neurology consult noted 5.??Seizure precaution 6.??Keppra thousand twice daily 7.??Follow-up with neurology after workup is complete ?? VTE Prophylaxis:??Heparin ?VTE Prophylaxis Assessment:??VTE Prophylaxis Ordered ?? Discharge Planning:??1 to 2 days ?? Ongoing Medical Necessity:??MRI EEG??monitoring for seizure ?? Code Status:??Full code ?Order Code Status:??Code Status Ordered ? Histories Allergies Allergies ?(Active and Proposed Allergies Only) erythromycin? (Severity: Unknown severity, Onset: Unknown) tetracycline? (Severity: Unknown severity, Onset: Unknown) Bee Stings? (Severity: Severe, Onset: Unknown) ? Past Medical History/Problem List No problems documented. ? Past Surgical History No surgery history documented. ? Family History No Family History documented. ? Medications Home Medications Albuterol (albuterol 90 mcg/inh inhalation powder)??1 puff(s) Inhalation Every 6 hours as needed Wheezing/Shortness of Breath Atorvastatin (atorvastatin 20 mg oral tablet)??1 tab(s) 20 Milligram By Mouth Daily Cholecalciferol (cholecalciferol 2000 intl units oral tablet)??1 tab(s) 50 Microgram By Mouth Daily Fluticasone-Salmeterol (Advair Diskus 250 mcg-50 mcg inhalation powder)??1 puff(s) Inhalation 2 times a day Leuprolide (leuprolide 22.5 mg subcutaneous kit)??22.5 Milligram Subcutaneous Injection Every 3 months for 90 Days Losartan (losartan 100 mg oral tablet)??0.5 tab(s) 50 Milligram By Mouth Daily Metoprolol (Metoprolol Tartrate 25 mg oral tablet)??1 tab(s) 25 Milligram By Mouth 2 times a day Paroxetine (PARoxetine 30 mg oral tablet)??1 tab(s) 30 Milligram By Mouth Daily ? Inpatient Medications Medications (24) Active SCHEDULED: (13) Atorvastatin 10 mg Tablet (atorvastatin 20 mg oral tablet) ??20 mg, By Mouth, Daily Enoxaparin 40 mg Inj (Enoxaparin Inj) ??40 mg 0.4 mL, Subcutaneous Injection, Every 24 hours Folic Acid 1 mg Tablet (Folic Acid Tablet) ??1 mg, By Mouth, Daily Keppra 500mg Tablet (Keppra 500 mg oral tablet) ??1,000 mg, By Mouth, 2 times a day Losartan 50 mg Tablet (losartan 50 mg oral tablet) ??50 mg, By Mouth, Daily Metoprolol 25mg Tablet (metoprolol 25 mg oral tablet) ??25 mg, By Mouth, 2 times a day Multivitamin Therapeutic / Minerals Tablet (Multivit Therapeutic/Minerals Tablet) ??1 tablet, By Mouth, Daily NaCl 0.9% Flush 3ml (NaCL 0.9% Flush) ??3 mL, IV Push, Every 8 hours Paroxetine 20 mg Tablet (PARoxetine 10 mg oral tablet) ??30 mg, By Mouth, Daily Pyridoxine 50 mg Tablet (Pyridoxine Tablet) ??50 mg, By Mouth, Daily Thiamine 100 mg IVPB (Thiamine IVPB) ??400 mg 4 mL, IVPB, Every 8 hours Thiamine 100 mg IVPB (Thiamine IVPB) ??400 mg 4 mL, IVPB, Daily Thiamine 100 mg Tablet (Thiamine Tablet) ??100 mg, By Mouth, 2 times a day CONTINUOUS: (1) Lactated Ringers (1000 mL) Cont IV 1000 mL (LR 1000 mL) ??1,000 mL, IV Infusion, 75 mL/hr PRN: (10) Acetaminophen 325 mg Tablet (Acetaminophen Tablet) ??650 mg, By Mouth, Every 4 hours Dextromethorphan-Guaifenesin 20 mg-200 mg/10 mL Liqu UD (Robitussin DM Liquid) ??10 mL, By Mouth, Every 4 hours Lorazepam 1 mg Tablet (Ativan Tablet) ??1 mg, By Mouth, Every 2 hours Lorazepam 1 mg Tablet (Ativan Tablet) ??2 mg, By Mouth, Every 2 hours Lorazepam 1 mg Tablet (LORazepam Tablet) ??2 mg, By Mouth, Every hour Melatonin 3 mg Tablet (Melatonin Tablet) ??3 mg, By Mouth, Daily at bedtime NaCl 0.9% Flush 3ml (NaCL 0.9% Flush) ??3 mL, IV Push, Every 8 hours Polyethylene Glycol 17 Gm Powder (MiraLax Powder) ??17 Gm 1 pack/packet, By Mouth, Daily Senna Tablet ??8.6 mg 1 tablet, By Mouth, 2 times a day Simethicone 80 mg Chewable Tablet (Simethicone Tablet) ??80 mg, Chew, 3 times a day ? Results Recent Labs BLOOD COUNT & DIFF WBC 8.7 k/mm3 ()?? 08/18/2024 13:07 RBC 4.06 m/mm3 (Low)?? 08/18/2024 13:07 Hgb 13.9 Gm/dL ()?? 08/18/2024 13:07 Hct 38.8 % (Low)?? 08/18/2024 13:07 MCV 95.6 femtoliters (High)?? 08/18/2024 13:07 MCH 34.2 pg (High)?? 08/18/2024 13:07 MCHC 35.8 Gm/dL ()?? 08/18/2024 13:07 Platelet Count 234 k/mm3 ()?? 08/18/2024 13:07 RDW-SD 42.0 femtoliters ()?? 08/18/2024 13:07 MPV 9.2 femtoliters (Low)?? 08/18/2024 13:07 Nucleated RBC (Automated) 0.0 #/100 WBC'S ()?? 08/18/2024 13:07 Abs. NRBC 0.0 k/mm3 ()?? 08/18/2024 13:07 Abs. Neut 6.4 k/mm3 ()?? 08/18/2024 13:07 Abs. Lymph 1.4 k/mm3 ()?? 08/18/2024 13:07 Abs. Aiken 0.6 k/mm3 ()?? 08/18/2024 13:07 Abs. Eo 0.1 k/mm3 ()?? 08/18/2024 13:07 Abs. Baso 0.1 k/mm3 ()?? 08/18/2024 13:07 Neut % 73.4 % ()?? 08/18/2024 13:07 Lymph % 15.8 % ()?? 08/18/2024 13:07 [place]iken % 7.2 % ()?? 08/18/2024 13:07 Eos % 1.4 % ()?? 08/18/2024 13:07 Baso % 0.7 % ()?? 08/18/2024 13:07 Imm Gran 1.5 % ()?? 08/18/2024 13:07 Abs. Imm Gran 0.1 k/mm3 ()?? 08/18/2024 13:07 ?? CHEM GENERAL Sodium 128 mmol/L (Low)?? 08/18/2024 13:07 Potassium 4.5 mmol/L ()?? 08/18/2024 13:07 Chloride 89 mmol/L (Low)?? 08/18/2024 13:07 Bicarbonate Level 22 mmol/L ()?? 08/18/2024 13:07 Anion Gap 17 mmol/L ()?? 08/18/2024 13:07 Glucose Level 102 mg/dL (High)?? 08/18/2024 13:07 Glucose, POC 107 mg/dL (High)?? 08/18/2024 12:32 BUN 8 mg/dL ()?? 08/18/2024 13:07 Creatinine-Blood 0.94 mg/dL ()?? 08/18/2024 13:07 Estimated GFR Creatinine 88 ML/MIN/1.73 M2 ()?? 08/18/2024 13:07 Osmolality 277 mOs/kg (Low)?? 08/18/2024 13:07 Calcium 9.0 mg/dL ()?? 08/18/2024 13:07 Protein, Total 6.4 Gm/dL ()?? 08/18/2024 13:07 Albumin 4.0 Gm/dL ()?? 08/18/2024 13:07 AG Ratio 1.7 ()?? 08/18/2024 13:07 Alkaline Phosphatase 45 units/L ()?? 08/18/2024 13:07 AST (SGOT) 19 units/L ()?? 08/18/2024 13:07 ALT (SGPT) 12 units/L ()?? 08/18/2024 13:07 Bilirubin, Total 0.7 mg/dL ()?? 08/18/2024 13:07 Lactate 2.4 mmol/L (High)?? 08/18/2024 15:09 ?? ENDOCRINE/TUMOR MARKER TSH 4.89 uIU/mL (High)?? 08/18/2024 13:07 ?? HEME OTHER Hold Lavender Top SPECIMEN DISCARDED AFTER 24 HOURS. ()?? 08/18/2024 13:07 Hold Blue Top SPECIMEN DISCARDED AFTER 4 HOURS. ()?? 08/18/2024 13:07 ?? MISC. CHEMISTRY Hold Green Top SPECIMEN DISCARDED AFTER 1 WEEK ()?? 08/18/2024 13:07 Hold Gel Top SPECIMEN DISCARDED AFTER 1 WEEK ()?? 08/18/2024 13:07 Hold Lilly Top SPECIMEN DISCARDED AFTER 1 WEEK ()?? 08/18/2024 13:07 ?? TOXICOLOGY/TDM Ethanol, Serum or Plasma NONE DETECTED mg/dL ()?? 08/18/2024 13:07 ?? URINE OTHER Est Creatinine Clearance 82.47 mL/min ()?? 08/18/2024 14:45 ? Abnormal Labs ?? BLOOD COUNT & DIFF Abs. Imm Gran?0.1 k/mm3 ()?08/18/2024 13:07 Abs. NRBC?0.0 k/mm3 ()?08/18/2024 13:07 Hct?38.8 % (Low)?08/18/2024 13:07 Imm Gran?1.5 % ()?08/18/2024 13:07 MCH?34.2 pg (High)?08/18/2024 13:07 MCV?95.6 femtoliters (High)?08/18/2024 13:07 MPV?9.2 femtoliters (Low)?08/18/2024 13:07 Nucleated RBC (Automated)?0.0 #/100 WBC'S ()?08/18/2024 13:07 RBC?4.06 m/mm3 (Low)?08/18/2024 13:07 RDW-SD?42.0 femtoliters ()?08/18/2024 13:07 ?? CHEM GENERAL AG Ratio?1.7 ()?08/18/2024 13:07 Chloride?89 mmol/L (Low)?08/18/2024 13:07 Estimated GFR Creatinine?88 ML/MIN/1.73 M2 ()?08/18/2024 13:07 Glucose Level?102 mg/dL (High)?08/18/2024 13:07 Glucose, POC?107 mg/dL (High)?08/18/2024 12:32 Lactate?2.4 mmol/L (High)?08/18/2024 15:09 Osmolality?277 mOs/kg (Low)?08/18/2024 13:07 Sodium?128 mmol/L (Low)?08/18/2024 13:07 ?? ENDOCRINE/TUMOR MARKER TSH?4.89 uIU/mL (High)?08/18/2024 13:07 ?? HEME OTHER Hold Blue Top?SPECIMEN DISCARDED AFTER 4 HOURS. ()?08/18/2024 13:07 Hold Lavender Top?SPECIMEN DISCARDED AFTER 24 HOURS. ()?08/18/2024 13:07 ?? MISC. CHEMISTRY Hold Gel Top?SPECIMEN DISCARDED AFTER 1 WEEK ()?08/18/2024 13:07 Hold Lilly Top?SPECIMEN DISCARDED AFTER 1 WEEK ()?3:07 Hold Green Top?SPECIMEN DISCARDED AFTER 1 WEEK ()?08/18/2024 13:07 ?? TOXICOLOGY/TDM Ethanol, Serum or Plasma?NONE DETECTED mg/dL ()?08/18/2024 13:07 ?? Note: Critical results are displayed in red. ? CBC, CBC w/Diff?? CBC?? Differential?? WBC: 8.7 k/mm3 (13:07) Abs. Neut: 6.4 k/mm3 (13:07) RBC:??4.06 m/mm3??Low (13:07) Abs. Lymph: 1.4 k/mm3 (13:07) Hct:??38.8 %??Low (13:07) Abs. Aiken: 0.6 k/mm3 (13:07) RDW-SD: 42 femtoliters (13:07) Abs. Eo: 0.1 k/mm3 (13:07) Nucleated RBC (Automated): 0 #/100 WBC'S (13:07) Abs. Baso: 0.1 k/mm3 (13:07) Abs. NRBC: 0 k/mm3 (13:07) Neut %: 73.4 % (13:07) ?? Lymph %: 15.8 % (13:07) ?? Aiken %: 7.2 % (13:07) ?? Eos %: 1.4 % (13:07) ?? Baso %: 0.7 % (13:07) ?? Imm Gran: 1.5 % (13:07) ?? Abs. Imm Gran: 0.1 k/mm3 (13:07) ? BMP, Mg, and Phos Anion Gap: 17 mmol/L (13:07) Bicarbonate Level: 22 mmol/L (13:07) BUN: 8 mg/dL (13:07) Calcium: 9 mg/dL (13:07) Chloride:??89 mmol/L??Low (13:07) Creatinine-Blood: 0.94 mg/dL (13:07) Estimated GFR Creatinine: 88 ML/MIN/1.73 M2 (13:07) Glucose Level:??102 mg/dL??High (13:07) Potassium: 4.5 mmol/L (13:07) Sodium:??128 mmol/L??Low (13:07) ?? Coagulation Profile?? No qualifying data available. ?? LFT Albumin: 4 Gm/dL (13:07) Alkaline Phosphatase: 45 units/L (13:07) ALT (SGPT): 12 units/L (13:07) AST (SGOT): 19 units/L (13:07) Bilirubin, Total: 0.7 mg/dL (13:07) ?? Urinalysis Est Creatinine Clearance: 82.47 mL/min (14:45) ? EKG study * Event Display: ECG 12-Lead Authored Date: Please click on pdf link to open report * Event Display: ECG 12-Lead Authored Date: Ventricular Rate: 90 BPM Atrial Rate: 90 BPM P-R Interval: 164 ms QRS Duration: 86 ms Q-T Interval: 374 ms QTC Calculation(Bazett): 457 ms P Brock[place]: 47 degrees R [place]: -32 degrees T [place]: 26 degrees Normal sinus rhythm Left axis deviation Septal infarct (cited on or before 01-Jun-2020) Poor R wave progression Inferior infarct When compared with ECG of 01-Dec-2022 11:42, No significant change was found Confirmed by IGLESIA PHILIP MD ([id number]) on 08/18/2024 8:18:49 PM [place]: CEDRICK ROGERS,[facility] Progress note * Nestor Bynum RN: PERFORM, SIGN, VERIFY Event Display: Progress Note Hospital Authored Date: [id number] Patient: MARIO SUAREZ Age: 68 years Sex: Male : 1955 Associated Diagnoses: None Author: Nestor Bynum RN Findings Problem Related to Alteration in Neurological : Alteration in Neurological Function/new 08/18/2024 23:00 EDT Alteration in Neuro status Related to Seizure Goals & Outcomes, Neurological Pt is safe with transfers & activities, Pt will be hemodynamically stable, Pt will be Neurologically stable, Pt will become pain free with appropriate intervention, Pt will maintain intact skin integrity, Pt will remain free from injury, Pt will remain free from injury post seizure activity Interventions, Neurological Assess/monitor for abnormal posturing, Assess/monitor neurologic status, Emergency airway equipment at bedside, Maintain patient safety if unsteady gait, Maintain strict intake & output, Monitor for headaches, nausea, vomiting, Provide emotional support to Pt/caregiver, Teach & encourage deep breath & cough exercises, Assess & monitor for seizure activity, During seizure activity maintain pt safety & privacy, Initiate & maintain Seizure Precautions Goals/Interventions, Neurological Yes Neurological, Problem Start 08/18/2024 19:28 Reviewed plan with, Neurological Patient Patient Progression, Neurological Pt progressing according to plan . Alteration in Safety : Alteration in Safety/new 08/18/2024 23:00 EDT Alteration in Safety Related to Other: high falls risk Goals & Outcomes, Safety Pt will remain safe & injury free Interventions, Safety Provide teaching as needed, Resolved problem, Interventions no longer in effect, Discuss unsafe practices & situations with pt/S.O., Instruct pt on maintaining a safe environment, Redirection; reorientation, Talk to patient regarding concerns Goals/Interventions, Safety Yes Safety, Problem Start 08/18/2024 19:27 Reviewed plan with, Safety Patient Patient Progression, Safety Pt progressing according to plan . Nursing Data Vital Signs : VITAL SIGNS SECTION 08/19/2024 0:09 EDT Temperature 98.5 DegF Temperature Route Oral Pulse Rate 84 bpm Respiratory Rate 20 br/min Systolic Blood Pressure 126 mm Hg Diastolic Blood Pressure 76 mm Hg Blood pressure sites Arm, right Mean Arterial Pressure 93 mm Hg Pulse Pressure 50 mm Hg Oxygen Saturation 99 % Mode of Delivery (Oxygen) CPAP . Evaluation Pt A&Ox4, 2 max assist , on tele with NSR, has LR running @ 75mls/hr. Pt on CIWA scale but score insignicant, on seizure precaution with no seizure activity noted throughout the shift. Pt on Q4 neuro checks WNL, on 2L O2 via nasal canula but wore C-PAP at bedtime, denied headache, nausea and anxiety. Pt has fine tremors, uses urinal in bed, took all meds whole with water, bed in the lowest locked position with all items within reach and tabs on. Pt able to make needs known, hourly rounds ongoing. Discharge Information Pulmonary Rehab Discharge : Pulmonary Rehab Discharge Status 08/19/2024 0:00 EDT CPAP/BiPAP Mask Type Full CPAP/BiPAP Mask Size Medium 08/18/2024 21:10 EDT CPAP/BiPAP Mask Type Full CPAP/BiPAP Mask Size Medium * Kamila Fine RN: PERFORM, SIGN, VERIFY Event Display: Progress Note Hospital Authored Date: [id number] Patient: MARIO SUAREZ Age: 68 years Sex: Male : 1955 Associated Diagnoses: None Author: Kamila Fine RN Findings Problem Related to Alteration in Neurological : Alteration in Neurological Function/new 08/18/2024 19:27 EDT Alteration in Neuro status Related to Seizure Goals & Outcomes, Neurological Pt is safe with transfers & activities, Pt will be hemodynamically stable, Pt will be Neurologically stable, Pt will become pain free with appropriate intervention, Pt will maintain intact skin integrity, Pt will remain free from injury, Pt will remain free from injury post seizure activity Interventions, Neurological Assess/monitor for abnormal posturing, Assess/monitor for gaze pattern/extraocular movements, Assess/monitor for increased Intracranial Pressure, Assess/monitor neurologicstatus, Assess/monitor VS per unit standards & prn, Call/Report variances in assessments to provider, Assess & monitor for seizure activity, Assess seizure Hx, frequency/type/presence of aura, Initiate & maintain Seizure Precautions BH Goals/Interventions, Neurological Yes Neurological, Problem Start 08/18/2024 19:28 Reviewed plan with, Neurological Patient Patient Progression, Neurological Plan Initiation . Alteration in Safety : Alteration in Safety/new 08/18/2024 19:27 EDT Alteration in Safety Related to Other: high falls risk Goals & Outcomes, Safety Pt will remain safe & injury free Interventions, Safety Provide teaching as needed BH Goals/Interventions, Safety Yes Safety, Problem Start 08/18/2024 19:27 Reviewed plan with, Safety Patient Patient Progression, Safety Pt progressing according to plan . Evaluation Admitted for acute seizure, seizure precautions in place. Patient ambulated to BR with shaky gait. Requires 2 assist. High fall risk precautions in place.Tabs alarm on. Oriented to room and call altamirano. NSR on tele monitor. Denies pain. Handoff report given to Aguila RN. Admission med rec not finishedor skin assessment, passed along to RN. Small red rash noted to chest due to ripped off tele lead in ED. IV thiamine infusing to IV in Right AC. bed in low position. call altamirano in reach.. Consult note * Skye Sifuentes MD, [place]: PERFORM Event Display: Consultation Note Authored Date: [id number] Patient: ??MARIO SUAREZ ? Age:??68 Years?Sex:??Male?:??1955?? Neurology Case discussion ?? Patient's case was discussed with Dr. Haynes??at [facility]. ??Briefly, 68-year-old male who presents after unresponsive spell.?? Reportedly, found him in the bathroom, unconscious bleeding from the mouth.?? Per EMS he was confused.?? Per ED provider, he is still mildly encephalopathic with no focal deficits.?? Per my review, CT head is negative for acute intracranial bleeding oracute infarcts.?? Per chart review, patient is a regular alcohol drinker.?? Presentation is likely secondary to unwitnessed seizure with postictal encephalopathy.?? Low suspicion for acute stroke andhe is not a candidate for acute cerebral reperfusion therapies.?? I recommend to give Keppra 1000 mg twice daily, please obtain swallow evaluation prior to administering oral??medications, seizure precautions, consider lorazepam if seizure longer than 3 to 5 minutes, high thiamine dose, evaluation for infectious/toxic/metabolic etiologies including alcohol and drug screen, routine EEG and brain MRI with and without contrast with epilepsy protocol.?? No driving until 6 months spell free. ?? [place] Sifuentes M.D Attending Vascular Neurology Department of Neurosciences Note * Veronica Ludwig RN: PERFORM Event Display: Discharge/Transfer Note Hospital Authored Date: [id number] Nursing Discharge Note Entered On: 08/19/2024 15:52 EDT Performed On: 08/19/2024 15:51 EDT by Veronica Ludwig RN Nursing Discharge Note 2 Discharge Time : 08/19/2024 15:51 EDT Discharge Level of Care at Discharge : Home/Half-Way/Foster Care Patient Left Unit Via : Wheelchair Patient Accompanied Off Unit with : Significant other, Responsible adult DC Instructions Provided & Signed by Pt : Yes Patient Understands D/C Instructions : Yes Patient Instructions Discharge Signed : Yes Did Pt have Specialty Bed or Wound Vac : No Veronica Ludwig RN - 08/19/2024 15:51 EDT * Neris ROGERS, Erendira: PERFORM Event Display: Discharge/Transfer Note Hospital Authored Date: [id number] Patient: ??MARIO SUAREZ ? Age:??68 Years?Sex:??Male?:??1955?? Patient Information Discharge Location: Med Surg Primary Care Physician: Not on Staff, PCP Admit Date/Time: 08/18/2024 16:06 Discharge Disposition Discharge Disposition: Home: No Services Discharge Diagnosis Syncope/Near syncope ([id number]) Seizure (R56.9) Acute hyponatremia (E87.1) Alcohol abuse (F10.10) Essential hypertension (I10) _ Discharge Medications Atorvastatin (atorvastatin 20 mg oral tablet)??1 tab(s) 20 Milligram By Mouth Daily Folic Acid (folic acid 1 mg oral tablet)??1 Milligram By Mouth Daily levETIRAcetam (Keppra 500 mg oral tablet)??1,000 Milligram By Mouth 2 times a day Losartan (losartan 100 mg oral tablet)??0.5 tab(s) 50 Milligram By Mouth Daily Metoprolol (Metoprolol Tartrate 25 mg oral tablet)??1 tab(s) 25 Milligram By Mouth 2 times a day Pantoprazole (pantoprazole 20 mg oral delayed release tablet)??1 tab(s) 20 Milligram By Mouth Daily Paroxetine (PARoxetine 30 mg oral tablet)??1 tab(s) 30 Milligram By Mouth Daily Pyridoxine (pyridoxine 50 mg oral tablet)??50 Milligram By Mouth Daily for 30 Days Thiamine (thiamine 100 mg oral tablet)??100 Milligram By Mouth Daily for 30 Days ? Medications Started keppra, thiamine, pyridoxine, folic acid Medications Discontinued none Doses Changed none Allergies Allergies ?(Active and Proposed Allergies Only) erythromycin? (Severity: Unknown severity, Onset: Unknown) tetracycline? (Severity: Unknown severity, Onset: Unknown) Bee Stings? (Severity: Severe, Onset: Unknown) ? PCP Follow-Up/Heads-Up neurology follow up Hospital Course See hospital course ?? Objective Assessment and Plan Assessment:??Seizure (R56.9):??Presented to hospital for suspicion of having a seizure episode, patient does not have any memory of this episode.??He did have tongue bite, unresponsiveness and significant??postictal confusion.??CT scan of brain overall insignificant,??initial thought possibly alcohol withdrawal versus structural brain lesion.?Underwent MRI brain which is overall insignificant,? ?EEG??shows possibility of left temporal??lesion problem.??Discussed with neurology who recommended??to continue with Keppra for 6 months.??Patient was also started on IV??thiamine.??Patient was alsocounseled on??not driving for 6 months,??will need??neurology in the outpatient setting. ?? Essential hypertension (I10):??Continue losartan ?? Alcohol abuse (F10.10):??Ethanol negative.??Patient denied any drug use.??Urine toxicology shows canabis. Did not score much on CIWA, will continue with Folic acid, Thiamine and pyridoxine.? Acute hyponatremia (E87.1):??Likely secondary to beer potomania.??Urine electrolyte??serum and urine osmolality ordered TSH within normal limit.??Gentle hydration and follow-up??repeat BMP. ? Vital Signs?? Temperature: 98.6 DegF (08/19/24 15:07:00) Temperature Route: Oral (08/19/24 15:07:00) Pulse Rate: 63 bpm (08/19/24 15:07:00) Respiratory Rate: 18 br/min (08/19/24 15:07:00) Systolic Blood Pressure: 132 mm Hg (08/19/24 15:07:00) Diastolic Blood Pressure: 82 mm Hg (08/19/24 15:07:00) Blood pressure sites: Arm, left (08/19/24 15:07:00) Mean Arterial Pressure: 99 mm Hg (08/19/24 15:07:00) Pulse Pressure: 50 mm Hg (08/19/24 15:07:00) Oxygen Saturation: 100 % (08/19/24 15:07:00) Liters per Minute: 2 L/min (08/18/24 19:51:00) Mode of Delivery (Oxygen): Room air (08/19/24 15:07:00) Early Warning Score: 2 (08/19/24 15:09:43) ? . Physical Exam Constitutional: Alert, in no distress. Oriented??x 3 Respiratory: Clear to auscultation. No wheezing, rales or rhonchi. Cardiovascular: S1 S2 regular. No murmurs, Gastrointestinal: Abdomen soft, no abdominal tenderness, non-distended. Normal bowel sounds. Neurologic: Moving all extremities, 5/5 strength of bilateral upper lower extremity, sensation intact throughout,??cranial nerve II to XII intact Psychiatric: Normal mood and affect Pending Results Add On Lab Order ordered on 08/18/2024 Add On Lab Order ordered on 08/18/2024 Add On Lab Order ordered on 08/18/2024 MRI Brain W+W/O Contrast ordered on 08/18/2024 Patient Education Titles WebMD Ignite Patient Education - Seizure: New Onset with Unknown Cause (Adult)?? WebMD Ignite Patient Education - Social Drinking vs. Problem Drinking?? Follow-Up Appointments Added Follow Up ?Time Frame ?Comments Not on Staff, PCP Patient Instructions You were admitted to the hospital due to having an episode of passing out, additionally believe that you may have had a seizure episode.?? We did imaging studies??which is overall insignificant.?? Wealso did an EEG which may be suggestive of having seizures.?? You were seen by the neurologist who has recommended for you to take seizure medication for at least 6 months and to be followed up with??seizure specialist in outpatient setting which they will set up. ?? There is a possibility for alcohol??use is causing??problems with the seizure disorder as well. ??Istrongly recommend that you should abstain from alcohol. ?? New medication: ??? Please take??levetiracetam??1000 mg twice daily starting tonight ??? Please take folic acid 1 mg once daily starting tomorrow morning ??? Please take thiamine 100 mg once daily starting tomorrow morning ??? Please take pyridoxine 50 mg once daily starting tomorrow morning ?? Continue taking all of your the home medications as previously prescribed ?? Use follow-up with the primary care physician as well as a neurologist. ?? WE STRONGLY RECOMMEND THAT YOU SHOULD NOT DRIVE FOR ATLEAST 6 MONTHS. Post Discharge Care Condition: ??fair ?? Prognosis: ??Fair ?? Discharge ?08/19/24 15:12:00 EDT ?Order Comment:?? Discharge Prescriptions ?ePrescribed, 08/19/24 15:12:00 EDT ?Order Comment:?? Home Health Face to Face ^HomeHealthFTF Results Discharge Labs BLOOD COUNT & DIFF WBC 11.8 k/mm3 (High)?? 08/19/2024 05:31 RBC 3.24 m/mm3 (Low)?? 08/19/2024 05:31 Hgb 11.2 Gm/dL (Low)?? 08/19/2024 05:31 Hct 31.1 % (Low)?? 08/19/2024 05:31 MCV 96.0 femtoliters (High)?? 08/19/2024 05:31 MCH 34.6 pg (High)?? 08/19/2024 05:31 MCHC 36.0 Gm/dL ()?? 08/19/2024 05:31 Platelet Count 198 k/mm3 ()?? 08/19/2024 05:31 RDW-SD 42.8 femtoliters ()?? 08/19/2024 05:31 MPV 9.6 femtoliters ()?? 08/19/2024 05:31 Nucleated RBC (Automated) 0.0 #/100 WBC'S ()?? 08/19/2024 05:31 Abs. NRBC 0.0 k/mm3 ()?? 08/19/2024 05:31 Abs. Neut 6.4 k/mm3 ()?? 08/18/2024 13:07 Abs. Lymph 1.4 k/mm3 ()?? 08/18/2024 13:07 Abs. Aiken 0.6 k/mm3 ()?? 08/18/2024 13:07 Abs. Eo 0.1 k/mm3 ()?? 08/18/2024 13:07 Abs. Baso 0.1 k/mm3 ()?? 08/18/2024 13:07 Neut % 73.4 % ()?? 08/18/2024 13:07 Lymph % 15.8 % ()?? 08/18/2024 13:07 Aiken % 7.2 % ()?? 08/18/2024 13:07 Eos % 1.4 % ()?? 08/18/2024 13:07 Baso % 0.7 % ()?? 08/18/2024 13:07 Imm Gran 1.5 % ()?? 08/18/2024 13:07 Abs. Imm Gran 0.1 k/mm3 ()?? 08/18/2024 13:07 ?? CHEM GENERAL Sodium 129 mmol/L (Low)?? 08/19/2024 05:31 Potassium 3.7 mmol/L ()?? 08/19/2024 05:31 Chloride 96 mmol/L (Low)?? 08/19/2024 05:31 Bicarbonate Level 20 mmol/L (Low)?? 08/19/2024 05:31 Anion Gap 13 mmol/L ()?? 08/19/2024 05:31 Glucose Level 89 mg/dL ()?? 08/19/2024 05:31 Glucose, POC 107 mg/dL (High)?? 08/18/2024 12:32 BUN 8 mg/dL ()?? 08/19/2024 05:31 Creatinine-Blood 0.99 mg/dL ()?? 08/19/2024 05:31 Estimated GFR Creatinine 82 ML/MIN/1.73 M2 ()?? 08/19/2024 05:31 Osmolality 277 mOs/kg (Low)?? 08/18/2024 13:07 Calcium 8.2 mg/dL (Low)?? 08/19/2024 05:31 Protein, Total 5.4 Gm/dL (Low)?? 08/19/2024 05:31 Albumin 3.5 Gm/dL ()?? 08/19/2024 05:31 AG Ratio 1.7 ()?? 08/18/2024 13:07 Alkaline Phosphatase 39 units/L (Low)?? 08/19/2024 05:31 AST (SGOT) 13 units/L ()?? 08/19/2024 05:31 ALT (SGPT) 8 units/L ()?? 08/19/2024 05:31 Bilirubin, Total 1.0 mg/dL ()?? 08/19/2024 05:31 Bilirubin, Direct 0.3 mg/dL ()?? 08/19/2024 05:31 Bilirubin, Indirect 0.7 mg/dL ()?? 08/19/2024 05:31 Lactate 1.9 mmol/L ()?? 08/18/2024 18:03 ?? COAG INR 1.0 ()?? 08/19/2024 05:31 Protime (PT) 10.4 seconds ()?? 08/19/2024 05:31 ?? ENDOCRINE/TUMOR MARKER TSH 4.89 uIU/mL (High)?? 08/18/2024 13:07 ? HEME OTHER Hold Lavender Top SPECIMEN DISCARDED AFTER 24 HOURS. ()?? 08/18/2024 13:07 Hold Blue Top SPECIMEN DISCARDED AFTER 4 HOURS. ()?? 08/18/2024 13:07 ?? MISC. CHEMISTRY Hold Green Top SPECIMEN DISCARDED AFTER 1 WEEK ()?? 08/18/2024 13:07 Hold Gel Top SPECIMEN DISCARDED AFTER 1 WEEK ()?? 08/18/2024 13:07 Hold Lilly Top SPECIMEN DISCARDED AFTER 1 WEEK ()?? 08/18/2024 13:07 ? TOXICOLOGY/TDM Ethanol, Serum or Plasma NONE DETECTED mg/dL ()?? 08/18/2024 13:07 Barbiturate Screen, Urine NONE DETECTED ()?? 08/18/2024 17:36 Cannabinoid Screen, Urine POSITIVE (Abnormal)?? 08/18/2024 17:36 Cocaine Metabolite Screen, Urine NONE DETECTED ()?? 08/18/2024 17:36 Benzodiazepine Screen, Urine NONE DETECTED ()?? 08/18/2024 17:36 Amphetamine Screen, Urine NONE DETECTED ()?? 08/18/2024 17:36 Opiate Screen, Urine NONE DETECTED ()?? 08/18/2024 17:36 ? UA/URINALYSIS Appear/Color, Urine YELLOW ()?? 08/18/2024 17:36 Clarity CLEAR ()?? 08/18/2024 17:36 Specific [place], Urine 1.010 ()?? 08/18/2024 17:36 pH, Urine 6.5 ()?? 08/18/2024 17:36 Albumin, Urine TRACE (Abnormal)?? 08/18/2024 17:36 Glucose, Urine NEGATIVE ()?? 08/18/2024 17:36 Ketones, Urine 1+ (Abnormal)?? 08/18/2024 17:36 Bilirubin, Urine NEGATIVE ()?? 08/18/2024 17:36 Hemoglobin, Urine TRACE (Abnormal)?? 08/18/2024 17:36 Nitrite, Urine NEGATIVE ()?? 08/18/2024 17:36 Leukocyte, Urine NEGATIVE ()?? 08/18/2024 17:36 Urobilinogen NORMAL mg/dL ()?? 08/18/2024 17:36 WBC's, Urine 1 /HPF ()?? 08/18/2024 17:36 RBC's, Urine 1 /HPF ()?? 08/18/2024 17:36 Mucus SLIGHT /LPF ()?? 08/18/2024 17:36 Hold Urine Culture Testing available 48 hours from time of collection. ()?? 08/18/2024 17:36 ?? URINE OTHER Sodium, Urine Random 26 mmol/L ()?? 08/18/2024 17:36 Osmolality, Urine Random 439 mOsm/kg ()?? 08/18/2024 17:36 Est Creatinine Clearance 78.31 mL/min ()?? 08/19/2024 06:03 ? Image ?CT Head/Brain W/O Contrast??08/18/2024 13:06 by Penny Mitchell ?IMPRESSION: No acute intracranial pathology. Mild mucoperiosteal thickening throughout the paranasal sinuses. ?CT Angio Abdomen and Pelvis??08/18/2024 13:06 by Penny Mitchell ?IMPRESSION: No evidence of aortic dissection. Dilated aortic root and ascending segment with diameters 4.3 cm and 4.2 cm respectively. Vascular structures are otherwise unremarkable. Sigmoid diverticulosis without diverticulitis. Diffuse hepatic steatosis. Stable benign-appearing sclerotic lesion in the T2 vertebral body. ?CT Angio Chest??08/18/2024 13:06 by Penny Mitchell ?Other Image ?MRI brain: IMPRESSION: ?? 1. No acute/subacute infarct, mass, hemorrhage, or other acute intracranial abnormality.?? 2. Mild scattered T2/FLAIR hyperintense foci in the white matter,nonspecific but most likely reflecting chronic small vessel disease. ?? EEG: ?? This??waking portable EEG??is??very mildly abnormal because of the following finding??as described above:?? 1. Several left temporal delta slow-wave transients.?? Comment:??The above abnormality is nonspecific but would be consistent with the presence of??very mild left??temporal cerebral, possibly subcortical, dysfunction as may be seen in number clinical contexts, such as, a??posttraumatic traumatic or postictal effect or possibly an underlying structural lesion in this region which??could be vascular or neoplastic in type, just to give several examples.However,??no definite epileptiform??activity??was noted.??If a seizure disorder is still suspected clinically, a repeat EEG with sleep??or 24-48-hour??ambulatory EEG??is recommended in order to improve the chances of demonstrating any underlying??epileptiform activity.??Clinical correlation is??therefore??recommended.? Consult ?Neurology Case Discussion??08/18/2024 13:39 by Skye Sifuentes MD, [facility] ?Neurology Case discussion ?? Patient's case was discussed with Dr. Haynes??at [facility].??Briefly, 68-year-old malewho presents after unresponsive spell.??Reportedly, found him in the bathroom, unconscious bleeding from the mouth.??Per EMS he was confused.??Per ED provider, he is still mildly encephalopathicwith no focal deficits.??Per my review, CT head is negative for acute intracranial bleeding or acute infarcts.??Per chart review, patient is a regular alcohol drinker.??Presentation is likely secondary to unwitnessed seizure with postictal encephalopathy.??Low suspicion for acute stroke and he is not a candidate for acute cerebral reperfusion therapies.??I recommend to give Keppra 1000 mg twice daily, please obtain swallow evaluation prior to administering oral??medications, seizure precautions, consider lorazepam if seizure longer than 3 to 5 minutes, high thiamine dose, evaluation for infect ious/toxic/metabolic etiologies including alcohol and drug screen, routine EEG and brain MRI with and without contrast with epilepsy protocol.??No driving until 6 months spell free. ?? 45??minutes spent on discharge * Veronica Ludwig RN: PERFORM Event Display: Patient Education/Instruction Authored Date: [id number] Inpatient Adult Discharge Instructions. [address] [id number] Name: MARIO SUAREZ : 1955?? Visit: 08/18/2024 16:06?? Current Date: 08/19/2024 15:21 ?? Account: [id number]?? Inpatient Adult Discharge Instructions We would like to thank you for allowing us to assist you with your healthcare needs. The following includes patient education materials and information regarding your injury/illness. Our entire staffstrives to provide an excellent experience for our patients and their families. PLEASE ENSURE YOU FOLLOW-UP PER THE INSTRUCTIONS BELOW! ?? YOUR OPINION IS IMPORTANT TO US! Please complete the survey you may receive by mail or email. Your feedback will be used to make improvements to the healthcare experiences of our patients and their families. Surveys are administered by [employer], [employer]. ?? If further treatment with your primary care physician or another doctor is recommended, it is important for you to keep the appointment. Call your primary care physician or return to the Emergency Department immediately if your condition worsens, fails to improve, or new symptoms develop. If you need to find a doctor, you can call [facility] for a referral at [phone] or toll free at [phone]) or log in to [email or web address].. ?? [facility], in keeping with [facility] guidance, no longer requires face masks for staff, patientsor visitors in most situations. Similiar to time spent indoors at other locations, there is the chance that you were exposed to repiratory viruses during your time with us (such as flu or COVID-19). If you develop symptoms concerning for a viral respiratory infection, please seek testing (and treatment if indicated) from your medical provider or home test kit. ?? You can view and manage your care through the patient portal or by using a health care riccardo of your choosing. [employer] is a website that allows you to securely view your medical information including your hospital discharge summary, office visit summaries, medications and follow-up visits. You can also request appointments, renew medications, and request access to your medical information using a health care riccardo of your choosing, or just ask a question. You are entitled to know the individuals who participated in your treatment. This information is available within your medical record and will be provided upon your request. You can enroll at [email or web address] or register d uring your next office visit. You have been discharged from [facility], Patient Care Unit: Med Surg??. If you have any questions regarding these instructions, including results of studies pending, afteryou leave, please call us and we will be happy to assist you 01/01. [facility] Your Care Team Attending Physician Erendira Cordon MD?? Consulting Providers Erendira Cordon MD?? Discharging Providers Erendira Cordon MD Reason for Your Visit Pt was found unresponsive on toilet being held upward by local PD. Per Spouse, pt has a triple A that is being monitored. Per EMS, pt had blood coming from mouth and reports agonal breathing. Denies hx of seizures.?? Your Diagnosis Acute hyponatremia Alcohol abuse Essential hypertension Seizure Syncope/Near syncope Tests Performed Below is a partial list of the tests performed during your hospitalization. You may have had other tests and procedures not included in this list. Please discuss all test results with your provider. Basic Metabolic Panel Cannabinoid Urine Screen CBC CBC w/ Differential Cocaine Urine Screen Comprehensive Metabolic Panel ETHANOL GLUCOSE POC Hepatic Function Panel HOLD BLUE TUBE HOLD GEL TUBE HOLD LILLY TUBE HOLD GREEN TUBE HOLD LAVENDER TUBE INR Lactate Level LACTIC ACID Opiate Screen Urine OSMOLALITY, SERUM OSMOLALITY, URINE RANDOM SODIUM, URINE MMOL/L TSH Urinalysis w/hold for Urine Culture Urine Amphetamine Screen Urine Barbiturate Screen Urine Benzodiazepine Screen URINE MICROSCOPIC Brain MRI W+W/O Contrast?-- Results Pending -- CT Angio Abdomen and Pelvis CT Angio Chest CT Head/Brain W/O Contrast Add On Lab Order?? Amphetamine Urine Screen (Urine Amphetamine Screen)?? Barbiturate Urine Screen (Urine Barbiturate Screen)?? Basic Metabolic Panel?? Benzodiazepine Urine Screen (Urine Benzodiazepine Screen)?? CBC?? CBC w/ Differential?? CT Angio Abdomen and Pelvis?? CT Angio Chest?? CT Head/Brain W/O Contrast?? Cannabinoid Urine Screen?? Cocaine Urine Screen?? Comprehensive Metabolic Panel?? Ethanol Level (ETHANOL)?? Gel Top Hold Tube (HOLD GEL TUBE)?? Glucose POC?? Green Top Hold Tube (HOLD GREEN TUBE)?? Hepatic Function Panel?? Hold Blue Top Tube (HOLD BLUE TUBE)?? Hold Lilly Top Tube (HOLD LILLY TUBE)?? Hold Green Top Tube (HOLD GREEN TUBE)?? Hold Lavender Top Tube (HOLD LAVENDER TUBE)?? INR?? Lactic Acid Level (LACTIC ACID)?? MRI Brain W+W/O Contrast (Brain MRI W+W/O Contrast)?? Opiate Screen Urine?? Osmolality (OSMOLALITY, SERUM)?? Osmolality Urine (OSMOLALITY, URINE RANDOM)?? Sodium Urine (SODIUM, URINE MMOL/L)?? TSH?? Urinalysis w/hold for Urine Culture?? Urine Microscopic?? Primary Care Provider Ilana Marlow DO? Advance Directive Health Care Proxy on File Yes - Health Care Proxy Discharge Vitals Temperature: 98.6 DegF Height: 184 cm Pulse Rate: 63 bpm Weight: 104.4 kg Respiratory Rate: 18 br/min Body Mass Index:??30.84 kg/m2??Critical Systolic Blood Pressure: 132 mm Hg Body surface area: 2.31 Diastolic Blood Pressure: 82 mm Hg ?? Oxygen Saturation: 100 % ?? Studies Pending All studies ordered during this hospital stay have been completed unless listed below. Please discuss all pending results with your provider listed above in these instructions. ?? Add On Lab Order?? MRI Brain W+W/O Contrast (Brain MRI W+W/O Contrast)?? What to do next Instructions From Your Doctor You were admitted to the hospital due to having an episode of passing out, additionally believe that you may have had a seizure episode.?? We did imaging studies??which is overall insignificant.?? Wealso did an EEG which may be suggestive of having seizures.?? You were seen by the neurologist who has recommended for you to take seizure medication for at least 6 months and to be followed up with??seizure specialist in outpatient setting which they will set up. ?? There is a possibility for alcohol??use is causing??problems with the seizure disorder as well. ??Istrongly recommend that you should abstain from alcohol. ?? New medication: ??? Please take??levetiracetam??1000 mg twice daily starting tonight ??? Please take folic acid 1 mg once daily starting tomorrow morning ??? Please take thiamine 100 mg once daily starting tomorrow morning ??? Please take pyridoxine 50 mg once daily starting tomorrow morning ?? Continue taking all of your the home medications as previously prescribed ?? Use follow-up with the primary care physician as well as a neurologist. ?? WE STRONGLY RECOMMEND THAT YOU SHOULD NOT DRIVE FOR ATLEAST 6 MONTHS. ?? Orders??:fair :Fair? 08/19/24 15:12:00 EDT?? Prescriptions??, ??08/19/24 15:12:00 EDT?? You Need to Schedule the Following Appointments Follow Up with??Not on Staff, PCP Discharge Medications MARIO SUAREZ :1955 Visit Date:08/18/2024 Medications: Please continue your medications until treatment is completed or stopped by your provider. Medications not listed below should be discontinued. Discuss any questions related to medications with your provider. What How Much When Instructions Next Dose New Folic Acid (folic acid 1 mg oral tablet) 1 Milligram Oral Daily Pickup at [facility]/pharmacy #1230 TOMORROW AM New levETIRAcetam (Keppra 500 mg oral tablet) 1,000 Milligram Oral Twice a day Refills: 2 Pickup at [facility]/pharmacy #1230 TONIGHT 9PM New Pyridoxine (pyridoxine 50 mg oral tablet) 50 Milligram Oral Daily Duration: 30 Days Pickup at [facility]/pharmacy #1230 TOMORROW AM New Thiamine (thiamine 100 mg oral tablet) 100 Milligram Oral Daily Duration: 30 Days Pickup at [facility]/pharmacy #1230 TOMORROW AM Unchanged Atorvastatin (atorvastatin 20 mg oral tablet) 1 tab(s) Oral Daily TOMORROW AM Unchanged Losartan (losartan 100 mg oral tablet) 0.5 tab(s) Oral Daily TOMORROW AM Unchanged Metoprolol (Metoprolol Tartrate 25 mg oral tablet) 1 tab(s) Oral Twice a day TONIGHT 9PM Unchanged Pantoprazole (pantoprazole 20 mg oral delayed release tablet) 1 tab(s) Oral Daily TOMORROW AM Unchanged Paroxetine (PARoxetine 30 mg oral tablet) 1 tab(s) Oral Daily TOMORROW AM Pharmacy Information [facility]/pharmacy #1230: [address] [place], [place] [id number] [phone] ?? What How Much When Comments Stop Taking Albuterol (albuterol 90 mcg/ inh inhalation powder) 1 puff(s) Inhalation Every 6 hours as needed for Wheezing/Shortness of Breath Stop Taking Cholecalciferol (cholecalciferol 2000 intl units oral tablet) 1 tab(s) Oral Daily Stop Taking EPINEPHrine (EPINEPHrine 0.3 mg injectable solution) Stop Taking Fluticasone-Salmeterol (Advair Diskus 250 mcg-50 mcg inhalation powder) 1 puff(s) Inhalation Twice a day Stop Taking Leuprolide (leuprolide 22.5 mg subcutaneous kit) 22.5 Milligram Subcutaneous Injection Every 3 months Duration: 90 Days Prescription Given During Visit Folic Acid (folic acid 1 mg oral tablet) - 1 mg, By Mouth, Daily, # 30 each, 0 Refills, [facility], [address] [place] [address] [phone]?? Pyridoxine (pyridoxine 50 mg oral tablet) - 50 mg, By Mouth, Daily, # 30 tablet, 0 Refills, [facility], [address] [place] [address] [phone]?? Thiamine (thiamine 100 mg oral tablet) - 100 mg, By Mouth, Daily, # 30 tablet, 0 Refills, [facility], [address] [place] [address] [phone]?? levETIRAcetam (Keppra 500 mg oral tablet) - 1,000 mg, By Mouth, 2 times a day, # 120 each, 2 Refills, [facility], [address] [place] [address] [phone]?? Laboratory Results Below is a partial list of the most recent Laboratory test results done prior to this discharge. You may have had other tests and procedures not included in this list. Please discuss all test resultswith your provider. Est Creatinine Clearance - 78.31 mL/min (08/19/2024) Basic Metabolic Panel (08/19/2024) ???Sodium - 129 mmol/L???Potassium - 3.7 mmol/L???Chloride - 96 mmol/L???Bicarbonate Level - 20 mmol/L???Anion Gap - 13 mmol/L???Glucose Level - 89 mg/dL???BUN - 8 mg/dL???Creatinine-Blood - 0.99 mg/dL???Estimated GFR Creatinine - 82 ML/MIN/1.73 M2???Calcium - 8.2 mg/dL Cannabinoid Urine Screen (08/18/2024) ???Cannabinoid Screen, Urine - POSITIVE CBC (08/19/2024) ???WBC - 11.8 k/mm3???RBC - 3.24 m/mm3???Hgb - 11.2 Gm/dL???Hct - 31.1 %???MCV - 96.0 femtoliters???MCH - 34.6 pg???MCHC - 36.0 Gm/dL???Platelet Count - 198 k/mm3???RDW-SD - 42.8 femtoliters???MPV - 9.6 femtoliters???Nucleated RBC (Automated) - 0.0 #/100 WBC'S???Abs. NRBC - 0.0 k/mm3 CBC w/ Differential (08/18/2024) ???WBC - 8.7 k/mm3???RBC - 4.06 m/mm3???Hgb - 13.9 Gm/dL???Hct - 38.8 %???MCV - 95.6 femtoliters???MCH - 34.2 pg???MCHC - 35.8 Gm/dL???Platelet Count - 234 k/mm3???RDW-SD - 42.0 femtoliters???MPV - 9.2 femtoliters???Nucleated RBC (Automated) - 0.0 #/100 WBC'S???Abs. NRBC - 0.0 k/mm3???Abs. Neut - 6.4 k/mm3???Abs. Lymph - 1.4 k/mm3???Abs. [place] - 0.6 k/mm3???Abs. Eo - 0.1 k/mm3???Abs. Baso - 0.1 k/mm3???Neut % - 73.4 %???Lymph % - 15.8 %???[place] % - 7.2 %???Eos % - 1.4 %???Baso % - 0.7 %???Imm Gran - 1.5 %???Abs. Imm Gran - 0.1 k/mm3 Cocaine Urine Screen (08/18/2024) ???Cocaine Metabolite Screen, Urine - NONE DETECTED Comprehensive Metabolic Panel (08/18/2024) ???Sodium - 128 mmol/L???Potassium - 4.5 mmol/L???Chloride - 89 mmol/L???Bicarbonate Level - 22 mmol/L???Anion Gap - 17 mmol/L???Glucose Level - 102 mg/dL???BUN - 8 mg/dL???Creatinine-Blood - 0.94 mg/dL???Estimated GFR Creatinine - 88 ML/MIN/1.73 M2???Calcium - 9.0 mg/dL???Protein, Total - 6.4 Gm/dL???Albumin - 4.0 Gm/dL???AG Ratio - 1.7???Alkaline Phosphatase - 45 units/L???AST (SGOT) - 19 units/L???ALT (SGPT) - 12 units/L???Bilirubin, Total - 0.7 mg/dL ETHANOL (08/18/2024) ???Ethanol, Serum or Plasma - NONE DETECTED GLUCOSE POC (08/18/2024) ???Glucose, POC - 107 mg/dL Hepatic Function Panel (08/19/2024) ???Protein, Total - 5.4 Gm/dL???Albumin - 3.5 Gm/dL???Alkaline Phosphatase - 39 units/L???AST (SGOT) - 13 units/L???ALT (SGPT) - 8 units/L???Bilirubin, Total - 1.0 mg/dL???Bilirubin, Direct - 0.3 mg/dL???Bilirubin, Indirect - 0.7 mg/dL HOLD BLUE TUBE (08/18/2024) ???Hold Blue Top - SPECIMEN DISCARDED AFTER 4 HOURS. HOLD GEL TUBE (08/18/2024) ???Hold Gel Top - SPECIMEN DISCARDED AFTER 1 WEEK HOLD LILLY TUBE (08/18/2024) ???Hold Lilly Top - SPECIMEN DISCARDED AFTER 1 WEEK HOLD GREEN TUBE (08/18/2024) ???Hold Green Top - SPECIMEN DISCARDED AFTER 1 WEEK HOLD LAVENDER TUBE (08/18/2024) ???Hold Lavender Top - SPECIMEN DISCARDED AFTER 24 HOURS. INR (08/19/2024) ???INR - 1.0???Protime (PT) - 10.4 seconds Lactate Level (08/18/2024) ???Lactate - 1.9 mmol/L LACTIC ACID (08/18/2024) ???Lactate - 3.5 mmol/L Opiate Screen Urine (08/18/2024) ???Opiate Screen, Urine - NONE DETECTED OSMOLALITY, SERUM (08/18/2024) ???Osmolality - 277 mOs/kg OSMOLALITY, URINE RANDOM (08/18/2024) ???Osmolality, Urine Random - 439 mOsm/kg SODIUM, URINE MMOL/L (08/18/2024) ???Sodium, Urine Random - 26 mmol/L TSH (08/18/2024) ???TSH - 4.89 uIU/mL Urinalysis w/hold for Urine Culture (08/18/2024) ???Appear/Color, Urine - YELLOW???Clarity - CLEAR???Specific [place], Urine - 1.010???pH, Urine - 6.5???Albumin, Urine - TRACE???Glucose, Urine - NEGATIVE???Ketones, Urine - 1+???Bilirubin, Urine - NEGATIVE???Hemoglobin, Urine - TRACE???Nitrite, Urine - NEGATIVE???Leukocyte, Urine - NEGATIVE???Urobilinogen - NORMAL???Hold Urine Culture - Testing available 48 hours from time of collection. Urine Amphetamine Screen (08/18/2024) ???Amphetamine Screen, Urine - NONE DETECTED Urine Barbiturate Screen (08/18/2024) ???Barbiturate Screen, Urine - NONE DETECTED Urine Benzodiazepine Screen (08/18/2024) ???Benzodiazepine Screen, Urine - NONE DETECTED URINE MICROSCOPIC (08/18/2024) ???WBC's, Urine - 1 /HPF???RBC's, Urine - 1 /HPF???Mucus - SLIGHT You will be contacted within 72 hours with your results. Allergies (NKA means No Known Allergies) Bee Stings erythromycin tetracycline Problems Active Problems??(1) Obese class I?? Education Materials Below is the list of Educational Leaflet Providered with your Discharge Instructions. WebMD Ignite Patient Education - Seizure: New Onset with Unknown Cause (Adult)?? WebMD Ignite Patient Education - Social Drinking vs. Problem Drinking?? Valuables and Belongings I fully understand and agree that [facility] accepts no responsibility for all my personal property including clothing, toilet articles, radios, jewelry, dentures, hearing aids, rings, money, or any other property that is in my possession or is brought to me after admission. I understand certain valuables may be placed in a hospital safe for a short period of time. I understand that the hospital is not liable for loss or damage due to accident, fire, or other natural occurrence while said property is in the safe. I accept full responsibility for any personal property that I keep with me, and will not hold the hospital responsible in case of loss or disappearance. I acknowledge that i have been encouraged to send valuables and belongings home. ?? Review of Valuable and Belonging List: With patient Date for Pt to Sign Valuables/Belongings: 08/19/24 14:50:00 ?? Other Discharge Information ?? Wound Assessment?? Wound Assessment?? Wound Type I: Traumatic Wound ? Pulmonary Rehab Status?? Pulmonary Rehab Discharge Status?? CPAP/BiPAP Mask Type: Full CPAP/BiPAP Mask Size: Medium Respiratory Rate: 18 br/min ? Common Emergency Awareness Tips IS IT A STROKE? Act FAST and Check for these signs: FACE Does the face look uneven? ARM Does one arm drift down? SPEECH Does their speech sound strange? TIME Call at any sign of stroke ?? Heart Attack Signs Chest discomfort: Most heart attacks involve discomfort in the center of the chest and lasts more than a few minutes, or goes away and comes back. It can feel like uncomfortable pressure, squeezing, fullness or pain. Discomfort in upper body: Symptoms can include pain or discomfort in one or both arms, back, neck, jaw or stomach. Shortness of breath: With or without discomfort. Other signs: Breaking out in a cold sweat, nausea, or lightheaded. Remember, MINUTES DO MATTER. If you experience any of these heart attack warning signs, call to get immediate medical attention! ?? Smoking can increase your chances of developing chronic health problems and can cause harmful effects to other family members in your house. If you smoke, you are strongly encouraged to quit. Please call [facility] [employer] Link at [phone] or [phone]) or log in to [email or web address] for referrals to smoking cessation programs. ?? 984 Suicide & Crisis Lifeline is available 01/01 if you or someone you know needs to find a reason to keep living. By calling 748 you'll be connected to a skilled, trained counselor at a crisis center in your area. INPATIENT DISCHARGE INSTRUCTIONS SIGNATURE PAGE MARIO SUAREZ Location:[facility] Registration Date and Time:08/18/2024 16:06 EDT Primary Care Physician: Not on Staff, PCP Attending Physician: Neris ROGERS, [facility], I SUAREZMARIO, have received the above patient education materials/instructions and have verbalized understanding. If ambulance or transport services are being used I further acknowledge being given a choice of service. ?? If you need to contact me, please call me at this number: . Patient/Supervisor Of Research Name: Patient/Supervisor Of Research Signature: Relationship to Patient: Witness Name/Signature: Date: * Veronica Ludwig RN: PERFORM Event Display: Patient Education Leaflets Authored Date: [id number] Pyridoxine ?? [id number] Pyridoxine Brand Name(s): Hexa-betalin; also available generically ?? Vitamin B6 WHY is this medicine prescribed? Pyridoxine, vitamin B6, is required by your body for utilization of energy in the foods you eat, production of red blood cells, and proper functioning of nerves. It is used to treat and prevent vitamin B6 deficiency resulting from poor diet, certain medications, and some medical conditions. This medication is sometimes prescribed for other uses; ask your doctor or pharmacist for more information. HOW should this medicine be used? Pyridoxine comes in regular and extended-release (long-acting) tablets. It usually is taken once a day. Follow the directions on your prescription label or package label carefully, and ask your doctor or pharmacist to explain any part you do not understand. Take pyridoxine exactly as directed. Do not take more or less of it or take it more often than prescribed by your doctor. Do not chew, crush, or cut extended-release tablets; swallow them whole. What SPECIAL PRECAUTIONS should I follow? Before taking pyridoxine, ??? tell your doctor and pharmacist if you are allergic to pyridoxine or any other drugs. ??? tell your doctor and pharmacist what prescription and nonprescription medications, vitamins, nutritional supplements, and herbal products you are taking or plan to take while taking pyridoxine. Your doctormay need to change the doses of your medications or monitor you carefully for side effects. ??? tell your doctor if you are , plan to become , or are breast-feeding. If you become while taking pyridoxine, call your doctor. What SPECIAL DIETARY instructions should I follow? Your doctor may tell you to eat more foods containing vitamin B6, especially whole-grain cereals, fish, vegetables, beans, and liver and other organ meat. What should I do IF I FORGET to take a dose? Take the missed dose as soon as you remember it. However, if it is almost time for the next dose, skip the missed dose and continue your regular dosing schedule. Do not take a double dose to make up for a missed one. What SIDE EFFECTS can this medicine cause? What should I know about STORAGE and DISPOSAL of this medication? Keep this medication in the container it came in, tightly closed, and out of reach of children. Store it at room temperature and away from excess heat and moisture (not in the bathroom). Unneeded medications should be disposed of in special ways to ensure that pets, children, and otherpeople cannot consume them. However, you should not flush this medication down the toilet. Instead,the best way to dispose of your medication is through a medicine take-back program. Talk to your pharmacist or contact your local garbage/recycling department to learn about take-back programs in your community. See the FDA's Safe Disposal of Medicines website (https://goo.gl/c4Rm4p) for more information if you do not have access to a take-back program. It is important to keep all medication out of sight and reach of children as many containers (such as weekly pill minders and those for eye drops, creams, patches, and inhalers) are not child-resistant and young children can open them easily. To protect young children from poisoning, always lock safety caps and immediately place the medication in a safe location ??? one that is up and away and out of their sight and reach. https://www.upandaway.org What should I do in case of OVERDOSE? In case of overdose, call the poison control helpline at . Information is also available online at https://www.poisonhelp.org/help. If the victim has collapsed, had a seizure, has trouble breathing, or can't be awakened, immediately call emergency services at 154. What OTHER INFORMATION should I know? Keep all appointments with your doctor and the laboratory. Your doctor will order certain lab teststo check your response to pyridoxine. Do not let anyone else take your medication. Ask your pharmacist any questions you have about refilling your prescription. It is important for you to keep a written list of all of the prescription and nonprescription ([id number]) medicines you are taking, as well as any products such as vitamins, minerals, or otherdietary supplements. You should bring this list with you each time you visit a doctor or if you areadmitted to a hospital. It is also important information to carry with you in case of emergencies. This report on medications is for your information only, and is not considered individual patient advice. Because of the changing nature of drug information, please consult your physician or pharmacist about specific clinical use. The [employer] represents that the information provided hereunder was formulated with a reasonable standard of care, and in conformity with professional standards in the field. The [employer] makes no representations or warranties, express or implied, including, but not limited to, any implied warranty of merchantability and/or fitness for a particular purpose, with respect to such information and specifically disclaims all such warranties. Users are advised that decisions regarding drug therapy are complex medical decisions requiring the independent, informed decision of an appropriate health career services assistant, and the information is provided for informational purposes only. The entire monograph for a drug should be reviewed for a thorough understanding of the drug's actions, uses and side effects. The [employer] does not endorse or recommend the use of any drug.The information is not a substitute for medical care. AHFS?? Patient Medication Information???. ?? Copyright, 2023. [employer]??, [address], [address], [place], [place]. All Rights Reserved. Duplication for commercial use must be authorized by [facility]. Selected Revisions: January 23, 2017. AHFS?? Patient Medication Information???. ?? Copyright, 2024 ?? * Veronica Ludwig RN: PERFORM Event Display: Patient Education Leaflets Authored Date: [id number] Thiamine (Vitamin B1) ?? [id number] Thiamine (Vitamin B1) WHY is this medicine prescribed? Thiamine (vitamin B1) is used as a dietary supplement when the amount of thiamine in the diet is not enough. People most at risk for thiamine deficiency are older adults, those who are dependent on alcohol, or who have HIV/AIDS, diabetes, malabsorption syndrome (problems absorbing food), or have had bariatric surgery (an operation that helps you lose weight by making changes to your digestive system). Thiamine is used to treat beriberi (tingling and numbness in feet and hands, muscle loss, and poor reflexes caused by a lack of thiamine in the diet) and to treat and prevent Wernicke-Korsakoff syndrome (tingling and numbness in hands and feet, memory loss, confusion caused by a lack of thiamine in the diet). Thiamine is in a class of medications called vitamins. It is needed by the body to turn foods into energy, which is important for the growth, development, and function of cells. HOW should this medicine be used? Thiamine comes as a tablet, capsule, and solution (liquid drops) to take by mouth. It is usually taken once to three times a day depending on the preparation, your age, and your medical condition(s).Thiamine is available without a prescription, but your doctor may prescribe thiamine to treat certain conditions. Follow the directions on your product label or doctor's instructions carefully, and ask your doctor or pharmacist to explain any part you do not understand. Take thiamine exactly as directed. Do not take more or less of it or take it more often than recommended by your doctor. Thiamine supplements are available alone and in combination with other vitamins. Are there OTHER USES for this medicine? This medication is sometimes prescribed for other uses; ask your doctor or pharmacist for more information. What SPECIAL PRECAUTIONS should I follow? Before taking thiamine, tell your doctor and pharmacist if you are allergic to thiamine, any other medications, or any of the ingredients in thiamine products. Ask your pharmacist for a list of the ingredients. tell your doctor if you drink alcohol or if you have problems absorbing food or if you are receiving dialysis treatments. tell your doctor and pharmacist what other prescription and nonprescription medications, vitamins, nutritional supplements, and herbal products you are taking or plan to take. Your doctor may need tochange the doses of your medications or monitor you carefully for side effects. tell your doctor if you are , plan to become , or are . If you become while taking thiamine, call your doctor. What SPECIAL DIETARY instructions should I follow? Unless your doctor tells you otherwise, continue your normal diet. What should I do IF I FORGET to take a dose? Take the missed dose as soon as you remember it. However, if it is almost time for the next dose, skip the missed dose and continue your regular dosing schedule. Do not take a double dose to make up for a missed one. What SIDE EFFECTS can this medicine cause? Thiamine may cause side effects. Tell your doctor if either of these symptoms is severe or does notgo away: ??? flushing ??? hives ??? itching ??? weakness ??? sweating ??? nausea ??? restlessness Thiamine may cause other side effects. Call your doctor if you have any unusual problems while taking this vitamin. If you experience a serious side effect, you or your doctor may send a report to the Food and Drug Administration's (FDA) MedWatch Adverse Event Reporting program online (http://www.fda.gov/Safety/MedWatch) or by phone ( ). What should I know about STORAGE and DISPOSAL of this medication? Keep this medication in the container it came in, tightly closed, and out of reach of children. Store it at room temperature and away from excess heat and moisture (not in the bathroom). It is important to keep all medication out of sight and reach of children as many containers (such as weekly pill minders and those for eye drops, creams, patches, and inhalers) are not child-resistant and young children can open them easily. To protect young children from poisoning, always lock safety caps and immediately place the medication in a safe location ??? one that is up and away and out of their sight and reach. http://www.upandaway.org Unneeded medications should be disposed of in special ways to ensure that pets, children, and otherpeople cannot consume them. However, you should not flush this medication down the toilet. Instead,the best way to dispose of your medication is through a medicine take-back program. Talk to your pharmacist or contact your local garbage/recycling department to learn about take-back programs in your community. See the FDA's Safe Disposal of Medicines website (http://goo.gl/c4Rm4p) for more information if you do not have access to a take- back program. What should I do in case of OVERDOSE? In case of overdose, call the poison control helpline at . Information is also available online at https://www.poisonhelp.org/help. If the victim has collapsed, had a seizure, has trouble breathing, or can't be awakened, immediately call emergency services at 741. What OTHER INFORMATION should I know? Keep all appointments with your doctor and the laboratory. Your doctor will order certain lab teststo check your response to thiamine. Before having any laboratory test, tell your doctor and the laboratory personnel that you are taking thiamine. Ask your pharmacist any questions you have about thiamine. It is important for you to keep a written list of all of the prescription and nonprescription (jptv-gjl-ozsjzsm) medicines you are taking, as well as any products such as vitamins, minerals, or otherdietary supplements. You should bring this list with you each time you visit a doctor or if you areadmitted to a hospital. It is also important information to carry with you in case of emergencies. This report on medications is for your information only, and is not considered individual patient advice. Because of the changing nature of drug information, please consult your physician or pharmacist about specific clinical use. The [employer] represents that the information provided hereunder was formulated with a reasonable standard of care, and in conformity with professional standards in the field. [employer] makes no representations or warranties, express or implied, including, but not limited to, any implied warranty of merchantability and/or fitness for a particular purpose, with respect to such information and specifically disclaims all such warranties. Users are advised that decisions regarding drug therapy are complex medical decisions requiring the independent, informed decision of an appropriate health career services assistant, and the information is provided for informational purposes only. The entire monograph for a drug should be reviewed for a thorough understanding of the drug's actions, uses and side effects. [employer] does not endorse or recommend the use of any drug.The information is not a substitute for medical care. AHFS?? Patient Medication Information???. ?? Copyright, 2023. [employer]??, [address], [address], [place], [place]. All Rights Reserved. Duplication for commercial use must be authorized by [facility]. Selected Revisions: March 25, 2020. AHFS?? Patient Medication Information???. ?? Copyright, 2024 ?? * Veronica Ludwig RN: PERFORM Event Display: Patient Education Leaflets Authored Date: [id number] Levetiracetam ?? [id number] Levetiracetam Brand Name(s): Elepsia?? XR, Keppra??, Keppra?? XR, Spritam??; also available generically ?? WHY is this medicine prescribed? Levetiracetam is used alone and along with other medications to control partial- onset seizures (seizures that involve only one part of the brain) in adults, children, and infants 1 month of age or older. Levetiracetam is also used in combination with other medications to treat seizure in adults andchildren 12 years of age or older with juvenile myoclonic epilepsy. Levetiracetam is also used in combination with other medications to treat primary generalized tonic- clonic seizures (formerly knownas a grand mal seizure; seizure that involves the entire body) in adults and children 6 years of age or older with epilepsy. Levetiracetam is in a class of medications called anticonvulsants. It works by decreasing abnormal excitement in the brain. HOW should this medicine be used? Levetiracetam comes as a solution (liquid), an immediate-release tablet, an extended-release (long-acting) tablet, and as a tablet for suspension (a tablet to take with liquid) to take by mouth. The solution, immediate-release tablet, and tablet for suspension are usually taken twice a day, once inthe morning and once at night, with or without food. The extended-release tablets are usually takenonce daily with or without food. Try to take levetiracetam at around the same time(s) every day. Follow the directions on your prescription label carefully, and ask your doctor or pharmacist to explain any part you do not understand. Take levetiracetam exactly as directed. Do not take more or less of it or take it more often than prescribed by your doctor. Swallow the levetiracetam immediate-release and extended-release tablets whole; do not split, chew,or crush them. Take the whole levetiracetam tablets for suspension according to directions; do not split, chew, or crush them. To take levetiracetam tablet(s) for suspension, use dry hands to peel the foil from the blister packaging; do not try to push the tablets through the foil. Immediately take out the number of tablet(s) that your doctor has told you to take and place the tablet(s) on your tongue with a sip of liquid.Once the tablet completely dissolves on your tongue, swallow the mixture. The tablet(s) may take about 10 seconds to dissolve. You can also take levetiracetam tablets for suspension by dissolving them in a liquid. Place the number of tablet(s) your doctor has told you to take into a cup and add a small amount of liquid (about 1 tablespoon [15 mL] or enough to cover the medication in a cup). Swirl the cup gently. After the tablet(s) for suspension dissolve, drink the mixture right away. If there is any medication left in the cup, add some more liquid and swirl the cup gently. Drink the mixture water right away to be sure that you swallow all of the medication. If you are taking the levetiracetam oral solution, do not use a household spoon to measure your dose. You might not get the right amount of medication. Ask your doctor or pharmacist to recommend a medicine dropper, spoon, cup, or syringe and to show you how to use it to measure your medication. Your doctor may start you on a low dose of levetiracetam and gradually increase your dose, not moreoften than once every 2 weeks. Levetiracetam controls epilepsy but does not cure it. Continue to take levetiracetam even if you feel well. Do not stop taking levetiracetam without talking to your doctor, even if you experience side effects such as unusual changes in behavior or mood. If you suddenly stop taking levetiracetam, your seizures may become worse. Your doctor will probably decrease your dose gradually. Your doctor or pharmacist will give you the meeting facilitator's patient information sheet (Medication Guide) when you begin treatment with levetiracetam and each time you refill your prescription. Read the information carefully and ask your doctor or pharmacist if you have any questions. You can also visit the Food and Drug Administration (FDA) website (https://www.fda.gov/Drugs) or the meeting facilitator'swebsite to obtain the Medication Guide. Are there OTHER USES for this medicine? This medication may be prescribed for other uses; ask your doctor or pharmacist for more information. What SPECIAL PRECAUTIONS should I follow? Before taking levetiracetam, ??? tell your doctor and pharmacist if you are allergic to levetiracetam, any other medications, orany of the ingredients in levetiracetam products. Ask your pharmacist or check the Medication Guidefor a list of the ingredients. ??? tell your doctor and pharmacist what prescription and nonprescription medications, vitamins, nutritional supplements, and herbal products you are taking or plan to take. Your doctor may need to change the doses of your medications or monitor you carefully for sideeffects. ??? tell your doctor if you have or have ever had kidney disease, depression, mood problems, or suicidal thoughts or behavior. ??? tell your doctor if you are , plan to become , or are . If you become while taking levetiracetam, call your doctor. ??? you should know that levetiracetam may make you dizzy or drowsy. Do not drive a car or operate machinery until you know how this medication affects you. ??? you should know that your mental health may change in unexpected ways and you may become suicidal (thinking about harming or killing yourself or planning or trying to do so) while you are taking levetiracetam for the treatment of epilepsy, mental illness, or other conditions. A small number of adults and children 5 years of age and older (about 1 in 500 people) who took anticonvulsants such as levetiracetam to treat various conditions during clinical studies became suicidal during their treatment. Some of these people developed suicidal thoughts and behavior as early as one week after they started taking the medication. There is a risk that you may experience changes in your mental health if you take an anticonvulsant medication such as levetiracetam, but there may also be a risk that you will experience changes in your mental health if your condition is not treated. You and your doctor will decide whether the risks of taking an anticonvulsant medication are greater than the risks of not taking the medication. You, your family, or your caregiver should call your doctor right away if you experience any of the following symptoms: panic attacks; agitation or restlessness; nervousness, new or worsening irritability, anxiety, or depression; acting on dangerous impulses; difficulty falling or staying asleep; aggressive, angry, or violent behavior; say (frenzied, abnormally excited mood); talking or thinking about wanting to hurt yourself or end your life; withdrawing from friends and family; preoccupation with and dying; giving away prized possessions; or any other unusual changes in behavior or mood. Be sure that your family or caregiver knows which symptoms may be serious so they can call the doctor if you are unable to seek treatment on your own. What SPECIAL DIETARY instructions should I follow? Unless your doctor tells you otherwise, continue your normal diet. What should I do IF I FORGET to take a dose? If it has only been a few hours since the time you were scheduled to take the dose, take the misseddose as soon as you remember it. However, if it is almost time for the next dose, skip the missed dose and continue your regular dosing schedule. Do not take a double dose to make up for a missed one. What SIDE EFFECTS can this medicine cause? Some side effects can be serious. If you experience any of the following symptoms or those listed in the SPECIAL PRECAUTIONS section, call your doctor immediately: ??? rash, fever, swollen lymph nodes, facial swelling, shortness of breath, yellowing of skin or whites of the eyes, dark urine ??? seizures that are worse or different than the seizures you had before ??? fever, sore throat, or other signs of infection ??? blisters on skin ??? hives ??? itching ??? swelling of the face, throat, tongue, lips. and eyes ??? difficulty swallowing or breathing ??? loss of balance or coordination Levetiracetam may cause other side effects. Call your doctor if you have any unusual problems whiletaking this medication. If you experience a serious side effect, you or your doctor may send a report to the Food and Drug Administration's (FDA) MedWatch Adverse Event Reporting program online (https://www.fda.gov/Safety/MedWatch) or by phone ( ). What should I know about STORAGE and DISPOSAL of this medication? Keep this medication in the container it came in, tightly closed, and out of reach of children. Store it at room temperature and away from light, excess heat and moisture (not in the bathroom). Unneeded medications should be disposed of in special ways to ensure that pets, children, and otherpeople cannot consume them. However, you should not flush this medication down the toilet. Instead,the best way to dispose of your medication is through a medicine take-back program. Talk to your pharmacist or contact your local garbage/recycling department to learn about take-back programs in your community. See the FDA's Safe Disposal of Medicines website (https://goo.gl/c4Rm4p) for more information if you do not have access to a take-back program. It is important to keep all medication out of sight and reach of children as many containers (such as weekly pill minders and those for eye drops, creams, patches, and inhalers) are not child-resistant and young children can open them easily. To protect young children from poisoning, always lock safety caps and immediately place the medication in a safe location ??? one that is up and away and out of their sight and reach. https://www.upandaway.org What should I do in case of OVERDOSE? In case of overdose, call the poison control helpline at . Information is also available online at https://www.poisonhelp.org/help. If the victim has collapsed, had a seizure, has trouble breathing, or can't be awakened, immediately call emergency services at 341. Symptoms of overdose may include the following: ??? drowsiness ??? agitation ??? aggression ??? decreased consciousness or loss of consciousness (coma) ??? difficulty breathing What OTHER INFORMATION should I know? Keep all appointments with your doctor. If an infant or child younger than 4 years of age receives levetiracetam, your doctor will check their blood pressure regularly. Do not let anyone else take your medication. Ask your pharmacist any questions you have about refilling your prescription. It is important for you to keep a written list of all of the prescription and nonprescription (ttqh-cal-ixwpnnb) medicines you are taking, as well as any products such as vitamins, minerals, or otherdietary supplements. You should bring this list with you each time you visit a doctor or if you areadmitted to a hospital. It is also important information to carry with you in case of emergencies. This report on medications is for your information only, and is not considered individual patient advice. Because of the changing nature of drug information, please consult your physician or pharmacist about specific clinical use. [employer] represents that the information provided hereunder was formulated with a reasonable standard of care, and in conformity with professional standards in the field. [employer] makes no representations or warranties, express or implied, including, but not limited to, any implied warranty of merchantability and/or fitness for a particular purpose, with respect to such information and specifically disclaims all such warranties. Users are advised that decisions regarding drug therapy are complex medical decisions requiring the independent, informed decision of an appropriate health career services assistant, and the information is provided for informational purposes only. The entire monograph for a drug should be reviewed for a thorough understanding of the drug's actions, uses and side effects. [employer] does not endorse or recommend the use of any drug.The information is not a substitute for medical care. AHFS?? Patient Medication Information???. ?? Copyright, 2023. [employer]??, [address], [address], [place], [place]. All Rights Reserved. Duplication for commercial use must be authorized by [facility]. Selected Revisions: September 29, 2023. AHFS?? Patient Medication Information???. ?? Copyright, 2024 ?? Patient Care team information Care Team Personnel Name: Shari Rondon RN Position: [facility] RN Member Role: Primary Care Nurse Name: Esha Bhardwaj RN Position: [facility] SN RN Member Role: Primary Care Nurse Name: Librado Sparks RN Position: S RN Member Role: Primary Care Nurse Name: Kamila Fine RN Position: S RN Member Role: Primary Care Nurse Name: Not on Staff, PCP Position: [facility] Physician (General Medicine) Member Role: PCP Name: Marla Trevino RN Position: S RN Member Role: Primary Care Nurse Name: Nafisa Henderson RN Position: S RN Member Role: Primary Care Nurse Care Team Related Persons Name: DANIELA SHAQ Insurance Providers Guarantor name: MARIO SUAREZ Health Plan Information #: 1 Payer: [facility] Member Number: [id number] Policy Number: NA Group Number: [id number] Health Plan Information #: 2 Payer: [facility] Member Number: [id number] Policy Number: NA Group Number: [id number]
--- OUTSIDE RECORDS SUMMARY | 2024-08-20 09:44 | XMS_ITS | Encounter Summary ---
Author Organization [facility] Address [address] [place] [address] Care Team Providers Care Candy Polisher Name Role Phone Pablo Rivero MD Primary Care Provider [phone] Memo Grant MD Unavailable [phone] Encounter Details Date Type Department Care Team (Late st Contact Info) Description 09/26/2022 Scanned Document [facility] U[facility] Surgery [place] [address] [address] Mamadou Hernandez MD [address] [id number] Social History Tobacco Use Types Packs/Day Years [...] 10:00 AM EDT Office Visit [facility] [place] [address] [place] [address] Mamadou Hernandez MD [address] [place] [phone] documented as of this encounter Visit Diagnoses Not on filedocumented in this encounter Care Teams Candy Polisher Relationship Specialty Start Date End Date Pablo Rivero MD [address] [place] [address] PCP - General Family Medicine 06/23/22 Memo Grant MD [facility] [place] [address] [place] [address] Cardiovascular Disease 10/27/22 documented as of this encounter
--- OUTSIDE RECORDS SUMMARY | 2024-08-20 09:44 | XMS_ITS | Clinical Summary ---
Author Organization [facility] Address [address] [place] [address] Care Team Providers Care Compressed Gas Equipment Mechanic Name Role Phone Pablo Rivero MD Primary Care Provider [phone] Memo Grant MD Unavailable [phone] Allergies Active Allergy Reactions Criticality Noted [...] 10/31/2024 10:00 AM EDT Office Visit [facility] [place] [address] [place] [address] Mamadou Hernandez MD [address] [place] [id number] Health Maintenance Due Date Last Done Comments [...] 10:25 AM 11/15/2022 8:03 PM Care Teams Compressed Gas Equipment Mechanic Relationship Specialty Start Date End Date Pablo Rivero MD [address] [place] [address] [place] [address] PCP - General Family Medicine 06/23/22 Memo Grant MD [address] [place] [address] Cardiovascular Disease 10/27/22
--- OUTSIDE RECORDS SUMMARY | 2024-08-20 09:44 | XMS_ITS | Encounter Summary ---
Author Organization [facility] Address [address] [place] [address] Care Team Providers Care Geography Department Chair Name Role Phone Pablo Rivero MD Primary Care Provider [phone] Memo Grant MD Unavailable [phone] Reason for Visit * Reason Comments Appointment Encounter Details Date Type Department Care Team (Late st Contact Info) Description 12/01/[address] [address] Mamadou Hernandez MD [address] [address] Appointment Social History Tobacco Use Types Packs/Day [...] Description 10/31/2024 10:00 AM EDT Office Visit [facility] Urology [address] [address] Mamadou Hernandez MD [address] [address] documented as of this encounter Visit Diagnoses Not on filedocumented in this encounter Care Teams Geography Department Chair Relationship Specialty Start Date End Date Pablo Rivero MD 262 [facility] [place] [address] PCP - General Family Medicine 06/23/22 Memo Grant [place] [address] Cardiovascular Disease 10/27/22 documented as of this encounter
--- OUTSIDE RECORDS SUMMARY | 2024-08-20 09:44 | XMS_ITS | Clinical Summary ---
Author Organization [facility] Address [address] [place] [address] Phone Care Team Providers Care Stone Sawyer Name Role Phone Pablo Rivero NP Primary [...] Telephone [facility] Hematology Oncology [address] [place] [phone] Guillermina Irving, 05/27/2024 1:59 PM EST - 05/27/2024 11:59 PM EST Hospital Encounter [facility] PET Scan [address] [place] [phone] Rising PSA following treatment for malignant neoplasm [...] Visit [facility] Hematology Oncology [address] [place] [phone] Guillermina Irving, DO [address] [place] [address] Health Maintenance Due Date Last Done Comments [...] Signed Date: 05/28/2024 10:38 ET Workstation ID: [id number] Transcribed By: Self Edit Transcribed Date: 05/28/2024 [...] not designed to produce and cannot replace xoyyw-sr-blx-art true diagnostic CT examination with specific protocols. [...] reconstructed in axial, coronal, sagittal planes at thePango workstation with fused data from both the PET imaging study andattenuation correction CT study. Please note, CT imaging utilized strictlyfor attenuation correction and anatomic localization: CT not designed toproduce and cannot replace qafgk-qg-yys-art true diagnostic CT examinationwith specific protocols. Standardized [...] Signed Date: 05/28/2024 10:38 ET Workstation ID: [id number] Transcribed By: Self Edit Transcribed Date: 05/28/2024 06:23 ET Mal Schwartz MD IMG NM PROCEDURES Fi nal Result from Last 3 Months Insurance [facility] Care Teams Stone Sawyer Relationship Specialty Start Date End Date Pablo Rivero NP 262 [facility] [place] PCP - General Family Medicine 04/10/18
== END 2024-08-20 09:57 | disposition home or self-care (01) ==
PROVIDERS: PCP Nurse Practitioner Family; Visit Provider Nurse Practitioner Family
DX: F10.10 Alcohol abuse, uncomplicated (principal); R56.9 Unspecified convulsions

== ENCOUNTER → 2024-08-20 09:06 | Outpatient (BNVA) | payer OTHER, SELFPAY | PROVIDERS: PCP Nurse Practitioner Family; Visit Provider Nurse Practitioner Family | DX: R56.9 Unspecified convulsions (principal); F10.10 Alcohol abuse, uncomplicated | CPT/HCPCS: 96127 ==

== ENCOUNTER 2024-08-27 09:53 | Outpatient (REF) | payer OTHER, SELFPAY ==
--- OUTSIDE RECORDS SUMMARY | 2024-08-27 11:16 | XMS_ITS | Clinical Summary ---
Author Organization [facility] Address [address] [place] [address] Phone Care Team Providers Care Midwife [facility] Birth [facility] Owner Name Role Phone Pablo Rivero NP Primary [...] Type Department Care Team Description 07/15/2024 Telephone [facility] Hematology Oncology [address] [place] [phone] Guillermina Irving DO from Last 3 Months Surgical History Surgery [...] Description 10/21/2024 1:30 PM EDT Office Visit [facility] Hematology Oncology [address] [place] [phone] Guillermina Irving DO [address] [place] [address] Health Maintenance Due Date Last Done Comments [...] on patient's age to complete this topic Insurance [facility] Care Teams Midwife [facility] Birth Center Owner Relationship Specialty Start Date End Date Pablo Rivero NP [address] [place], [place] PCP - General Family Medicine 04/10/18
--- OUTSIDE RECORDS SUMMARY | 2024-08-27 11:16 | XMS_ITS ---
Author Organization [facility] Address [address] [place] [address] Care Team Providers Care Chef Kitchen Manager Name Role Phone Pablo Rivero Primary Care Provider [phone] Active Problems Problem Noted Date Diagnosed Date Prostate cancer 01/24/2017 Current Oncology Plans No current plan information found. Past Plans ONCOLOGY INFUSION THERAPY Plan Name Start Date Discontinue Date Treatment Medications Discontinue Reason Plan Provider [facility] LEUPROLIDE 45 MG (ELIGARD) EVERY 6 MONTHS 12/08/2021 07/19/2023 leuprolide (ELIGARD) Therapy Complete Bronw Damon MD Radiation Treatments * No radiation treatments are documented for this patient in [facility]. Treatments may have been administered in another system.
--- OUTSIDE RECORDS SUMMARY | 2024-08-27 11:16 | XMS_ITS | Encounter Summary ---
Author Organization [facility] Address [address] [place], [place] [address] Care Team Providers Care Mortgage Clerk Name Role Phone Pablo Rivero MD Primary Care Provider [phone] Memo Grant MD Unavailable [phone] Reason for Visit * Reason Comments Other Medical record reque st Encounter Details Date Type Department Care Team ([facility] st Contact Info) Description 06/21/2023 Telephone [facility] Urologic Surgery [address] [address] Mamadou Hernandez MD [address] [address] Other (Medical record request) Social [...] Description 10/31/2024 10:00 AM EDT Office Visit [facility] Urology [place] [address] [place] [address] Mamadou Hernandez MD [address] [address] documented as of this encounter Visit Diagnoses Not on filedocumented in this encounter Care Teams Mortgage Clerk Relationship Specialty Start Date End Date Pablo Rivero MD 262 [facility] [address] [place] [address] PCP - General Family Medicine 06/23/22 Memo Grant [place] [address] Cardiovascular Disease 10/27/22 documented as of this encounter
--- OUTSIDE RECORDS SUMMARY | 2024-08-27 11:16 | XMS_ITS | Encounter Summary ---
Author Organization [facility] Address [address] [place] [address] Care Team Providers Care Soft Iron Inspector Name Role Phone Pablo Rivero MD Primary Care Provider [phone] Memo Grant MD Unavailable [phone] Encounter Details Date Type Department Care Team (Late st Contact Info) Description 09/26/2022 Scanned Document [facility] Urologic Surgery [place] [address] [address] Mamadou Hernandez MD [address] [phone] Social History Tobacco Use Types Packs/Day Years [...] Description 10/31/2024 10:00 AM EDT Office Visit [facility] [place] [facility] Urology [place] [address] [place] [address] Mamadou Hernandez MD [address] [place] [address] documented as of this encounter Visit Diagnoses Not on filedocumented in this encounter Care Teams Soft Iron Inspector Relationship Specialty Start Date End Date Pablo Rivero MD [address] [place] [address] PCP - General Family Medicine 06/23/22 Memo Grant MD [facility] [place] [address] Cardiovascular Disease 10/27/22 documented as of this encounter
--- OUTSIDE RECORDS SUMMARY | 2024-08-27 11:16 | XMS_ITS ---
Author Organization [facility] Address [address] [place] [address] Care Team Providers Care Oil Well Services Superintendent Name Role Phone BASILIA CAROLINA Primary Care Provider Collins Rivera Jr Unavailable [phone] Allergies Allergen (clinical drug ingredient) Drug/Non Drug [...] [facility] [address] [place] [address] 07/19/2023 Collins Salmeron Jr Mcdonald's esophagus without [...] 01:35:00 PM, [address], [address], [place], [address], Progress Notes * ANTHONY SUAREZ MDOB:[birth year] (67 yo M)Acc No.[id number]:07/19/2023 Progress Notes Patient:?ANTHONY SUAREZ Provider:?Collins Salmeron MD :1955???Age:67 Y???Sex:Male Anastacio e:07/19/2023 Address:[place] [address], [place] Pcp:BASILIA CAROLINA Subjective: * Chief Complaints: * [...] MD Date:?0 07/19/2023 Generated for Stacey pfeiffer/Cammy/eTstevesmitting on:?08/27/2024 11:16 AM EDT History and Physical Notes * [...]
--- OUTSIDE RECORDS SUMMARY | 2024-08-27 11:16 | XMS_ITS | Encounter Summary ---
Author Organization [facility] Address [address] [place] [address] Care Team Providers Care Risk Control Director Name Role Phone Pablo Rivero MD Primary Care Provider [phone] Memo Grant MD Unavailable [phone] Reason for Visit * Reason Comments Appointment Encounter Details Date Type Department Care Team ([facility] st Contact Info) Description 02/23/2023 Telephone [facility] Urologic Surgery [address] [address] Mamadou Hernandez MD [address] [place] [address] Appointment Social History Tobacco Use Types [...] Description 10/31/2024 10:00 AM EDT Office Visit [facility] Urology [place] [address] [place] [address] Mamadou Hernandez MD [address] [address] documented as of this encounter Visit Diagnoses Not on filedocumented in this encounter Care Teams Risk Control Director Relationship Specialty Start Date End Date Pablo Rivero MD 262 [place] [address] PCP - General Family Medicine 06/23/22 Memo Grant MD [address] [place] [address] Cardiovascular Disease 10/27/22 documented as of this encounter
--- OUTSIDE RECORDS SUMMARY | 2024-08-27 11:16 | XMS_ITS | Encounter Summary ---
Author Organization [facility] Address [address] [place] [address] Care Team Providers Care Associate Team Physician Name Role Phone Pablo Rivero MD Primary Care Provider [phone] Memo Grant MD Unavailable [phone] Encounter Details Date Type Department Care Team (Late st Contact Info) Description 08/28/2023 Scanned Document [facility] Urologic Surgery [address] [place] [address] Guillermina Irving, DO [address] [place] [address] Social History Tobacco Use Types Packs/Day Years [...] Description 10/31/2024 10:00 AM EDT Office Visit [facility] Urology [place] [address] [place] [address] Mamadou Hernandez MD [address] [place] [address] documented as of this encounter Visit Diagnoses Not on filedocumented in this encounter Care Teams Associate Team Physician Relationship Specialty Start Date End Date Pablo Rivero MD 262 [facility] [place] [address] PCP - General Family Medicine 06/23/22 [place] [address] Cardiovascular Disease 10/27/22 documented as of this encounter
--- OUTSIDE RECORDS SUMMARY | 2024-08-27 11:16 | XMS_ITS | Patient Health Record ---
Author Organization [facility] Address [address] [place] [address] Care Team Providers Care Property And Supply Officer Name Role Phone BASILIA RIVERO Primary Care Provider Collins Rivera Jr Allergies Allergen (clinical drug ingredient) Drug/Non Drug Allergy documented on EMR Reaction Allergy Type Onset Date Status tetracycline Tetracycline HCl Unknown Drug Allergy Active Results Component Value Reference Range Notes Pathology Reviewed date:09/03/2023 08:23:54 AM Interpretation: Performing Lab:[facility], [address] [place] [phone] Notes/Report: Name: Anthony Granados Age/Sex: 67/M : 1955 Unit#: [id number] Attend Dr: Collins Salmeron MD Re08/28/23 Status : [facility] Location: [facility] Disch: SPEC : [id number] RECD : 08/28/23 STATUS: CHUY MASSEY NUM: [id number] EFFIE: 08/28/23-[address] [facility] [address]: Collins Salmeron MD ENTERED: 08/28/23-11 43 SP TYPE: Surgical OTHR DR: Basilia Rivero [facility] ORDERED: HE Stain/6, Gross Micro L4/2, [...] on A Copies To: Collins Salmeron MD [address] [place] [address] [address] [place] [address] CONTINUED ON NEXT PAGE Name: Anthony Granados Age/Sex: 67/M : 1955 Unit#: [id number] Attend Dr: Collins Salmeron MD Re08/28/23 Status : [facility] Location: [facility] Disch: SPEC : [id number] RECD : 08/28/23-1136 STATUS: CHUY MASSEY NUM: [id number] EFFIE: 08/28/23-[address] [facility] [address]: Collins Salmeron MD ENTERED: 08/28/23-11 43 SP TYPE: Surgical OTHR DR: Basilia Rivero- ORDERED: HE Stain/6, Gross Micro L4/2, Special st. 2, AB/PAS Copies To: (Continued) Basilia Rivero-GIGI [address] 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 Problem 960585167 Gastroesophageal reflux disease without esophagitis (K21.9) Active confirmed Problem Esophageal reflux finding (759025940) Gastroesophageal reflux (K21.9) Active confirmed Problem 576987128 Adenomatous poly p of colon, unspecified part of colon (D12.6) Active confirmed Problem Pedroza's esophagus (378803484) 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 Encounters Encounter Location Date Provider Diagnosis [facility] Out[facility] [address] [place] [phone] 08/28/2023 Collins Salmeron Jr Pedroza''s esophagus 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 [facility] [address] [place] [address] 09/03/2023 Collins Salmeron Jr Assessments Encounter Date [...] 01:35:00 PM, [address], [address], [place], [address], Insurance Providers Payer Name Payer Address Payer Phone Subscriber Number Group Number Insured Name Patient Relationship to Insured Coverage Start Date Coverage End Date [facility] [address] [place] [address] [id number] ANTHONY GRANADOS Self - patient is the [...]
--- OUTSIDE RECORDS SUMMARY | 2024-08-27 11:16 | XMS_ITS | Clinical Summary ---
Author Organization [facility] Address [address] [place] [address] Care Team Providers Care Bread Room Hand Name Role Phone Pablo Rivero Primary Care Provider [phone] Allergies Active Allergy Reactions Criticality Noted Date [...] age to complete this topic Care Teams Bread Room Hand Relationship Specialty Start Date End Date Pablo Rivero [address] [facility] [place] [address] PCP - General Family Medicine 04/10/18
--- OUTSIDE RECORDS SUMMARY | 2024-08-27 11:16 | XMS_ITS ---
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) Active confirmed Encounters Encounter Location Date Provider Diagnosis [facility] [address] [place] [phone] 08/28/2023 Collins Salmeron Jr Mcdonald''s esophagus 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 Assessments Encounter Date Diagnosis (ICD Code) Assessment Notes Treatment Notes Treatment Clinical Notes Section Notes 08/28/2023 Mcdonald''s esophagus without dysplasia (ICD-10 - K22.70) Plan Of Treatment Next Appt Details Provider Name:Collins miller Jr, 10/09/2024 01:35:00 PM, [address], [place], [address], Progress Notes * MARIO SUAREZ MDOB:[birth year] (68 yo M)Acc No.[id number]:08/28/2023 EGD/MAC Patient:?MARIO SUAREZ Provider:?Collins Salmeron MD :1955???Age:67 Y???Sex:Male Anastacio e:08/28/2023 Address: [place] Pcp:BASILIA CAROLINA Subjective: * Chief Complaints: * ???1. Mcdonald's esophagus. * Medical History:? Objective: * Vitals:? Assessment: * Assessment: 1.?Mcdonald''s esophagus with out dysplasia - K22.70 (Primary)??? Plan: * Treatment: * Procedure Codes:?54401 UPPER GI ENDOSCOPY, BIOPSY * * The named appointment provid er may or may not be the originator of this progress note, and it is not deemed complete until electronically signed by the appointment provider. Sign off status: Pending * Provider:?Collins Salmeron MD Date:?0 08/28/2023 Generated for Stacey pfeiffer/Cammy/Lorenzoitting on:?08/27/2024 11:16 AM EDT
--- OUTSIDE RECORDS SUMMARY | 2024-08-27 11:16 | XMS_ITS ---
Author Organization [facility] Address [address] [place] [address] Care Team Providers Care Trader Fixed Income Name Role Phone BEVERLYLORNE BASILIA Primary Care Provider Collins Rivera Jr [phone] REASON FOR VISIT pathology Encounters Encounter Location Date Provider Diagnosis [facility] [address] [place] [address] 09/03/2023 Collins Salmeron Jr Plan Of Treatment Next Appt Details Provider Name:Collins miller Jr, 10/09/2024 01:35:00 PM, [address], [address], [place], [address], Progress Notes * MARIO SUAREZ MDOB:[birth year] (67 yo M)Acc No.[id number]:09/03/2023 Patient:?MARIO SUAREZ :1955???Age:67 Y???Sex:Male Address:[place] [address] * true * Date:? Generated for Printi margarette/Cammy/eTransmitting on:?08/27/2024 11:15 AM EDT
--- OUTSIDE RECORDS SUMMARY | 2024-08-27 11:16 | XMS_ITS | Clinical Summary ---
Author Organization [facility] Address [address] [place], [place] [address] Care Team Providers Care Hydroelectric Machinery Mechanic Name Role Phone Pablo Rivero MD Primary Care Provider [phone] Memo Grant MD Unavailable [phone] Allergies Active Allergy Reactions Criticality Noted [...] 10:00 AM EDT Office Visit [facility] [place] [facility] [place] [address] [place] [address] Mamadou Hernandez MD [address] [place] [address] Health Maintenance Due Date Last Done Comments [...] 10:25 AM 11/15/2022 8:03 PM Care Teams Hydroelectric Machinery Mechanic Relationship Specialty Start Date End Date Pablo Rivero MD [address] [place] [address] [place] [address] PCP - General Family Medicine 06/23/22 Memo Grant MD [address] [place] [address] Cardiovascular Disease 10/27/22
--- OUTSIDE RECORDS SUMMARY | 2024-08-27 11:16 | XMS_ITS | Encounter Summary ---
Author Organization [facility] Address [address] [place] [address] Care Team Providers Care Palm And Back Forger Name Role Phone Pablo Rivero MD Primary Care Provider [phone] Memo Grant MD Unavailable [phone] Reason for Visit * Reason Comments Advice Only Encounter Details Date Type Department Care Team ([facility] Contact Info) Description 03/22/2023 Telephone [facility] Urologic Surgery [address] [phone] Mamadou Hernandez MD [address] [place] [address] Advice Only Social History Tobacco Use [...] Description 10/31/2024 10:00 AM EDT Office Visit [facility] Urology [place] [address] [place] [address] Mamadou Hernandez MD [address] [address] documented as of this encounter Visit Diagnoses Not on filedocumented in this encounter Care Teams Palm And Back Forger Relationship Specialty Start Date End Date Pablo Rivero MD 262 [facility] [place] [address] PCP - General Family Medicine 06/23/22 Memo Grant [place] [address] Cardiovascular Disease 10/27/22 documented as of this encounter
--- OUTSIDE RECORDS SUMMARY | 2024-08-27 11:16 | XMS_ITS | Encounter Summary ---
Author Organization [facility] Address [address] [place] [address] Care Team Providers Care Rug Weaver Name Role Phone Pablo Rivero MD Primary Care Provider [phone] Memo Grant MD Unavailable [phone] Encounter Details Date Type Department Care Team (Late st Contact Info) Description 08/24/2023 Telephone [facility] Urologic Surgery [address] [address] Mamadou Hernandez MD [address] [address] Social History Tobacco Use Types [...] Description 10/31/2024 10:00 AM EDT Office Visit [facility]rology [place] [address] [place] [address] Mamadou Hernandez MD [address] [place] [address] documented as of this encounter Visit Diagnoses Not on filedocumented in this encounter Care Teams Rug Weaver Relationship Specialty Start Date End Date Pablo Rivero MD 262 [facility] [place] [address] PCP - General Family Medicine 06/23/22 [place] [address] Cardiovascular Disease 10/27/22 documented as of this encounter
--- OUTSIDE RECORDS SUMMARY | 2024-08-27 11:16 | XMS_ITS | Encounter Summary ---
Author Organization [facility] Address [address] [place] [address] Care Team Providers Care Retail Greeting Card Merchandiser Name Role Phone Pablo Rivero MD Primary Care Provider [phone] Memo Grant MD Unavailable [phone] Reason for Visit * Reason Comments Appointment Encounter Details Date Type Department Care Team (Late st Contact Info) Description 12/01/[address] [address] Mamadou Hernandez MD [address] [address] Appointment Social History Tobacco Use Types Packs/Day [...] EDT Office Visit [facility] Urology [address] [address] Mamadou Hernandez MD [address] [address] documented as of this encounter Visit Diagnoses Not on filedocumented in this encounter Care Teams Retail Greeting Card Merchandiser Relationship Specialty Start Date End Date Pablo Rivero MD 262 [facility] [place] [address] PCP - General Family Medicine 06/23/22 Memo Grant MD [place] [address] Cardiovascular Disease 10/27/22 documented as of this encounter
--- OUTSIDE RECORDS SUMMARY | 2024-08-27 11:16 | XMS_ITS | Encounter Summary ---
Author Organization [facility] Address [address] [place] [address] Care Team Providers Care Senior Backup Administrator Name Role Phone Pablo Rivero MD Primary Care Provider [phone] Memo Grant MD Unavailable [phone] Encounter Details Date Type Department Care Team (Late st Contact Info) Description 06/16/2022 Scanned Document [address] [address] Tonya Hernandez MD [address] [place] [address] Social History Tobacco Use Types Packs/Day Years [...] EDT Office Visit [facility]rology [place] [address] [place] [address] Mamadou Hernandez MD [address] [place] [address] documented as of this encounter Visit Diagnoses Not on filedocumented in this encounter Care Teams Senior Backup Administrator Relationship Specialty Start Date End Date Pablo Rivero MD [address] [place] [address] PCP - General Family Medicine 06/23/22 [place] [address] Cardiovascular Disease 10/27/22 documented as of this encounter
--- OUTSIDE RECORDS SUMMARY | 2024-08-27 11:16 | XMS_ITS | Encounter Summary ---
Author Organization [facility] Address [address] [place] [address] Care Team Providers Care Baby Sitter Name Role Phone Pablo Rivero NP Primary Care Provider Encounter Details Date Type Department Care Team (Late st Contact Info) Description 04/03/2024 2:39 PM EDT Hospital Encounter TH HISTORIC ENCOUNTERS EASTERN CONVERSION ONLY Guillermina Irving, [address] [place] [address] Social History Tobacco Use Types Packs/Day Years [...] in follow-up upon a recommendation from his batt packer. 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: Labs ordered today and [...] Sign Maryanne Irving DO - Hematology/Oncology [facility] CC: Pablo Rivero documented in this encounter Plan of Treatment Upcoming Encounters Date Type Department Care Team (Late st Contact Info) Description 10/21/2024 1:30 PM EDT Office Visit [facility] Hematology Oncology [address] [place] [address] Guillermina Irving DO [address] [place] [address] documented as of this encounter Visit Diagnoses Not on filedocumented in this encounter Care Teams Baby Sitter Relationship Specialty Start Date End Date Pablo Rivero, TECHNICIAN'S HELPER [address] [place], [place] PCP - General Family Medicine 04/10/18 documented as of this encounter
[2024-08-27 13:50] LABS: MANUAL DIFF FLAG NO
[2024-08-27 13:51] LABS: Appearance Urine Clear; Color Urine Yellow; Glucose Urine UA Negative (Negative); Leukocyte Esterase Urine Negative (Negative); Nitrite Urine Negative (Negative); Specific Gravity - Urine 1.015 (1.005-1.025); Urine Blood Negative (Negative); Urine Ketones Negative (Negative); Urine Protein Negative (Neg-Trace)
[2024-08-27 13:57] LABS: Basophils Percent Auto 0.6 % (0-2); Eosinophils Absolute Auto 0.1 X10*3/uL (0.0-0.4); Eosinophils Percent Auto 1.7 % (0-4); Hematocrit 39.5 % (42.0-52.0); Hemoglobin 13.7 g/dl (14.0-18.0); Imm Gran Abs Auto 0.04 X10*3/uL (0.00-0.03); Imm Gran Pct Auto 0.6 % (0.0-0.4); Lymphocytes Absolute Auto 1.6 X10*3/uL (1.2-4.9); Lymphocytes Percent Auto 24.9 % (20-40); Mean Corpuscular HGB Conc 34.7 g/dl (31.0-36.0); Mean Corpuscular Hemoglobin 33.8 pg (27.0-33.0); Mean Corpuscular Volume 97.5 fL (80.0-98.0); Mean Platelet Volume 9.7 fL (9.4-12.4); Monocytes Absolute Auto 0.8 X10*3/uL (0.1-1.2); Monocytes Percent Auto 12.3 % (2-11); Neutrophils Absolute Auto 3.8 x10*3/uL (2.0-8.3); Neutrophils Percent Auto 59.9 % (45-73); Platelet Count 278 X10*3/uL (160-400); Red Blood Count 4.05 X10*6/uL (4.60-5.80); Red Cell Distribution Width 12.1 % (11.0-16.0); White Blood Count 6.4 X10*3/uL (4.8-10.8)
[2024-08-27 14:02] LABS: Alanine Aminotransferase 12 U/L (0-40); Albumin Level 3.8 g/dL (3.5-5.0); Alkaline Phosphatase 45 U/L (39-117); Anion Gap 12 (12-20); Aspartate Amino Transferase 25 U/L (5-37); Bilirubin Total 0.7 mg/dL (0.0-1.0); Blood Urea Nitrogen 9 mg/dL (9-16); Carbon Dioxide 27 mmol/L (22-29); Chloride 104 mmol/L (96-108); Estimated Glomerular Filt Rate > 60; Glucose Random 92 mg/dL (60-115); Magnesium 1.9 mg/dL (1.6-2.6); Potassium 4.2 mmol/L (3.3-5.1); Sodium 139 mmol/L (135-145); Total Protein 6.8 g/dL (6.5-8.0)
== END 2024-08-27 09:54 | disposition home or self-care (01) ==
LOC: HO.HMGCLDS 09:53
PROVIDERS: PCP Nurse Practitioner Family; Visit Provider Nurse Practitioner Family
DX: F10.10 Alcohol abuse, uncomplicated (principal); R56.9 Unspecified convulsions
CPT/HCPCS: 36415; 80053; 81003; 83735; 85025

== ENCOUNTER 2024-09-22 14:37 | Outpatient (REF) | payer OTHER, SELFPAY ==
[2024-09-22 16:06] LABS: MANUAL DIFF FLAG NO
[2024-09-22 16:12] LABS: Basophils Absolute Auto 0.1 X10*3/uL (0.0-0.2); Basophils Percent Auto 0.6 % (0-2); Eosinophils Absolute Auto 0.2 X10*3/uL (0.0-0.4); Eosinophils Percent Auto 2.3 % (0-4); Hematocrit 38.6 % (42.0-52.0); Hemoglobin 13.4 g/dl (14.0-18.0); Imm Gran Abs Auto 0.04 X10*3/uL (0.00-0.03); Imm Gran Pct Auto 0.5 % (0.0-0.4); Lymphocytes Absolute Auto 2.1 X10*3/uL (1.2-4.9); Lymphocytes Percent Auto 25.4 % (20-40); Mean Corpuscular HGB Conc 34.7 g/dl (31.0-36.0); Mean Corpuscular Hemoglobin 33.1 pg (27.0-33.0); Mean Corpuscular Volume 95.3 fL (80.0-98.0); Mean Platelet Volume 10.4 fL (9.4-12.4); Monocytes Absolute Auto 0.9 X10*3/uL (0.1-1.2); Monocytes Percent Auto 10.8 % (2-11); Neutrophils Absolute Auto 5.1 x10*3/uL (2.0-8.3); Neutrophils Percent Auto 60.4 % (45-73); Platelet Count 258 X10*3/uL (160-400); Red Blood Count 4.05 X10*6/uL (4.60-5.80); Red Cell Distribution Width 11.6 % (11.0-16.0); White Blood Count 8.4 X10*3/uL (4.8-10.8)
[2024-09-22 16:26] LABS: Alanine Aminotransferase 18 U/L (0-40); Albumin Level 3.8 g/dL (3.5-5.0); Alkaline Phosphatase 55 U/L (39-117); Anion Gap 11 (12-20); Aspartate Amino Transferase 20 U/L (5-37); Bilirubin Total 0.8 mg/dL (0.0-1.0); Blood Urea Nitrogen 9 mg/dL (9-16); Calcium 9.6 mg/dL (8.4-10.2); Carbon Dioxide 29 mmol/L (22-29); Chloride 102 mmol/L (96-108); Estimated Glomerular Filt Rate > 60; Glucose Random 81 mg/dL (60-115); Potassium 4.3 mmol/L (3.3-5.1); Sodium 138 mmol/L (135-145); Total Protein 6.1 g/dL (6.5-8.0)
[2024-09-22 17:02] LABS: Folate 11.3 ng/mL (> or = 4.0); Vitamin B12 1478 pg/mL (200-900)
--- OUTSIDE RECORDS SUMMARY | 2024-09-22 17:06 | XMS_ITS | Clinical Summary ---
Author Organization [facility] Address [address] [place] [address] Care Team Providers Care Cupola Liner Name Role Phone Pablo Rivero Primary Care Provider [phone] Allergies Active Allergy Reactions Criticality Noted Date [...] age to complete this topic Care Teams Cupola Liner Relationship Specialty Start Date End Date Pablo Rivero [address] [facility] [place] [address] PCP - General Family Medicine 04/10/18
--- OUTSIDE RECORDS SUMMARY | 2024-09-22 17:06 | XMS_ITS | Clinical Summary ---
Author Organization [facility] Address [address] [place] [address] Phone Care Team Providers Care Basic Acoustic Analyst Name Role Phone Pablo Rivero NP Primary [...] Problem Noted Date Diagnosed Date Prostate cancer ([facility]/HCC V24, CMS/HCC V28) 01/24 Encounters Date Type Department Care Team Description 09/22/[address] [facility] Hematology Oncology [address] [place] [phone] Guillermina Irving DO 07/15/[address] [facility] Hematology Oncology [address] [place] [address] Guillermina Irving DO from Last 3 Months Surgical History Surgery Date Site/Laterality Comments PROSTATE SURGERY PROCEDURE:PROSTATE SURGERY OTHER SURGICAL HISTORY PROCEDURE:knee replacement both Medical History Medical History Date Comments Prostate cancer (CMS/HCC V24, CMS/HCC V28) DX:Prostate cancer (HCC) Hypertension DX:Hypertension Depression DX:Depression Family [...] 10/21/2024 1:30 PM EDT Office Visit [facility] Hematology Oncology [address] [place] [phone] Guillermina Irving DO [address] [place] [address] Health Maintenance Due Date Last Done Comments [...] , 03/15/2022, Additional history exists RSV Immunization Adult Patients Completed 04/25/2024 HIB Vaccines Aged Out No [...] age to complete this topic Meningococcal B Vaccine Aged Out No l onger eligible based on patient's age to complete this topic RSV Immunization Patients Under 20 months Aged Out No longer eligible based on patient's age to complete this topic Varicella Vaccines Aged Out No longer eligible based on patient's age to complete this topic [facility] Care Teams Basic Acoustic Analyst Relationship Specialty Start Date End Date Pablo Rivero NP [address] [facility] [place] PCP - General Family Medicine 04/10/18
--- OUTSIDE RECORDS SUMMARY | 2024-09-22 17:06 | XMS_ITS | Encounter Summary ---
Author Organization [facility] Address [address] [place] [address] Care Team Providers Care Bobbin Inspector Name Role Phone Pablo Rivero MD Primary Care Provider [phone] Memo Grant MD Unavailable [phone] Reason for Visit * Reason Comments Appointment Encounter Details Date Type Department Care Team (Late st Contact Info) Description 12/01/[address] [address] Mamadou Hernandez MD [address] [place] [address] Appointment Social History Tobacco Use Types Packs/Day [...] Description 10/31/2024 10:00 AM EDT Office Visit [facility] Urology [address] [address] Mamadou Hernandez MD [address] [address] documented as of this encounter Visit Diagnoses Not on filedocumented in this encounter Care Teams Bobbin Inspector Relationship Specialty Start Date End Date Pablo Rivero MD [address] [facility] [place] [address] PCP - General Family Medicine 06/23/22 [place] [address] Cardiovascular Disease 10/27/22 documented as of this encounter
--- OUTSIDE RECORDS SUMMARY | 2024-09-22 17:06 | XMS_ITS | Patient Health Record ---
Author Organization [facility] Address [address] [place] [address] Care Team Providers Care Technology Sales Specialist Name Role Phone BASILIA CAROLINA Primary Care Provider Collins Rivera Jr Unavailable Allergies Allergen (clinical drug ingredient) Drug/Non Drug Allergy documented on EMR Reaction Allergy Type Onset Date Status tetracycline Tetracycline HCl Unknown Drug Allergy Active Reason For Referral No Information Medications Medication [...] 50 MCG (1999) Oral for 90 Active Atorvastatin Calcium 20 [...] Problem Status W/U Status Risk Notes Problem 399997229 Colon cancer screening (Z12.11) Active confirmed Problem 33105880 Encounter for ot her preprocedural examination (Z01.818) Active confirmed Problem 489975365 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 Problem 609032283 Gastroesophageal reflux disease without esophagitis (K21.9) Active confirmed Problem Esophageal reflux finding (237541800) Gastroesophageal reflux (K21.9) Active confirmed Problem 123917016 Adenomatous poly p of colon, unspecified part of colon (D12.6) Active confirmed Problem Pedroza's esophagus (231029759) 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 Plan Of Treatment Future Test Test Name Order Date COLONOSCOPY 11/11/2014 COLONOSCOPY 02/06/2018 UPPER GI ENDOSCOPY 08/22/2021 COLONOSCOPY 08/22/2021 UPPER GI ENDOSCOPY 07/19/2023 Next Appt Details Provider Name:Collins miller , 10/09/2024 01:35:00 PM, [address] [place] [address], [address], [place], [address], Insurance Providers Payer Name Payer Address Payer Phone Subscriber Number Group Number Insured Name Patient Relationship to Insured Coverage Start Date Coverage End Date [facility] Insurance ([employer]) [address] [place] [address] [id number] MARIO SUAREZ Self - patient is the insured Medical [...]
--- OUTSIDE RECORDS SUMMARY | 2024-09-22 17:06 | XMS_ITS | Encounter Summary ---
Author Organization [facility] Address [address] [place] [address] Care Team Providers Care Special Class Welder Name Role Phone Pablo Rivero NP Primary Care Provider [phone] Encounter Details Date Type Department Care Team ([facility] st Contact Info) Description 09/22/2024 Telephone [facility] Hematology Oncology [address] [place] [address] Guillermina Irving, DO [address] [place] [address] Social History Tobacco Use Types Packs/Day Years [...] as of this encounter Progress Notes * Wilda Iyer MA - 09/22/2024 4:30 PM EDT [facility] * Esha Aldridge - 09/22/2024 9:54 AM EDT JASPER PATIENT Patient states his lab order has and he [facility] [place] documented in this encounter Plan of Treatment Upcoming Encounters Date Type Department Care Team (Late st Contact Info) Description 10/21/2024 1:30 PM EDT Office Visit [facility] Hematology Oncology [address] [place] [address] Guillermina Irving, [address] [place] [address] documented as of this encounter Visit Diagnoses Not on filedocumented in this encounter Care Teams Special Class Welder Relationship Specialty Start Date End Date Pablo Rivero NP [address] [place], [place] PCP - General Family Medicine 04/10/18 documented as of this encounter
--- OUTSIDE RECORDS SUMMARY | 2024-09-22 17:06 | XMS_ITS | Encounter Summary ---
Author Organization [facility] Address [address] [place], [place] [address] Care Team Providers Care Hearing Aid Assembly Supervisor Name Role Phone Pablo Rivero MD Primary Care Provider [phone] Memo Grant MD Unavailable [phone] Reason for Visit * Reason Comments Other Medical record reque st Encounter Details Date Type Department Care Team ([facility] st Contact Info) Description 06/21/2023 Telephone [facility] Urologic Surgery [address] [address] Mamadou Hernandez MD [address] [address] Other (Medical record request) Social [...] 10/31/2024 10:00 AM EDT Office Visit [facility] Urology [place] [address] [place] [address] Mamadou Hernandez MD [address] [address] documented as of this encounter Visit Diagnoses Not on filedocumented in this encounter Care Teams Hearing Aid Assembly Supervisor Relationship Specialty Start Date End Date Pablo Rivero MD [address] [facility] [address] [place] [address] PCP - General Family Medicine 06/23/22 [place] [address] Cardiovascular Disease 10/27/22 documented as of this encounter
--- OUTSIDE RECORDS SUMMARY | 2024-09-22 17:06 | XMS_ITS | Encounter Summary ---
Author Organization [facility] Address [address] [place] [address] Care Team Providers Care Lacer And Tier Name Role Phone Pablo Rivero MD Primary Care Provider [phone] Memo Grant MD Unavailable [phone] Encounter Details Date Type Department Care Team (Late st Contact Info) Description 08/24/2023 Telephone [facility] Urologic Surgery [address] [address] Mamadou Hernandez MD [address] [address] Social History Tobacco Use Types [...] 10:00 AM EDT Office [facility] Urology [place] [address] [place] [phone] Mamadou Hernandez MD [address] [place] [address] documented as of this encounter Visit Diagnoses Not on filedocumented in this encounter Care Teams Lacer And Tier Relationship Specialty Start Date End Date Pablo Rivero MD 262 [facility] [place] [address] PCP - General Family Medicine 06/23/22 [place] [address] Cardiovascular Disease 10/27/22 documented as of this encounter
--- OUTSIDE RECORDS SUMMARY | 2024-09-22 17:06 | XMS_ITS ---
Author Organization [facility] Address [address] [place] [address] Care Team Providers Care Plug Maker Name Role Phone Pablo Rivero Primary Care Provider [phone] Active Problems Problem Noted Date Diagnosed Date Prostate cancer 01/24/2017 Current Oncology Plans No current plan information found. Past Plans ONCOLOGY INFUSION THERAPY Plan Name Start Date Discontinue Date Treatment Medications Discontinue Reason Plan Provider [facility] BCN LEUPROLIDE 45 MG (ELIGARD) EVERY 6 MONTHS 12/08/2021 07/19/2023 leuprolide (ELIGARD) Therapy Complete Brown Damon MD Radiation Treatments * No radiation treatments are documented for this patient in [facility]. Treatments may have been administered in another system.
--- OUTSIDE RECORDS SUMMARY | 2024-09-22 17:06 | XMS_ITS ---
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) Active confirmed Encounters Encounter Location Date Provider Diagnosis [facility] [address] [place] [id number] 08/28/2023 Collins Salmeron Jr Mcdonald''s esophagus 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 Assessments Encounter Date Diagnosis (ICD Code) Assessment Notes Treatment Notes Treatment Clinical Notes Section Notes 08/28/2023 Mcdonald''s esophagus without dysplasia (ICD-10 - K22.70) Plan Of Treatment Next Appt Details Provider Name:Collins miller Jr, 10/09/2024 01:35:00 PM, [address], [address], [place], [address], Progress Notes * MARIO SUAREZ MDOB:[birth year] (68 yo M)Acc No.[id number]:08/28/2023 EGD/MAC Patient:?MARIO SUAREZ Provider:?Collins Salmeron MD :1955???Age:67 Y???Sex:Male Anastacio e:08/28/2023 Address: [place] Pcp:BASILIA CAROLINA Subjective: * Chief Complaints: * ???1. Mcdonald's esophagus. * Medical History:? Objective: * Vitals:? Assessment: * Assessment: 1.?Mcdonald''s esophagus with out dysplasia - K22.70 (Primary)??? Plan: * Treatment: * Procedure Codes:?74809 UPPER GI ENDOSCOPY, BIOPSY * * The named appointment provid er may or may not be the originator of this progress note, and it is not deemed complete until electronically signed by the appointment provider. Sign off status: Pending * Provider:?Collins Salmeron MD Date:?0 08/28/2023 Generated for Stacey pfeiffer/Cammy/Lorenzoitting on:?09/22/2024 05:06 PM EDT
--- OUTSIDE RECORDS SUMMARY | 2024-09-22 17:06 | XMS_ITS ---
Author Organization [facility] Address [address] [place] [address] Care Team Providers Care Assisted Living Manager Name Role Phone BEVERLYLORNE BASILIA Primary Care Provider Collins Rivera Jr REASON FOR VISIT pathology Encounters Encounter Location Date Provider Diagnosis [facility] [address] [place] [address] 09/03/2023 Collins Salmeron Jr Plan Of Treatment Next Appt Details Provider Name:Collins miller Jr, 10/09/2024 01:35:00 PM, [address], [address], [place], [address], Progress Notes * MARIO SUAREZ MDOB:[birth year] (67 yo M)Acc No.[id number]:09/03/2023 Patient:?MARIO SUAREZ :1955???Age:67 Y???Sex:Male Address:[place] [address] * true * Date:? Generated for Printi margarette/Cammy/eTransmitting on:?09/22/2024 05:05 PM EDT
--- OUTSIDE RECORDS SUMMARY | 2024-09-22 17:06 | XMS_ITS | Encounter Summary ---
Author Organization [facility] Address [address] [place] [address] Care Team Providers Care E Learning Specialist Name Role Phone Pablo Rivero NP Primary Care Provider Encounter Details Date Type Department Care Team (Late st Contact Info) Description 04/03/2024 2:39 PM EDT Hospital Encounter TH HISTORIC ENCOUNTERS EASTERN CONVERSION ONLY Guillermina Irving, [address] [place] [address] Social History Tobacco Use Types Packs/Day Years [...] in follow-up upon a recommendation from his circuit board assembler. 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: Labs ordered [...] Sign Maryanne Irving DO - Hematology/Oncology Sister [facility] CC: Pablo Rivero documented in this encounter Plan of Treatment Upcoming Encounters Date Type Department Care Team (Late st Contact Info) Description 10/21/2024 1:30 PM EDT Office Visit [facility] Hematology Oncology [address] [place] [address] Guillermina Irving DO [address] [place] [address] documented as of this encounter Visit Diagnoses Not on filedocumented in this encounter Care Teams E Learning Specialist Relationship Specialty Start Date End Date Pablo Rivero, CHIP LOFT WORKER [address] [place], [place] PCP - General Family Medicine 04/10/18 documented as of this encounter
--- OUTSIDE RECORDS SUMMARY | 2024-09-22 17:06 | XMS_ITS | Encounter Summary ---
Author Organization [facility] Address [address] [place] [address] Care Team Providers Care Cook 3 Pastry Name Role Phone Pablo Rivero MD Primary Care Provider [phone] Memo Grant MD Unavailable [phone] Encounter Details Date Type Department Care Team (Late st Contact Info) Description 08/28/2023 Scanned Document [facility] Urologic Surgery [address] [place] [address] Guillermina Irving, DO [address] [place] [address] Social History Tobacco Use Types Packs/Day Years [...] Description 10/31/2024 10:00 AM EDT Office Visit [facility] Urology [place] [address] [place] [phone] Mamadou Hernandez MD [address] [place] [address] documented as of this encounter Visit Diagnoses Not on filedocumented in this encounter Care Teams Cook 3 Pastry Relationship Specialty Start Date End Date Pablo Rivero MD 262 [facility] [place] [address] PCP - General Family Medicine 06/23/22 [place] [address] Cardiovascular Disease 10/27/22 documented as of this encounter
--- OUTSIDE RECORDS SUMMARY | 2024-09-22 17:06 | XMS_ITS | Encounter Summary ---
Author Organization [facility] Address [address] [place] [address] Care Team Providers Care Customer Logistics Manager Name Role Phone Pablo Rivero MD Primary Care Provider [phone] Memo Grant MD Unavailable [phone] Encounter Details Date Type Department Care Team (Late st Contact Info) Description 06/16/2022 Scanned Document [address] [address] Tonya Hernandez MD [address] [place] [address] Social History Tobacco Use Types Packs/Day Years [...] Description 10/31/2024 10:00 AM EDT Office Visit [facility] Urology [place] [address] [place] [address] Mamadou Hernandez MD [address] [place] [address] documented as of this encounter Visit Diagnoses Not on filedocumented in this encounter Care Teams Customer Logistics Manager Relationship Specialty Start Date End Date Pablo Rivero MD [address] [place] [address] PCP - General Family Medicine 06/23/22 Memo Grant [place] [address] Cardiovascular Disease 10/27/22 documented as of this encounter
--- OUTSIDE RECORDS SUMMARY | 2024-09-22 17:06 | XMS_ITS | Encounter Summary ---
Author Organization [facility] Address [address] [place] [address] Care Team Providers Care Stereo Equipment Salesperson Name Role Phone Pablo Rivero MD Primary Care Provider [phone] Memo Grant MD Unavailable [phone] Encounter Details Date Type Department Care Team (Late st Contact Info) Description 09/26/2022 Scanned Document [facility] Urologic Surgery [place] [address] [address] Mamadou Hernandez MD [address] [id number] Social History Tobacco Use Types Packs/Day Years [...] 10/31/2024 10:00 AM EDT Office Visit [facility] Urology [place] [address] [place] [address] Mamadou Hernandez MD [address] [place] [address] documented as of this encounter Visit Diagnoses Not on filedocumented in this encounter Care Teams Stereo Equipment Salesperson Relationship Specialty Start Date End Date Pablo Rivero MD [address] [place] [address] PCP - General Family Medicine 06/23/22 Memo Grant MD [facility] [place] [address] Cardiovascular Disease 10/27/22 documented as of this encounter
--- OUTSIDE RECORDS SUMMARY | 2024-09-22 17:06 | XMS_ITS | Clinical Summary ---
Author Organization [facility] Address [address] [place], [place] [address] Care Team Providers Care Sapphire Stylus Grinder Name Role Phone Pablo Rivero MD Primary Care Provider [phone] Memo Grant MD Unavailable [phone] Allergies Active Allergy Reactions Criticality Noted [...] AM EDT Office Visit [facility] Urology [place] [address] [place] [address] Mamadou Hernandez MD [address] [place] [address] Health Maintenance Due Date Last Done Comments [...] 10:25 AM 11/15/2022 8:03 PM Care Teams Sapphire Stylus Grinder Relationship Specialty Start Date End Date Pablo Rivero MD [address] [place] [address] [place] [address] PCP - General Family Medicine 06/23/22 [place] [address] Cardiovascular Disease 10/27/22
--- OUTSIDE RECORDS SUMMARY | 2024-09-22 17:06 | XMS_ITS | Encounter Summary ---
Author Organization [facility] Address [address] [place] [address] Care Team Providers Care Fisher Scallop Name Role Phone Pablo Rivero MD Primary Care Provider [phone] Memo Grant MD Unavailable [phone] Reason for Visit * Reason Comments Advice Only Encounter Details Date Type Department Care Team ([facility] Contact Info) Description 03/22/2023 Telephone [facility] Urologic Surgery [address] [phone] Mamadou Hernandez MD [address] [place] [address] Advice Only Social History Tobacco Use [...] Description 10/31/2024 10:00 AM EDT Office Visit [facility] Urology [place] [address] [place] [address] Mamadou Hernandez MD [address] [address] documented as of this encounter Visit Diagnoses Not on filedocumented in this encounter Care Teams Fisher Scallop Relationship Specialty Start Date End Date Pablo Rviero MD 262 [facility] [place] [address] PCP - General Family Medicine 06/23/22 Memo Grant MD [address] [place] [address] Cardiovascular Disease 10/27/22 documented as of this encounter
--- OUTSIDE RECORDS SUMMARY | 2024-09-22 17:06 | XMS_ITS | Encounter Summary ---
Author Organization [facility] Address [address] [place] [address] Care Team Providers Care Director Speech Language Name Role Phone Pbalo Rivero MD Primary Care Provider [phone] Memo Grant MD Unavailable [phone] Reason for Visit * Reason Comments Appointment Encounter Details Date Type Department Care Team ([facility] st Contact Info) Description 02/23/2023 Telephone [facility] Urologic Surgery [address] [phone] Mamadou Hernandez MD [address] [place] [address] Appointment Social History Tobacco Use Types [...] Office Visit [facility] Urology [place] [address] [place] [address] Mamadou Hernandez MD [address] [address] documented as of this encounter Visit Diagnoses Not on filedocumented in this encounter Care Teams Director Speech Language Relationship Specialty Start Date End Date Pablo Rivero MD 262 [facility] [place] [address] PCP - General Family Medicine 06/23/22 Memo Grant [place] [address] Cardiovascular Disease 10/27/22 documented as of this encounter
--- OUTSIDE RECORDS SUMMARY | 2024-09-22 17:06 | XMS_ITS ---
Author Organization [facility] Address [address] [place] [address] Care Team Providers Care Film Waxer Name Role Phone BASILIA CAROLINA Primary Care [...] [facility] [address] [place] [address] 07/19/2023 Collins Salmeron Jr Mcdonald's esophagus without [...] 01:35:00 PM, [address], [address], [place], [address], Progress Notes * ANTHONY SUAREZ MDOB:[birth year] (67 yo M)Acc No.[id number]:07/19/2023 Progress Notes Patient:?ANTHONY SUAREZ Provider:?Collins Salmeron MD :1955???Age:67 Y???Sex:Male Anastacio e:07/19/2023 Address:[place] [address], [id number] Pcp:BASILIA CAROLINA Subjective: * Chief Complaints: * [...] MD Date:?0 07/19/2023 Generated for Stacey pfeiffer/Cammy/eTstevesmitting on:?09/22/2024 05:06 PM EDT History and Physical Notes * HPI [...]
[2024-09-27 15:59] LABS: Vitamin B1 24 nmol/L (8-30)
== END 2024-09-22 14:38 | disposition home or self-care (01) ==
LOC: HO.HMGCLDS 14:37
PROVIDERS: PCP Nurse Practitioner Family; Visit Provider Nurse Practitioner Family
DX: E53.8 Deficiency of other specified B group vitamins (principal); D64.9 Anemia, unspecified
CPT/HCPCS: 36415; 80053; 82607; 82746; 84425; 85025

== ENCOUNTER 2024-10-13 13:36 | Outpatient (AMB) | payer OTHER, SELFPAY ==
[2024-10-13 13:43] VITALS: BP 106/78; PULSE 52; O2SAT 99; BMI 29.7
--- NOTE | 2024-10-13 13:43 | MHC.OFFVIS ---
Vital Signs 10/13/24 13:43 Height 6 ft Weight 219 lb 5.759 oz BMI 29.7 BP 106/78 Blood Pressure Location Rt brachial Position Sitting Pulse 52 Pulse Source Pulse Oximeter Pulse Oximetry (%) 99 Oxygen Delivery Method Room Air Intake Visit Reasons: Cough Allergies tetracycline [Tetracycline] Allergy (Intermediate, Verified 10/13/24 14:04) anaphylaxis bee venom protein (honey bee) Allergy (Unknown, Verified 10/13/24 14:04) swelling, hives Medication List - Last Reconciled 10/13/24 by Lucy Wilson MD albuterol sulfate 90 mcg/actuation 2 puffs inhalation Q6H PRN atorvastatin 20 mg PO DAILY calcium carbonate (Calcium 500) 500 mg PO DAILY cholecalciferol (vitamin D3) (Vitamin D3) 50 mcg PO DAILY cyanocobalamin (vitamin B-12) 1,000 mcg sublingual DAILY 90 days epinephrine (EpiPen 2-Reji) 0.3 mg (0.3 mL) IM Q10M PRN 30 days folic acid PO DAILY folic acid 1 mg PO DAILY losartan 50 mg (1/2 x 100 mg) PO DAILY metoprolol tartrate 25 mg PO BID pantoprazole 20 mg PO DAILY paroxetine HCl 30 mg PO QAM 90 days Do you need a note to return to daycare/school/sports/work: No HPI HPI Cough: Details: MR. SUAREZ 59 YEARS OLD VERY PLEASANT GENTLEMAN IS HERE FOR FOLLOW-UP AFTER 4 MONTHS. HE HAS BEEN USING CPAP MORE REGULARLY EVERY NIGHT. HE LIKES THE PRESENT F-40 MASK AND IS MORE COMFORTABLE. HE DENIES ANY COUGH ESPECIALLY ANY COUGH RELATED TO THE CPAP MASK. RECENTLY HE HAD A SEIZURE ATTACK AND ADMITTED TO [facility] FOR A FEW DAYS NOW HE IS HAVING OUTPATIENT FOLLOW-UP. HE DID USE KEPPRA FOR A FEW WEEKS AND THEN IT WAS STOPPED. HE HAS LOST A FEW LB OF WEIGHT AND IS HAPPY. ABOUT [facility] Medical History Eyelid retraction unspecified eye, unspecified lid Prostate CA Papillary adenocarcinoma of left kidney Coronary artery calcification Coronary atherosclerosis Ascending aortic aneurysm Thoracic aortic aneurysm HTN (hypertension) Personal history of nicotine dependence FAUSTO (obstructive sleep apnea) Snoring Somnolence, daytime Obesity Barretts esophagus GERD (gastroesophageal reflux disease) Cannabinoid hyperemesis syndrome Osteopenia On beta hilary at home SOB (shortness of breath) COPD (chronic obstructive pulmonary disease) Asthma Nodule on liver Depression Foraminal stenosis of lumbar region Surgical History History of cardiac cath History of prostatectomy History of partial nephrectomy History of total right knee replacement (TKR) History of total knee replacement (TKR) History of knee surgery History of esophagogastroduodenoscopy (EGD) H/O colonoscopy Lipoma of back Family History Father Leukemia Substance use disorder Mother Breast cancer CVD (cardiovascular disease) Takotsubo cardiomyopathy Brother Substance use disorder Sister No problems noted. Maternal Aunt No problems noted. Maternal Grandfather No problems noted. Maternal Grandmother No problems noted. Maternal Uncle No problems noted. Paternal Aunt No problems noted. Paternal Grandfather No problems noted. Paternal Grandmother No problems noted. Paternal Uncle No problems noted. Social History Housing: House Alcohol intake: current Alcohol intake frequency: 3 or more drinks per day Patient Tobacco Use Status: Former Tobacco user Years Smoked: 35 years ago e-Cigarette/Vaping Use: Never Used Second Hand Smoke Exposure: No service: No Current occupational status: retired Cognitive needs: No Hearing needs: No Vision needs: No Review of Systems Const All systems reviewed & are unremarkable except as noted in HPI and below Eyes Reports no additional complaints ENT Reports no additional complaints Card Denies chest pain, Denies irregular heart rhythm and Denies leg edema Resp Reports as per HPI GI Reports no additional complaints Reports no additional complaints Musc Reports arthralgias (Some pain in knees on walking) Skin/Breast Reports system reviewed and no additional complaints, except as documented Neuro Reports no additional complaints Psych Reports depression (Controlled with med) Physical Exam Vital Signs: Last Vital Signs Pulse 52 10/13/24 13:43 BP 106/78 10/13/24 13:43 Pulse Ox 99 10/13/24 13:43 Oxygen Delivery Method Room Air 10/13/24 13:43 BMI result Body Mass Index 29.7 Const General: comfortable, no acute distress, alert and awake Orientation/consciousness: patient oriented x3 HEENT Head: Yes normal to inspection General nose exam: No nasal polyps present and No nasal discharge present Face and sinus: Yes sinuses nontender Mouth: oropharynx abnormals (Very narrow or crowded, Mallampati class 4) Throat: Yes posterior oropharynx normal Eyes General: appearance normal, both eyes and all related structures Neck Neck: Yes normal visual inspection, Yes no lymphadenopathy, Yes trachea midline and Yes no JVD Thyroid: Thyroid normal Chest Chest palpation & inspection: normal inspection of the chest, normal palpation of entire chest wall and no tenderness Resp Other: Percussion note is resonant, breath sounds are distant on both sides with prolonged expiratory phase. No wheezing or crepitations are heard this time. Cardio Palpation: normal PMI Rate: regular rate Rhythm: regular rhythm Heart sounds: no gallops and no murmurs GI Palpation (GI): Soft to palpation, nontender, No hepatosplenomegaly present and no masses Auscultation: normal bowel sounds Back/Spine/Pelvis Thoracic/Lumbar Spine: thoracic and lumbar spine normal to inspection Skin General skin exam: no rashes or lesions noted Neuro General: patient oriented x3 and no focal motor deficits Cranial nerves: Yes CN's II-XII intact bilaterally Extrem General: Yes normal to inspection, Yes no clubbing, cyanosis or edema and Yes no calf tenderness Psych Speech and movement: Normal speech and movement present Results Reviewed Results Reviewed: COMPLIANCE FOR THE LAST 30 NIGHTS IS REVIEWED AND HE HAS USED 25/30 NIGHTS, 83% OF THE NIGHTS. AVERAGE USE IT PER NIGHT 5 HOURS 49 MINUTES. THERE IS NO SIGNIFICANT AIR LEAK. RESIDUAL AHI 4.0 Assessment & Plan Assessment & Plan (1) Obesity: Comment: HE IS MODERATELY OBESE, CURRENT BMI 29.8, HAS LOST 7 LB OF WEIGHT SINCE HIS LAST VISIT. NECK CIRCUMFERENCE IS 17 IN. MALLAMPATI CLASS 3 Code(s): E66.9 - Obesity, unspecified Category: Medical Plan: COMMENDED FOR LOSING WEIGHT AND ADVISE THAT HE SHOULD CONTINUE TO WATCH HIS DIET CONTINUE TO WALK DAILY AND CONTINUE TO LOSE WEIGHT. (2) FAUSTO on CPAP: Comment: He does have obstructive sleep apnea, has been doing very well was using CPAP. Currently using his CPAP mask with the F-40 mask which is more comfortable. Code(s): G47.33 - Obstructive sleep apnea (adult) (pediatric); Z99.89 - Dependence on other enabling machines and devices Category: Medical Plan: Advised to continue using the mask every night and at least for 5 hours every night. Benefits of continued using CPAP or explained to him. (3) COPD (chronic obstructive pulmonary disease): Comment: Mild COPD per PFT . Currently using only albuterol HFA as needed, . His shortness of breath is mainly experienced when he climbs 1 flight of stairs or walks up [place] . COPD is actually not causing much symptoms. And he hardly needs to use the rescue inhaler. Code(s): J44.9 - Chronic obstructive pulmonary disease, unspecified Category: Medical Qualifiers: COPD type: unspecified COPD Qualified Code(s): J44.9 - Chronic obstructive pulmonary disease, unspecified Plan: Encouraged to lose more weight and try to walk daily Coding Level of Care Code Est Pt Level 3 (88134) Diagnoses Obesity E66.9 FAUSTO on CPAP G47.33; Z99.89 Chronic obstructive pulmonary disease, unspecified COPD type J44.9 COPD type: unspecified COPD
--- OUTSIDE RECORDS SUMMARY | 2024-10-13 15:05 | XMS_ITS | Encounter Summary ---
Author Organization [facility] Address [address] [place] [address] Care Team Providers Care Customer Service Analyst Name Role Phone Pablo Rivero MD Primary Care Provider [phone] Memo Grant MD Unavailable [phone] Reason for Visit * Reason Comments Appointment Encounter Details Date Type Department Care Team ([facility] st Contact Info) Description 02/23/2023 Telephone [facility] Urologic Surgery [address] [address] Mamadou Hernandez MD [address] [place] [address] Appointment Social History Tobacco Use Types [...] Assigned at Male 10/23/2022 6:53 AM EDT Legal Sex Male 6:57 PM EST Gender Identity Male 10/23/2022 6:53 AM EDT Sexual Orientation Other 10/23/2022 6: 53 AM EDT documented as of this encounter Miscellaneous Notes * Telephone Encounter - Angelika Sanchez - 02/23/2023 10:52 AM EDT Delia rescheduled documented in this encounter Plan of Treatment Upcoming Encounters Date Type Department Care Team (Late st Contact Info) Description 10/31/2024 10:00 AM EDT Office Visit [facility] Urology [place] [address] [place] [address] Mamadou Hernandez MD [address] [facility] [address] [place] [address] documented as of this encounter Visit Diagnoses Not on filedocumented in this encounter Care Teams Customer Service Analyst Relationship Specialty Start Date End Date Pablo Rivero MD [address] [place] [address] PCP - General Family Medicine 06/23/22 Memo Grant [place] [address] Cardiovascular Disease 10/27/22 documented as of this encounter
--- OUTSIDE RECORDS SUMMARY | 2024-10-13 15:05 | XMS_ITS | Encounter Summary ---
Author Organization [facility] Address [address] [place] [address] Care Team Providers Care Instructor Creeler Name Role Phone Pablo Rivero MD Primary Care Provider [phone] Memo Grant MD Unavailable [phone] Encounter Details Date Type Department Care Team (Late st Contact Info) Description 09/26/[address] [facility] [place] [place] Urologic Surgery [place] [address] [address] Mamadou Hernandez MD 85 [facility] Kier[place] [address] [place] [address] Social History Tobacco Use Types Packs/Day [...] Description 10/31/2024 10:00 AM EDT Office Visit [facility] Urology [place] [address] [place] [address] Mamadou Hernandez MD [address] [place] [address] documented as of this encounter Visit Diagnoses Not on filedocumented in this encounter Care Teams Instructor Creeler Relationship Specialty Start Date End Date Pablo Rivero MD [address] [facility] [place] [address] PCP - General Family Medicine 06/23/22 [place] [address] Cardiovascular Disease 10/27/22 documented as of this encounter
--- OUTSIDE RECORDS SUMMARY | 2024-10-13 15:05 | XMS_ITS ---
Author Organization [facility] Address [address] [place] [address] Care Team Providers Care Grinder Operator External Tool Name Role Phone BASILIA CAROLINA Primary Care Provider Collins Rivera Jr Unavailable Allergies Allergen (clinical drug ingredient) Drug/Non Drug Allergy documented on EMR Reaction Allergy Type Onset Date Status tetracycline Tetracycline HCl Unknown Drug Allergy Active REASON FOR VISIT Patient presents today for an office recall colon /EGD Medications Medication SIG (Take, Route, Frequency, Duration) Notes Start Date End Date Status Metoprolol Tartrate 25 MG Oral for 90 Active Pantoprazole Sodium 20 MG TAKE 1 TABLET BY MOUTH EVERY DAY FOR 30 DAYS for 90 Active PARoxetine HCl 30 MG 1 tablet in the mor hellen Orally Once a day Active Vitamin D3 50 MCG (1999) Oral for 90 Active Atorvastatin Calcium 20 MG 1 tablet Oral ly Once a day Active Losartan Potassium 50 MG 1 tablet Orally Once a day Active Calcium 1 tab Oral for 14 days Active Vitamin B12 Active Social History Alcohol [...] Positive Section Notes: drinks beer Vital Signs Blood pressure systolic 111 mm Hg 10/10/19 25 Blood pressure diastolic 77 mm Hg 025 Height 72 in 10/09/2024 Weight 216 lbs 10/09/2024 BMI 29.29 kg/m2 10/09/2024 Encounters Encounter Location Date Provider Diagnosis [facility] [address] [place] [address] 10/09/2024 Collins Salmeron Jr Colon cancer screening Z12.11 Assessments Encounter Date Diagnosis (ICD Code) Assessment Notes Treatment Notes Treatment Clinical Notes Section Notes 10/09/2024 Colon cancer screening (ICD-10 - Z12.11) Plan Of Treatment Future Test Test Name Order Date COLONOSCOPY 10/09/2024 Next Appt Details Provider Name:Collins miller Jr, 12/09/2024 09:10:00 AM, [address] [place] [address] , [place], [place], [id number], Progress Notes * MARIO SUAREZ MDOB:[birth year] (68 yo M)Acc No.[id number]:10/09/2024 Progress Notes Patient:?MARIO SUAREZ Provider:?Collins Salmeron MD :1955???Age:68 Y???Sex:Male Anastacio e:10/09/2024 Address:[address] Pcp:BASILIA CAROLINA Subjective: * Chief Complaints: * ???1. Patient presents today for an office recall colon /EGD. * Medical History:?Colon polyp s, colonoscopy 12/07/21, 10 mm tubular adenoma, three-year followup, Moderate sized internal hemorrhoids, Hypertension, Depression, Hyperlipidemia, Prostate cancer status post radiation therapy for elevated PSA after prostatectomy, off Eligard, COPD, FAUSTO/CPAP, Gastroesophageal reflux disease, EGD 12/07/21 small area of 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, two-year followup, Left kidney cystic lesion/ surgery and partial nephrectomy with renal cell carcinoma, Ascending aortic aneurysm. * Surgical History:?radical pr ostatectomy for prostate cancer , Bilateral knee replacements [...] MG Tablet 1 tablet Orally Once a day , Taking Losartan Potassium 50 MG Tablet 1 tablet Orally Once a day , Taking PARoxetine HCl 30 MG Tablet 1 tablet in the morning Orally Once a day , Taking Vitamin D3 50 MCG (2000 UT) Tablet Oral , Taking Metoprolol Tartrate 25 MG Tablet Oral , Taking Pantoprazole Sodium 20 MG Tablet Delayed Release TAKE 1 TABLET BY MOUTH EVERY DAY FOR 30 DAYS , Discontinued Eligard 7.5 MG Kit as directed Subcutaneous , Medication List reviewed and reconciled with the patient * Allergies:?Tetracycline HCl. Objective: * Vitals:?Wt:216lbs, Ht: 72 in , BMI:29.29Index, BP:111/77mm Hg, Wt-k.98. Assessment: * Assessment: 1.?Colon cancer screening - Z12.11 (Primary)??? Plan: * Treatment: * Preventive Medicine:? ??Counseling:?Care goal follow-up plan:?Above Normal BMI Follow-up?Giving encouragement to exercise,?BMI management provided?Yes.? ??Screenings:?Fall Risk Screening?Fall Risk Assessment:?One fall with injury in the past year had seizure 08/2024,?Screening:?One fall with injury in the past year,?Assessment:?Not performed, no reason specified,?Plan of Care:?Documented.? * * The named appointment provid er may or may not be the originator of this progress note, and it is not deemed complete until electronically signed by the appointment provider. Sign off status: Pending * Provider:?Collins Salmeron MD Date:?0 10/09/2024 Generated for Stacey pfeiffer/Cammy/Lorenzoitting on:?10/13/2024 03:05 PM EDT
--- OUTSIDE RECORDS SUMMARY | 2024-10-13 15:05 | XMS_ITS | Encounter Summary ---
Author Organization [facility] Address [address] [place] [address] Care Team Providers Care Coo & Co Founder Name Role Phone Pablo Rivero MD Primary Care Provider [phone] Memo Grant MD Unavailable Encounter Details Date Type Department Care Team (Late st Contact Info) Description 08/24/2023 Telephone [facility] Urologic Surgery [address] [address] Mamadou Hernandez MD [address] [address] Social History Tobacco Use Types [...] Description 10/31/2024 10:00 AM EDT Office Visit [facility] Urology [place] [address] [place] [address] Mamadou Hernandez MD [address] [address] documented as of this encounter Visit Diagnoses Not on filedocumented in this encounter Care Teams Coo & Co Founder Relationship Specialty Start Date End Date Pablo Rivero MD [address] [facility] [place] [address] PCP - General Family Medicine 06/23/22 [place] [address] Cardiovascular Disease 10/27/22 documented as of this encounter
--- OUTSIDE RECORDS SUMMARY | 2024-10-13 15:05 | XMS_ITS | Encounter Summary ---
Author Organization [facility] Address [address] [place] [address] Care Team Providers Care Trial Manager Name Role Phone Pablo Rivero MD Primary Care Provider [phone] Memo Grant MD Unavailable [phone] Reason for Visit * Reason Comments Advice Only Encounter Details Date Type Department Care Team ([facility] st Contact Info) Description 03/22/[address] [facility] Urologic Surgery [address] [phone] Mamadou Hernandez MD [address] [place] [address] Advice Only Social History Tobacco Use [...] 10/31/2024 10:00 AM EDT Office Visit [facility] Urology [place] [address] [place] [address] Mamadou Hernandez MD [facility] [address] [place] [address] documented as of this encounter Visit Diagnoses Not on filedocumented in this encounter Care Teams Trial Manager Relationship Specialty Start Date End Date Pablo Rivero MD 262 [facility] [place] [address] PCP - General Family Medicine 06/23/22 Memo Grant MD [place] [address] Cardiovascular Disease 10/27/22 documented as of this encounter
--- OUTSIDE RECORDS SUMMARY | 2024-10-13 15:05 | XMS_ITS | Clinical Summary ---
Author Organization [facility] Address [address] [place] [phone] Phone Care Team Providers Care Rubber Roller Grinder Name Role Phone Pablo Rivero NP Primary [...] Problem Noted Date Diagnosed Date Prostate cancer ([facility]/HCC V24, CMS/HCC V28) 01/24 Encounters Date Type Department Care Team Description 09/22/2024 Telephone [facility] Hematology Oncology [address] [place] [phone] Guillermina Irving DO from Last 3 Months [...] [facility] Hematology Oncology [address] [place] [phone] Guillermina Irving DO [address] [place] [address] Health Maintenance Due Date Last Done Comments [...] patient's age to complete this topic Insurance COUNTS INCLUDE 234 [facility]EDS AT [facility] Care Teams Rubber Roller Grinder Relationship Specialty Start Date End Date Pablo Rivero NP [address] [place], [place] PCP - General Family Medicine 04/10/18
--- OUTSIDE RECORDS SUMMARY | 2024-10-13 15:05 | XMS_ITS ---
Author Organization [facility] Address [address] [place] [address] Care Team Providers Care Software Client Architect Name Role Phone Pablo Rivero Primary Care Provider Active Problems Problem Noted Date Diagnosed Date Prostate cancer 01/24/2017 Current Oncology Plans No current plan information found. Past Plans ONCOLOGY INFUSION THERAPY Plan Name Start Date Discontinue Date Treatment Medications Discontinue Reason Plan Provider [facility]N LEUPROLIDE 45 MG (ELIGARD) EVERY 6 MONTHS 12/08/2021 07/19/2023 leuprolide (ELIGARD) Therapy Complete Brown Damon MD Radiation Treatments * No radiation treatments are documented for this patient in [facility]. Treatments may have been administered in another system.
--- OUTSIDE RECORDS SUMMARY | 2024-10-13 15:05 | XMS_ITS | Encounter Summary ---
Author Organization [facility] Address [address] [place] [address] Care Team Providers Care Precision Lens Generator Name Role Phone Pablo Rivero MD Primary Care Provider [phone] Memo Grant MD Unavailable [phone] Encounter Details Date Type Department Care Team (Late st Contact Info) Description 06/16/2022 Scanned Document [address] [address] Tonya Hernandez MD [address] [place] [address] Social History Tobacco Use Types Packs/Day Years [...] Office Visit [facility] Urology [place] [address] [place] [address] Mamadou Hernandez MD [address] [place] [address] documented as of this encounter Visit Diagnoses Not on filedocumented in this encounter Care Teams Precision Lens Generator Relationship Specialty Start Date End Date Pablo Rivero MD [address] [place] [address] PCP - General Family Medicine 06/23/22 Memo Grant MD [address] [place] [address] Cardiovascular Disease 10/27/22 documented as of this encounter
--- OUTSIDE RECORDS SUMMARY | 2024-10-13 15:05 | XMS_ITS | Encounter Summary ---
Author Organization [facility] Address [address] [place] [address] Care Team Providers Care Forestry Biology Specialist Name Role Phone Pablo Rivero NP Primary Care Provider [phone] Encounter Details Date Type Department Care Team (Late st Contact Info) Description 04/03/2024 2:39 PM EDT Hospital Encounter TH HISTORIC ENCOUNTERS EASTERN CONVERSION ONLY Guillermina Irving, [address] [place] [address] Social History Tobacco Use Types Packs/Day Years [...] in follow-up upon a recommendation from his facing cutting machine operator. 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: Labs ordered today [...] call urology if the hematuria recurs Sign Maraynne Irving DO - Hematology/Oncology [facility] CC: Pablo Rivero documented in this encounter Plan of Treatment Upcoming Encounters Date Type Department Care Team (Late st Contact Info) Description 10/21/2024 1:30 PM EDT Office Visit [facility] Hematology Oncology [address] [place] [address] Guillermina Irving DO [address] [place] [address] documented as of this encounter Visit Diagnoses Not on filedocumented in this encounter Care Teams Forestry Biology Specialist Relationship Specialty Start Date End Date Pablo Rivero, BUSINESS AND MARKETING TEACHER [address] [place], [place] PCP - General Family Medicine 04/10/18 documented as of this encounter
--- OUTSIDE RECORDS SUMMARY | 2024-10-13 15:05 | XMS_ITS ---
Author Organization [facility] Address [address] [place] [address] Care Team Providers Care Associate Vice President Name Role Phone BEVERLYLORNE BASILIA Primary Care Provider Collins Rivera Jr [phone] REASON FOR VISIT pathology Encounters Encounter Location Date Provider Diagnosis [facility] [address] [place] [address] 09/03/2023 Collins Salmeron Jr Plan Of Treatment Next Appt Details Provider Name:Collins miller Jr, 12/09/2024 09:10:00 AM, [address] [place] [address] , [place], [place], [phone], Progress Notes * MARIO SUAREZ MDOB:[birth year] (67 yo M)Acc No.[id number]:09/03/2023 Patient:?MARIO SUAREZ :1955???Age:67 Y???Sex:Male Address:[place] [address] * true * Date:? Generated for Printi ng/Fapatig/eTransmitting on:?10/13/2024 03:05 PM EDT
--- OUTSIDE RECORDS SUMMARY | 2024-10-13 15:05 | XMS_ITS | Continuity of Care Document ---
Author Organization [facility] Address [address] [facility], [address] d Floor, [address] [place] [address]- Care Team Providers Care Scrub Wheel Operator Name Role Phone EleIlana keys DO Primary Care Physician Encounter [facility] Date(s): 08/27/24 - 10/09/24 [facility] [address], [address] [place] [address]- Attending Physician: Angel Balderas MD Admitting Physician: Angel Balderas MD Encounter Type: Pre-OutPatient One Time Allergies, Adverse Reactions, Alerts Substance Criticality Severity [...] 3:02:00 PM EDT, Route to Pharmacy Electronically, [facility]/pharmacy #[id number], Partial fill upon patient request if the [...] Refills, Maintenance, 08/19/24 3:02:00 PM EDT, Tablet, [facility]/pharmacy #[id number], Partial fill upon patient request if [...] atus Informant Obese class I Confirmed Active Social History Social History Type Response Smoking Status Former smoker, quit more than 30 days ago; Other: QUIT45 YRS AGO; entered on: 08/18/24 Sex Sex Representation Male (finding) Patient Care team information Care Team Personnel Name: Shari Rondon RN Position: S RN Member Role: Primary Care Nurse Name: Esha Bhardwaj RN Position: [facility] SN RN Member Role: Primary Care Nurse Name: Librado Sparks RN Position: S RN Member Role: Primary Care Nurse Name: Kamila Fine RN Position: S RN Member Role: Primary Care Nurse Name: Ilana Marlow DO Position: Reference Physician Member Role: PCP Address: [address] [place] [address] Telecom: Name: Marla Trevino RN Position: [facility] RN Member Role: Primary Care Nurse Name: Nafisa Henderson RN Position: [facility] RN Member Role: Primary Care Nurse Care Team Related Persons Name: SHAQ SUAREZ Insurance Providers Guarantor name: MARIO SUAREZ Health Plan Information #: 1 Payer: [facility] Member Number: [id number] Policy Number: NA Group Number: [id number] Health Plan Information #: 2 Payer: [facility] Member Number: [id number] Policy Number: NA Group Number: [id number]
--- OUTSIDE RECORDS SUMMARY | 2024-10-13 15:05 | XMS_ITS | Patient Health Record ---
Author Organization [facility] Address [address] [place] [address] Care Team Providers Care Trimmer Machine Name Role Phone BASILIA CAROLINA Primary Care [...] for 14 days Active Vitamin B12 Active Immunizations Vaccine Route [...] Positive Section Notes: drinks beer drinks beer drinks beer Problems Problem Type SNOMED Code ICD Code Onset Dates Problem Status W/U Status Risk Notes Problem 515411403 Colon cancer screening (Z12.11) Active confirmed Problem 55276789 Encounter for ot her preprocedural examination (Z01.818) Active confirmed Problem 571213927 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 Problem 791209833 Gastroesophageal reflux disease without esophagitis (K21.9) Active confirmed Problem Esophageal reflux finding (051269347) Gastroesophageal reflux (K21.9) Active confirmed Problem 310963007 Adenomatous poly p of colon, unspecified part of colon (D12.6) Active confirmed Problem Pedroza''s esoph kade without 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) Active confirmed Vital Signs Blood pressure diastolic 77 mm Hg 10/09/2024 Height 72 in 10/09/2024 Blood pressure systolic 111 mm Hg 10/09/2024 Weight 216 lbs 10/09/2024 BMI 29.29 kg/m2 10/09/2024 Encounters Encounter Location Date Provider Diagnosis [facility] [address] [place] [address] 10/09/2024 Collins Salmeron Jr Colon cancer screening Z12.11 [facility] [address] [place] [phone] 10/09/2024 Collins Salmeron Jr Assessments Encounter Date Diagnosis (ICD Code) Assessment Notes Treatment Notes Treatment Clinical Notes Section Notes 10/09/2024 Colon cancer screening (ICD-10 - Z12.11) Plan Of Treatment Future Test Test Name Order Date COLONOSCOPY 11/11/2014 COLONOSCOPY 02/06/2018 UPPER GI ENDOSCOPY 08/22/2021 COLONOSCOPY 08/22/2021 UPPER GI ENDOSCOPY 07/19/2023 COLONOSCOPY 10/09/2024 Next Appt Details Provider Name:Collins miller Jr, 12/09/2024 09:10:00 AM, [address] [facility] , [place], [place], [id number], Insurance Providers Payer Name Payer Address Payer Phone Subscriber Number Group Number Insured Name Patient Relationship to Insured Coverage Start Date Coverage End Date [facility] Insurance ([employer]) [address] [place] [id number] [phone] [id number] MARIO BATRES Self - patient is the insured Medical [...] Ascending aortic aneurysm Surgical History Surgery Date(Month/Year) Left partial nephrectomy Bilateral knee replacements radical prostatectomy for prostate cance r
--- OUTSIDE RECORDS SUMMARY | 2024-10-13 15:05 | XMS_ITS | Clinical Summary ---
Author Organization [facility] Address [address] [place] [address] Care Team Providers Care Service Unit Operator Oil Well Name Role Phone Pablo Rivero Primary Care Provider [phone] Allergies Active Allergy Reactions Criticality Noted Date [...] age to complete this topic Care Teams Service Unit Operator Oil Well Relationship Specialty Start Date End Date Pablo Rivero [address] [facility] [place] [address] PCP - General Family Medicine 04/10/18
--- OUTSIDE RECORDS SUMMARY | 2024-10-13 15:05 | XMS_ITS | Encounter Summary ---
Author Organization [facility] Address [address] [place] [address] Care Team Providers Care Laundry Equipment Operator Name Role Phone Pablo Rivreo MD Primary Care Provider [phone] Memo Grant MD Unavailable [phone] Reason for Visit * Reason Comments Appointment Encounter Details Date Type Department Care Team (Late st Contact Info) Description 12/01/[address] [address] Mamadou Hernandez MD [address] [place] [address] Appointment Social History Tobacco Use Types Packs/Day [...] Description 10/31/2024 10:00 AM EDT Office Visit [facility] [place] [address] [place] [address] Mamadou Hernandez MD [address] [address] documented as of this encounter Visit Diagnoses Not on filedocumented in this encounter Care Teams Laundry Equipment Operator Relationship Specialty Start Date End Date Pablo Rivero MD [address] [facility] [place] [address] PCP - General Family Medicine 06/23/22 Memo Grant MD [facility] [place] [address] Cardiovascular Disease 10/27/22 documented as of this encounter
--- OUTSIDE RECORDS SUMMARY | 2024-10-13 15:05 | XMS_ITS | Encounter Summary ---
Author Organization [facility] Address [address] [place] [address] Care Team Providers Care Commodity Director Name Role Phone Pablo Rivero MD Primary Care Provider [phone] Memo Grant MD Unavailable [phone] Encounter Details Date Type Department Care Team (Late st Contact Info) Description 08/28/2023 Scanned Document [facility] Urologic Surgery [address] [place] [address] Guillermina Irving, DO [address] [place] [address] Social History Tobacco Use Types Packs/Day Years [...] Description 10/31/2024 10:00 AM EDT Office Visit [facility] [place] [address] [place] [address] Mamadou Hernandez MD [address] [address] documented as of this encounter Visit Diagnoses Not on filedocumented in this encounter Care Teams Commodity Director Relationship Specialty Start Date End Date Pablo Rivero MD [address] [facility] [place] [address] PCP - General Family Medicine 06/23/22 Memo Grant [place] [address] Cardiovascular Disease 10/27/22 documented as of this encounter
--- OUTSIDE RECORDS SUMMARY | 2024-10-13 15:05 | XMS_ITS | Encounter Summary ---
Author Organization [facility] Address [address] [place] [address] Care Team Providers Care Chicken Boner Name Role Phone Pablo Rivero MD Primary Care Provider [phone] Memo Grant MD Unavailable [phone] Reason for Visit * Reason Comments Other Medical record reque st Encounter Details Date Type Department Care Team ([facility] st Contact Info) Description 06/21/2023 Telephone [facility] Urologic Surgery [address] [address] Mamadou Hernandez MD [address] [address] Other (Medical record request) Social [...] Description 10/31/2024 10:00 AM EDT Office Visit [facility] [place] [address] [place] [address] Mamadou Hernandez MD [address] [place] [facility] [address] [place] [address] documented as of this encounter Visit Diagnoses Not on filedocumented in this encounter Care Teams Chicken Boner Relationship Specialty Start Date End Date Pablo Rivero MD [address] [facility] [address] PCP - General Family Medicine 06/23/22 Memo Grant MD [facility] [place] [address] Cardiovascular Disease 10/27/22 documented as of this encounter
--- OUTSIDE RECORDS SUMMARY | 2024-10-13 15:05 | XMS_ITS | Clinical Summary ---
Author Organization [facility] Address [address] [place] [address] Care Team Providers Care Rubber And Plastics Worker Name Role Phone Pablo Rivero MD Primary Care Provider Memo Grant MD Unavailable [phone] Allergies Active Allergy Reactions Criticality Noted Date Comments Bee Venom Anaphylaxis High 07/14/2022 Tetracycline Hives,Other (See Comments) Medium 010 Medications atorvastatin (LIPITOR) 20 MG tablet Take 1 tablet (20 mg total) by mouth nightly. Active Cholecalciferol (VITAMIN D3) 2000 UNITS Cap capsule Take 1 capsule (2,000 Units total) by mouth every morning. Active losartan (COZAAR) 100 MG tablet Take 1 tablet (100 mg total) by mouth every morning. 3 Active metoPROLOL TARTRATE (LOPRESSOR) 25 MG tablet Take 1 tablet (25 mg total) by mouth 2 (two) times a day. 2 Active PARoxetine (PAXIL) 30 MG tablet Take 1 tablet (30 mg total) by mouth every morning. 2 Active PANTOprazole (PROTONIX) 20 MG tablet Take 1 tablet (20 mg total) by mouth daily. 3 Active cyanocobalamin (VITAMIN B-12) 250 MCG tablet Take 8 split tablet (1,000 mcg total) by mouth every morning. Active albuterol (PROAIR RESPICLICK) 108 (90 Base) MCG/ACT inhaler Inhale. 2 Active amoxicillin (AMOXIL) 500 MG capsule TAKE 4 CAPSULES BY MOUTH 1 HOUR BEFORE DENTAL APPOINTMENT 3 Active fluticasone-ondina meterol (ADVAIR) 250-50 mcg/inh diskus inhaler Inhale 1 puff 2 times a day. 2 Active Beclomethasone (QVAR HFA) 40 MCG/ACT inhaler Inhale 2 puffs (80 mcg total) 2 (two) times a day as needed. Active EPINEPHrine 0.15 mg/0.3 mL IJ auto-injection Inject 0.3 mL (0.15 mg total) into the shoulder, thigh, or buttocks once as needed for allergic reaction (allergic reaction). Active acetaminophen (TYLENOL) 325 MG tabletIndicatio ns:Left renal mass Take 3 tablets (975 mg total) by mouth every 6 (six) hours around the clock. 360 tablet 3 Active docusate sodium (COLACE) 100 MG capsuleIndicati ons:Left renal mass Take 1 capsule (100 mg total) by mouth 2 (two) times a day. While taking pain medication to prevent constipation 60 capsule 3 Active oxyCODONE (ROXICODONE) 5 MG immediate release tabletIndicatio ns:Left renal mass Take 1 tablet (5 mg total) by mouth every 4 (four) hours as needed for severe pain. Max Daily Amount: 30 mg 13 tablet 3 Active Calcium Carbonate-Vit D-Min (CALCIUM 1200 PO) Take by mouth. Activ e Active Problems Problem Noted Date Diagnosed Date [...] when you are drinking? 5 or 6 05/31/202 3 Q3: How often do you have si [...] AM EDT Office Visit [facility] [place] [address] [place] [address] Mamadou Hernandez MD [address] [address] Health Maintenance Due Date Last Done Comments Hepatitis C Virus Screening 1955 COVID-19 Vaccine (#1) 12/14/1959 DTaP/Tdap/Td Vaccines (1 - Tdap) 1973 Pneumococcal Vaccines 50+ (1 of 2 - PCV) 1973 Zoster (Shingles) Vaccine (1 of 2) 1973 Colonoscopy 12/14/1999 Influenza Vaccine 01/09/2025 RSV Vaccine 60 years and old er and Patients (1 - 1-dose 75+ series) 2029 Hepatitis B Vaccines Aged Out No long er eligible based on patient's age to complete this topic Insurance [employer] Advance Directives * Full Code (Latest Code Status on File) Date Activated Date Inactivated Comments 11/15/2022 8:03 PM * Full Code Date Activated Date Inactivated Comments 11/15/2022 10:25 AM 11/15/2022 8:03 PM Care Teams Rubber And Plastics Worker Relationship Specialty Start Date End Date Pablo Rivero MD [address] [place] [address] [place] [address] PCP - General Family Medicine 06/23/22 [place] [address] Cardiovascular Disease 10/27/22
--- OUTSIDE RECORDS SUMMARY | 2024-10-13 15:06 | XMS_ITS ---
Author Organization [facility] Address [address] [place] [address] Care Team Providers Care Desk Editor Name Role Phone BEVERLYBASILIA PRADHAN Primary Care Provider Collins Rivera Jr REASON FOR VISIT cardiac clearance Encounters Encounter Location Date Provider Diagnosis [facility] [address] [place] [address] 10/09/2024 Collins Salmeron Jr Plan Of Treatment Next Appt Details Provider Name:Collins miller Jr, 12/09/2024 09:10:00 AM, [address] [place] [address] , [place], [place], [phone], Progress Notes * MARIO SUAREZ MDOB:[birth year] (68 yo M)Acc No.[id number]:10/09/2024 Patient:?MARIO SUAREZ :1955???Age:68 Y???Sex:Male Address:[place] [address] * true * Date:? Generated for Printi ng/Fapatig/eTransmitting on:?10/13/2024 03:05 PM EDT
== END 2024-10-13 14:04 | disposition home or self-care (01) ==
LOC: HO.HPS 13:37
PROVIDERS: PCP Nurse Practitioner Family; Visit Provider Internal Medicine
DX: E66.9 Obesity, unspecified (principal); G47.33 Obstructive sleep apnea (adult) (pediatric); Z99.89 Dependence on other enabling machines and devices; J44.9 Chronic obstructive pulmonary disease, unspecified
CPT/HCPCS: 99213

== ENCOUNTER 2024-11-25 13:37 | Outpatient (AMB) | payer OTHER, SELFPAY ==
--- NOTE | 2024-11-25 13:39 | A.OFFPC_ITS ---
Vital Signs 11/25/24 13:40 Height 6 ft Weight 223 lb BMI 30.2 BP 110/70 Blood Pressure Location Rt brachial Position Sitting Pulse 55 Pulse Source Pulse Oximeter Pulse Oximetry (%) 98 Oxygen Delivery Method Room Air Intake Visit Reasons: 3-4m follow up Baker Pie Required: No Accompanied by: Self / Same As Patient Allergies tetracycline [Tetracycline] Allergy (Intermediate, Verified 11/25/24 14:10) anaphylaxis bee venom protein (honey bee) Allergy (Unknown, Verified 11/25/24 14:10) swelling, hives Medication List - Last Reconciled 11/25/[address] [facility] albuterol sulfate 90 mcg/actuation 2 puffs inhalation Q6H PRN atorvastatin 20 mg PO DAILY calcium carbonate (Calcium 500) 500 mg PO DAILY cholecalciferol (vitamin D3) (Vitamin D3) 50 mcg PO DAILY cyanocobalamin (vitamin B-12) 1,000 mcg sublingual DAILY 90 days epinephrine (EpiPen 2-Reji) 0.3 mg (0.3 mL) IM Q10M PRN 30 days folic acid 1 mg PO DAILY losartan 50 mg (1/2 x 100 mg) PO DAILY metoprolol tartrate 25 mg PO BID pantoprazole 20 mg PO DAILY paroxetine HCl 30 mg PO QAM 90 days pyridoxine (vitamin B6) 50 mg PO DAILY thiamine HCl (vitamin B1) 100 mg PO DAILY Tobacco use date assessed: 11/25/24 Fall risk assessment: No Falls in past year Last assessed Fall Risk: 11/25/24 Dental Screening Dental Screen Date: 08/20/24 HPI 3-4m follow up HPI Details Chief Complaint The patient is concerned about a seizure related to alcohol consumption. History of Present Illness The patient is a 68-year-old male presenting with management of alcohol-related seizure and anemia. In August, the patient experienced a seizure due to excessive alcohol consumption. He stopped drinking for over a month but has resumed consuming up to two beers daily. He was advised to consider nonalcoholic beer as an alternative. He follows up with a neurologist as well. The patient's anemia remains stable, and he is monitoring his B12 levels. He is making dietary changes. He is contemplating starting a walking routine, which was recommended. Social History - Substance use: Patient reports resumin g alcohol consumption up to two beers daily after a period of abstinence. - Exercise: Considering starting a walki ng routine as recommended. Health Maintenance - Recommendation to consider nonalcoholi c beer as a healthier alternative to regular beer. - Encouragement to start a walking routi ne for physical activity. Review of Systems - Neurological: Reports seizure in August related to alcohol consumption. - Hematologic: Reports stable anemia, mo nitoring B12 levels. denies any seizure activity, cp, sob, n/v, dizziness. Physical Exam General: Cooperative, healthy appearing, comfortable, no acute distress and well developed, obese Orientation: Patient oriented x3 Limitations: No limitations Head: Normal to inspection Ears: Hearing grossly normal bilaterally Nose: Normal external nose present Face and sinus: Normal facial exam Eyes: Appearance normal, both eyes and all related structures Neck: Normal visual inspection and Yes full ROM Respiratory: Normal respiratory effort and able to speak in complete sentences. Clear to auscultation bilaterally Cardiovascular: Regular rate and rhythm. S1 and S2 were clear GI: Normal to inspection. Soft to palpation and nontender Skin: No rashes or lesions noted Neuro: Patient oriented x3 Extremities: Normal to inspection Results Plan The patient was advised to consider nonalcoholic beer as an alternative to reduce the risk of alcohol-related seizures. He was encouraged to maintain dietary modifications to manage his anemia and to monitor his levels regularly. Starting a walking routine was recommended to improve overall health and physical activity. Discussion Notes I discussed with the patient the importance of reducing alcohol consumption to prevent further seizures and recommended nonalcoholic beer as an alternative. We also talked about the stability of his anemia and the need to continue dietary adjustments and monitor B12 levels. I encouraged him to start a walking routine to enhance his physical activity and overall health. Patient Instructions - Consider switching to nonalcoholic bee r to reduce seizure risk. - Continue dietary changes to manage ane samantha and monitor B12 levels. - Start a [facility] routine [facility]. [facility] Medical History Eyelid retraction unspecified eye, unspecified lid Prostate CA Papillary adenocarcinoma of left kidney Coronary artery calcification Coronary atherosclerosis Ascending aortic aneurysm Thoracic aortic aneurysm HTN (hypertension) Personal history of nicotine dependence FAUSTO (obstructive sleep apnea) Snoring Somnolence, daytime Obesity Barretts esophagus GERD (gastroesophageal reflux disease) Cannabinoid hyperemesis syndrome Osteopenia On beta hilary at home SOB (shortness of breath) COPD (chronic obstructive pulmonary disease) Asthma Nodule on liver Depression Foraminal stenosis of lumbar region Surgical History History of cardiac cath History of prostatectomy History of partial nephrectomy History of total right knee replacement (TKR) History of total knee replacement (TKR) History of knee surgery History of esophagogastroduodenoscopy (EGD) H/O colonoscopy Lipoma of back Family History Father Leukemia Substance use disorder Mother Breast cancer CVD (cardiovascular disease) Takotsubo cardiomyopathy Brother Substance use disorder Sister No problems noted. Maternal Aunt No problems noted. Maternal Grandfather No problems noted. Maternal Grandmother No problems noted. Maternal Uncle No problems noted. Paternal Aunt No problems noted. Paternal Grandfather No problems noted. Paternal Grandmother No problems noted. Paternal Uncle No problems noted. Social History Housing: House Alcohol intake: current Alcohol intake frequency: 3 or more drinks per day Patient Tobacco Use Status: Former Tobacco user Years Smoked: 35 years ago e-Cigarette/Vaping Use: Never Used Second Hand Smoke Exposure: No service: No Current occupational status: retired Cognitive needs: No Hearing needs: No Vision needs: No Questionnaire Thrive Questionnaire Date Thrive assessed: 11/25/24 I am a: Patient What is your living situation today?: I have a steady place to live Within the past 12 months, did the food you bought not last and you didn't have the money to get more?: Never true Within the past 12 months, did you worry whether your food would run out before you got money to buy more?: Never true Do you have trouble paying for medicines?: No Do you have trouble getting transportation to medical appointments?: No Do you have trouble paying your heating and electricity bill?: No Do you have trouble taking care of your child, family member or friend?: No Do you have trouble with day-to-day activities such as bathing, preparing meals, shopping, managing finances, etc.?: No Are you currently unemployed and looking for a job?: No Are you interested in more education?: No Please select the resources that you would like help with: None Currently or been in a relationship where the following occur: No concerns reported THRIVE Score: 0 AUDIT C Alcohol Use Questionnaire (AUDIT-C) 1. How often do you have a drink containing alcohol?: 4 or more times a week 2. How many drinks containing alcohol do you have on a typical day when you are drinking?: 1 or 2 3. How often do you have six or more drinks on one occasion?: Less than monthly Total Score: 5 Score Reviewed/Action Taken: Yes DREAD-7 AMB Questionnaire DREAD-7 Date DREAD - 7 assessed: 11/25/24 Feeling nervous, anxious, or on edge: 1 = Several days Not being able to stop or control worryin = Several days Worrying too much about different things: 1 = Several days Trouble relaxin = Several days Being so restless that it is hard to sit still: 1 = Several days Becoming easily annoyed or irritable: 0 = Not at all Feeling afraid as if something awful might happen: 1 = Several days Total DREAD-7 score (0-4 normal; 5-9 mild; 10-14 moderate; 15-21 severe): 6 Source: Developed by Drs. Vicente Call, Ara Silva, Coy Obregon and colleagues, with an educational bijan from [employer]. DREAD-7 Assessment Billing DREAD-7 Assessment Tool: DREAD-7 Assessment 80912 Physical exam (Primary Care) Vital Signs: Last Vital Signs Pulse 55 11/25/24 13:40 BP 110/70 11/25/24 13:40 Pulse Ox 98 11/25/24 13:40 Oxygen Delivery Method Room Air 11/25/24 13:40 BMI result Body Mass Index 30.2 Tobacco/Smoking Status: Tobacco use Status Tobacco use date assessed 11/25/24 11/25/24 13:41 Patient Tobacco Use Status Former Tobacco user 11/25/24 13:39 e-Cigarette/Vaping Use Never Used 11/25/24 13:39 Thrive Assessment: Date of Thrive Assessment Date Thrive assessed 11/25/24 11/25/24 13:41 Currently or been in a relationship where the following occur: No concerns re ported Coding Level of Care Code Est Pt Level 3 (10022) Diagnoses Seizures R56.9 ETOH abuse F10.10 Anemia D64.9 Additional Codes DREAD-7 Assessment Billing - DREAD-7 Assessment Tool: DREAD-7 Assessment 22983 ([id number]) Assessment & Plan Assessment & Plan (1) Seizures: Code(s): R56.9 - Unspecified convulsions Category: Medical (2) ETOH abuse: Code(s): F10.10 - Alcohol abuse, uncomplicated Category: Social Hx (3) Anemia: Code(s): D64.9 - Anemia, unspecified Category: Medical Plan . Orders: Orders Comprehensive [place]. Panel Fast Today F10.10 - Alcohol abuse, uncomplicated, R56.9 - Unspecified convulsions Lipid Panel Today F10.10 - Alcohol abuse, uncomplicated, R56.9 - Unspecified convulsions Lactate Dehydrogenase Today F10.10 - Alcohol abuse, uncomplicated, R56.9 - Unspecified convulsions Reticulocyte Count Today F10.10 - Alcohol abuse, uncomplicated, R56.9 - Unspecified convulsions Complete Blood Count Auto Diff Today F10.10 - Alcohol abuse, uncomplicated, R56.9 - Unspecified convulsions TSH reflex Free T4 Today F10.10 - Alcohol abuse, uncomplicated, R56.9 - Unspecified convulsions UA CC w/rflx Micro + Cult Today F10.10 - Alcohol abuse, uncomplicated, R56.9 - Unspecified convulsions Ferritin Today F10.10 - Alcohol abuse, uncomplicated, R56.9 - Unspecified convulsions Vitamin B12 and Folate Today F10.10 - Alcohol abuse, uncomplicated, R56.9 - Unspecified convulsions
[2024-11-25 13:40] VITALS: BP 110/70; PULSE 55; O2SAT 98; BMI 30.2
--- OUTSIDE RECORDS SUMMARY | 2024-11-25 15:32 | XMS_ITS | Encounter Summary ---
Author Organization [facility] Address [address] [place] [address] Care Team Providers Care Ip Network Architect Name Role Phone Pablo Rivero MD Primary Care Provider [phone] Memo Grant MD Unavailable [phone] Encounter Details Date Type Department Care Team (Late st Contact Info) Description 08/24/2023 Telephone [facility] Urologic Surgery [address] [address] Mamadou Hernandez MD [address] [address] Social History Tobacco Use Types [...] Description 11/06/2025 11:30 AM EDT Office Visit [facility] Urology [place] [address] [place] [address] Mamadou Hernandez MD [address] [address] documented as of this encounter Visit Diagnoses Not on filedocumented in this encounter Care Teams Ip Network Architect Relationship Specialty Start Date End Date Pablo Rivero MD [address] [facility] [place] [address] PCP - General Family Medicine 06/23/22 [place] [address] Cardiovascular Disease 10/27/22 documented as of this encounter
== END 2024-11-25 14:23 | disposition home or self-care (01) ==
LOC: HO.HMCC 13:38
PROVIDERS: PCP Nurse Practitioner Family; Visit Provider Nurse Practitioner Family
DX: R56.9 Unspecified convulsions (principal); F10.10 Alcohol abuse, uncomplicated; D64.9 Anemia, unspecified

== ENCOUNTER → 2024-11-25 13:37 | Outpatient (BNVA) | payer OTHER, SELFPAY | PROVIDERS: PCP Nurse Practitioner Family; Visit Provider Nurse Practitioner Family | DX: F10.10 Alcohol abuse, uncomplicated (principal); R56.9 Unspecified convulsions; D64.9 Anemia, unspecified | CPT/HCPCS: 96127 ==

== ENCOUNTER 2024-12-09 06:54 | Day surgery (SDC) | payer OTHER, SELFPAY ==
--- OUTSIDE RECORDS SUMMARY | 2024-11-13 07:57 | XMS_ITS | Encounter Summary ---
Author Organization [facility] Address [address] [place] [address] Care Team Providers Care Polisher Apprentice Name Role Phone Pablo Rivero MD Primary Care Provider [phone] Memo Grant MD Unavailable [phone] Encounter Details Date Type Department Care Team (Late st Contact Info) Description 08/24/2023 Telephone [facility] Urologic Surgery [address] [address] Mamadou Hernandez MD [address] [address] Social History Tobacco Use Types [...] Care Team (Late st Contact Info) Description 11/06/2025 11:30 AM EDT Office Visit [facility] [place] [address] [place] [address] Mamadou Hernandez MD 85 [place] [address] [address] documented as of this encounter Visit Diagnoses Not on filedocumented in this encounter Care Teams Polisher Apprentice Relationship Specialty Start Date End Date Pablo Rivero MD [address] [facility] [place] [address] PCP - General Family Medicine 06/23/22 [place] [address] Cardiovascular Disease 10/27/22 documented as of this encounter
[2024-12-05 14:28] VITALS: BMI 29.3
--- NOTE | 2024-12-08 08:46 | HO.ANESPROP2 ---
Documented by User: Dolores Ochoa NP 12/08/24 08:51 HPI - Anesthesia Eval Consult details Narrative: 68yo M for Colonoscopy Follows [facility] Cardiology for TAA, HTN. Stable for routine f/u at 12/2023 office visit. Optimized for Start per workload. ROGERS thought to be d/t COPD and deconditioning PMFSH Active Problems Active Problems: All Active Problems Seizures (Acute) ETOH abuse (Acute) Vitamin D deficiency (Acute) Eyelid retraction or lag (Acute) Coronary atherosclerosis (Acute) Somnolence, daytime (Acute) FAUSTO (obstructive sleep apnea) (Acute) Obesity (Acute) Cough (Acute) Pre-op evaluation (Acute) B12 deficiency (Acute) Anemia (Acute) Dyspnea on exertion (Acute) Stiffness of finger joint of left hand (Acute) Dislocation of metacarpophalangeal joint of left middle finger (Acute) Displaced fracture of neck of left fourth metacarpal bone (Acute) Elevated PSA (Acute) Kidney malignant neoplasm (Acute) H/O radical prostatectomy (Acute) Personal history of nicotine dependence (Acute) Hematuria (Acute) Wheezing (Acute) HTN (hypertension) (Acute) FAUSTO on CPAP (Acute) Asthma (Acute) COPD (chronic obstructive pulmonary disease) (Acute) Thoracic aortic aneurysm (Acute) History of cardiac cath (Acute) Past Medical History Medical History Eyelid retraction unspecified eye, unspecified lid Prostate CA Papillary adenocarcinoma of left kidney Coronary artery calcification Coronary atherosclerosis Ascending aortic aneurysm Thoracic aortic aneurysm HTN (hypertension) Personal history of nicotine dependence FAUSTO (obstructive sleep apnea) Snoring Somnolence, daytime Obesity Barretts esophagus GERD (gastroesophageal reflux disease) Cannabinoid hyperemesis syndrome Osteopenia On beta hilary at home SOB (shortness of breath) COPD (chronic obstructive pulmonary disease) Asthma Nodule on liver Depression Foraminal stenosis of lumbar region Family History Family History Father Leukemia Substance use disorder Mother Breast cancer CVD (cardiovascular disease) Takotsubo cardiomyopathy Brother Substance use disorder Sister No problems noted. Maternal Aunt No problems noted. Maternal Grandfather No problems noted. Maternal Grandmother No problems noted. Maternal Uncle No problems noted. Paternal Aunt No problems noted. Paternal Grandfather No problems noted. Paternal Grandmother No problems noted. Paternal Uncle No problems noted. Family history of problems with anesthesia: No Surgical History Surgical History History of cardiac cath History of prostatectomy History of partial nephrectomy History of total right knee replacement (TKR) History of total knee replacement (TKR) History of knee surgery History of esophagogastroduodenoscopy (EGD) H/O colonoscopy Lipoma of back History of Problems with Anesthesia: No Social History Social History Housing: House Alcohol intake: current Alcohol intake frequency: 3 or more drinks per day Patient Tobacco Use Status: Former Tobacco user Years Smoked: 35 years ago e-Cigarette/Vaping Use: Never Used Second Hand Smoke Exposure: No Use of substances other than those prescribed or required for medical reasons: Yes Are you DNR?: No Advance Directives: No Advance Directives Information Provided: Yes Poor oral hygiene: No service: No Current occupational status: retired Cognitive needs: No Hearing needs: No Vision needs: No Meds Allergies Allergy/AdvReac Type Severity Reaction Status Date / Time tetracycline (Tetracycline) Allergy Intermediate anaphylaxis Verified 11/25/24 14:10 bee venom protein (honey bee) Allergy Unknown swelling, Verified 11/25/24 14:10 hives Home Medications ?Medication ?Instructions ?Recorded ?Confirmed ?Last Taken ?Type calcium carbonate (Calcium 500) 500 mg PO DAILY 10/19/22 12/05/24 Unknown History pantoprazole 20 mg tablet,delayed 20 mg PO DAILY 10/19/22 12/05/24 08/28/23 History release Exam Height,Weight and Vital Signs: Height 6 ft Weight 97.976 kg Pertinent Lab Results Pertinent Lab Results: Laboratory Tests 09/22/24 14:40 WBC 8.4 Hgb 13.4 L Hct 38.6 L Plt Count 258 Sodium 138 Potassium 4.3 Chloride 102 Carbon Dioxide 29 BUN 9 Creatinine 0.99 Narrative Narrative: EKG EKG 2023 Details: Sinus bradycardia 57 beats per minute, normal axis, QTC 420 milliseconds. ECHO 01/2024 Conclusions: - 1. Normal LV ejection fraction of 60 65% with impaired relaxation filling pattern 2. Trivial aortic regurgitation 3. Mildly dilated ascending aorta 4.2 cm (No change from 2022) 4. No pericardial effusion Assessment and Plan Assessment Anesthesia Assessment: Chart Reviewed Final Anesthetic Review Family History of Problems with Anesthesia: No History of Problems with Anesthesia: No Documented by User: Lizzie Woodard MD 12/09/24 08:17 [facility] Past Medical History Medical History Eyelid retraction unspecified eye, unspecified lid Prostate CA Papillary adenocarcinoma of left kidney Coronary artery calcification Coronary atherosclerosis Ascending aortic aneurysm Thoracic aortic aneurysm HTN (hypertension) Personal history of nicotine dependence FAUSTO (obstructive sleep apnea) Snoring Somnolence, daytime Obesity Barretts esophagus GERD (gastroesophageal reflux disease) Cannabinoid hyperemesis syndrome Osteopenia On beta hilary at home SOB (shortness of breath) COPD (chronic obstructive pulmonary disease) Asthma Nodule on liver Depression Foraminal stenosis of lumbar region Family History Family History Father Leukemia Substance use disorder Mother Breast cancer CVD (cardiovascular disease) Takotsubo cardiomyopathy Brother Substance use disorder Sister No problems noted. Maternal Aunt No problems noted. Maternal Grandfather No problems noted. Maternal Grandmother No problems noted. Maternal Uncle No problems noted. Paternal Aunt No problems noted. Paternal Grandfather No problems noted. Paternal Grandmother No problems noted. Paternal Uncle No problems noted. Surgical History Surgical History History of cardiac cath History of prostatectomy History of partial nephrectomy History of total right knee replacement (TKR) History of total knee replacement (TKR) History of knee surgery History of esophagogastroduodenoscopy (EGD) H/O colonoscopy Lipoma of back Social History Social History Housing: House Alcohol intake: current Alcohol intake frequency: 3 or more drinks per day Patient Tobacco Use Status: Former Tobacco user Years Smoked: 35 years ago e-Cigarette/Vaping Use: Never Used Second Hand Smoke Exposure: No Use of substances other than those prescribed or required for medical reasons: Yes Are you DNR?: No Advance Directives: No Advance Directives Information Provided: Yes Poor oral hygiene: No service: No Current occupational status: retired Cognitive needs: No Hearing needs: No Vision needs: No Meds Allergies Allergy/AdvReac Type Severity Reaction Status Date / Time tetracycline (Tetracycline) Allergy Intermediate anaphylaxis Verified 11/25/24 14:10 bee venom protein (honey bee) Allergy Unknown swelling, Verified 11/25/24 14:10 hives Home Medications ?Medication ?Instructions ?Recorded ?Confirmed ?Last Taken ?Type calcium carbonate (Calcium 500) 500 mg PO DAILY 10/19/22 12/05/24 Unknown History pantoprazole 20 mg tablet,delayed 20 mg PO DAILY 10/19/22 12/05/24 08/28/23 History release Exam Airway Mallampati Class: II TM Dist: >3cm Neck ROM: Limited Heart: rrr Lungs: cta Assessment and Plan Assessment Anesthesia Assessment: Anesthesia Plan Discussed Final Anesthetic Review NPO: Yes ASA Class: III Final Preanesthetic Review: No Changes in Pt Med Stat, Meds/Allgs Chart Reviewed, Consent Obtained/Reviewed and Anes Risks/Benef Reviewed Patient Risk: Intermediate Procedure Risk: Low Anesthetic Plan Anesthetic Plan: MAC: Disposition: Standard PACU
[2024-12-09 07:35] VITALS: BMI 29.1
[2024-12-09 07:37] VITALS: BP 121/75; PULSE 61; RESP 16; TEMP 36.2; O2SAT 97
[2024-12-09] MEDS: Lactated Ringers 1,000 ML 100 ML IVCONT (07:49)
--- NOTE | 2024-12-09 08:12 | MHC.SHP ---
Pre-Procedural Eval Section A - 24 Hr Update-Section A only Date of Service: 12/09/24 Section B - Complete if H&P > 30 days Chief Complaint: screening Details of Present Illness: see H&P no changes Relevant Family History (Specify if Yes): No Relevant Social History: None Present Medications: see Short Stay Collaborative assessment Medical History: No relevant PMH History of Previous Operations: No relevant previous surgery Allergies: Allergies Allergy/AdvReac Type Severity Reaction Status Date / Time tetracycline (Tetracycline) Allergy Intermediate anaphylaxis Verified 11/25/24 14:10 bee venom protein (honey bee) Allergy Unknown swelling, Verified 11/25/24 14:10 hives Review of Systems Sugical H&P ROS: Negative: Constitution, Cardiovascular, Respiratory, Neurological, Psychiatric, Hem-Onc, Allergic/Immunologic, Gastrointestinal, Genitourinary, Musculoskeletal, Integumentary, Endocrine and Eyes/Ears/Nose/Throat Exam Surgical H&P Exam: Normal: HEENT, Normal: Heart, Normal: Lungs, Normal: Extremities, Normal: Abdomen, Normal: Skin and Normal: Neurological Plan Diagnosis/Plan: Unchanged I have reviewed the history and physical and performed a pertinent physical examination on my patient. No changes have occurred unless specified. Time Spent With Patient Time: Total time managing care of this patient today ____ minutes.
[2024-12-09 08:51] VITALS: BP 98/51; PULSE 57; RESP 16; TEMP 36.1; O2SAT 100
[2024-12-09 09:06] VITALS: BP 115/69; PULSE 45; RESP 18; O2SAT 100
[2024-12-09 09:13] VITALS: BP 126/76; PULSE 46; RESP 18; TEMP 36.8; O2SAT 100
--- NOTE | 2024-12-09 09:19 | OP_ITS ---
DATE OF SERVICE: 12/09/2024 SURGEON: Collins Salmeron MD INDICATIONS: Colon cancer screening, prior history of large adenomatous colon polyp measuring greater than 10 cm. PREOPERATIVE DIAGNOSIS: POSTOPERATIVE DIAGNOSIS: PROCEDURE PERFORMED: Colonoscopy to the cecum with biopsy. ESTIMATED BLOOD LOSS: COMPLICATIONS: ANESTHESIA: Monitored anesthesia care. ASSISTANTS: SPECIMENS: DESCRIPTION OF PROCEDURE: A history and physical performed. The risks and benefits of the procedure were explained to the patient. Informed consent was obtained. The patient was placed in the left lateral decubitus position. A digital rectal exam was performed and was found to be normal. The Olympus pediatric video colonoscope was introduced into the rectum and advanced to the cecum. The cecum was identified by transillumination, palpation, and identification of ileocecal valve. Examination was performed and the scope was removed. He tolerated the procedure well and was taken to recovery area in stable condition. FINDINGS: The terminal ileum was not examined. The visualized colonic mucosa was normal. The quality of prep was fair with some retained liquid stool and formed stool mainly in the sigmoid. This limited the sensitivity examination for detection of small polyps in this area. Three polyps were identified and removed with biopsy forceps. All were less than 10 mm. These were located in the right colon at 80 cm and in the rectum. Retroflexed examination showed moderate-sized internal hemorrhoids. There was sigmoid diverticulosis to moderate degree. IMPRESSION: Colon polyps. RECOMMENDATION: Follow up the biopsy results. MD GIGI Alva/SAMUELL / [id number]
== END 2024-12-09 09:52 | disposition home or self-care (01) ==
PROVIDERS: PCP Nurse Practitioner Family; Visit Provider Internal Medicine Gastroenterology
PROC: 0DJD8ZZ Inspection of Lower Intestinal Tract, Via Natural or Artificial Opening Endoscopic (ICD-10-PCS; CPT 45378; principal; 2024-12-09 08:20)
DX: Z12.11 Encounter for screening for malignant neoplasm of colon (principal); Z86.0101 Personal history of adenomatous and serrated colon polyps; D12.2 Benign neoplasm of ascending colon; D12.4 Benign neoplasm of descending colon; K62.1 Rectal polyp; K57.30 Diverticulosis of large intestine without perforation or abscess without bleeding; K64.8 Other hemorrhoids; K21.9 Gastro-esophageal reflux disease without esophagitis; K22.70 Barrett's esophagus without dysplasia; J44.9 Chronic obstructive pulmonary disease, unspecified; G47.33 Obstructive sleep apnea (adult) (pediatric); C61 Malignant neoplasm of prostate; Z92.3 Personal history of irradiation; C64.2 Malignant neoplasm of left kidney, except renal pelvis; Z90.5 Acquired absence of kidney; I10 Essential (primary) hypertension; I71.21 Aneurysm of the ascending aorta, without rupture; E78.5 Hyperlipidemia, unspecified; Z86.69 Personal history of other diseases of the nervous system and sense organs; Z79.899 Other long term (current) drug therapy; Z88.1 Allergy status to other antibiotic agents; Z96.653 Presence of artificial knee joint, bilateral; Z87.891 Personal history of nicotine dependence
CPT/HCPCS: 45380; 88305; J2704

== ENCOUNTER 2025-01-05 12:37 | Outpatient (AMB) | payer OTHER, SELFPAY ==
--- OUTSIDE RECORDS SUMMARY | 2024-04-03 14:39 | XMS_ITS | Encounter Summary ---
Author Organization [facility] Address [address] [place] [address] Care Team Providers Care Linen Controller Name Role Phone Pablo Rivero NP Primary Care Provider [phone] Encounter Details Date Type Department Care Team (Late st Contact Info) Description 04/03/2024 2:39 PM EDT Hospital Encounter TH HISTORIC ENCOUNTERS EASTERN CONVERSION ONLY Guillermina Irving, [address] [place] [address] Social History Tobacco Use Types Packs/Day Years [...] in follow-up upon a recommendation from his pricing strategist. 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 ordered [...] Sign Maryanne Irving DO - Hematology/Oncology [facility] CC: Pablo Rivero documented in this encounter Plan of Treatment Upcoming Encounters Date Type Department Care Team (Late st Contact Info) Description 04/21/2025 1:30 PM EST Office Visit [facility] Hematology Oncology [address] [place] [address] Guillermina Irving DO [address] [place] [address] documented as of this encounter Visit Diagnoses Not on filedocumented in this encounter Care Teams Linen Controller Relationship Specialty Start Date End Date Pablo Rivero, RADIO NEWS ANCHOR [address] [place], [place] PCP - General Family Medicine 04/10/18 documented as of this encounter
--- OUTSIDE RECORDS SUMMARY | 2024-12-09 04:20 | XMS_ITS ---
Author Organization [facility] Address [address] [place] [address] Care Team Providers Care Wood Carving Lathe Operator Name Role Phone BASILIA CAROLINA Primary Care Provider Collins Rivera Jr [phone] REASON FOR VISIT screening with colon Encounters Encounter Location Date Provider Diagnosis [facility] [address] [place] [id number] 12/09/2024 Collins Salmeron Jr Plan Of Treatment No Information Progress Notes * MARIO SUAREZ MDOB:[birth year] (69 yo M)Acc No.[id number]:12/09/2024 COLON WITH MAC Patient: MARIO RICHARDSON Provider: Carmen Salmeron MD :1955 A ge:68 Y S ex:Male Date:12/09/2024 Address:[facility] [place] [place] Pcp:BASILIA CAROLINA Subjective: * Chief Complaints: * 1 . Screening with colon. * Medical History: Objective: * Vitals: Assessment: Plan: * Treatment: * * The named appointment provid er may or may not be the originator of this progress note, and it is not deemed complete until electronically signed by the appointment provider. Sign off status: Pending * Provider: Carmen Salmeron MD Date: 12/09/2024 Generated for Yaai ng/Faxing/eTransmitting on: 01/05/2025 01:25 PM EDT
[2025-01-05 12:42] VITALS: BP 114/62; PULSE 57; BMI 30.3
--- NOTE | 2025-01-05 12:42 | MHC.OFFVIS ---
Vital Signs 01/05/25 12:42 Height 6 ft Weight 223 lb 1.725 oz BMI 30.3 BP 114/62 Blood Pressure Location Lt brachial Position Sitting Pulse 57 Pulse Source Monitor Intake Visit Reasons: 1 yr f/up Metalsmith Helper Required: No Allergies tetracycline (Tetracycline) Allergy (Intermediate, Verified 01/05/25 12:44) anaphylaxis bee venom protein (honey bee) Allergy (Unknown, Verified 01/05/25 12:44) swelling, hives Medication List - Last Reconciled 01/05/25 by Levon Cifuentes MD albuterol sulfate 90 mcg/actuation 2 puffs inhalation Q6H PRN atorvastatin 20 mg PO DAILY calcium carbonate (Calcium 500) 500 mg PO DAILY cholecalciferol (vitamin D3) (Vitamin D3) 50 mcg PO DAILY cyanocobalamin (vitamin B-12) 1,000 mcg sublingual DAILY 90 days epinephrine (EpiPen 2-Reji) 0.3 mg (0.3 mL) IM Q10M PRN 30 days folic acid 1 mg PO DAILY losartan 50 mg (1/2 x 100 mg) PO DAILY metoprolol tartrate 25 mg PO BID pantoprazole 20 mg PO DAILY paroxetine HCl 30 mg PO QAM 90 days pyridoxine (vitamin B6) 50 mg PO DAILY thiamine HCl (vitamin B1) 100 mg PO DAILY HPI Comments Details: Pleasant 69 gentleman here for follow-up. He has been diagnosed with renal cell cancer and will need surgery. He is here for perioperative cardiovascular risk assessment. He was previously seen for dyspnea on exertion and after discussion was taken for left and right heart catheterization. His filling pressures at rest were normal. He did not have any coronary artery disease. He continues to get dyspnea on exertion which is due to underlying lung disease from tobacco abuse in the past. He also has some deconditioning due to lack of activity. He had prostate cancer and was on medications which led to fatigue and he has not been exercising regularly due to that. He is saying that he is off the medication currently and is feeling somewhat better. 01/02/2024: He returns for follow-up. He has been fine. No chest discomfort. Continues to have chronic dyspnea on exertion he has mild dilation of ascending aorta. He has hypertension but blood pressure is well controlled. 01/05/2025: Here for follow-up. He has not been exercising and plans to start exercising with his . No chest discomfort. Blood pressure well controlled. ECHO in January 2024 showed mildly dilated ascending aorta 4.2 cm. He had a seizure recently and apparently was drinking heavily at that time. I have explained to him that it is possible that his seizure happen due to alcohol use/withdrawal. [facility] Medical History Eyelid retraction unspecified eye, unspecified lid Prostate CA Papillary adenocarcinoma of left kidney Coronary artery calcification Coronary atherosclerosis Ascending aortic aneurysm Thoracic aortic aneurysm HTN (hypertension) Personal history of nicotine dependence FAUSTO (obstructive sleep apnea) Snoring Somnolence, daytime Obesity Barretts esophagus GERD (gastroesophageal reflux disease) Cannabinoid hyperemesis syndrome Osteopenia On beta hilary at home SOB (shortness of breath) COPD (chronic obstructive pulmonary disease) Asthma Nodule on liver Depression Foraminal stenosis of lumbar region Surgical History History of cardiac cath History of prostatectomy History of partial nephrectomy History of total right knee replacement (TKR) History of total knee replacement (TKR) History of knee surgery History of esophagogastroduodenoscopy (EGD) H/O colonoscopy Lipoma of back Family History Father Leukemia Substance use disorder Mother Breast cancer CVD (cardiovascular disease) Takotsubo cardiomyopathy Brother Substance use disorder Sister No problems noted. Maternal Aunt No problems noted. Maternal Grandfather No problems noted. Maternal Grandmother No problems noted. Maternal Uncle No problems noted. Paternal Aunt No problems noted. Paternal Grandfather No problems noted. Paternal Grandmother No problems noted. Paternal Uncle No problems noted. Social History Housing: House Alcohol intake: current Alcohol intake frequency: 3 or more drinks per day Patient Tobacco Use Status: Former Tobacco user Years Smoked: 35 years ago e-Cigarette/Vaping Use: Never Used Second Hand Smoke Exposure: No service: No Current occupational status: retired Cognitive needs: No Hearing needs: No Vision needs: No Review of Systems ENT Reports dizziness Card Denies chest pain, Denies chest pain at rest, Denies chest pain with activity, Denies rapid heart rate, Denies pedal edema, Denies edema, Denies leg edema, Denies lightheadedness, Denies palpitations, Denies dyspnea, Denies dyspnea on exertion and Denies orthopnea Resp Denies cough, Denies dyspnea and Denies dyspnea on exertion GI Denies hematochezia and Denies change in stool character Musc Denies abnormal gait, Reports limited range of motion, Reports muscle cramps, Denies muscle weakness, Denies numbness, Denies radiating pain into limb, Denies stiffness and Denies tingling Neuro Denies abnormal gait, Reports dizziness, Denies numbness and Denies tingling Endo Denies palpitations Physical Exam Vital Signs: Last Vital Signs Pulse 57 01/05/25 12:42 BP 114/62 01/05/25 12:42 BMI result Body Mass Index 30.3 GENERAL APPEARANCE: in no acute distress, pleasant. NECK: no carotid bruit, no jugular venous distention. SKIN: no suspicious lesions, warm and dry. HEART: no murmurs, regular rate and rhythm. Bradycardic. LUNGS: clear to auscultation bilaterally. ABDOMEN: soft, nontender. EXTREMITIES: no edema. PERIPHERAL PULSES: equal. NEUROLOGIC: No gross deficits, AAO X 3 Office Procedures EKG Details: Sinus bradycardia 57 beats per minute, left axis deviation, poor R-wave progression, QTC 408 milliseconds. [id number], Complete Assessment & Plan Assessment & Plan (1) Thoracic aortic aneurysm: Code(s): I71.2 - Thoracic aortic aneurysm, without rupture Category: Medical (2) HTN (hypertension): Code(s): I10 - Essential (primary) hypertension Category: Medical (3) Dyspnea on exertion: Code(s): R06.00 - Dyspnea, unspecified Category: Medical Plan [age] year gentleman who is here for follow-up. He has background history of dyspnea on exertion. He had extensive workup and it was felt that dyspnea is due to COPD and deconditioning. Clinically not in heart failure. Blood pressure is well controlled. He has been quite sedentary and I have advised him to start exercising regularly. Mild ascending aortic dilatation at 4.2 cm based on echocardiography from January 2024. We will recheck echo in 2 years. He is currently drinking 2 beers per day. I have advised him to be careful with alcohol because he was drinking heavily and had a seizure. Follow-up with SALES PROMOTION OFFICER in 6 months. Thank you for allowing me to participate in the care of your patient. Please feel free to contact me if you have any questions. Coding Level of Care Code Est Pt Level 4 (49376) Diagnoses Thoracic aortic aneurysm I71.2 HTN (hypertension) I10 Dyspnea on exertion R06.00 CPT Codes EKG - CPT: 25764-[id number], Complete ([id number])
--- OUTSIDE RECORDS SUMMARY | 2025-01-05 13:25 | XMS_ITS | Clinical Summary ---
Author Organization Located Within [facility] Address [address] [place] [address] Phone Care Team Providers Care Professor Of Practice Name Role Phone Jose Alfredo Avila MD Primary Care Provider Unav ailable Allergies Active Allergy Reactions Criticality Noted Date Comments Tetracyclines Hives 02/08/2015 Medications PARoxetine (PAXIL) 30 MG tablet Take 30 mg by mouth every morning. Active lisinopril (PRINIVIL,ZESTR IL) 5 MG tablet Take 5 mg by mouth daily. Active vitamins A,C,E-zinc-shauna er (PRESERVISION AREDS) 14,320226-200 rgir-lj-soby Cap Take 1 capsule by mouth 2 (two) times a day with meals. Active Active Problems No known active problems Family History Medical History Relation Comments Pancreatic cancer Brother Leukemia Father Breast cancer Mother Ovarian cancer Mother Relation Status Comments Brother Father Mother Social History Tobacco Use Types Packs/Day Years Used Date Smoking Tobacco: Former Cigarettes 1 15 1 966 - 1980 Smokeless Tobacco: Never Alcohol Use Standard Drinks/Week Comments Yes 3 (1 standard drink = 0.6 oz pur e alcohol) Several drinks daily Education Answer Date Recorded Are you interested in more education? Not on yobany e 10/06/2022 Are you concerned about learning? Not on file 10/06/2022 No 10/06/2022 No 10/06/2022 Digital Access Answer Date Recorded No 11/02/2022 No 11/02/2022 No 11/02/2022 Reliable internet access at home? Not on file 11/02/2022 Device with a working camera? Not on file Sex and Gender Information Value Date Recorded Sex Assigned at Not on file Legal Sex Male 10:56 AM EDT Gender Identity Not on file Sexual Orientation Not on file Last Filed Vital Signs Vital Sign Reading Time Taken Comments Blood Pressure 129/88 05/21/2017 12:23 PM EST Pulse - - Temperature - - Respiratory Rate - - Oxygen Saturation - - Inhaled Oxygen Concentration - - Weight - - Height - - Body Mass Index - - Plan of Treatment Health Maintenance Due Date Last Done Comments CREATININE LEVEL 1954 LIPID PANEL 1954 POTASSIUM LEVEL 1954 DEPRESSION SCREENING 1966 SMOKING Hx and SMOKELESS TOBACCO SCREENING 12/14/1967 HEPATITIS C SCREENING 1972 COLOGUARD 12/14/1999 COLONOSCOPY 12/14/1999 COLORECTAL CANCER SCREENING 12/14/1999 FIT TEST 12/14/1999 FOBT 12/14/1999 SIGMOIDOSCOPY 12/14/1999 VIRTUAL COLONOSCOPY 12/14/1999 PNEUMOCOCCAL VACCINES (50+ years) (2 of 2 - PCV) 05/28/2016 05/28/2015 ZOSTER VACCINES (2 of 3) 05/31/2016 04/05/2016 ABDOMINAL AORTIC ANEURYSM (AAA) SCREENING 12/14/2019 COVID-19 VACCINE (3 - 2023-2 5 season) 2024 09/08/2020, 08/16/2020 Adult Td,Tdap Booster 05/25/2027 05/25/2017 RSV VACCINE (1 - 1-dose 75+ series) 2029 HEPATITIS A VACCINES Aged Out No long er eligible based on patient's age to complete this topic HIB VACCINES Aged Out No longer eligi ble based on patient's age to complete this topic MENINGOCOCCAL VACCINES (ACWY) Aged Out No longer eligible based on patient's age to complete this topic MENINGOCOCCAL VACCINES (B) Aged Out N o longer eligible based on patient's age to complete this topic Medical Devices Not on file [facility] [employer] [facility] TOTAL CHOICE INDEMNITY [employer] [facility] TOTAL CHOICE INDEMNITY [employer] [facility] TOTAL CHOICE INDEMNITY [employer] [facility] TOTAL CHOICE INDEMNITY [employer] [facility] TOTAL CHOICE INDEMNITY [employer] [facility] TOTAL CHOICE INDEMNITY [facility] TOTAL CHOICE IN[facility]MNITY [facility] TOTAL CHOICE INDEMNITY Care Teams Professor Of Practice Relationship Specialty Start Date End Date Jose Alfredo Avila MD PCP - General Cardiology 02/08/15 Additional Source Comments The information contained in this document represents components of the legal health record. It is not the complete legal health record.Located [facility]
--- OUTSIDE RECORDS SUMMARY | 2025-01-05 13:25 | XMS_ITS ---
Author Name [facility] Organization Unknown History of Medication Use Medication Directions Dispensed Refills Start Date End Date Stat Vitamin B6 50 MG tablet Take 1 tablet (50 mg total) by mouth. 10/21/2024 active folic acid (FOLVITE) 1 MG tablet Take by mouth. 08/19/2024 active PANTOprazole (PROTONIX) 20 MG tablet Take 1 tablet (20 mg total) by mouth daily. 10/09/2022 active losartan (COZAAR) 100 MG tablet Take 1 tablet (100 mg total) by mouth daily. 07/04/2022 active Myrbetriq 50 MG ER tablet 06/16/2022 active Cyanocobalamin (B-12) 1000 MCG Lozenge Take 1 tablet by mouth daily. 04/21/2022 active atorvastatin (LIPITOR) 20 MG tablet Take 1 tablet (20 mg total) by mouth nightly. active Beclomethasone (QVAR HFA) 40 MCG/ACT inhaler Inhale 2 puffs (80 mcg total) 2 (two) times a day as needed. active cyanocobalamin (VITAMIN B-12) 250 MCG tablet Take 8 split tablet (1,000 mcg total) by mouth every morning. active EPINEPHrine 0.15 mg/0.3 mL IJ auto-injection Inject 0.3 mL (0.15 mg total) into the shoulder, thigh, or buttocks once as needed for allergic reaction (allergic reaction). active Leuprolide Acetate (ELIGARD SC) Inject under the skin. active losartan (COZAAR) 50 MG tablet Take 1 tablet (50 mg total) by mouth. active thiamine 100 mg tablet Take 1 tablet (10 0 mg total) by mouth. active thiamine 100 mg tablet Take 1 tablet (10 0 mg total) by mouth. active Allergies Allergen Reaction Severity Comment Documented Date Source Statu s ERYTHROMYCIN UNKNOWN/PATIENT AND FAMILY UNABLE TO DEFINE 08/17/2023 [facility] acti ve BEE VENOM ANAPHYLAXIS 07/14/2022 [facility] active TETRACYCLINE OTHER (SEE COMMENTS) 04/26/2010 [facility] active AMOXICILLIN OTHER (SEE COMMENTS) [facility] Problems Problem Status Onset Date Problem Type Date of Resoluti on Source Malignant neoplasm of left kidney active 2022-12-08 [facility] CKD (chronic kidney disease) stage 2, GFR 60-89 ml/min active 2023-03-23 [facility]Act [facility] Prostate cancer active 2022-07-14 ProblemAct [facility] Renal lesion active 2022-07-14 ProblemAct [facility] Left renal mass active 2022-11-15 ProblemAct [facility] Complex renal cyst active 2022-07-14 ProblemAct [facility] Encounters Encounter Type Encounter Reason Primary Diagnosis Location Date Ambulatory Malignant neoplasm of left kidney, except renal pelvis Malignant neoplasm of left kidney, except renal pelvis [facility] 10/31/2024 Ambulatory Malignant neoplasm of left kidney, except renal pelvis Malignant neoplasm of left kidney, except renal pelvis [facility] 10/26/2023 Ambulatory Malignant neoplasm of left kidney, except renal pelvis Malignant neoplasm of left kidney, except renal pelvis [facility] 03/23/2023 Ambulatory Malignant neopla sm of left kidney, except renal pelvis [facility] 12/08/2022 Inpatient Other specified disorders of kidney and ureter [facility] 11/15/2022 Ambulatory Cyst of kidney, acquired [facility] 09/22/2022 Ambulatory Cyst of kidney, acquired [facility] 08/11/2022 [facility]ulatory [facility] 07/15/2022 [facility]ulatory [facility] 07/15/2022 [facility] 07/15/2022 [facility] 07/15/2022 [facility] 07/15/2022 Ambulatory Disorder of kidn ey and ureter, unspecified [facility] 07/14/2022 Care Team Organization Name Specialty Phone Email Start Date End Da te [facility] 10/31/2024 11/29/2024 [facility] [place] 07/15/2022 025 [facility] [place] [place] [facility] 06/30/2022 023
--- OUTSIDE RECORDS SUMMARY | 2025-01-05 13:25 | XMS_ITS | Encounter Summary ---
Author Organization [facility] Address [address] [place] [address] Care Team Providers Care Law Secretary Name Role Phone Pablo Rivero MD Primary Care Provider [phone] Memo Grant MD Unavailable [phone] Encounter Details Date Type Department Care Team (Late st Contact Info) Description 08/24/2023 Telephone [facility] Urologic Surgery [address] [address] Mamadou Hernandez MD [address] [address] Social History Tobacco Use Types [...] Description 11/06/2025 11:30 AM EDT Office Visit [facility] Urology [place] [address] [place] [address] Mamadou Hernandez MD [address] [address] documented as of this encounter Visit Diagnoses Not on filedocumented in this encounter Care Teams Law Secretary Relationship Specialty Start Date End Date Pablo Rivero MD [address] [facility] [place] [address] PCP - General Family Medicine 06/23/22 [place] [address] Cardiovascular Disease 10/27/22 documented as of this encounter
--- OUTSIDE RECORDS SUMMARY | 2025-01-05 13:25 | XMS_ITS ---
Author Organization [facility] Address [address] [place] [address] Care Team Providers Care Brick Cleaner Name Role Phone Pablo Rivero Primary Care Provider [phone] Active Problems Problem Noted Date Diagnosed Date Prostate cancer 01/24/2017 Current Oncology Plans No current plan information found. Past Plans ONCOLOGY INFUSION THERAPY Plan Name Start Date Discontinue Date Treatment Medications Discontinue Reason Plan Provider [facility] BCN LEUPROLIDE 45 MG (ELIGARD) EVERY 6 MONTHS 12/08/2021 07/19/2023 leuprolide (ELIGARD) Therapy Complete Brown Damon MD Radiation Treatments * No radiation treatments are documented for this patient in [facility]. Treatments may have been administered in another system.
== END 2025-01-05 13:27 | disposition home or self-care (01) ==
LOC: HO.HCS 12:38
PROVIDERS: PCP Nurse Practitioner Family; Visit Provider Internal Medicine Cardiovascular Disease
DX: I71.20 Thoracic aortic aneurysm, without rupture, unspecified (principal); I10 Essential (primary) hypertension; R06.00 Dyspnea, unspecified
CPT/HCPCS: 93010; 99214

== ENCOUNTER → 2025-01-05 12:37 | Outpatient (BNVA) | payer OTHER, SELFPAY | PROVIDERS: PCP Nurse Practitioner Family; Visit Provider Internal Medicine Cardiovascular Disease | DX: R06.09 Other forms of dyspnea (principal); R00.1 Bradycardia, unspecified; R94.31 Abnormal electrocardiogram [ECG] [EKG]; I71.20 Thoracic aortic aneurysm, without rupture, unspecified; I10 Essential (primary) hypertension | CPT/HCPCS: 93005 ==

== ENCOUNTER 2025-02-10 10:25 | Outpatient (REF) | payer OTHER, SELFPAY ==
--- OUTSIDE RECORDS SUMMARY | 2024-04-03 14:39 | XMS_ITS | Encounter Summary ---
Author Organization [facility] Address [address] [place] [address] Care Team Providers Care Green Belt Name Role Phone Pablo Rivero NP Primary Care Provider Encounter Details Date Type Department Care Team (Late st Contact Info) Description 04/03/2024 2:39 PM EDT Hospital Encounter TH HISTORIC ENCOUNTERS EASTERN CONVERSION ONLY Guillermina Irving, [address] [place] [address] Social History Tobacco Use Types Packs/Day Years [...] in follow-up upon a recommendation from his supervisor sulfuric acid plant. 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 [...] Sign Maryanne Irving DO - Hematology/Oncology [facility] CC: Pablo Rivero documented in this encounter Plan of Treatment Upcoming Encounters Date Type Department Care Team (Late st Contact Info) Description 04/21/2025 1:30 PM EST Office Visit [facility] Hematology Oncology [address] [place] [address] Guillermina Irving DO [address] [place] [address] documented as of this encounter Visit Diagnoses Not on filedocumented in this encounter Care Teams Green Belt Relationship Specialty Start Date End Date Pablo Rivero, RECOVERY OPERATOR HELPER [address] [place], [place] PCP - General Family Medicine 04/10/18 documented as of this encounter
--- OUTSIDE RECORDS SUMMARY | 2025-02-10 11:57 | XMS_ITS | Encounter Summary ---
Author Organization [facility] Address [address] [place] [address] Care Team Providers Care Lithoduplicator Operator Name Role Phone Pablo Rivero MD Primary Care Provider [phone] Memo Grant MD Unavailable [phone] Encounter Details Date Type Department Care Team (Late st Contact Info) Description 09/26/2022 Scanned Document [facility] Urologic Surgery [place] [address] [address] Mamadou Hernandez MD 85 [facility] [place] [address] [place] [address] Social History Tobacco Use Types Packs/Day [...] Description 11/06/2025 11:30 AM EDT Office Visit [facility] Urology [place] [address] [place] [phone] Mamadou Hernandez MD [address] [place] [address] documented as of this encounter Visit Diagnoses Not on filedocumented in this encounter Care Teams Lithoduplicator Operator Relationship Specialty Start Date End Date Pablo Rivero MD [address] [facility] [place] [address] PCP - General Family Medicine 06/23/22 [place] [address] Cardiovascular Disease 10/27/22 documented as of this encounter
--- OUTSIDE RECORDS SUMMARY | 2025-02-10 11:57 | XMS_ITS | Encounter Summary ---
Author Organization [facility] Address [address] [place] [address] Care Team Providers Care Ice Carver Name Role Phone Pablo Rivero MD Primary Care Provider [phone] Memo Grant MD Unavailable [phone] Reason for Visit * Reason Comments Other Medical record reque st Encounter Details Date Type Department Care Team (Late st Contact Info) Description 06/21/2023 Telephone [facility] Urologic Surgery [address] [address] Mamadou Hernandez MD [address] [address] Other (Medical record request) Social [...] Description 11/06/2025 11:30 AM EDT Office Visit [facility] Urology [place] [address] [place] [address] Mamadou Hernandez MD [address] [facility] [address] [place] [address] documented as of this encounter Visit Diagnoses Not on filedocumented in this encounter Care Teams Ice Carver Relationship Specialty Start Date End Date Pablo Rivero MD [address] [facility] [place] [address] PCP - General Family Medicine 06/23/22 [place] [address] Cardiovascular Disease 10/27/22 documented as of this encounter
--- OUTSIDE RECORDS SUMMARY | 2025-02-10 11:57 | XMS_ITS | Clinical Summary ---
Author Organization [facility] Address [address] [place] [address] [place] [address] Phone Care Team Providers Care Orthodontic Technician Name Role Phone Jose Alfredo Avila MD Primary Care Provider Unav ailable Allergies Active Allergy Reactions Criticality Noted Date Comments Tetracyclines Hives 02/08/2015 Medications PARoxetine (PAXIL) 30 MG tablet Take 30 mg by mouth every morning. Active lisinopril (PRINIVIL,ZESTR IL) 5 MG tablet Take 5 mg by mouth daily. Active vitamins A,C,E-zinc-shauna er (PRESERVISION AREDS) 14,320226-200 ovtg-iq-tfuj Cap Take 1 capsule by mouth 2 [...] (AAA) SCREENING 12/14/2019 COVID-19 VACCINE (3 - season) 2024 09/08/2020, 08/16/2020 INFLUENZA VACCINE (#1) 2025 0, 03/05/2019, 02/22/2018, Additional history exists Adult Td,Tdap Booster 05/25/2027 05/25/2017 RSV VACCINE [...] topic Medical Devices Not on file Insurance Training Advisor [facility] [employer]OTAL CHOICE INDEMNITY [facility] TOTAL CHOICE [facility] TOTAL CHOICE INDEMNITY [facility] TOTAL CHOICE INDEMNITY [facility] TOTAL CHOICE INDEMNITY [facility]OTAL [facility]ICE [facility] TOTAL CHOICE INDEMNITY [facility] TOTAL CHOICE INDEMNITY Care Teams Orthodontic Technician Relationship Specialty Start Date End Date Jose Alfredo Avila MD PCP - General Cardiology 02/08/15 Additional Source Comments The information contained in this document represents components of the legal health record. It is not the complete legal health record.[facility]
--- OUTSIDE RECORDS SUMMARY | 2025-02-10 11:57 | XMS_ITS | Encounter Summary ---
Author Organization [facility] Address [address] [place] [address] Care Team Providers Care Oil Rig Driller Name Role Phone Pablo Rivero MD Primary Care Provider [phone] Memo Grant MD Unavailable [phone] Reason for Visit * Reason Comments Appointment Encounter Details Date Type Department Care Team ([facility] st Contact Info) Description 02/23/2023 Telephone [facility] Urologic Surgery [address] [address] Mamadou Hernandez MD [address] [place] [address] Appointment Social History Tobacco Use Types [...] Description 11/06/2025 11:30 AM EDT Office Visit [facility] Urology [place] [address] [place] [address] Mamadou Hernandez MD 85 [facility] [address] [place] [address] documented as of this encounter Visit Diagnoses Not on filedocumented in this encounter Care Teams Oil Rig Driller Relationship Specialty Start Date End Date Pablo Rivero MD [address] [place] [address] PCP - General Family Medicine 06/23/22 Memo Grant [place] [address] Cardiovascular Disease 10/27/22 documented as of this encounter
--- OUTSIDE RECORDS SUMMARY | 2025-02-10 11:57 | XMS_ITS | Encounter Summary ---
Author Organization [facility] Address [address] [place] [address] Care Team Providers Care Geography Head Name Role Phone Pablo Rivero MD Primary Care Provider [phone] Memo Grant MD Unavailable [phone] Reason for Visit * Reason Comments Appointment Encounter Details Date Type Department Care Team (Late st Contact Info) Description 12/01/[address] [address] Mamadou Hernandez MD [address] [address] Appointment Social History Tobacco Use Types Packs/Day [...] Description 11/06/2025 11:30 AM EDT Office Visit [facility] Urology [place] [address] [place] [address] Mamadou Hernandez MD [address] [address] documented as of this encounter Visit Diagnoses Not on filedocumented in this encounter Care Teams Geography Head Relationship Specialty Start Date End Date Pablo Rivero MD 262 [facility] [place] [address] PCP - General Family Medicine 06/23/22 Memo Grant MD [facility] [place] [address] Cardiovascular Disease 10/27/22 documented as of this encounter
--- OUTSIDE RECORDS SUMMARY | 2025-02-10 11:57 | XMS_ITS | Clinical Summary ---
Author Organization [facility] Address [address] [place] [address] Care Team Providers Care Tearoom Hostess Name Role Phone Pablo Rivero Primary Care Provider [phone] Allergies Active Allergy Reactions Criticality Noted Date [...] 83 04/03/2024 2:43 PM EDT Temperature 36.5 C (97.7 F) 04/03/2024 2:43 PM EDT Respiratory Rate - - Oxygen Saturation 100% [...] Fall Risk Assessment 12/14/2019 Influenza Vaccine (#1) 2025 RSV Adult > 60+ Yrs or Pregn ant (1 - 1-dose 75+ series) 2029 Hepatitis B Vaccines Aged Out No long er eligible based on patient's age to complete this topic RSV Ped < 20 months Aged Out No longe r eligible based on patient's age to complete this topic Care Teams Tearoom Hostess Relationship Specialty Start Date End Date Pablo Rivero [address] [facility] [place] [address] PCP - General Family Medicine 04/10/18
--- OUTSIDE RECORDS SUMMARY | 2025-02-10 11:57 | XMS_ITS ---
Author Organization [facility] Address [address] [place] [address] Care Team Providers Care Erecting Crane Operator Name Role Phone Pablo Rivero Primary Care Provider [phone] Active Problems Problem Noted Date Diagnosed Date Prostate cancer 01/24/2017 Current Oncology Plans No current plan information found. Past Plans ONCOLOGY INFUSION THERAPY Plan Name Start Date Discontinue Date Treatment Medications Discontinue Reason Plan Provider [facility] LEUPROLIDE 45 MG (ELIGARD) EVERY 6 MONTHS 12/08/2021 07/19/2023 leuprolide (ELIGARD) Therapy Complete Brown Damon MD Radiation Treatments * No radiation treatments are documented for this patient in [facility]. Treatments may have been administered in another system.
--- OUTSIDE RECORDS SUMMARY | 2025-02-10 11:57 | XMS_ITS | Clinical Summary ---
Author Organization [facility] Address [address] [place] [phone] Phone Care Team Providers Care Mobile Unit Assistant Name Role Phone Pablo Rivero NP [...] mouth 2 (two) times a day. Active PARoxetine (PAXIL) 30 mg tablet Take 1 tablet (30 mg total) by mouth every morning. Active CYANOCOBALAMIN, VITAMIN B-12, ORAL Take by mouth. Active FLUTICASONE PROPION-SALMETER OL INHL Inhale into the lungs. Active folic acid (FOLVITE) 1 mg tablet Take by mouth 1 (one) time each day. Active thiamine 100 mg tablet 100 MG BY MOUTH DAILY,X30 DAYS 08/19/2024 Active Active Problems Problem Noted Date Diagnosed Date Prostate cancer ([facility] V24, [facility] V28) 01/24 Surgical History Surgery Date Site/Laterality Comments PROSTATE [...] Sign Reading Time Taken Comments Blood Pressure 107/73 10/21/2024 1:27 PM EDT Pulse 62 10/21/2024 1:27 PM EDT Temperature 36.6 C (97.9 F) 10/21/2024 1:27 PM EDT Respiratory Rate - - Oxygen Saturation 100% 10/21/2024 1:27 PM EDT Inhaled Oxygen Concentration - - Weight 98.4 kg (217 lb) 10/21/2024 1:27 PM EDT Height 182.9 cm (6') 10/21/2024 1:27 PM EDT Body Mass Index 29.43 10/21/2024 1:27 PM EDT Plan of Treatment Upcoming Encounters Date Type Department Care Team (Late st Contact Info) Description 04/21/2025 1:30 PM EST Office Visit [facility] Hematology Oncology [address] [place] [phone] Guillermina Irving, DO [address] [place] [address] Health Maintenance Due Date Last Done Comments Zoster Vaccines (1 of 2) 05/31/2016 04/05/2016 Abdominal Aortic Aneurysm (AAA) Screen 05/18/2022 Cholesterol Screening (Lipid Panel) 05/18/2022 Colorectal Cancer Screening: Colonoscopy 05/18/2022 Falls Risk Assessment 05/18/2022 Hepatitis C Screening 05/18/2022 Social Influencers of Health Screening 05/18/2022 COVID-19 Vaccine ( season) 2024 03/27/2022, 03/22/2021, 09/08/2020, Additional history exists Depression Screening 06/11/2024 Influenza Vaccine (#1) 2025 , 03/27/2023, 03/15/2022, Additional history exists DTaP,Tdap,and Td Vaccines (2 - Td or Tdap) 05/25/2027 05/25/2017 Pneumococcal Vaccine: 50+ Years Completed 03/15/2022, 05/28/2015 RSV Immunization Adult Patients Completed 04/25/2024 HIB [...] patient's age to complete this topic Insurance [facility] Care Teams Mobile Unit Assistant Relationship Specialty Start Date End Date Pablo Rivero NP [facility] [place] PCP - General Family Medicine 04/10/18
--- OUTSIDE RECORDS SUMMARY | 2025-02-10 11:57 | XMS_ITS | Encounter Summary ---
Author Organization [facility] Address [address] [place] [address] Care Team Providers Care Windsurfing Instructor Name Role Phone Pablo Rivero MD Primary Care Provider [phone] Memo Grant MD Unavailable [phone] Encounter Details Date Type Department Care Team (Late st Contact Info) Description 08/24/2023 Telephone [facility] Urologic Surgery [address] [address] Mamadou Hernandez MD [address] [address] Social History Tobacco Use Types [...] Description 11/06/2025 11:30 AM EDT Office Visit [facility] Urology [place] [address] [place] [address] Mamadou Hernandez MD [address] [place] [address] [address] documented as of this encounter Visit Diagnoses Not on filedocumented in this encounter Care Teams Windsurfing Instructor Relationship Specialty Start Date End Date Pablo Rivero MD 262 [facility] [place] [address] PCP - General Family Medicine 06/23/22 [place] [address] Cardiovascular Disease 10/27/22 documented as of this encounter
--- OUTSIDE RECORDS SUMMARY | 2025-02-10 11:57 | XMS_ITS | Encounter Summary ---
Author Organization [facility] Address [address] [place] [address] Care Team Providers Care Solutions Market Consultant Name Role Phone Pablo Rivero MD Primary Care Provider [phone] Memo Grant MD Unavailable [phone] Encounter Details Date Type Department Care Team (Late st Contact Info) Description 08/28/2023 Scanned Document [facility] Urologic Surgery [address] [place] [address] Guillermina Irving, DO [address] [place] [address] Social History Tobacco Use Types Packs/Day Years [...] Description 11/06/2025 11:30 AM EDT Office Visit [facility] Urology [place] [address] [place] [address] Mamadou Hernandez MD 85 [place] [address] [address] documented as of this encounter Visit Diagnoses Not on filedocumented in this encounter Care Teams Solutions Market Consultant Relationship Specialty Start Date End Date Pablo Rivero MD [address] [facility] [place] [address] PCP - General Family Medicine 06/23/22 Memo Grant MD [address] [place] [address] Cardiovascular Disease 10/27/22 documented as of this encounter
--- OUTSIDE RECORDS SUMMARY | 2025-02-10 11:57 | XMS_ITS | Encounter Summary ---
Author Organization [facility] Address [address] [place] [address] Care Team Providers Care Global Account Executive Name Role Phone Pablo Rivero MD Primary Care Provider [phone] Memo Grant MD Unavailable [phone] Reason for Visit * Reason Comments Advice Only Encounter Details Date Type Department Care Team ([facility] st Contact Info) Description 03/22/2023 Telephone [facility] Urologic Surgery [address] [phone] Mamadou Hernandez MD [address] [place] [address] Advice Only Social History Tobacco Use [...] [facility] Urology [place] [address] [place] [address] Mamadou Hernandez MD 85 [facility] [address] [place] [address] documented as of this encounter Visit Diagnoses Not on filedocumented in this encounter Care Teams Global Account Executive Relationship Specialty Start Date End Date Pablo Rivero MD 262 [facility] [place] [address] PCP - General Family Medicine 06/23/22 Memo Grant [place] [address] Cardiovascular Disease 10/27/22 documented as of this encounter
--- OUTSIDE RECORDS SUMMARY | 2025-02-10 11:58 | XMS_ITS | Clinical Summary ---
Author Organization [facility] Address [address] [place], [place] [address] Care Team Providers Care Fsr Name Role Phone Pablo Rivero MD Primary Care Provider [phone] Memo Grant MD Unavailable Allergies Active Allergy Reactions Criticality Noted Date Comments Amoxicillin Other (See Comments) Low 04/26/2010 Bee Venom Anaphylaxis High 07/14/2022 Erythromycin Unknown/Patient and Family Unable to Define Medium 08/17/2023 Tetracycline Hives,Other (See Comments) Medium 010 Medications Cholecalciferol (VITAMIN D3) 2000 UNITS Cap capsule Take 1 capsule (2,000 Units total) by mouth every morning. Active metoPROLOL TARTRATE (LOPRESSOR) 25 MG tablet [...] 1200 PO) Take by mouth. Activ e folic acid (FOLVITE) 1 MG tablet Take by mouth. 5 Active Vitamin B6 50 MG tablet Take 1 tablet (50 mg total) by mouth. 5 Active thiamine 100 mg tablet Take 1 tablet (100 mg total) by mouth. Active atorvastatin (LIPITOR) 20 MG tablet Take 1 tablet (20 mg total) by mouth. Active losartan (COZAAR) 50 MG tablet Take 1 tablet (50 mg total) by mouth. Active Active Problems Problem Noted [...] 87 11/17/2022 3:15 PM EDT Temperature 37.3 C (99.1 F) 11/17/2022 3:15 PM EDT Respiratory Rate 16 10/31/2024 10:02 AM EDT Oxygen Saturation 96% 11/17/2022 3:15 PM EDT Inhaled Oxygen Concentration - - Weight 98.4 kg (217 lb) 10/31/2024 10:02 AM EDT Height 182.9 cm (6') 10/31/2024 10:02 AM EDT Body Mass Index 29.43 10/31/2024 10:02 AM EDT Plan of Treatment Upcoming Encounters Date Type Department Care Team (Late st Contact Info) Description 11/06/2025 11:30 AM EDT Office Visit [facility] Urology [place] [address] [place] [address] Mamadou Hernandez MD [address] [place] [address] Health Maintenance Due Date Last Done Comments Advance Care Planning 1955 Hepatitis C Virus Screening 1955 COVID-19 Vaccine [...] patient's age to complete this topic Insurance [facility] Advance Directives * Full Code (Latest Code Status on File) Date Activated Date Inactivated Comments 11/15/2022 8:03 PM * Full Code Date Activated Date Inactivated Comments 11/15/2022 10:25 AM 11/15/2022 8:03 PM Care Teams Fsr Relationship Specialty Start Date End Date Pablo Rivero MD 262 [facility] [place] [address] PCP - General Family Medicine 06/23/22 [place] [address] Cardiovascular Disease 10/27/22
--- OUTSIDE RECORDS SUMMARY | 2025-02-10 11:58 | XMS_ITS | Encounter Summary ---
Author Organization [facility] Address [address] [place] [address] Care Team Providers Care Merchandise Supervisor Name Role Phone Pablo Rivero MD Primary Care Provider [phone] Memo Grant MD Unavailable [phone] Encounter Details Date Type Department Care Team (Late st Contact Info) Description 06/16/2022 Scanned Document [facility] 10 [facility] 100 [place] [address] Tonya Hernandez MD [address] [place] [address] Social History Tobacco Use Types Packs/Day Years [...] Description 11/06/2025 11:30 AM EDT Office Visit [facility] Urology [place] [address] [place] [address] Mamaodu Hernandez MD [address] [place] [address] documented as of this encounter Visit Diagnoses Not on filedocumented in this encounter Care Teams Merchandise Supervisor Relationship Specialty Start Date End Date Pablo Rivero MD [address] [place] [address] PCP - General Family Medicine 06/23/22 Memo Grant MD [place] [address] Cardiovascular Disease 10/27/22 documented as of this encounter
[2025-02-10 12:59] LABS: MANUAL DIFF FLAG NO
[2025-02-10 13:00] LABS: Appearance Urine Clear; Glucose Urine UA Negative (Negative); PH 8.5 (5.0-9.0); Specific Gravity - Urine 1.010 (1.005-1.025)
[2025-02-10 13:15] LABS: Hematocrit 38.4 % (42.0-52.0); Hemoglobin 13.5 g/dl (14.0-18.0); Imm Gran Abs Auto 0.06 X10*3/uL (0.00-0.03); Imm Gran Pct Auto 0.8 % (0.0-0.4); Lymphocytes Absolute Auto 2.1 X10*3/uL (1.2-4.9); Mean Corpuscular HGB Conc 35.2 g/dl (31.0-36.0); Mean Corpuscular Hemoglobin 32.9 pg (27.0-33.0); Mean Corpuscular Volume 93.7 fL (80.0-98.0); NRBC Abs Auto 0.000 X10*3/uL (0.0-0.012); NRBC Pct Auto 0.0 /100WBC (0.0-0.2); Platelet Count 246 X10*3/uL (160-400); Red Blood Count 4.10 X10*6/uL (4.60-5.80); Reticulocytes Absolute 0.068 X10*6/uL (0.026-0.095); White Blood Count 7.4 X10*3/uL (4.8-10.8)
[2025-02-10 13:49] LABS: Alanine Aminotransferase 16 U/L (0-40); Albumin Level 4.0 g/dL (3.5-5.0); Alkaline Phosphatase 50 U/L (39-117); Anion Gap 12 (12-20); Aspartate Amino Transferase 23 U/L (5-37); Blood Urea Nitrogen 11 mg/dL (9-16); Calcium 8.9 mg/dL (8.4-10.2); Carbon Dioxide 26 mmol/L (22-29); Chloride 97 mmol/L (96-108); Cholesterol 125 mg/dL (<200); Estimated Glomerular Filt Rate > 60; Ferritin 39 ng/mL (20-250); HDL Cholesterol 57 mg/dL (>40); Potassium 5.4 mmol/L (3.3-5.1); Sodium 130 mmol/L (135-145); Total Protein 6.2 g/dL (6.5-8.0); Triglycerides 44 mg/dL (<150)
[2025-02-10 13:52] LABS: Folate 15.7 ng/mL (> or = 4.0); Vitamin B12 753 pg/mL (200-900)
== END 2025-02-10 10:26 | disposition home or self-care (01) ==
LOC: HO.HMGCLDS 10:25
PROVIDERS: PCP Nurse Practitioner Family; Visit Provider Nurse Practitioner Family
DX: R56.9 Unspecified convulsions (principal); F10.10 Alcohol abuse, uncomplicated; Z13.29 Encounter for screening for other suspected endocrine disorder; Z13.6 Encounter for screening for cardiovascular disorders
CPT/HCPCS: 36415; 80053; 80061; 81003; 82607; 82728; 82746; 83615; 84443; 85025; 85045

== ENCOUNTER 2025-02-11 14:39 | Outpatient (REF) | payer OTHER, SELFPAY ==
--- OUTSIDE RECORDS SUMMARY | 2023-08-28 06:30 | XMS_ITS ---
Author Organization [facility] Address [address] [place] [address] Care Team Providers Care Flat Sorter Processor Name Role Phone BASILIA CAROLINA Primary Care Provider Collins Rivera Jr REASON FOR VISIT mcdonald's esophagus Problems Problem Type SNOMED Code ICD Code Onset Dates Problem Status W/U Status Risk Notes Problem Mcdonald's esophagus ([id number]) Mcdonald''s esophagus without 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) Active confirmed Encounters Encounter Location Date Provider Diagnosis [facility] [address]patient [address] [place], [place] [id number] 08/28/2023 Collins Salmeron Jr Mcdonald''s esophagus 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 Assessments Encounter Date Diagnosis (ICD Code) Assessment Notes Treatment Notes Treatment Clinical Notes Section Notes 08/28/2023 Mcdonald''s esophagus without dysplasia (ICD-10 - K22.70) Plan Of Treatment No Information Progress Notes * MARIO SUAREZ MDOB:[birth year] (69 yo M)Acc No.[id number]:08/28/2023 EGD/MAC Patient: MARIO RICHARDSON Provider: Carmen Salmeron MD :[id number] A ge:67 Y S ex:Male Date:08/28/2023 Address:[address] [id number] Pcp:BASILIA CAROLINA Subjective: * Chief Complaints: * 1 . Mcdonald's esophagus. * Medical History: Objective: * Vitals: Assessment: * Assessment: 1. B arrett''s esophagus without dysplasia - K22.70 (Primary) Plan: * Treatment: * Procedure Codes: 4 3239 UPPER GI ENDOSCOPY, BIOPSY * * The named appointment provid er may or may not be the originator of this progress note, and it is not deemed complete until electronically signed by the appointment provider. Sign off status: Pending * Provider: Carmen Salmeron MD Date: 0 08/28/2023 Generated for Stacey pfeiffer/Cammy/Lorenzoitting on: 0 02/11/2025 04:56 PM EDT
--- OUTSIDE RECORDS SUMMARY | 2024-04-03 14:39 | XMS_ITS | Encounter Summary ---
Author Organization [facility] Address [address] [place] [address] Care Team Providers Care Data Designer Name Role Phone Pablo Rivero NP Primary Care Provider Encounter Details Date Type Department Care Team (Late st Contact Info) Description 04/03/2024 2:39 PM EDT Hospital Encounter TH HISTORIC ENCOUNTERS EASTERN CONVERSION ONLY Guillermina Irving, [address] [place] [address] Social History Tobacco Use Types Packs/Day Years [...] in follow-up upon a recommendation from his brand executive. 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 [...] Sign Maryanne Irving DO - Hematology/Oncology [facility] CC: Pablo Rivero documented in this encounter Plan of Treatment Upcoming Encounters Date Type Department Care Team (Late st Contact Info) Description 04/21/2025 1:30 PM EST Office Visit [facility] Hematology Oncology [address] [place] [address] Guillermina Irving DO [address] [place] [address] documented as of this encounter Visit Diagnoses Not on filedocumented in this encounter Care Teams Data Designer Relationship Specialty Start Date End Date Pablo Rivero, GARMENT TURNER [address] [place], [place] PCP - General Family Medicine 04/10/18 documented as of this encounter
--- OUTSIDE RECORDS SUMMARY | 2024-12-09 04:20 | XMS_ITS ---
Author Organization [facility] Address [address] [place] [address] Care Team Providers Care Application Security Consultant Name Role Phone BASILIA CAROLINA Primary Care Provider Collins Rivera Jr REASON FOR VISIT screening with colon Encounters Encounter Location Date Provider Diagnosis [facility] [place] [facility] [place] [phone] 12/09/2024 Collins Salmeron Jr Plan Of Treatment No Information Progress Notes * MARIO SUAREZ MDOB:[birth year] (69 yo M)Acc No.[id number]:12/09/2024 COLON WITH MAC Patient: MARIO RICHARDSON Provider: Carmen Salmeron MD :1955 A ge:68 Y S ex:Male Date:12/09/2024 Address:[facility] [id number] Pcp:BASILIA CAROLINA Subjective: * Chief Complaints: * [...] Date: 12/09/2024 Generated for Yaai ng/Faxing/eTransmitting on: 02/11/2025 04:56 PM EDT
[2025-02-11 16:32] LABS: Anion Gap 11 (12-20); Carbon Dioxide 26 mmol/L (22-29); Chloride 95 mmol/L (96-108); Potassium 4.4 mmol/L (3.3-5.1); Sodium 128 mmol/L (135-145)
--- OUTSIDE RECORDS SUMMARY | 2025-02-11 16:56 | XMS_ITS | Encounter Summary ---
Author Organization [facility] Address [address] [place] [address] Care Team Providers Care Violin Mechanic Name Role Phone Pablo Rivero MD Primary Care Provider [phone] Memo Grant MD Unavailable [phone] Reason for Visit * Reason Comments Appointment Encounter Details Date Type Department Care Team ([facility] st Contact Info) Description 02/23/2023 Telephone [facility] Urologic Surgery [address] [address] Mamadou Hernandez MD [address] [place] [address] Appointment Social History Tobacco Use Types [...] Description 11/06/2025 11:30 AM EDT Office Visit [facility] Urology [place] [address] [place] [address] Mamadou Hernandez MD 85 [facility] [address] [place] [address] documented as of this encounter Visit Diagnoses Not on filedocumented in this encounter Care Teams Violin Mechanic Relationship Specialty Start Date End Date Pablo Rivero MD [address] [place] [address] PCP - General Family Medicine 06/23/22 Memo Grant [place] [address] Cardiovascular Disease 10/27/22 documented as of this encounter
--- OUTSIDE RECORDS SUMMARY | 2025-02-11 16:56 | XMS_ITS | Clinical Summary ---
Author Organization [facility] Address [address] [place] [address] Care Team Providers Care Director Alumni Relations Name Role Phone Pablo Rivero Primary Care Provider [phone] Allergies Active Allergy Reactions Criticality Noted Date [...] age to complete this topic Care Teams Director Alumni Relations Relationship Specialty Start Date End Date Pablo Rivero [address] [facility] [place] [address] PCP - General Family Medicine 04/10/18
--- OUTSIDE RECORDS SUMMARY | 2025-02-11 16:56 | XMS_ITS ---
Author Organization [facility] Address [address] [place] [address] Care Team Providers Care Electrical Laboratory Technician Name Role Phone Pablo Rivero Primary Care Provider [phone] Active Problems Problem Noted Date Diagnosed Date [...] treatments are documented for this patient in [facility]. Treatments may have been administered in another system.
--- OUTSIDE RECORDS SUMMARY | 2025-02-11 16:56 | XMS_ITS | Encounter Summary ---
Author Organization [facility] Address [address] [place] [address] Care Team Providers Care Geotechnician Name Role Phone Pablo Rivero MD Primary Care Provider [phone] Memo Grant MD Unavailable [phone] Encounter Details Date Type Department Care Team (Late st Contact Info) Description 08/24/2023 Telephone [facility] Urologic Surgery [address] [address] Mamadou Hernandez MD [address] [address] Social History Tobacco Use Types [...] Description 11/06/2025 11:30 AM EDT Office Visit [facility] Urology [place] [address] [place] [address] Mamadou Hernandez MD 85 [place] [address] [address] documented as of this encounter Visit Diagnoses Not on filedocumented in this encounter Care Teams Geotechnician Relationship Specialty Start Date End Date Pablo Rivero MD [address] [facility] [place] [address] PCP - General Family Medicine 06/23/22 [place] [address] Cardiovascular Disease 10/27/22 documented as of this encounter
--- OUTSIDE RECORDS SUMMARY | 2025-02-11 16:56 | XMS_ITS | Encounter Summary ---
Author Organization [facility] Address [address] [place] [address] Care Team Providers Care Hospital Cleaning Specialist Name Role Phone Pablo Rivero MD Primary Care Provider [phone] Memo Grant MD Unavailable [phone] Encounter Details Date Type Department Care Team (Late st Contact Info) Description 08/28/2023 Scanned Document [facility] Urologic Surgery [address] [place] [address] Guillermina Irving, DO [address] [place] [address] Social History Tobacco Use Types Packs/Day Years [...] Description 11/06/2025 11:30 AM EDT Office Visit [facility] Urology [place] [address] [place] [address] Mamadou Hernandez MD 85 [place] [address] [address] documented as of this encounter Visit Diagnoses Not on filedocumented in this encounter Care Teams Hospital Cleaning Specialist Relationship Specialty Start Date End Date Pablo Rivero MD 262 [facility] [place] [address] [address] PCP - General Family Medicine 06/23/22 Memo Grant [place] [address] Cardiovascular Disease 10/27/22 documented as of this encounter
--- OUTSIDE RECORDS SUMMARY | 2025-02-11 16:56 | XMS_ITS | Encounter Summary ---
Author Organization [facility] Address [address] [place] [address] Care Team Providers Care Copy Machine Operator Name Role Phone Pablo Rivero MD Primary Care Provider [phone] Memo Grant MD Unavailable [phone] Reason for Visit * Reason Comments Other Medical record reque st Encounter Details Date Type Department Care Team (Late st Contact Info) Description 06/21/2023 Telephone [facility] Urologic Surgery [address] [address] Mamadou Hernandez MD [address] [address] Other (Medical record request) Social [...] Description 11/06/2025 11:30 AM EDT Office Visit [facility] Urology [place] [address] [place] [address] Mamadou Hernandez MD 85 [facility] [address] [place] [address] documented as of this encounter Visit Diagnoses Not on filedocumented in this encounter Care Teams Copy Machine Operator Relationship Specialty Start Date End Date Pablo Rivero MD [address] [facility] [address] PCP - General Family Medicine 06/23/22 [place] [address] Cardiovascular Disease 10/27/22 documented as of this encounter
--- OUTSIDE RECORDS SUMMARY | 2025-02-11 16:57 | XMS_ITS | Encounter Summary ---
Author Organization [facility] Address [address] [place] [address] Care Team Providers Care Asl Interpreter Name Role Phone Pablo Rivero MD Primary Care Provider [phone] Memo Grant MD Unavailable [phone] Encounter Details Date Type Department Care Team (Late st Contact Info) Description 09/26/2022 Scanned Document [facility] Urologic Surgery [place] [address] [address] Mamadou Hernandez MD 85 [facility] [place] [address] [place] [address] Social History Tobacco Use Types Packs/Day [...] Description 11/06/2025 11:30 AM EDT Office Visit [facility] Urology [place] [address] [place] [phone] Mamadou Hernandez MD [address] [place] [address] documented as of this encounter Visit Diagnoses Not on filedocumented in this encounter Care Teams Asl Interpreter Relationship Specialty Start Date End Date Pablo Rivero MD [address] [facility] [place] [address] PCP - General Family Medicine 06/23/22 [place] [address] Cardiovascular Disease 10/27/22 documented as of this encounter
--- OUTSIDE RECORDS SUMMARY | 2025-02-11 16:57 | XMS_ITS | Patient Health Record ---
Author Organization [facility] Address [address] [place] [address] Care Team Providers Care Nut And Bolt Assembler Name Role Phone BASILIA CAROLINA Primary Care Provider Collins Rivera Jr Unavailable Allergies Allergen (clinical drug ingredient) Drug/Non Drug Allergy documented on EMR Reaction Allergy Type Onset Date Status tetracycline Tetracycline HCl Unknown Drug Allergy Active Results Component Value Reference Range Notes Pathology Reviewed date:12/11/2024 07:50:15 AM Interpretation: Performing Lab:[facility], [address] [place] [phone] Notes/Report: Reason For Referral No Information Medications Medication [...] 1 tab Oral for 14 days Active Pantoprazole Sodium 20 MG TAKE 1 [...] Problem Status W/U Status Risk Notes Problem 500990929 Colon cancer screening (Z12.11) Active confirmed Problem 90783256 Encounter for ot her preprocedural examination (Z01.818) Active confirmed Problem 843261690 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 Problem 014500363 Gastroesophageal reflux disease without esophagitis (K21.9) Active confirmed Problem Esophageal reflux finding (647887069) Gastroesophageal reflux (K21.9) Active confirmed Problem 630291894 Adenomatous poly p of colon, unspecified part of colon (D12.6) Active confirmed Problem Pedroza's esophagus (760398434) 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 Vital Signs Blood pressure diastolic 77 mm Hg 10/09/2024 Height 72 in 10/09/2024 Blood pressure systolic 111 mm Hg 10/09/2024 Weight 216 lbs 10/09/2024 BMI 29.29 kg/m2 10/09/2024 Encounters Encounter Location Date Provider Diagnosis [facility] [address] [place] [id number] 12/09/2024 Collins Salmeron Jr [facility] [address] [place] [phone] 10/09/2024 Collins Salmeron Jr Colon cancer screening Z12.11 and 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 [facility] [address] [place] [phone] 10/09/2024 Collins Salmeron Jr [facility] [address] [place] [phone] 12/11/2024 Collins Salmeron Jr Assessments Encounter Date Diagnosis (ICD Code) Assessment Notes Treatment Notes Treatment Clinical Notes Section Notes 10/09/2024 Colon cancer screening (ICD-10 - Z12.11) 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 We reviewed this today. We discussed gastroesophageal reflux disease. We discussed diet, lifestyle modifications, and weight management regarding the treatment of reflux. He will continue his present regimen. He is due for colorectal cancer screening. This will be arranged. He understands risks and benefits and agrees to proceed. 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 We reviewed this today. We discussed gastroesophageal reflux disease. We discussed diet, lifestyle modifications, and weight management regarding the treatment of reflux. He will continue his present regimen. He is due for colorectal cancer screening. This will be arranged. He understands risks and benefits and agrees to proceed. Plan Of Treatment Future Test Test Name Order Date COLONOSCOPY 11/11/2014 COLONOSCOPY 02/06/2018 UPPER GI ENDOSCOPY 08/22/2021 COLONOSCOPY 08/22/2021 UPPER GI ENDOSCOPY 07/19/2023 COLONOSCOPY 10/09/2024 Insurance Providers Payer Name Payer Address Payer Phone Subscriber Number Group Number Insured Name Patient Relationship to Insured Coverage Start Date Coverage End Date [employer] ([employer]) [address] [place] [address] [id number] MARIO SUAREZ Self - patient is the insured Medical (General) History Medical History History ICD Code Colon polyps, colonoscopy , 10 mm tubular adenoma, three-year followup Moderate sized internal hemorrhoids Hypertension Depression Hyperlipidemia Prostate cancer status post radiation therapy for elevated PSA after prostatectomy, off Eligard COPD FAUSTO/CPAP Gastroesophageal reflux dise ase, EGD 12/07/21 small area of 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, two-year followup. EGD 09/01, no evidence of dysplasia, 4-year EGD recall. Left kidney cystic lesion/ s urgery and partial nephrectomy with renal cell carcinoma Ascending aortic aneurysm Surgical History Surgery Date(Month/Year) Left partial nephrectomy Bilateral knee replacements radical prostatectomy for prostate cance r
--- OUTSIDE RECORDS SUMMARY | 2025-02-11 16:57 | XMS_ITS | Encounter Summary ---
Author Organization [facility] Address [address] [place] [address] Care Team Providers Care Rubber Mixer Name Role Phone Pablo Rivero MD Primary Care Provider [phone] Memo Grant MD Unavailable [phone] Encounter Details Date Type Department Care Team (Late st Contact Info) Description 06/16/2022 Scanned Document [facility] 10 [facility] [address] [place] [address] Tonya Hernandez MD [address] [place] [address] Social History Tobacco Use Types Packs/Day Years [...] Description 11/06/2025 11:30 AM EDT Office Visit [facility] [place] [address] [place] [address] Mamadou Hernandez MD [address] [place] [address] documented as of this encounter Visit Diagnoses Not on filedocumented in this encounter Care Teams Rubber Mixer Relationship Specialty Start Date End Date Pablo Rivero MD [address] [place] [address] PCP - General Family Medicine 06/23/22 Memo Grant [place] [address] [place] [address] Cardiovascular Disease 10/27/22 documented as of this encounter
--- OUTSIDE RECORDS SUMMARY | 2025-02-11 16:57 | XMS_ITS | Encounter Summary ---
Author Organization [facility] Address [address] [place] [address] Care Team Providers Care Sales Forecast Analyst Name Role Phone Pablo Rivreo MD Primary Care Provider [phone] Memo Grant MD Unavailable [phone] Reason for Visit * Reason Comments Advice Only Encounter Details Date Type Department Care Team ([facility] st Contact Info) Description 03/22/2023 Telephone [facility] Urologic Surgery [address] [phone] Mamadou Hernandez MD [address] [place] [address] Advice Only Social History Tobacco Use [...] Description 11/06/2025 11:30 AM EDT Office Visit [facility] [place] [address] [place] [address] Mamadou Hernandez MD [facility] [address] [place] [address] documented as of this encounter Visit Diagnoses Not on filedocumented in this encounter Care Teams Sales Forecast Analyst Relationship Specialty Start Date End Date Pablo Rivero MD [address] [facility] [place] [address] PCP - General Family Medicine 06/23/22 Memo Grant [place] [address] Cardiovascular Disease 10/27/22 documented as of this encounter
--- OUTSIDE RECORDS SUMMARY | 2025-02-11 16:57 | XMS_ITS | Clinical Summary ---
Author Organization [facility] Address [address] [place] [phone] Phone Care Team Providers Care Manager Community Name Role Phone Pablo Rivero NP Primary [...] Problem Noted Date Diagnosed Date Prostate cancer ([facility]/HCC V24, [facility] V28) 01/24 Surgical History Surgery Date Site/Laterality [...] Description 04/21/2025 1:30 PM EST Office Visit [facility] Hematology Oncology [address] [place] [phone] Guillermina Irving, DO [address] [place] [address] Health Maintenance Due Date Last Done Comments [...] patient's age to complete this topic Insurance [facility] Care Teams Manager Community Relationship Specialty Start Date End Date Pablo Rivero NP [address] [facility] [place] PCP - General Family Medicine 04/10/18
--- OUTSIDE RECORDS SUMMARY | 2025-02-11 16:57 | XMS_ITS | Clinical Summary ---
Author Organization [facility] Address [address] [place], [place] [id number] Care Team Providers Care Pr Internship Name Role Phone Pablo Rivero MD Primary Care Provider [phone] Mmeo Grant MD Unavailable [phone] Allergies Active Allergy Reactions Criticality Noted [...] Description 11/06/2025 11:30 AM EDT Office Visit [facility] Urology [place] [address] [place] [address] Mamadou Hernandez MD [address] [place] [address] Health Maintenance Due Date Last Done Comments [...] patient's age to complete this topic Insurance [facility] Advance Directives * Full Code (Latest Code Status on File) Date Activated Date Inactivated Comments 11/15/2022 8:03 PM * Full Code Date Activated Date Inactivated Comments 11/15/2022 10:25 AM 11/15/2022 8:03 PM Care Teams Pr Internship Relationship Specialty Start Date End Date Pablo Rivero MD [address] [facility] [place] [address] PCP - General Family Medicine 06/23/22 [place] [address] Cardiovascular Disease 10/27/22
--- OUTSIDE RECORDS SUMMARY | 2025-02-11 16:57 | XMS_ITS | Encounter Summary ---
Author Organization [facility] Address [address] [place] [address] Care Team Providers Care Roll Operator Name Role Phone Pablo Rivero MD Primary Care Provider [phone] Memo Grant MD Unavailable [phone] Reason for Visit * Reason Comments Appointment Encounter Details Date Type Department Care Team (Late st Contact Info) Description 12/01/[address] [address] Mamadou Hernandez MD [address] [address] Appointment Social History Tobacco Use Types Packs/Day [...] Description 11/06/2025 11:30 AM EDT Office Visit [facility] Urology [place] [address] [place] [address] Mamadou Hernandez MD [address] [address] documented as of this encounter Visit Diagnoses Not on filedocumented in this encounter Care Teams Roll Operator Relationship Specialty Start Date End Date Pablo Rivero MD [address] [facility] [place] [address] PCP - General Family Medicine 06/23/[address] [facility] [address] Cardiovascular Disease 10/27/22 documented as of this encounter
== END 2025-02-11 14:40 | disposition home or self-care (01) ==
LOC: HO.HMGCLDS 14:39
PROVIDERS: PCP Nurse Practitioner Family; Visit Provider Nurse Practitioner Family
DX: E87.5 Hyperkalemia (principal)
CPT/HCPCS: 36415; 80051

== ENCOUNTER 2025-03-17 15:24 | Outpatient (AMB) | payer OTHER, SELFPAY ==
--- OUTSIDE RECORDS SUMMARY | 2024-04-03 14:39 | XMS_ITS | Encounter Summary ---
Author Organization [facility] Address [address] [place] [address] Care Team Providers Care Board Of Education Secretary Name Role Phone Pablo Rivero NP Primary Care Provider [phone] Encounter Details Date Type Department Care Team (Late st Contact Info) Description 04/03/2024 2:39 PM EDT Hospital Encounter TH HISTORIC ENCOUNTERS EASTERN CONVERSION ONLY Guillermina Irving, [address] [place] [address] Social History Tobacco Use Types Packs/Day Years [...] in follow-up upon a recommendation from his hotel housekeeper. 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 ordered today and [...] Sign Maryanne Irving DO - Hematology/Oncology [facility] CC: Pablo Rivero documented in this encounter Plan of Treatment Upcoming Encounters Date Type Department Care Team (Late st Contact Info) Description 04/21/2025 1:30 PM EST Office Visit [facility] Hematology Oncology [address] [place] [address] Guillermina Irving DO [address] [place] [address] documented as of this encounter Visit Diagnoses Not on filedocumented in this encounter Care Teams Board Of Education Secretary Relationship Specialty Start Date End Date Pablo Rivero, LIME KILN WORKER [address] [place], [place] PCP - General Family Medicine 04/10/18 documented as of this encounter
--- OUTSIDE RECORDS SUMMARY | 2024-12-09 04:20 | XMS_ITS ---
Author Organization [facility] Address [address] [place] [address] Care Team Providers Care Android Ui Developer Name Role Phone BASILIA CAROLINA Primary Care Provider Collins Rivera Jr [phone] REASON FOR VISIT screening with colon Encounters Encounter Location Date Provider Diagnosis [facility] [address] [place] [id number] 12/09/2024 Collins Salmeron Jr Plan Of Treatment No Information Progress Notes * MARIO SUAREZ MDOB:[birth year] (69 yo M)Acc No.[id number]:12/09/2024 COLON WITH MAC Patient: MARIO RICHARDSON Provider: Carmen Salmeron MD :1955 A ge:68 Y S ex:Male Date:12/09/2024 Address:[facility] [place] Pcp:BASILIA CAROLINA Subjective: * Chief Complaints: * [...] 12/09/2024 Generated for Yaai ng/Faxing/eTransmitting on: 1 06:34 PM EDT
[2025-03-17 15:29] VITALS: BP 112/76; PULSE 55; RESP 17; TEMP 37.1; O2SAT 97; BMI 29.4
--- NOTE | 2025-03-17 15:29 | A.OFFPC_ITS ---
Vital Signs 03/17/25 15:29 Height 6 ft Weight 217 lb BMI 29.4 BP 112/76 Blood Pressure Location Rt brachial Position Sitting Respiration 17 Pulse 55 Pulse Source Pulse Oximeter Temp 98.7 F Temp Source Oral Pulse Oximetry (%) 97 Oxygen Delivery Method Room Air Intake Visit Reasons: HDF [facility] seizure, afib Intake Note: Pt is here today for a HDF from [facility]. Allergies tetracycline (Tetracycline) Allergy (Intermediate, Verified 03/17/25 16:43) anaphylaxis bee venom protein (honey bee) Allergy (Unknown, Verified 03/17/25 16:43) swelling, hives Medication List - Last Reconciled 03/17/25 by Pablo Rivero, STAFF TECHNOLOGIST- albuterol sulfate 90 mcg/actuation 2 puffs inhalation Q6H PRN apixaban (Eliquis) 5 mg PO BID atorvastatin 20 mg PO DAILY calcium carbonate (Calcium 500) 500 mg PO DAILY cholecalciferol (vitamin D3) (Vitamin D3) 50 mcg PO DAILY cyanocobalamin (vitamin B-12) 1,000 mcg sublingual DAILY 90 days epinephrine (EpiPen 2-Reij) 0.3 mg (0.3 mL) IM Q10M PRN 30 days famotidine 20 mg PO BID 30 days folic acid 1 mg PO DAILY gabapentin 300 mg PO TID metoprolol tartrate 25 mg PO BID paroxetine HCl 30 mg PO QAM 90 days pyridoxine (vitamin B6) 50 mg PO DAILY thiamine HCl (vitamin B1) 100 mg PO DAILY Tobacco use date assessed: 03/17/25 Fall risk assessment: No Falls in past year Last assessed Fall Risk: 03/17/25 Dental Screening Dental Screen Date: 08/20/24 HPI HDF [facility] seizure, afib HPI Details Chief Complaint The patient presents for a follow-up after hospital discharge due to seizures related to alcohol withdrawal. History of Present Illness The patient is a 69-year-old male presenting with a follow-up after hospital discharge. In August, the patient experienced a seizure related to alcohol withdrawal and was started on Keppra, which was later discontinued due to a poor reaction. He resumed alcohol consumption, leading to another seizure on 03/11/2025, while at home, ambulance called. During initial hospitalization he was intubated for respiratory protection and later extubated on 03/09. Currently, he is on gabapentin three times a day and has ceased alcohol consumption. While hospitalized, the patient developed atrial fibrillation with rapid ventricular response, which resolved with metoprolol. He was started on Eliquis and advised to follow up with cardiology, with an echocardiogram and Holter monitor ordered (ordered today). The patient denies any current symptoms of atrial fibrillation and remains on metoprolol and Eliquis. The patient has a history of Pedroza's esophagus and gastroesophageal reflux disease (GERD). Pantoprazole was discontinued due to its effect on lowering the seizure threshold, and famotidine was initiated by myself today. Social History - Substance use: The patient has ceased alcohol consumption. Health Maintenance - Cardiovascular: Follow-up with cardiol roland and echocardiogram ordered. - Neurology: Follow-up with neurology vi a telehealth scheduled for May 28. Review of Systems - Neurological: Reports feeling slightly foggy, denies any recent seizures. - Cardiovascular: Denies palpitations or symptoms of atrial fibrillation. - Respiratory: Denies dyspnea. Physical Exam General: Cooperative, healthy appearing, comfortable, no acute distress and well developed Orientation: Patient oriented x3 Limitations: No limitations Head: Normal to inspection Ears: Hearing grossly normal bilaterally Nose: Normal external nose present Face and sinus: Normal facial exam Eyes: Appearance normal, both eyes and all related structures Neck: Normal visual inspection and Yes full ROM Respiratory: Normal respiratory effort and able to speak in complete sentences. Clear to auscultation bilaterally Cardiovascular: Regular rate and rhythm. Normal S1 and S2. No signs of AFib currently GI: Normal to inspection. Soft to palpation and nontender Skin: No rashes or lesions noted Neuro: Patient oriented x3. Negative Romberg, able to do finger to thumb test with no difficulty, heel to cadena, arm pull test was negative, CN 2 through 12 intact Extremities: Normal to inspection Results Plan 1. Alcohol Withdrawal Seizure The patient experienced seizures related to alcohol withdrawal, initially managed with Keppra, which was discontinued due to adverse reactions. Currently, he is on gabapentin three times a day and has ceased alcohol consumption. He is aware of the driving restrictions for six months post-seizure. 2. Atrial Fibrillation With Rapid Ventri cular Response The patient developed atrial fibrillation with rapid ventricular response during hospitalization, which resolved with metoprolol. He was started on Eliquis and advised to follow up with cardiology, with an echocardiogram and Holter monitor ordered today. The patient denies any current symptoms of atrial fibrillation and remains on metoprolol and Eliquis. 3. Pedroza's Esophagus And Gerd The patient has a history of Pedroza's esophagus and GERD. Pantoprazole was discontinued due to its effect on lowering the seizure threshold, and famotidine was initiated. Discussion Notes During the visit, I discussed with the patient the importance of abstaining from alcohol to prevent further seizures and the need to adhere to the current medication regimen, including gabapentin, metoprolol, and Eliquis. I emphasized the importance of follow-up appointments with cardiology and neurology to monitor his atrial fibrillation and seizure management. The patient was informed about the driving restrictions for six months post-seizure and the rationale for switching from pantoprazole to famotidine due to seizure threshold concerns. Patient Instructions - Do not consume alcohol to prevent furt her seizures. - Continue taking gabapentin, metoprolol , and Eliquis as prescribed. - Follow up with cardiology and neurolog y as scheduled. - Be aware of driving restrictions for s ix months post-seizure. - Start famotidine as directed for GERD management. [facility] Medical History Eyelid retraction unspecified eye, unspecified lid Prostate CA Papillary adenocarcinoma of left kidney Coronary artery calcification Coronary atherosclerosis Ascending aortic aneurysm Thoracic aortic aneurysm HTN (hypertension) Personal history of nicotine dependence FAUSTO (obstructive sleep apnea) Snoring Somnolence, daytime Obesity Barretts esophagus GERD (gastroesophageal reflux disease) Cannabinoid hyperemesis syndrome Osteopenia On beta hilary at home SOB (shortness of breath) COPD (chronic obstructive pulmonary disease) Asthma Nodule on liver Depression Foraminal stenosis of lumbar region Surgical History History of cardiac cath History of prostatectomy History of partial nephrectomy History of total right knee replacement (TKR) History of total knee replacement (TKR) History of knee surgery History of esophagogastroduodenoscopy (EGD) H/O colonoscopy Lipoma of back Family History Father Leukemia Substance use disorder Mother Breast cancer CVD (cardiovascular disease) Takotsubo cardiomyopathy Brother Substance use disorder Sister No problems noted. Maternal Aunt No problems noted. Maternal Grandfather No problems noted. Maternal Grandmother No problems noted. Maternal Uncle No problems noted. Paternal Aunt No problems noted. Paternal Grandfather No problems noted. Paternal Grandmother No problems noted. Paternal Uncle No problems noted. Social History Housing: House Alcohol intake: current Alcohol intake frequency: 3 or more drinks per day Patient Tobacco Use Status: Former Tobacco user Years Smoked: 35 years ago e-Cigarette/Vaping Use: Never Used Second Hand Smoke Exposure: No service: No Current occupational status: retired Cognitive needs: No Hearing needs: No Vision needs: Yes Questionnaire PHQ-9 Over the last 2 weeks, how often have you been bothered by any of the following problems? 1. Little interest or pleasure in doing things: more than half the days 2. Feeling down, depressed, or hopeless: several days 3. Trouble falling or staying asleep, or sleeping too much: several days 4. Feeling tired or having little energy: several days 5. Poor appetite or overeating: several days 6. Feeling bad about yourself - or that you are a failure or have let yourself or your family down: several days 7. Trouble concentrating on things, such as reading the newspaper or watching television: several days 8. Moving or speaking so slowly that other people could have noticed. Or the opposite - being so fidgety or restless that you have been moving around a lot more than usual: several days 9. Thoughts that you would be better off or of hurting yourself in some way: not at all Total score: 9 Depression Screening Interpretation: Positive (declines therapist currently) Depression Screening Follow-up: Existing condition Depression Screening Done: Yes Source: Developed by Drs. Vicente Call, Ara Silva, Coy Obregon and colleagues, with an educational bijan from [employer]. Thrive Questionnaire Date Thrive assessed: 08/20/24 I am a: Patient What is your living situation today?: I have a steady place to live Within the past 12 months, did the food you bought not last and you didn't have the money to get more?: Never true Within the past 12 months, did you worry whether your food would run out before you got money to buy more?: Never true Do you have trouble paying for medicines?: No Do you have trouble getting transportation to medical appointments?: No Do you have trouble paying your heating and electricity bill?: No Do you have trouble taking care of your child, family member or friend?: No Do you have trouble with day-to-day activities such as bathing, preparing meals, shopping, managing finances, etc.?: No Are you currently unemployed and looking for a job?: No Are you interested in more education?: No Please select the resources that you would like help with: None Currently or been in a relationship where the following occur: No concerns reported THRIVE Score: 0 DREAD-7 AMB Questionnaire DREAD-7 Date DREAD - 7 assessed: 11/25/24 Feeling nervous, anxious, or on edge: 1 = Several days Not being able to stop or control worryin = Several days Worrying too much about different things: 1 = Several days Trouble relaxin = Several days Being so restless that it is hard to sit still: 1 = Several days Becoming easily annoyed or irritable: 0 = Not at all Feeling afraid as if something awful might happen: 1 = Several days Total DREAD-7 score (0-4 normal; 5-9 mild; 10-14 moderate; 15-21 severe): 6 Source: Developed by Drs. Vicente Call, Ara Silva, Coy Obregon and colleagues, with an educational bijan from [employer]. Physical exam (Primary Care) Vital Signs: Last Vital Signs Temp 98.7 F 03/17/25 15:29 Pulse 55 03/17/25 15:29 Resp 17 03/17/25 15:29 BP 112/76 03/17/25 15:29 Pulse Ox 97 03/17/25 15:29 Oxygen Delivery Method Room Air 03/17/25 15:29 BMI result Body Mass Index 29.4 Tobacco/Smoking Status: Tobacco use Status Tobacco use date assessed 11/25/24 11/25/24 13:41 Patient Tobacco Use Status Former Tobacco user 12/09/24 08:13 e-Cigarette/Vaping Use Never Used 11/25/24 13:39 Depression Screening Interpretation: Positive (declines therapist currently) Depression Screening Follow-up: Existing condition Thrive Assessment: Date of Thrive Assessment Date Thrive assessed 08/20/24 01/05/25 12:38 Currently or been in a relationship where the following occur: No concerns reported Coding Level of Care Code Est Pt Level 4 (52677) Diagnoses Seizures R56.9 ETOH abuse F10.10 New onset a-fib I48.91 B12 deficiency E53.8 Assessment & Plan Assessment & Plan (1) Seizures: Code(s): R56.9 - Unspecified convulsions Category: Medical (2) ETOH abuse: Code(s): F10.10 - Alcohol abuse, uncomplicated Category: Social Hx (3) New onset a-fib: Code(s): I48.91 - Unspecified atrial fibrillation Category: Medical (4) ETOH abuse: Code(s): F10.10 - Alcohol abuse, uncomplicated Category: Social Hx (5) New onset a-fib: Code(s): I48.91 - Unspecified atrial fibrillation Category: Medical (6) B12 deficiency: Code(s): E53.8 - Deficiency of other specified B group vitamins Category: Medical Plan . Orders: Orders UA CC w/rflx Micro + Cult Today R56.9 - Unspecified convulsions Lipid Panel Today R56.9 - Unspecified convulsions Gabapentin Today R56.9 - Unspecified convulsions Magnesium Today I48.91 - Unspecified atrial fibrillation, R56.9 - Unspecified convulsions Complete Blood Count Auto Diff Today R56.9 - Unspecified convulsions Comprehensive [place]. Panel Fast Today R56.9 - Unspecified convulsions TSH reflex Free T4 Today R56.9 - Unspecified convulsions CA echo transthoracic complete Today F10.10 - Alcohol abuse, uncomplicated, I48.91 - Unspecified atrial fibrillation, R56.9 - Unspecified convulsions ECG 5 day holter monitor Today I48.91 - Unspecified atrial fibrillation Vitamin B12 and Folate Today E53.8 - Deficiency of other specified B group vitamins, F10.10 - Alcohol abuse, uncomplicated, I48.91 - Unspecified atrial fibrillation, R56.9 - Unspecified convulsions Medications: New famotidine 20 mg PO BID 30 days 60 tabs 2RF famotidine 20 mg PO BID 60 tabs 2RF 30 days
--- OUTSIDE RECORDS SUMMARY | 2025-03-17 18:35 | XMS_ITS | Clinical Summary ---
Author Organization [facility] Address [address] [place] [address] Phone Care Team Providers Care Service Desk Agent Name Role Phone Pablo Rivero NP Primary Care Provider [phone] Allergies Active Allergy Reactions Criticality Noted Date [...] Problem Noted Date Diagnosed Date Prostate cancer (CMS/HCC V24, CMS/HCC V28) 01/24 Encounters Date Type Department Care Team Description 03/04/2025 Telephone [facility] Hematology Oncology [address] [place] [address] Guillermina Irving DO 02/16/2025 Telephone [facility] Hematology Oncology [address] [place] [address] Guillermina Irving DO from Last 3 Months [...] Description 04/21/2025 1:30 PM EST Office Visit [facility] Hematology Oncology [address] [place] [address] Guillermina Irving DO [address] [place] [address] Health Maintenance Due Date Last Done Comments Colorectal Cancer Screening: Colonoscopy 1955 Zoster Vaccines (1 of 2) 05/31/2016 04/05/2016 Abdominal Aortic Aneurysm (AAA) Screen 05/18/2022 Cholesterol Screening (Lipid Panel) 05/18/2022 Falls Risk Assessment 05/18/2022 Hepatitis C Screening 05/18/2022 Social Influencers of Health Screening 05/18/2022 Depression Screening 06/11/2024 COVID-19 Vaccine ( season) 2025 03/27/2022, 03/22/2021, 09/08/2020, Additional history exists Influenza Vaccine (#1) 2025 , 03/27/2023, 03/15/2022, [...] patient's age to complete this topic Insurance [facility] [id number] [facility] Care Teams Service Desk Agent Relationship Specialty Start Date End Date Pablo Rivero NP [address] [facility] [place] PCP - General Family Medicine 04/10/18
--- OUTSIDE RECORDS SUMMARY | 2025-03-17 18:35 | XMS_ITS | Encounter Summary ---
Author Organization [facility] Address [address] [place] [address] Care Team Providers Care Bracelet And Brooch Maker Name Role Phone Pablo Rivero MD Primary Care Provider [phone] Memo Grant MD Unavailable [phone] Reason for Visit * Reason Comments Other Medical record reque st Encounter Details Date Type Department Care Team (Late st Contact Info) Description 06/21/2023 Telephone [facility] Urologic Surgery [address] [address] Mamadou Hernandez MD [address] [address] Other (Medical record request) Social [...] Description 11/06/2025 11:30 AM EDT Office Visit [facility] Urology [place] [address] [place] [address] Mamadou Hernandez MD [address] [facility] [address] [place] [address] documented as of this encounter Visit Diagnoses Not on filedocumented in this encounter Care Teams Bracelet And Brooch Maker Relationship Specialty Start Date End Date Pablo Rivero MD 262 [facility] [place] [address] PCP - General Family Medicine 06/23/22 Memo Grant MD [place] [address] Cardiovascular Disease 10/27/22 documented as of this encounter
--- OUTSIDE RECORDS SUMMARY | 2025-03-17 18:35 | XMS_ITS | Encounter Summary ---
Author Organization [facility] Address [address] [place] [address] Care Team Providers Care Corporate Development Analyst Name Role Phone Pablo Rivero MD Primary Care Provider [phone] Memo Grant MD Unavailable [phone] Reason for Visit * Reason Comments Advice Only Encounter Details Date Type Department Care Team ([facility] st Contact Info) Description 03/22/2023 Telephone [facility] Urologic Surgery [address] [phone] Mamadou Hernandez MD [address] [place] [address] Advice Only Social History Tobacco Use [...] EDT Office Visit [facility] Urology [place] [address] [place] [address] Mamadou Hernandez MD [facility] [address] [place] [address] documented as of this encounter Visit Diagnoses Not on filedocumented in this encounter Care Teams Corporate Development Analyst Relationship Specialty Start Date End Date Pablo Rivero MD 262 [facility] [place] [address] PCP - General Family Medicine 06/23/22 Memo Grant [place] [address] Cardiovascular Disease 10/27/22 documented as of this encounter
--- OUTSIDE RECORDS SUMMARY | 2025-03-17 18:35 | XMS_ITS | Encounter Summary ---
Author Organization [facility] Address [address] [place] [address] Care Team Providers Care Director Video Name Role Phone Pablo Rivero MD Primary Care Provider [phone] Memo Grant MD Unavailable [phone] Reason for Visit * Reason Comments Appointment Encounter Details Date Type Department Care Team (Late st Contact Info) Description 12/01/[address] [address] Mamadou Hernandez MD [address] [address] Appointment Social History Tobacco Use Types Packs/Day [...] Description 11/06/2025 11:30 AM EDT Office [facility] Urology [place] [address] [place] [address] Mamadou Hernandez MD [address] [address] documented as of this encounter Visit Diagnoses Not on filedocumented in this encounter Care Teams Director Video Relationship Specialty Start Date End Date Pablo Rivero MD 262 [facility] [place] [address] PCP - General Family Medicine 06/23/22 Memo Grant MD [facility] [place] [address] Cardiovascular Disease 10/27/22 documented as of this encounter
--- OUTSIDE RECORDS SUMMARY | 2025-03-17 18:35 | XMS_ITS | Encounter Summary ---
Author Organization [facility] Address [address] [place] [address] Care Team Providers Care Brazer Electronic Name Role Phone Pablo Rivero MD Primary Care Provider [phone] Memo Grant MD Unavailable [phone] Encounter Details Date Type Department Care Team (Late st Contact Info) Description 08/24/2023 Telephone [facility] Urologic Surgery [address] [address] Mamadou Hernandez MD [address] [address] Social History Tobacco Use Types [...] 11:30 AM EDT Office Visit [facility] [place] [address] [place] [address] Mamadou Hernandez MD [address] [address] documented as of this encounter Visit Diagnoses Not on filedocumented in this encounter Care Teams Brazer Electronic Relationship Specialty Start Date End Date Pablo Rivero MD 262 [facility] [place] [address] PCP - General Family Medicine 06/23/22 [place] [address] Cardiovascular Disease 10/27/22 documented as of this encounter
--- OUTSIDE RECORDS SUMMARY | 2025-03-17 18:35 | XMS_ITS | Clinical Summary ---
Author Organization [facility] Address [address] [place] [address] [place] [address] Phone Care Team Providers Care Sawmill Relief Worker Name Role Phone Jose Alfredo Avila MD Primary Care Provider Unav ailable Allergies Active Allergy Reactions Criticality Noted Date Comments Tetracyclines Hives 02/08/2015 Medications PARoxetine (PAXIL) 30 MG tablet Take 30 mg by mouth every morning. Active lisinopril (PRINIVIL,ZESTR IL) 5 MG tablet Take 5 mg by mouth daily. Active vitamins A,C,E-zinc-shauna er (PRESERVISION AREDS) 14,320226-200 [id number]-[id number] Cap Take 1 capsule by mouth 2 [...] 04/05/2016 ABDOMINAL AORTIC ANEURYSM (AAA) SCREENING 12/14/2019 INFLUENZA VACCINE (#1) 2025 0, 03/05/2019, 02/22/2018, Additional history exists COVID-19 VACCINE (3 - 2024- season) 2025 09/08/2020, 08/16/2020 Adult Td,Tdap Booster 05/25/2027 05/25/2017 [...] topic Medical Devices Not on file Insurance [employer] [facility] TOTAL CHOICE INDEMNITY [facility] TOTAL CHOICE INDEMNITY [facility] TOTAL CHOICE INDEMNITY [facility] TOTAL CHOICE INDEMNITY [facility] TOTAL CHOICE INDEMNITY [facility] TOTAL CHOICE INDEMNITY [facility] TOTAL CHOICE INDEMNITY [facility] TOTAL CHOICE INDEMNITY [facility] TOTAL CHOICE INDEMNITY Care Teams Sawmill Relief Worker Relationship Specialty Start Date End Date Jose Alfredo Avila MD PCP - General Cardiology 02/08/15 Additional Source Comments The information contained in this document represents components of the legal health record. It is not the complete legal health record.[facility]
--- OUTSIDE RECORDS SUMMARY | 2025-03-17 18:35 | XMS_ITS | Patient Health Record ---
Author Organization [facility] Address [address] [place] [address] Care Team Providers Care Court Of Appeals Judge Name Role Phone [place] Primary Care Provider Collins Rivera Jr Unavailable [phone] Allergies Allergen (clinical drug ingredient) Drug/Non Drug Allergy documented on EMR Reaction Allergy Type Onset Date Status tetracycline Tetracycline HCl Unknown Drug Allergy Active Results Component Value Reference Range Notes Pathology Reviewed date:12/11/2024 07:50:15 AM Interpretation: Performing Lab:[facility], [address] [place] [id number] Notes/Report: Reason For Referral No Information Medications [...] Problem Status W/U Status Risk Notes Problem [id number] Colon cancer screening (Z12.11) Active confirmed Problem 70883278 Encounter for ot her preprocedural examination (Z01.818) Active confirmed Problem 675368555 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 Problem 075770992 Gastroesophageal reflux disease without esophagitis (K21.9) Active confirmed Problem Esophageal reflux finding (458303166) Gastroesophageal reflux (K21.9) Active confirmed Problem 029188786 Adenomatous poly p of colon, unspecified part of colon (D12.6) Active confirmed Problem Pedroza's esophagus (621548246) 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 Vital Signs Blood pressure diastolic 77 mm Hg 10/09/2024 Height 72 in 10/09/2024 Blood pressure systolic 111 mm Hg 10/09/2024 Weight 216 lbs 10/09/2024 BMI 29.29 kg/m2 10/09/2024 Encounters Encounter Location Date Provider Diagnosis [facility] Outpatient [address] [place] [id number] 12/09/2024 Collins Salmeron Jr [facility] [address] [place] [phone] 10/09/2024 Collins Salmeron Jr Colon cancer screening Z12.11 and 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 [facility] [address] [place] [phone] 10/09/2024 Collins Salmeron Jr [facility] [address] [place] [phone] 12/11/2024 Collins Salmeron Jr Assessments Encounter Date [...] Insured Coverage Start Date Coverage End Date [employer]) [address] [place] [address] [id number] MARIO SUAREZ Self - patient is [...]
--- OUTSIDE RECORDS SUMMARY | 2025-03-17 18:35 | XMS_ITS | Clinical Summary ---
Author Organization [facility] Address [address] [place], [place] [address] Care Team Providers Care Flume Ride Operator Name Role Phone Pablo Rivero MD Primary Care Provider [phone] Memo rGant MD Unavailable [phone] Allergies Active Allergy Reactions Criticality Noted [...] Description 11/06/2025 11:30 AM EDT Office Visit [facility] Urology [place] [address] [place] [address] Mamadou Hernandez MD [address] [place] [address] Health Maintenance Due Date Last Done Comments Advance Care Planning 1955 Hepatitis C Virus Screening 1955 COVID-19 Vaccine (#1) 12/14/1959 DTaP/Tdap/Td Vaccines (1 - Tdap) 1973 Pneumococcal Vaccines 50+ (1 of 2 - PCV) 1973 Zoster (Shingles) Vaccine (1 of 2) 1973 Colonoscopy 12/14/1999 RSV Vaccine 60 years and old er and Patients (1 - Risk 60-74 years 1-dose series) 2014 Influenza Vaccine 01/09/2025 Hepatitis B Vaccines Aged Out No long er eligible based on patient's age to complete this topic Insurance [facility] Advance Directives * Full Code (Latest Code Status on File) Date Activated Date Inactivated Comments 11/15/2022 8:03 PM * Full Code Date Activated Date Inactivated Comments 11/15/2022 10:25 AM 11/15/2022 8:03 PM Care Teams Flume Ride Operator Relationship Specialty Start Date End Date Pablo Rivero MD 262 [facility] [place] [address] PCP - General Family Medicine 06/23/22 Memo Grant MD [place] [address] Cardiovascular Disease 10/27/22
--- OUTSIDE RECORDS SUMMARY | 2025-03-17 18:35 | XMS_ITS ---
Author Organization [facility] Address [address] [place] [address] Care Team Providers Care [place] Soundings Group Leader Name Role Phone Pablo Rivero Primary Care Provider [phone] Active Problems Problem Noted Date Diagnosed Date Prostate cancer 01/24/2017 Current Oncology Plans No current plan information found. Past Plans ONCOLOGY INFUSION THERAPY Plan Name Start Date Discontinue Date Treatment Medications Discontinue Reason Plan Provider [facility] BCN LEUPROLIDE 45 MG (ELIGARD) EVERY 6 MONTHS 12/08/2021 07/19/2023 leuprolide (ELIGARD) Therapy Complete Brown Damon MD Radiation Treatments * No radiation treatments are documented for this patient in [facility]. Treatments may have been administered in another system.
--- OUTSIDE RECORDS SUMMARY | 2025-03-17 18:35 | XMS_ITS | Clinical Summary ---
Author Organization [facility] Address [address] [place] [address] Care Team Providers Care Architecture Department Chair Name Role Phone Pablo Rivero Primary Care Provider [phone] Allergies Active Allergy Reactions Criticality Noted Date [...] age to complete this topic Care Teams Architecture Department Chair Relationship Specialty Start Date End Date Pablo Rivero [address] [facility] [place] [address] PCP - General Family Medicine 04/10/18
--- OUTSIDE RECORDS SUMMARY | 2025-03-17 18:35 | XMS_ITS | Encounter Summary ---
Author Organization [facility] Address [address] [place] [address] Care Team Providers Care Home Care And Home Health Aides Teacher Name Role Phone Pablo Rivero MD Primary Care Provider [phone] Memo Grant MD Unavailable [phone] Encounter Details Date Type Department Care Team (Late st Contact Info) Description 08/28/2023 Scanned Document [facility] Urologic Surgery [address] [place] [address] Guillermina Irving, DO [address] [place] [address] Social History Tobacco Use Types Packs/Day Years [...] Description 11/06/2025 11:30 AM EDT Office Visit [facility] Urology [place] [address] [place] [address] Mamadou Hernandez MD [address] [address] documented as of this encounter Visit Diagnoses Not on filedocumented in this encounter Care Teams Home Care And Home Health Aides Teacher Relationship Specialty Start Date End Date Pablo Rivero MD [address] [facility] [place] [address] PCP - General Family Medicine 06/23/22 Memo Grant [place] [address] Cardiovascular Disease 10/27/22 documented as of this encounter
--- OUTSIDE RECORDS SUMMARY | 2025-03-17 18:35 | XMS_ITS | Encounter Summary ---
Author Organization [facility] Address [address] [place] [address] Care Team Providers Care Plant Protection Guard Name Role Phone Pablo Rivero MD Primary Care Provider [phone] Memo Grant MD Unavailable [phone] Encounter Details Date Type Department Care Team (Late st Contact Info) Description 06/16/2022 Scanned Document [facility] 10 [facility] 100 [place] [address] Tonya Hernandez MD [address] [place] [address] Social History Tobacco Use Types Packs/Day Years [...] Description 11/06/2025 11:30 AM EDT Office Visit [facility] Urology [place] [address] [place] [address] Mamadou Hernandez MD [address] [place] [address] documented as of this encounter Visit Diagnoses Not on filedocumented in this encounter Care Teams Plant Protection Guard Relationship Specialty Start Date End Date Pablo Rivero MD [address] [place] [address] PCP - General Family Medicine 06/23/22 [place] [address] Cardiovascular Disease 10/27/22 documented as of this encounter
--- OUTSIDE RECORDS SUMMARY | 2025-03-17 18:35 | XMS_ITS | Encounter Summary ---
Author Organization [facility] Address [address] [place] [address] Care Team Providers Care Copping Machine Operator Name Role Phone Pablo Rivero MD Primary Care Provider [phone] Memo Grant MD Unavailable [phone] Encounter Details Date Type Department Care Team (Late st Contact Info) Description 09/26/2022 Scanned Document [facility] Urologic Surgery [place] [address] [address] Mamadou Hernandez MD 85 [facility] [place] [address] [place] [address] Social History Tobacco Use Types Packs/Day [...] Description 11/06/2025 11:30 AM EDT Office Visit [facility] Urology [place] [address] [place] [address] Mamadou Hernandez MD [address] [place] [address] documented as of this encounter Visit Diagnoses Not on filedocumented in this encounter Care Teams Copping Machine Operator Relationship Specialty Start Date End Date Pablo Rivero MD 262 [facility] [place] [address] PCP - General Family Medicine 06/23/22 [place] [address] Cardiovascular Disease 10/27/22 documented as of this encounter
--- OUTSIDE RECORDS SUMMARY | 2025-03-17 18:35 | XMS_ITS | Encounter Summary ---
Author Organization [facility] Address [address] [place] [address] Care Team Providers Care Winding Inspector And Tester Name Role Phone Pablo Rivero MD Primary Care Provider [phone] Memo Grant MD Unavailable [phone] Reason for Visit * Reason Comments Appointment Encounter Details Date Type Department Care Team ([facility] st Contact Info) Description 02/23/2023 Telephone [facility] Urologic Surgery [address] [address] Mamadou Hernandez MD [address] [place] [address] Appointment Social History Tobacco Use Types [...] Description 11/06/2025 11:30 AM EDT Office Visit [facility] Urology [place] [address] [place] [address] Mamadou Hernandez MD 85 [facility] [address] [place] [address] documented as of this encounter Visit Diagnoses Not on filedocumented in this encounter Care Teams Winding Inspector And Tester Relationship Specialty Start Date End Date Pablo Rivero MD [address] [place] [address] PCP - General Family Medicine 06/23/22 Memo Grant [place] [address] Cardiovascular Disease 10/27/22 documented as of this encounter
== END 2025-03-17 16:54 | disposition home or self-care (01) ==
LOC: HO.HMCC 15:25
PROVIDERS: PCP Nurse Practitioner Family; Visit Provider Nurse Practitioner Family
DX: R56.9 Unspecified convulsions (principal); F10.10 Alcohol abuse, uncomplicated; I48.91 Unspecified atrial fibrillation; E53.8 Deficiency of other specified B group vitamins

== ENCOUNTER 2025-03-26 09:22 | Outpatient (REF) | payer OTHER, SELFPAY ==
--- OUTSIDE RECORDS SUMMARY | 2024-04-03 14:39 | XMS_ITS | Encounter Summary ---
Author Organization [facility] Address [address] [place] [address] Care Team Providers Care Sound Engineering Technician Name Role Phone Pablo Rivero NP Primary Care Provider Encounter Details Date Type Department Care Team (Late st Contact Info) Description 04/03/2024 2:39 PM EDT Hospital Encounter TH HISTORIC ENCOUNTERS EASTERN CONVERSION ONLY Guillermina Irving, [address] [place] [address] Social History Tobacco Use Types Packs/Day Years [...] in follow-up upon a recommendation from his debubblizer. 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 today and [...] Sign Maryanne Irving DO - Hematology/Oncology [facility] CC: Pablo Rivero documented in this encounter Plan of Treatment Upcoming Encounters Date Type Department Care Team (Late st Contact Info) Description 04/21/2025 1:30 PM EST Office Visit [facility] Hematology Oncology [address] [place] [address] Guillermina Irving DO [address] [place] [address] documented as of this encounter Visit Diagnoses Not on filedocumented in this encounter Care Teams Sound Engineering Technician Relationship Specialty Start Date End Date Pablo Rivero, NAVAL INSPECTOR [address] [place], [place] PCP - General Family Medicine 04/10/18 documented as of this encounter
--- OUTSIDE RECORDS SUMMARY | 2024-12-09 04:20 | XMS_ITS ---
Author Organization [facility] Address [address] [place] [address] Care Team Providers Care Network Architect Name Role Phone BASILIA CAROLINA Primary Care Provider Collins Rivera Jr [phone] REASON FOR VISIT screening with colon Encounters Encounter Location Date Provider Diagnosis [facility] [address] [place] [id number] 12/09/2024 Collins Salmeron Jr Plan Of Treatment No Information Progress Notes * MARIO SUAREZ MDOB:[birth year] (69 yo M)Acc No.[id number]:12/09/2024 COLON WITH MAC Patient: MARIO RICHARDSON Provider: Carmen Salmeron MD :1955 A ge:68 Y S ex:Male Date:12/09/2024 Address:[facility] [place] [place] Pcp:BASILIA CAROLINA Subjective: * Chief Complaints: * [...] MD Date: 0 12/09/2024 Generated for Yaai ng/Faxing/eTransmitting on: 1 10:37 AM EDT
--- OUTSIDE RECORDS SUMMARY | 2025-03-26 10:38 | XMS_ITS | Encounter Summary ---
Author Organization [facility] Address [address] [place] [address] Care Team Providers Care Horologist Apprentice Name Role Phone Pablo Rivero MD Primary Care Provider [phone] Memo Grant MD Unavailable [phone] Encounter Details Date Type Department Care Team (Late st Contact Info) Description 08/24/2023 Telephone [facility] Urologic Surgery [address] [address] Mamadou Hernandez MD [address] [address] Social History Tobacco Use Types [...] Description 11/06/2025 11:30 AM EDT Office Visit [facility] Urology [place] [address] [place] [address] Mamadou Hernandez MD [address] [address] documented as of this encounter Visit Diagnoses Not on filedocumented in this encounter Care Teams Horologist Apprentice Relationship Specialty Start Date End Date Pablo Rivero MD 262 [facility] [place] [address] PCP - General Family Medicine 06/23/22 [place] [address] Cardiovascular Disease 10/27/22 documented as of this encounter
--- OUTSIDE RECORDS SUMMARY | 2025-03-26 10:38 | XMS_ITS | Clinical Summary ---
Author Organization [facility] Address [address] [place] [address] Phone Care Team Providers Care Bobbin Inspector Name Role Phone Jose Alfredo Avila MD Primary Care Provider Unav ailable Allergies Active Allergy Reactions Criticality Noted Date Comments Tetracyclines Hives 02/08/2015 Medications PARoxetine (PAXIL) 30 MG tablet Take 30 mg by mouth every morning. Active lisinopril (PRINIVIL,ZESTR IL) 5 MG tablet Take 5 mg by mouth daily. Active vitamins A,C,E-zinc-shauna er (PRESERVISION AREDS) 14,320226-200 [id number]-[id number] Cap Take 1 capsule by mouth 2 [...] topic Medical Devices Not on file Insurance [facility] TOTAL CHOICE INDEMNITY [facility]OTAL CHOICE IN[facility]MNITY [facility]OTAL CHOICE INDEMNITY [facility] TOTAL CHOICE INDEMNITY [facility] TOTAL CHOICE INDEMNITY [facility] TOTAL CHOICE INDEMNITY [facility] TOTAL CHOICE [facility] TOTAL CHOICE INDEMNITY [facility]OTAL CHOICE INDEMNITY Care Teams Bobbin Inspector Relationship Specialty Start Date End Date Jose Alfredo Aivla MD PCP - General Cardiology 02/08/15 Additional Source Comments The information contained in this document represents components of the legal health record. It is not the complete legal health record.[facility]
--- OUTSIDE RECORDS SUMMARY | 2025-03-26 10:38 | XMS_ITS | Encounter Summary ---
Author Organization [facility] Address [address] [place] [address] Care Team Providers Care Drop Man Name Role Phone Pablo Rivero MD Primary Care Provider [phone] Memo Grant MD Unavailable [phone] Encounter Details Date Type Department Care Team (Late st Contact Info) Description 06/16/2022 Scanned Document [facility] 10 [facility] 100 [place] [address] Tonya Hernandez MD [address] [place] [address] Social History Tobacco Use Types Packs/Day Years [...] 11:30 AM EDT Office Visit [facility] Urology [place] [address] [place] [address] Mamadou Hernandez MD [address] [place] [address] documented as of this encounter Visit Diagnoses Not on filedocumented in this encounter Care Teams Drop Man Relationship Specialty Start Date End Date Pablo Rivero MD [address] [place] [address] PCP - General Family Medicine 06/23/22 Memo Grant [place] [address] Cardiovascular Disease 10/27/22 documented as of this encounter
--- OUTSIDE RECORDS SUMMARY | 2025-03-26 10:38 | XMS_ITS | Encounter Summary ---
Author Organization [facility] Address [address] [place] [address] Care Team Providers Care Dispute Resolution Analyst Name Role Phone Pablo Rivero MD Primary Care Provider [phone] Memo Grant MD Unavailable [phone] Encounter Details Date Type Department Care Team (Late st Contact Info) Description 09/26/2022 Scanned Document [facility] Urologic Surgery [place] [address] [address] Mamadou Hernandez MD 85 [facility] Kieran [address] [place] [address] Social History Tobacco Use Types Packs/Day [...] Description 11/06/2025 11:30 AM EDT Office Visit [facility] Urology [place] [address] [place] [phone] Mamadou Hernandez MD [address] [place] [address] documented as of this encounter Visit Diagnoses Not on filedocumented in this encounter Care Teams Dispute Resolution Analyst Relationship Specialty Start Date End Date Pablo Rivero MD 262 [facility] [place] [address] PCP - General Family Medicine 06/23/22 [place] [address] Cardiovascular Disease 10/27/22 documented as of this encounter
--- OUTSIDE RECORDS SUMMARY | 2025-03-26 10:38 | XMS_ITS | Encounter Summary ---
Author Organization [facility] Address [address] [place] [address] Care Team Providers Care Carpenter Refrigerator Name Role Phone Pablo Rivero MD Primary Care Provider [phone] Memo Grant MD Unavailable [phone] Reason for Visit * Reason Comments Appointment Encounter Details Date Type Department Care Team (Late st Contact Info) Description 12/01/[address] [address] Mamadou Hernandez MD [address] [address] Appointment Social History Tobacco Use Types Packs/Day [...] 11:30 AM EDT Office Visit [facility] [place] [address] [place] [address] Mamadou Hernandez MD [address] [address] documented as of this encounter Visit Diagnoses Not on filedocumented in this encounter Care Teams Carpenter Refrigerator Relationship Specialty Start Date End Date Pablo Rivero MD 262 [facility] [place] [address] PCP - General Family Medicine 06/23/22 Memo Grant MD [place] [address] Cardiovascular Disease 10/27/22 documented as of this encounter
--- OUTSIDE RECORDS SUMMARY | 2025-03-26 10:38 | XMS_ITS | Patient Health Record ---
Author Organization [facility] Address [address] [place] [address] Care Team Providers Care Triage Assistant Name Role Phone BASILIA CAROLINA Primary Care Provider Collins Rivera Jr Unavailable Allergies Allergen (clinical drug ingredient) Drug/Non Drug Allergy documented on EMR Reaction Allergy Type Onset Date Status tetracycline Tetracycline HCl Unknown Drug Allergy Active Results Component Value Reference Range Notes Pathology Reviewed date:12/11/2024 07:50:15 AM Interpretation: Performing Lab:[facility], [address] [place] [id number] Notes/Report: Reason For Referral No Information Medications Medication SIG (Take, Route, Frequency, Duration) Notes Start Date End Date Status Metoprolol Tartrate 25 MG Oral; Duration: 90 Active PARoxetine HCl 30 MG 1 tablet in the mor hellen Orally Once a day Active Vitamin D3 50 MCG (1999 UT) Oral; Duration: 90 Active Atorvastatin Calcium 20 MG 1 tablet Oral ly Once a day Active Losartan Potassium 50 MG 1 tablet Orally Once a day Active Calcium 1 tab Oral; Duration : 14 days Active Pantoprazole Sodium 20 MG TAKE 1 TABLET BY MOUTH EVERY DAY FOR 30 DAYS; Duration: 90 Active Vitamin B12 Active Immunizations Vaccine [...] Problem Status W/U Status Risk Notes Problem Colon cancer screening (807385095) Colon cancer screening (Z12.11) Active confirmed Problem Pre-procedure evaluation check (184479859) Encounter for other preprocedural examination (Z01.818) Active confirmed Problem 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 Problem Gastroesophageal reflux disease without esophagitis (485194522) Gastroesophageal reflux disease without esophagitis (K21.9) Active confirmed Problem Esophageal reflux finding (055871549) Gastroesophageal reflux (K21.9) Active confirmed Problem Benign neoplasm of colon (70816371) Adenomatous polyp of colon, unspecified part of colon (D12.6) Active confirmed Problem Pedroza's esophagus (788787129) 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 Vital Signs Blood pressure diastolic 77 mm Hg 10/09/2024 Height 72 in 10/09/2024 Blood pressure systolic 111 mm Hg 10/09/2024 Weight 216 lbs 10/09/2024 BMI 29.29 kg/m2 10/09/2024 Encounters Encounter Location Date Provider Diagnosis [facility] [address] [place] [id number] 12/09/2024 Collins Salmeron Jr [facility] [address] [place] [phone] 10/09/2024 Collins Salmeron Jr Colon cancer screening Z12.11 and 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 [facility] [address] [place] [phone] 10/09/2024 Collins Salmeron Jr [facility] [address] [place] [phone] 12/11/2024 Collins Salmeron Jr Assessments Encounter Date [...] Insured Coverage Start Date Coverage End Date [employer] ([employer]) [address] [place] [address] [id number] MARIO SUAREZ Self - patient is [...]
--- OUTSIDE RECORDS SUMMARY | 2025-03-26 10:38 | XMS_ITS | Encounter Summary ---
Author Organization [facility] Address [address] [place] [address] Care Team Providers Care Crimping Machine Operator For Metal Name Role Phone Pablo Rivero MD Primary Care Provider [phone] Memo Grant MD Unavailable [phone] Reason for Visit * Reason Comments Appointment Encounter Details Date Type Department Care Team ([facility] st Contact Info) Description 02/23/2023 Telephone [facility] Urologic Surgery [address] [address] Mamadou Hernandez MD [address] [place] [address] Appointment Social History Tobacco Use Types [...] [facility] Urology [place] [address] [place] [address] Mamadou Hernandez MD 85 [place] [facility] [address] [place] [address] documented as of this encounter Visit Diagnoses Not on filedocumented in this encounter Care Teams Crimping Machine Operator For Metal Relationship Specialty Start Date End Date Pablo Rivero MD [address] [place] [address] PCP - General Family Medicine 06/23/22 [place]o [place] [address] Cardiovascular Disease 10/27/22 documented as of this encounter
--- OUTSIDE RECORDS SUMMARY | 2025-03-26 10:38 | XMS_ITS | Encounter Summary ---
Author Organization [facility] Address [address] [place] [address] Care Team Providers Care Interface Analyst Name Role Phone Pablo Rivero MD Primary Care Provider [phone] Memo Grant MD Unavailable [phone] Reason for Visit * Reason Comments Other Medical record reque st Encounter Details Date Type Department Care Team (Late st Contact Info) Description 06/21/2023 Telephone [facility] Urologic Surgery [address] [address] Mamadou Hernandez MD [address] [address] Other (Medical record request) Social [...] Description 11/06/2025 11:30 AM EDT [facility]rology [place] [address] [place] [address] Mamadou Hernandez MD 85 [facility] [address] [place] [address] documented as of this encounter Visit Diagnoses Not on filedocumented in this encounter Care Teams Interface Analyst Relationship Specialty Start Date End Date Pablo Rivero MD 262 [place] [address] PCP - General Family Medicine 06/23/22 [place] [address] Cardiovascular Disease 10/27/22 documented as of this encounter
--- OUTSIDE RECORDS SUMMARY | 2025-03-26 10:38 | XMS_ITS | Encounter Summary ---
Author Organization [facility] Address [address] [place] [address] Care Team Providers Care High Worker Name Role Phone Pablo Rivero MD Primary Care Provider [phone] Memo Grant MD Unavailable [phone] Encounter Details Date Type Department Care Team (Late st Contact Info) Description 08/28/2023 Scanned Document [facility] Urologic Surgery [address] [place] [address] Guillermina Irving, DO [address] [place] [address] Social History Tobacco Use Types Packs/Day Years [...] Description 11/06/2025 11:30 AM EDT Office Visit [facility] Urology [place] [address] [place] [address] Mamadou Hernandez MD [address] [address] documented as of this encounter Visit Diagnoses Not on filedocumented in this encounter Care Teams High Worker Relationship Specialty Start Date End Date Pablo Rivero MD [address] [facility] [place] [address] PCP - General Family Medicine 06/23/22 Memo [place] [address] Cardiovascular Disease 10/27/22 documented as of this encounter
--- OUTSIDE RECORDS SUMMARY | 2025-03-26 10:38 | XMS_ITS | Encounter Summary ---
Author Organization [facility] Address [address] [place] [address] Care Team Providers Care Supervisor Cutting Department Name Role Phone Pablo Rivero MD Primary Care Provider [phone] Memo Grant MD Unavailable [phone] Reason for Visit * Reason Comments Advice Only Encounter Details Date Type Department Care Team ([facility] st Contact Info) Description 03/22/2023 Telephone [facility] Urologic Surgery [address] [phone] Mamadou Hernandez MD [address] [place] [address] Advice Only Social History Tobacco Use [...] Description 11/06/2025 11:30 AM EDT Office Visit [facility] Urology [place] [address] [place] [address] Mamadou Hernandez MD 85 [facility] [address] [place] [address] documented as of this encounter Visit Diagnoses Not on filedocumented in this encounter Care Teams Supervisor Cutting Department Relationship Specialty Start Date End Date Pablo Rivero MD 262 [facility] [place] [address] PCP - General Family Medicine 06/23/22 Memo Grant [place] [address] Cardiovascular Disease 10/27/22 documented as of this encounter
--- OUTSIDE RECORDS SUMMARY | 2025-03-26 10:38 | XMS_ITS | Clinical Summary ---
Author Organization [facility] Address [address] [place] [address] Phone Care Team Providers Care Practice Specialist Name Role Phone Pablo Rivero NP [...] Type Department Care Team Description 03/04/2025 Telephone [facility] Hematology Oncology [address] [place] [address] Guillermina Irving DO 02/16/2025 Telephone [facility] Hematology Oncology [address] [place] [address] Guillermina Irving DO from Last [...] Description 04/21/2025 1:30 PM EST Office Visit [facility] Hematology Oncology [address] [place] [address] Guillermina Irving DO [address] [place] [address] Health Maintenance Due Date Last Done Comments [...] age to complete this topic Insurance [employer] [facility] [place] [id number] [facility] Care Teams Practice Specialist Relationship Specialty Start Date End Date Pablo Rivero NP 262 [facility] [place] PCP - General Family Medicine 04/10/18
--- OUTSIDE RECORDS SUMMARY | 2025-03-26 10:38 | XMS_ITS | Clinical Summary ---
Author Organization [facility] Address [address] [place] [address] Care Team Providers Care Healthcare Science Specialist Name Role Phone Pablo Rivero Primary Care Provider [phone] Allergies Active Allergy Reactions Criticality Noted Date [...] age to complete this topic Care Teams Healthcare Science Specialist Relationship Specialty Start Date End Date Pablo Rivero [address] [facility] [place] [address] PCP - General Family Medicine 04/10/18
--- OUTSIDE RECORDS SUMMARY | 2025-03-26 10:38 | XMS_ITS ---
Author Organization [facility] Address [address] [place] [address] Care Team Providers Care Servomechanism Designer Name Role Phone Pablo Rivero Primary Care Provider [phone] Active Problems Problem Noted Date Diagnosed Date Prostate cancer 01/24/2017 Current Oncology Plans No current plan information found. Past Plans ONCOLOGY INFUSION THERAPY Plan Name Start Date Discontinue Date Treatment Medications Discontinue Reason Plan Provider [facility] BCN LEUPROLIDE 45 MG (ELIGARD) EVERY 6 MONTHS 12/08/2021 07/19/2023 leuprolide (ELIGARD) Therapy Complete Brown Damon MD Radiation Treatments * No radiation treatments are documented for this patient in [facility]. Treatments may have been administered in another system.
--- OUTSIDE RECORDS SUMMARY | 2025-03-26 10:38 | XMS_ITS | Clinical Summary ---
Author Organization [facility] Address [address] [place], [place] [address] Care Team Providers Care Configuration Management Architect Name Role Phone Pablo Rivero MD Primary Care Provider [phone] Memo Grant MD Unavailable [phone] Allergies Active Allergy Reactions Criticality Noted [...] AM EDT Office Visit [facility]rology [place] [address] [place] [address] Mamadou Hernandez MD [address] [place] [address] Health Maintenance Due Date Last Done Comments Advance Care Planning 1955 Hepatitis C Virus Screening 1955 COVID-19 Vaccine (#1) 12/14/1959 DTaP/Tdap/Td Vaccines (1 - Tdap) 1973 Pneumococcal Vaccines 50+ (1 of 2 - PCV) 1973 Zoster (Shingles) Vaccine (1 of 2) 1973 Colonoscopy 12/14/1999 RSV Vaccine 50 years and old er and Patients (1 - Risk 60-74 years 1-dose series) 2014 Influenza Vaccine 01/09/2025 Hepatitis B Vaccines Aged Out No long er eligible based on patient's age to complete this topic [facility] Directives * Full Code (Latest Code Status on File) Date Activated Date Inactivated Comments 11/15/2022 8:03 PM * Full Code Date Activated Date Inactivated Comments 11/15/2022 10:25 AM 11/15/2022 8:03 PM Care Teams Configuration Management Architect Relationship Specialty Start Date End Date Pablo Rivero MD 262 [facility] [place] [address] PCP - General Family Medicine 06/23/22 Memo [place] [address] Cardiovascular Disease 10/27/22
[2025-03-26 13:16] LABS: Appearance Urine Clear; Glucose Urine UA Negative (Negative); PH 8.5 (5.0-9.0); Specific Gravity - Urine 1.010 (1.005-1.025)
[2025-03-26 13:26] LABS: MANUAL DIFF FLAG NO
[2025-03-26 13:45] LABS: Hematocrit 41.6 % (42.0-52.0); Hemoglobin 13.8 g/dl (14.0-18.0); Imm Gran Abs Auto 0.03 X10*3/uL (0.00-0.03); Imm Gran Pct Auto 0.3 % (0.0-0.4); Lymphocytes Absolute Auto 2.2 X10*3/uL (1.2-4.9); Mean Corpuscular HGB Conc 33.2 g/dl (31.0-36.0); Mean Corpuscular Hemoglobin 32.2 pg (27.0-33.0); Mean Corpuscular Volume 97.2 fL (80.0-98.0); NRBC Abs Auto 0.000 X10*3/uL (0.0-0.012); NRBC Pct Auto 0.0 /100WBC (0.0-0.2); Platelet Count 387 X10*3/uL (160-400); Red Blood Count 4.28 X10*6/uL (4.60-5.80); White Blood Count 8.8 X10*3/uL (4.8-10.8)
[2025-03-26 14:25] LABS: Alanine Aminotransferase 24 U/L (0-40); Albumin Level 4.1 g/dL (3.5-5.0); Alkaline Phosphatase 67 U/L (39-117); Anion Gap 9 (12-20); Aspartate Amino Transferase 30 U/L (5-37); Blood Urea Nitrogen 11 mg/dL (9-16); Calcium 9.3 mg/dL (8.4-10.2); Carbon Dioxide 29 mmol/L (22-29); Chloride 106 mmol/L (96-108); Cholesterol 106 mg/dL (<200); Estimated Glomerular Filt Rate > 60; HDL Cholesterol 40 mg/dL (>40); Magnesium 2.4 mg/dL (1.6-2.6); Potassium 5.2 mmol/L (3.3-5.1); Sodium 139 mmol/L (135-145); Total Protein 6.4 g/dL (6.5-8.0); Triglycerides 57 mg/dL (<150)
[2025-03-26 14:37] LABS: Folate 14.6 ng/mL (> or = 4.0); Vitamin B12 1198 pg/mL (200-900)
== END 2025-03-26 09:23 | disposition home or self-care (01) ==
LOC: HO.HMGCLDS 09:22
PROVIDERS: PCP Nurse Practitioner Family; Visit Provider Nurse Practitioner Family
DX: Z13.6 Encounter for screening for cardiovascular disorders (principal); I48.91 Unspecified atrial fibrillation; E53.8 Deficiency of other specified B group vitamins; F10.10 Alcohol abuse, uncomplicated; R56.9 Unspecified convulsions
CPT/HCPCS: 36415; 80053; 80061; 80171; 81003; 82607; 82746; 83735; 84443; 85025

== ENCOUNTER 2025-04-02 10:42 | Outpatient (REF) | payer OTHER, SELFPAY ==
--- OUTSIDE RECORDS SUMMARY | 2024-04-03 14:39 | XMS_ITS | Encounter Summary ---
Author Organization [facility] Address [address] [place] [address] Care Team Providers Care Paediatric Surgeon Name Role Phone Pablo Rivero NP Primary Care Provider [phone] Encounter Details Date Type Department Care Team (Late st Contact Info) Description 04/03/2024 2:39 PM EDT Hospital Encounter TH HISTORIC ENCOUNTERS EASTERN CONVERSION ONLY Guillermina Irving, [address] [place] [address] Social History Tobacco Use Types Packs/Day Years [...] in follow-up upon a recommendation from his manager statistical. 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 CC: Pablo Rivero documented in this encounter Plan of Treatment Upcoming Encounters Date Type Department Care Team (Late st Contact Info) Description 04/21/2025 1:30 PM EST Office Visit [facility] Hematology Oncology [address] [place] [address] Guillermina Irving DO [address] [place] [address] documented as of this encounter Visit Diagnoses Not on filedocumented in this encounter Care Teams Paediatric Surgeon Relationship Specialty Start Date End Date Pablo Rivero, TRAINING INTERN [address] [place], [place] PCP - General Family Medicine 04/10/18 documented as of this encounter
--- OUTSIDE RECORDS SUMMARY | 2025-04-02 13:05 | XMS_ITS | Encounter Summary ---
Author Organization [facility] Address [address] [place] [address] Care Team Providers Care Pot Puller Name Role Phone Pablo Rivero MD Primary Care Provider [phone] Memo Grant MD Unavailable [phone] Encounter Details Date Type Department Care Team (Late st Contact Info) Description 08/24/2023 Telephone [facility] Urologic Surgery [address] [address] Mamadou Hernandez MD [address] [address] Social History Tobacco Use Types [...] 11/06/2025 11:30 AM EDT Office Visit [facility] Urology [place] [address] [place] [address] Mamadou Hernandez MD [address] [address] documented as of this encounter Visit Diagnoses Not on filedocumented in this encounter Care Teams Pot Puller Relationship Specialty Start Date End Date Pablo Rivero MD [address] [facility] [place] [address] PCP - General Family Medicine 06/23/22 [place] [address] Cardiovascular Disease 10/27/22 documented as of this encounter
--- OUTSIDE RECORDS SUMMARY | 2025-04-02 13:05 | XMS_ITS | Encounter Summary ---
Author Organization [facility] Address [address] [place] [address] Care Team Providers Care Field Return Repairer Name Role Phone Pablo Rivero MD Primary Care Provider [phone] Memo Grant MD Unavailable [phone] Encounter Details Date Type Department Care Team (Late st Contact Info) Description 08/28/2023 Scanned Document [facility] Urologic Surgery [address] [place] [address] Guillermina Irving, DO [address] [place] [address] Social History Tobacco Use Types Packs/Day Years [...] 11:30 AM EDT Office Visit [facility] Urology [place] [address] [place] [address] Mamadou Hernandez MD [address] [address] documented as of this encounter Visit Diagnoses Not on filedocumented in this encounter Care Teams Field Return Repairer Relationship Specialty Start Date End Date Pablo Rivero MD 262 [facility] [place] [address] PCP - General Family Medicine 06/23/22 Memo Grant [place] [address] Cardiovascular Disease 10/27/22 documented as of this encounter
--- OUTSIDE RECORDS SUMMARY | 2025-04-02 13:06 | XMS_ITS | Clinical Summary ---
Author Organization [facility] Address [address] [place], [place] [address] Care Team Providers Care Catalytic Case Operator Name Role Phone Pablo Rivero MD Primary Care Provider [phone] Memo Grant MD Unavailable [phone] Allergies Active Allergy Reactions Criticality Noted [...] 11:30 AM EDT Office Visit [facility] Urology [place] [address] [place] [address] Mamadou Hernandez MD [address] [place] [address] Health Maintenance Due Date Last Done Comments Advance Care Planning 1955 Hepatitis C Virus Screening 1955 COVID-19 Vaccine (#1) 12/14/1959 DTaP/Tdap/Td Vaccines (1 - Tdap) 1973 Pneumococcal Vaccines 50+ (1 of 2 - PCV) 1973 Zoster (Shingles) Vaccine (1 of 2) 1973 Colonoscopy 12/14/1999 RSV Vaccine 50 years and old er and Patients (1 - Risk 50-74 years 1-dose series) 2004 Influenza Vaccine 01/09/2025 Hepatitis B Vaccines Aged Out No long er eligible based on patient's age to complete this topic [facility] * Full Code (Latest Code Status on File) Date Activated Date Inactivated Comments 11/15/2022 8:03 PM * Full Code Date Activated Date Inactivated Comments 11/15/2022 10:25 AM 11/15/2022 8:03 PM Care Teams Catalytic Case Operator Relationship Specialty Start Date End Date Pablo Rivero MD 262 [facility] [place] [address] PCP - General Family Medicine 06/23/22 Memo Grant [place] [address] Cardiovascular Disease 10/27/22
--- OUTSIDE RECORDS SUMMARY | 2025-04-02 13:06 | XMS_ITS | Encounter Summary ---
Author Organization [facility] Address [address] [place] [address] Care Team Providers Care Networking Technology Instructor Name Role Phone Pablo Rivero MD Primary Care Provider [phone] Memo Grant MD Unavailable [phone] Reason for Visit * Reason Comments Appointment Encounter Details Date Type Department Care Team ([facility] st Contact Info) Description 02/23/2023 Telephone [facility] Urologic Surgery [address] [phone] Mamadou Hernandez MD [address] [place] [address] Appointment Social History Tobacco Use Types [...] Description 11/06/2025 11:30 AM EDT Office Visit [facility] Urology [place] [address] [place] [address] Mamadou Hernandez MD 85 [place] [facility] [address] [place] [address] documented as of this encounter Visit Diagnoses Not on filedocumented in this encounter Care Teams Networking Technology Instructor Relationship Specialty Start Date End Date Pablo Rivero MD [address] [place] [address] PCP - General Family Medicine 06/23/22 [place]o [place] [address] Cardiovascular Disease 10/27/22 documented as of this encounter
--- OUTSIDE RECORDS SUMMARY | 2025-04-02 13:06 | XMS_ITS ---
Author Organization [facility] Address [address] [place] [address] Care Team Providers Care Food And Beverage Associate Name Role Phone Pablo Rivero Primary Care Provider [phone] Active Problems Problem Noted Date Diagnosed Date Prostate cancer 01/24/2017 Current Oncology Plans No current plan information found. Past Plans ONCOLOGY INFUSION THERAPY Plan Name Start Date Discontinue Date Treatment Medications Discontinue Reason Plan Provider [facility] BCN LEUPROLIDE 45 MG (ELIGARD) EVERY 6 MONTHS 12/08/2021 07/19/2023 leuprolide (ELIGARD) Therapy Complete Brown Damon MD Radiation Treatments * No radiation treatments are documented for this patient in [facility]. Treatments may have been administered in another system.
--- OUTSIDE RECORDS SUMMARY | 2025-04-02 13:06 | XMS_ITS | Encounter Summary ---
Author Organization [facility] Address [address] [place] [address] Care Team Providers Care Lot Porter Name Role Phone Pablo Rivero MD Primary Care Provider [phone] Memo Grant MD Unavailable [phone] Reason for Visit * Reason Comments Other Medical record reque st Encounter Details Date Type Department Care Team (Late st Contact Info) Description 06/21/2023 Telephone [facility] Urologic Surgery [address] [address] Mamadou Hernandez MD [address] [address] Other (Medical record request) [...] AM EDT Office Visit [facility] Urology [place] [address] [place] [address] Mamadou Hernandez MD [address] [facility] [address] [place] [address] documented as of this encounter Visit Diagnoses Not on filedocumented in this encounter Care Teams Lot Porter Relationship Specialty Start Date End Date Pablo Rivero MD 262 [place] [address] PCP - General Family Medicine 06/23/22 Memo Grant MD [address] [place] [address] Cardiovascular Disease 10/27/22 documented as of this encounter
--- OUTSIDE RECORDS SUMMARY | 2025-04-02 13:06 | XMS_ITS | Encounter Summary ---
Author Organization [facility] Address [address] [place] [address] Care Team Providers Care Structural Fitter Name Role Phone Pablo Rivero MD Primary Care Provider [phone] Memo Grant MD Unavailable [phone] Reason for Visit * Reason Comments Appointment Encounter Details Date Type Department Care Team (Late st Contact Info) Description 12/01/[address] [address] Mamadou Hernandez MD [address] [address] Appointment Social History Tobacco Use Types Packs/Day [...] Office Visit [facility]rology [place] [address] [place] [address] Mamadou Hernandez MD [address] [address] documented as of this encounter Visit Diagnoses Not on filedocumented in this encounter Care Teams Structural Fitter Relationship Specialty Start Date End Date Pablo Rivero MD 262 [facility] [place] [address] PCP - General Family Medicine 06/23/22 Memo Grant MD [facility] [place] [address] Cardiovascular Disease 10/27/22 documented as of this encounter
--- OUTSIDE RECORDS SUMMARY | 2025-04-02 13:06 | XMS_ITS | Clinical Summary ---
Author Organization [facility] Address [address] [place] [address] Care Team Providers Care Physics And Astronomy Professor Name Role Phone Pablo Rivero Primary Care Provider [phone] Allergies Active Allergy Reactions Criticality Noted Date [...] age to complete this topic Care Teams Physics And Astronomy Professor Relationship Specialty Start Date End Date Pablo Rivero [address] [facility] [place] [address] PCP - General Family Medicine 04/10/18
--- OUTSIDE RECORDS SUMMARY | 2025-04-02 13:06 | XMS_ITS | Encounter Summary ---
Author Organization [facility] Address [address] [place] [address] Care Team Providers Care User Support Specialist Name Role Phone Pablo Rivero MD Primary Care Provider [phone] Memo Grant MD Unavailable [phone] Encounter Details Date Type Department Care Team (Late st Contact Info) Description 06/16/2022 Scanned Document [facility] 10 [facility] 100 [place] [address] Tonya Hernandez MD [address] [place] [phone] Social History Tobacco Use Types Packs/Day Years [...] 11/06/2025 11:30 AM EDT Office Visit [facility] Urology [place] [address] [place] [address] Mamadou Hernandez MD [address] [place] [address] documented as of this encounter Visit Diagnoses Not on filedocumented in this encounter Care Teams User Support Specialist Relationship Specialty Start Date End Date Pablo Rivero MD [address] [place] [address] PCP - General Family Medicine 06/23/22 Memo Grant MD [address] [place] [address] Cardiovascular Disease 10/27/22 documented as of this encounter
--- OUTSIDE RECORDS SUMMARY | 2025-04-02 13:06 | XMS_ITS | Encounter Summary ---
Author Organization [facility] Address [address] [place] [address] Care Team Providers Care Idea Worker Name Role Phone Pablo Rivero MD Primary Care Provider [phone] Memo Grant MD Unavailable [phone] Reason for Visit * Reason Comments Advice Only Encounter Details Date Type Department Care Team ([facility] st Contact Info) Description 03/22/2023 Telephone [facility] Urologic Surgery [address] [phone] Mamadou Hernandez MD [address] [place] [address] Advice Only Social History Tobacco Use [...] 11:30 AM EDT Office Visit [facility] Urology [place] [address] [place] [address] Mamadou Hernandez MD [facility] [address] [place] [address] documented as of this encounter Visit Diagnoses Not on filedocumented in this encounter Care Teams Idea Worker Relationship Specialty Start Date End Date Pablo Rivero MD 262 [facility] [place] [address] PCP - General Family Medicine 06/23/22 Memo Grant [place] [address] Cardiovascular Disease 10/27/22 documented as of this encounter
--- OUTSIDE RECORDS SUMMARY | 2025-04-02 13:06 | XMS_ITS | Encounter Summary ---
Author Organization [facility] Address [address] [place] [address] Care Team Providers Care Nut Orchardist Name Role Phone Pablo Rivero MD Primary Care Provider [phone] Memo Grant MD Unavailable [phone] Encounter Details Date Type Department Care Team (Late st Contact Info) Description 09/26/2022 Scanned Document [facility] Urologic Surgery [place] [address] [address] Mamadou Hernandez MD 85 [facility] Kieran [address] [place] [address] Social History Tobacco Use Types Packs/Day [...] 11:30 AM EDT Office Visit [facility] Urology [place] [address] [place] [phone] Mamadou Hernandez MD [address] [place] [address] documented as of this encounter Visit Diagnoses Not on filedocumented in this encounter Care Teams Nut Orchardist Relationship Specialty Start Date End Date Pablo Rivero MD 262 [facility] [place] [address] PCP - General Family Medicine 06/23/22 [place] [address] Cardiovascular Disease 10/27/22 documented as of this encounter
--- OUTSIDE RECORDS SUMMARY | 2025-04-02 13:06 | XMS_ITS | Clinical Summary ---
Author Organization [facility] Address [address] [place] [address] Phone Care Team Providers Care Internet Marketing Coordinator Name Role Phone Palbo Rivero NP Primary Care Provider Allergies Active [...] Type Department Care Team Description 03/04/2025 Telephone [facility] Hematology Oncology [address] [place] [address] Guillermina Irving DO 02/16/2025 Telephone [facility] Hematology Oncology [address] [place] [address] Guillermina Irving DO from Last [...] 04/21/2025 1:30 PM EST Office Visit [facility] Hematology Oncology [address] [place] [address] Guillermina Irving DO [address] [place] [address] Health Maintenance Due Date Last Done Comments [...] patient's age to complete this topic Insurance [facility] [place] [id number] [facility] Care Teams Internet Marketing Coordinator Relationship Specialty Start Date End Date Pablo Rivero NP 262 [facility] [place] PCP - General Family Medicine 04/10/18
[2025-04-02 13:32] LABS: Anion Gap 9 (12-20); Carbon Dioxide 28 mmol/L (22-29); Chloride 105 mmol/L (96-108); Potassium 4.4 mmol/L (3.3-5.1); Sodium 138 mmol/L (135-145)
== END 2025-04-02 10:43 | disposition home or self-care (01) ==
LOC: HO.HMGCLDS 10:42
PROVIDERS: PCP Nurse Practitioner Family; Visit Provider Nurse Practitioner Family
DX: E87.5 Hyperkalemia (principal)
CPT/HCPCS: 36415; 80051

== ENCOUNTER → 2025-04-14 12:51 | Outpatient (REF) | payer OTHER, SELFPAY ==
--- OUTSIDE RECORDS SUMMARY | 2024-04-03 13:39 | XMS_ITS | Encounter Summary ---
Author Organization [facility] Address [address] [place] [address] Care Team Providers Care Real Estate Subagent Name Role Phone Pablo Rivero NP Primary Care Provider Encounter Details Date Type Department Care Team (Late st Contact Info) Description 04/03/2024 2:39 PM EDT Hospital Encounter TH HISTORIC ENCOUNTERS EASTERN CONVERSION ONLY Guillermina Irving, [address] [place] [address] Social History Tobacco Use Types Packs/Day Years [...] in follow-up upon a recommendation from his certified medical technician assistant. 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 CC: Pablo Rivero documented in this encounter Plan of Treatment Upcoming Encounters Date Type Department Care Team (Late st Contact Info) Description 04/21/2025 1:30 PM EST Office Visit [facility] Hematology Oncology [address] [place] [address] Guillermina Irving DO [address] [place] [address] documented as of this encounter Visit Diagnoses Not on filedocumented in this encounter Care Teams Real Estate Subagent Relationship Specialty Start Date End Date Pablo Rivero, GLOBAL PROJECT MANAGER [address] [place], [place] PCP - General Family Medicine 04/10/18 documented as of this encounter
--- OUTSIDE RECORDS SUMMARY | 2024-12-09 03:20 | XMS_ITS ---
Author Organization [facility] Address [address] [place] [address] Care Team Providers Care Staff Educator Name Role Phone BASILIA CAROLINA Primary Care Provider Collins Rivera Jr REASON FOR VISIT screening with colon Encounters Encounter Location Date Provider Diagnosis [facility] [address] [place] [id number] 12/09/2024 Collins Salmeron Jr Plan Of Treatment No Information Progress Notes * MARIO SUAREZ MDOB:[birth year] (69 yo M)Acc No.[id number]:12/09/2024 COLON WITH MAC Patient: MARIO RICHARDSON Provider: Carmen Salmeron MD :1955 A ge:68 Y S ex:Male Date:12/09/2024 Address:[facility] [id number] Pcp:BASILIA CAROLINA Subjective: * Chief Complaints: * 1 . Screening with colon. * Medical History: Objective: * Vitals: Assessment: Plan: * Treatment: * * The named appointment provid er may or may not be the originator of this progress note, and it is not deemed complete until electronically signed by the appointment provider. Sign off status: Pending * Provider: Carmen Salmeron MD Date: 0 12/09/2024 Generated for Yaai ng/Fapatig/eTransmitting on: 06/14/2024 03:28 PM EST
--- NOTE | 2025-04-14 15:12 | CA_ITS ---
Transthoracic Echocardiogram Patient (Last, First, Middle): Anthony Granados M Gender: M Date of : 1955 Age: 69 Procedure Date: 04/14/2025 Procedure Type: Transthoracic Echocardiogram Location: OP Height: 182.88 cm Weight: 99.79 kg BSA: 2.22 m2 Heart Rate: bpm BP: 124 / 80 mmHg Overhead Garage Door Hanger: Referring MD: Pablo Rivero [facility] Symptoms: I48.91 UNSPECIFIED ATRIAL FIBRILLATION Study Quality: Adequate ECG Rhythm: Sinus Conclusions: - The left ventricular systolic function is normal. The calculated ejection fraction is 60% by biplane method. - Trace to mild aortic regurgitation. - There is mild dilatation of the ascending aorta measuring 4.00 cm. Findings Left Ventricle Normal left ventricular cavity size. There is mildly increased left ventricular wall thickness. The left ventricular systolic function is normal. The calculated ejection fraction is 60% by biplane method. There is no evidence of regional wall motion abnormalities. Diastolic function is normal for age. Right Ventricle Normal right ventricular cavity size and systolic function. Atria Both atria are normal in size. Aortic Valve There is a normal trileaflet aortic valve. There is no aortic valve stenosis. Trace to mild aortic regurgitation. Mitral Valve The mitral valve appears normal. There is trace mitral valve regurgitation. There is no mitral valve stenosis. Pulmonic Valve The pulmonic valve is likely normal. Tricuspid Valve There is trace tricuspid valve regurgitation. There is no evidence of pulmonary hypertension. Great Vessels There is mild dilatation of the ascending aorta measuring 4.00 cm. Venous The inferior vena cava is normal in size and collapses greater than 50% with inspiration. Pericardium/Pleural There is no evidence of pericardial effusion. Prior Study Comparison No significant change compared to prior study dated: 02/04/2024. Measurements 2D Linear Measurements IVSd: 1.21 0.6-0.9/0.6-1.0 cm LVIDd: 5.50 3.9-5.3/4.2-5.9 cm LVIDd Index: 2.48 2.4-3.2/2.2-3.1 cm/m2 LVIDs: 3.33 2.0-3.6 cm LVPWd: 1.22 0.7-1.1 cm Ao Root: 3.90 2.1-3.5 cm LA Diam: 4.20 2.7-3.8/3.0-4.0 cm LAIDs Index: 1.89 1.5-2.3 cm/m2 LV Mass: 345.59 67-162/88-224 g LV Mass Index: 155.67 43-95/49-115 g/m2 LVOT Diam: 2.30 3.0+(-)1.3 cm 2D Systolic Function EF 4C: 63.20 >55% EF 2C: 61.40 >55% EF BiP: 59.50 >55% Mitral Valve MV Pk E: 0.36 MV PK A: 0.70 MV Decel Time: 237.00 E/A: 0.50 E'Lateral: 7.07 E'Medial: 5.87 E/E' Med: 6.10 E/E' Lat: 5.10 PHT: 70.00 MVA PHT: 3.14 Decel Ward: 2.40 Aortic Valve AoV Pk Braden: 1.22 AoV Mn Braden: 0.87 AoV VTI: 0.27 AoV Pk Grad: 6.00 Aov Mn Grad: 3.00 MURTAZA Cont.VTI: 3.61 LVOT LVOT Pk Braden: 0.99 LVOT Mn Braden: 0.65 LVOT VTI: 0.23 LVOT Pk Grad: 4.00 LVOT Mn Grad: 2.00 LVOT Diam: 2.30 LVOT Area: 4.15 Diastolic Function MV Pk E: 0.36 MV Pk A: 0.70 E/A: 0.50 E'Medial: 5.87 E/E' Med: 6.10 E' Laterial: 7.07 E/E' Lat: 5.10 Right Ventricle TAPSE (mm): 29.00 TVS' Braden: 14.00 Tricuspid Valve TR Pk Braden: 1.52 TR Pk Grad: 9.00 RA Press: 3.00 RVSP: 12.00 Great Vessels Aorta Ao Root-2D: 3.90 2.0-3.7 cm Ao Asc: 4.00 2.1-3.4 cm Pulmonary Valve PV Pk Braden: 0.79 Peak PV Grad: 2.00 Updated in Other Vendor System with Status of Final Rylan Lucero MD electronically signed on 04/14/2025 3:49:24 PM with status of Final
--- OUTSIDE RECORDS SUMMARY | 2025-04-14 15:28 | XMS_ITS | Encounter Summary ---
Author Organization [facility] Address [address] [place] [address] Care Team Providers Care Courseware Developer Name Role Phone Pablo Rivero MD Primary Care Provider [phone] Memo Grant MD Unavailable [phone] Encounter Details Date Type Department Care Team (Late st Contact Info) Description 08/28/[address] [facility] Urologic Surgery [address] [place] [address] Guillermina Irving, DO [address] [place] [address] Social History Tobacco Use Types Packs/Day Years [...] as of this encounter Plan of Treatment Not on file documented as of this encounter Visit Diagnoses Not on filedocumented in this encounter Care Teams Courseware Developer Relationship Specialty Start Date End Date Pablo Rivero MD [address] [facility] [address] [place] [address] PCP - General Family Medicine 06/23/22 Memo Grant MD [facility] [place] [address] Cardiovascular Disease 10/27/22 documented as of this encounter
--- OUTSIDE RECORDS SUMMARY | 2025-04-14 15:28 | XMS_ITS | Encounter Summary ---
Author Organization [facility] Address [address] [place] [address] Care Team Providers Care Junior Software Developer Name Role Phone Pablo Rivero MD Primary Care Provider [phone] Memo Grant MD Unavailable [phone] Encounter Details Date Type Department Care Team (Late st Contact Info) Description 06/16/2022 Scanned Document [address] [place] [phone] Tonya Hernandez MD [address] [place] [address] Social History Tobacco Use Types Packs/Day Years [...] on filedocumented in this encounter Care Teams Junior Software Developer Relationship Specialty Start Date End Date Pablo Rivero MD [address] [place] [address] PCP - General Family Medicine 06/23/22 [place] [address] Cardiovascular Disease 10/27/22 documented as of this encounter
--- OUTSIDE RECORDS SUMMARY | 2025-04-14 15:28 | XMS_ITS | Clinical Summary ---
Author Organization [facility] Address [address] [place], [place] [id number] Care Team Providers Care Machine Package Sealer Name Role Phone Pablo Rivero MD Primary Care Provider [phone] Memo Grant MD Unavailable [phone] Allergies Active Allergy Reactions Criticality Noted [...] 10/31/2024 10:02 AM EDT Plan of Treatment Health Maintenance Due [...] patient's age to complete this topic Insurance [employer] Advance Directives * Full Code (Latest Code Status on File) Date Activated Date Inactivated Comments 11/15/2022 8:03 PM * Full Code Date Activated Date Inactivated Comments 11/15/2022 10:25 AM 11/15/2022 8:03 PM Care Teams Machine Package Sealer Relationship Specialty Start Date End Date Pablo Rivero MD 262 [facility] [place] [address] PCP - General Family Medicine 06/23/22 [place] [address] Cardiovascular Disease 10/27/22
--- OUTSIDE RECORDS SUMMARY | 2025-04-14 15:28 | XMS_ITS ---
Author Organization [facility] Address [address] [place] [address] Care Team Providers Care Industrial Order Clerk Name Role Phone Pablo Rivero Primary Care Provider [phone] Active Problems Problem Noted Date Diagnosed Date Prostate cancer 01/24/2017 Current Oncology Plans No current plan information found. Past Plans ONCOLOGY INFUSION THERAPY Plan Name Start Date Discontinue Date Treatment Medications Discontinue Reason Plan Provider [facility] BCN LEUPROLIDE 45 MG (ELIGARD) EVERY 6 MONTHS 12/08/2021 07/19/2023 leuprolide (ELIGARD) Therapy Complete Brown Damon MD Radiation Treatments * No radiation treatments are documented for this patient in [facility]. Treatments may have been administered in another system.
--- OUTSIDE RECORDS SUMMARY | 2025-04-14 15:28 | XMS_ITS | Clinical Summary ---
Author Organization [facility] Address [address] [place] [address] Care Team Providers Care Data Entry Supervisor Name Role Phone Pablo Rivero Primary Care Provider [phone] Allergies Active Allergy Reactions Criticality Noted Date [...] age to complete this topic Care Teams Data Entry Supervisor Relationship Specialty Start Date End Date Pablo Rivero [address] [facility] [place] [address] PCP - General Family Medicine 04/10/18
--- OUTSIDE RECORDS SUMMARY | 2025-04-14 15:28 | XMS_ITS | Encounter Summary ---
Author Organization [facility] Address [address] [place] [address] Care Team Providers Care Sheriff Officer Name Role Phone Pablo Rivero MD Primary Care Provider [phone] Memo Grant MD Unavailable [phone] Encounter Details Date Type Department Care Team (Late st Contact Info) Description 09/26/2022 Scanned Document [facility] Urologic Surgery [address] [address] Mamadou Hernandez MD [address] [address] Social History Tobacco Use Types [...] on filedocumented in this encounter Care Teams Sheriff Officer Relationship Specialty Start Date End Date Pablo Rivero MD [address] [place] [address] PCP - General Family Medicine 06/23/22 Memo Grant MD [place] [address] Cardiovascular Disease 10/27/22 documented as of this encounter
--- OUTSIDE RECORDS SUMMARY | 2025-04-14 15:28 | XMS_ITS | Clinical Summary ---
Author Organization [facility] Address [address] [place] [address] Phone Care Team Providers Care Catering Administrative Assistant Name Role Phone Pablo Rivero NP Primary Care Provider [phone] Allergies Active Allergy Reactions Criticality Noted Date [...] Type Department Care Team Description 03/04/2025 Telephone [facility] Hematology Oncology [address] [place] [address] Guillermina Irving DO 02/16/2025 Telephone [facility] Hematology Oncology [address] [place] [address] Guillermina Irving DO from Last [...] Description 04/21/2025 1:30 PM EST Office Visit [facility] Hematology Oncology [address] [place] [address] Guillermina Irving DO [address] [place] [address] Health Maintenance Due Date Last Done Comments [...] patient's age to complete this topic Insurance [facility] REHA[place] GARCIA [id number] [facility] Care Teams Catering Administrative Assistant Relationship Specialty Start Date End Date Pablo Rivero NP 262 [facility] [place] PCP - General Family Medicine 04/10/18
--- OUTSIDE RECORDS SUMMARY | 2025-04-14 15:28 | XMS_ITS | Patient Health Record ---
Author Organization [facility] Address [address] [place] [address] Care Team Providers Care Desizing Machine Offbearer Name Role Phone [place] Primary Care Provider Collins Rivera Jr Unavailable [phone] Allergies Allergen (clinical drug ingredient) Drug/Non Drug Allergy documented on EMR Reaction Allergy Type Onset Date Status tetracycline Tetracycline HCl Unknown Drug Allergy Active Results Component Value Reference Range Notes Pathology Reviewed date:12/11/2024 07:50:15 AM Interpretation: Performing Lab:[facility], [address] [place] [phone] Notes/Report: Reason For Referral No Information Medications [...] Status Risk Notes Problem Colon cancer screening (871500263) Colon cancer screening (Z12.11) Active confirmed Problem Pre-procedure evaluation check (763784627) Encounter for other preprocedural examination (Z01.818) Active confirmed Problem 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 Problem Gastroesophageal reflux disease without esophagitis (452123018) Gastroesophageal reflux disease without esophagitis (K21.9) Active confirmed Problem Esophageal reflux finding (105063849) Gastroesophageal reflux (K21.9) Active confirmed Problem Benign neoplasm of colon (50248050) Adenomatous polyp of colon, unspecified part of colon (D12.6) Active confirmed Problem Pedroza's esophagus (301346968) 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 Vital Signs Blood pressure diastolic 77 mm Hg 10/09/2024 Height 72 in 10/09/2024 Blood pressure systolic 111 mm Hg 10/09/2024 Weight 216 lbs 10/09/2024 BMI 29.29 kg/m2 10/09/2024 Encounters Encounter Location Date Provider Diagnosis [facility] [place] [address] [place] [phone] 12/09/2024 Clolins Salmeron Jr [facility] [address] [place] [phone] 10/09/2024 Collins Salmeron Jr Colon cancer screening Z12.11 and 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 [facility] [address] [place] [phone] 10/09/2024 Collins Salmeron Jr [facility] [address] [facility] [address] [place] [phone] 12/11/2024 Collins Salmeron Jr Assessments Encounter Date [...] Insured Coverage Start Date Coverage End Date [employer] ([employer]) [address] [place] [address] [id number] MARIO SUAREZ Self - patient is [...]
== END ==
LOC: HO.CARD 12:51
PROVIDERS: PCP Nurse Practitioner Family; Visit Provider Nurse Practitioner Family
DX: I48.91 Unspecified atrial fibrillation (principal)
CPT/HCPCS: 93306

== ENCOUNTER → 2025-04-14 15:12 | Outpatient (BNV) | payer OTHER, SELFPAY | PROVIDERS: PCP Nurse Practitioner Family; Visit Provider Internal Medicine | DX: I35.1 Nonrheumatic aortic (valve) insufficiency (principal); I77.810 Thoracic aortic ectasia | CPT/HCPCS: 93306 ==

== ENCOUNTER 2025-04-16 13:33 | Outpatient (AMB) | payer OTHER, SELFPAY ==
--- OUTSIDE RECORDS SUMMARY | 2024-04-03 13:39 | XMS_ITS | Encounter Summary ---
Author Organization [facility] Address [address] [place] [address] Care Team Providers Care Office Auditor Name Role Phone Pablo Rivero NP Primary Care Provider Encounter Details Date Type Department Care Team (Late st Contact Info) Description 04/03/2024 2:39 PM EDT Hospital Encounter TH HISTORIC ENCOUNTERS EASTERN CONVERSION ONLY Guillermina Irving, [address] [place] [address] Social History Tobacco Use Types Packs/Day Years Used Date Smoking Tobacco: Former Smokeless Tobacco: Never Alcohol Use Standard Drinks/Week Comments Yes 0 (1 standard drink = 0.6 oz pur e alcohol) Sex and Gender Information Value Date Recorded Sex Assigned at Not on file Legal Sex Male 3:56 PM EST Gender Identity Not on file Sexual Orientation Not on file documented as of this encounter Last Filed Vital Signs Vital Sign Reading Time Taken Comments Blood Pressure 115/73 04/03/2024 2:43 PM EDT Sit ting Left arm Pulse 83 04/03/2024 2:43 PM EDT Temperature - - Respiratory Rate - - Oxygen Saturation - - Inhaled Oxygen Concentration - - Weight 99.8 kg (220 lb) 04/03/2024 2:43 PM EDT Height 182.9 cm (6') 02/18/2024 1:34 PM EDT Body Mass Index 29.84 02/18/2024 1:34 PM EDT documented in this encounter Progress Notes * DO Tang Salinas 04/03/2024 2:45 PM EDT Hematology/Oncology Progress Note 04/03/24 Subjective Patient identifier: 68 year old male with prostate cancer Interim history: The patient presents in follow up. He presents today in follow-up upon a recommendation from his associate art director. He went to see dermatology for increasing ecchymoses on bilateral forearms. He states that he bruises very easily with minor trauma and on occasion gets skin tears. He did have one skin tear that got infected. He denies any new medications. Denies taking any aspirin. Apart from this he denies any epistaxis or gingival bleeding. He denies any melena or hematochezia.He had one self-limited episode of mild hematuria. Constitutional: see above Resp/CV: No cough, shortness of breath, chest pain GI: No nausea, vomiting, diarrhea, abdominal pain, bloody stool Skin: No rashes Neuro: No headaches, dizziness, neuropathy Musculoskeletal: No bone pain Hem/Lymph : No palpable lymph nodes, Oncology history: Oncology History Overview Note Prostate cancer history dates back to 2007 At that time patient had a Dunia 6 carcinoma prostate he had undergone prostatectomy he tolerated this therapy rather well and was followed closely 2014 PSA harmony to 0.26 radiographically there was no evidence of disease by CT or bone scan radiation therapy was instituted again patient did well Until 2014 when there was rising PSA to 0.July this was 0.8 by April PSA had reached 0.8.. PSA was 1.6 As of April 2016 Lengthy discussion 09/26/19 with patient he had PSA of 9.6 he was feeling quite well and did not wish to consider further therapy at that time rather continue a course of observation. We reviewed NCCNguidelines he has castration na??ve prostate cancer and is M0. Observation as well as ADT or intermittent ADT are considerations.To date patient has been hesitant to consider systemic therapy. His bone scan is negative but his PSA has risen to 13. PET/CT 02/03/2020 showed nonspecific focal increase L4 vertebral body, left sacrum, left L5 vertebral body. As recommended thereafter MRI of the lumbar spine was obtained on 03/14/2020 which did not show any evidence of malignancy. Patient doing well no ongoing acute complaints. PSA at start of treatment 31. This was concerning to patient and he did wish to initiate therapy. Prostate cancer (HCC) 01/24/2017 Initial Diagnosis Prostate cancer (HCC) 12/08/2021 - 12/08/2021 Supportive Therapy [facility] BCN LEUPROLIDE 45 MG (ELIGARD) EVERY 6 MONTHS Plan Provider: Brown Damon MD Objective Last Vitals Vitals: 04/03/24 1443 BP: 115/73 Pulse: 83 Temp: 97.7 ??F (36.5 ??C) TempSrc: Temporal SpO2: 100% Weight: 99.8 kg (220 lb) ECO General: well nourished male seated comfortably. HENT: No scleral icterus. No oral or mucosal lesions. Resp: clear to auscultation bilaterally Cardio: regular rate and rhythm Abdomen: soft non tender,bowel sounds present. Skin: Bilateral forearms with multiple ecchymoses. No petechiae. Neuro: alert and oriented, normal gait Medications Current Outpatient Medications: ??? atorvastatin (LIPITOR) tablet 20 mg ??? Cholecalciferol (VITAMIN D3) 2000 units capsule ??? Cyanocobalamin (VITAMIN B 12 PO) ??? Fluticasone-Salmeterol (ADVAIR DISKUS IN) ??? losartan (COZAAR) tablet 50 mg ??? metoprolol tartrate (LOPRESSOR) 25 MG tablet ??? omeprazole (PriLOSEC) 20 MG capsule ??? PARoxetine (PAXIL) 30 MG tablet ??? Leuprolide Acetate (ELIGARD SC) Allergies Allergies Allergen Reactions ??? Bee Venom Anaphylaxis ??? Amoxicillin Other (See Comments) ??? Erythromycin ??? Tetracycline Past medical history, past surgical history, and family history reviewed. Medical history Past Medical History: Diagnosis Date ??? Depression ??? Hypertension ??? Prostate cancer (HCC) Surgical history Past Surgical History: Procedure Laterality Date ??? knee replacement both ??? PROSTATE SURGERY Family history Family History Problem Relation Age of Onset ??? Cancer Mother ovarian/breast cancer ??? Cancer Father lymphoma/leukemia ??? Cancer Brother pancreatic ca. 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 Assessment & Plan 68 year old male with history of prostate cancer with biochemical recurrence previously on ADT withEligard, left RCC status post nephrectomy, presents today for follow-up. The patient is doing well off of treatment PSA does continue to slowly rise now 0.5 up to 0.7 . He remains asymptomatic and wishes to remain off treatment The patient presents today for evaluation of easy bruising. He does have bruising only on his distal upper extremities. Suspect that this is likely secondary ecchymosis in the setting of skin fragility, medication including SSRI, ongoing alcohol use. There was a low suspicion for primary hematologic or bleeding disorder given he has no history of bleeding with trauma or surgeries. Easy bruising Will obtain laboratory testing today CBCD, PT, PTT, LFTs, B12 and folic acid as well as iron panel. Hold off on von Willebrand panel as suspicion remains low. Plan to call patient with the results and depending on above testing may need to pursue additional workup May also need to consider cutting down daily alcohol consumption which can certainly affect the bone marrow and the platelets. Prostate Cancer Continue to monitor off of ADT, as discussed at last visit he does not wish to resume ADT we discussed again today he prefers to continue on surveillance for now Left papillary renal cell cancer Follow up imaging planned with urology Recommend he call urology if the hematuria recurs Sign Maryanne Irving DO - Hematology/Oncology [facility] CC: Pablo Rivero documented in this encounter Plan of Treatment Upcoming Encounters Date Type Department Care Team (Late st Contact Info) Description 04/21/2025 1:30 PM EST Office Visit [facility] Hematology Oncology [address] [place] [address] Guillermina Irving DO [address] [place] [address] documented as of this encounter Visit Diagnoses Not on filedocumented in this encounter Care Teams Office Auditor Relationship Specialty Start Date End Date Pablo Rivero, AUGER MACHINE OFFBEARER [address] [place], [place] PCP - General Family Medicine 04/10/18 documented as of this encounter
[2025-04-16 13:39] VITALS: BP 102/78; PULSE 51; O2SAT 98; BMI 30.3
--- NOTE | 2025-04-16 13:39 | A.OFFVIS_ITS ---
Vital Signs 04/16/25 13:39 Height 6 ft Weight 223 lb 12.307 oz BMI 30.3 BP 102/78 Blood Pressure Location Lt brachial Position Sitting Pulse 51 Pulse Source Pulse Oximeter Pulse Oximetry (%) 98 Oxygen Delivery Method Room Air Intake Visit Reasons: Cough Intake Note: pt is here for follow up and doing okay, cpap usage is not good, he was struggling with usage due to seizures. 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 Required: No Congregational Care Pastor: Congregational Care Pastor offered & declined Allergies tetracycline (Tetracycline) Allergy (Intermediate, Verified 04/16/25 13:56) anaphylaxis bee venom protein (honey bee) Allergy (Unknown, Verified 04/16/25 13:56) swelling, hives Medication List - Last Reconciled 04/16/25 by Lucy Wilson MD albuterol sulfate 90 mcg/actuation 2 puffs inhalation Q6H PRN apixaban (Eliquis) 5 mg PO BID 90 days atorvastatin 20 mg PO DAILY cholecalciferol (vitamin D3) (Vitamin D3) 50 mcg PO DAILY cyanocobalamin (vitamin B-12) 1,000 mcg sublingual DAILY 90 days epinephrine (EpiPen 2-Reji) 0.3 mg (0.3 mL) IM Q10M PRN 30 days famotidine 20 mg PO BID 30 days folic acid 1 mg PO DAILY gabapentin 300 mg PO TID 90 days metoprolol tartrate 25 mg PO BID paroxetine HCl 30 mg PO QAM 90 days pyridoxine (vitamin B6) 50 mg PO DAILY thiamine HCl (vitamin B1) 100 mg PO DAILY Do you need a note to return to daycare/school/sports/work: No HPI HPI Cough: Details: 69 years old very pleasant gentleman is here for follow-up. He is a case of obstructive sleep apnea and does have CPAP at home which he uses off and on . He admits that he benefits from the use of CPAP and sleeps better. Currently he is using F40 FF mask , which we had given him as a sample from the office and it is almost 1-year-old. .He needs a new one. Unfortunately he does go into drinking binges, especially if he has company, and the next day he gets seizures. ( alcohol withdrawal) Because of this he does not use CPAP for many nights at a time. His breathing is fairly stable . [facility] Medical History Eyelid retraction unspecified eye, unspecified lid Prostate CA Papillary adenocarcinoma of left kidney Coronary artery calcification Coronary atherosclerosis Ascending aortic aneurysm Thoracic aortic aneurysm HTN (hypertension) Personal history of nicotine dependence FAUSTO (obstructive sleep apnea) Snoring Somnolence, daytime Obesity Barretts esophagus GERD (gastroesophageal reflux disease) Cannabinoid hyperemesis syndrome Osteopenia On beta hilary at home SOB (shortness of breath) COPD (chronic obstructive pulmonary disease) Asthma Nodule on liver Depression Foraminal stenosis of lumbar region Surgical History History of cardiac cath History of prostatectomy History of partial nephrectomy History of total right knee replacement (TKR) History of total knee replacement (TKR) History of knee surgery History of esophagogastroduodenoscopy (EGD) H/O colonoscopy Lipoma of back Family History Father Leukemia Substance use disorder Mother Breast cancer CVD (cardiovascular disease) Takotsubo cardiomyopathy Brother Substance use disorder Sister No problems noted. Maternal Aunt No problems noted. Maternal Grandfather No problems noted. Maternal Grandmother No problems noted. Maternal Uncle No problems noted. Paternal Aunt No problems noted. Paternal Grandfather No problems noted. Paternal Grandmother No problems noted. Paternal Uncle No problems noted. Social History Housing: House Alcohol intake: current Alcohol intake frequency: 3 or more drinks per day Patient Tobacco Use Status: Former Tobacco user Years Smoked: 35 years ago e-Cigarette/Vaping Use: Never Used Second Hand Smoke Exposure: No service: No Current occupational status: retired Cognitive needs: No Hearing needs: No Vision needs: Yes Review of Systems Const All systems reviewed & are unremarkable except as noted in HPI and below Eyes Reports no additional complaints ENT Reports no additional complaints Card Denies chest pain, Denies irregular heart rhythm and Denies leg edema Resp Reports as per HPI GI Reports no additional complaints Reports no additional complaints Musc Reports arthralgias (Some pain in knees on walking) Skin/Breast Reports system reviewed and no additional complaints, except as documented Neuro Reports no additional complaints Psych Reports depression (Controlled with med) Physical Exam Vital Signs: Last Vital Signs Pulse 51 04/16/25 13:39 BP 102/78 04/16/25 13:39 Pulse Ox 98 04/16/25 13:39 Oxygen Delivery Method Room Air 04/16/25 13:39 BMI result Body Mass Index 30.3 Const General: comfortable, no acute distress, alert and awake Orientation/consciousness: patient oriented x3 HEENT Head: Yes normal to inspection General nose exam: No nasal polyps present and No nasal discharge present Face and sinus: Yes sinuses nontender Mouth: oropharynx abnormals (Very narrow or crowded, Mallampati class 4) Throat: Yes posterior oropharynx normal Eyes General: appearance normal, both eyes and all related structures Neck Neck: Yes normal visual inspection, Yes no lymphadenopathy, Yes trachea midline and Yes no JVD Thyroid: Thyroid normal Chest Chest palpation & inspection: normal inspection of the chest, normal palpation of entire chest wall and no tenderness Resp Other: Percussion note is resonant, breath sounds are distant on both sides with prolonged expiratory phase. No wheezing or crepitations are heard this time. Cardio Palpation: normal PMI Rate: regular rate Rhythm: regular rhythm Heart sounds: no gallops and no murmurs GI Palpation (GI): Soft to palpation, nontender, No hepatosplenomegaly present and no masses Auscultation: normal bowel sounds Back/Spine/Pelvis Thoracic/Lumbar Spine: thoracic and lumbar spine normal to inspection Skin General skin exam: no rashes or lesions noted Neuro General: patient oriented x3 and no focal motor deficits Cranial nerves: Yes CN's II-XII intact bilaterally Extrem General: Yes normal to inspection, Yes no clubbing, cyanosis or edema and Yes no calf tenderness Psych Speech and movement: Normal speech and movement present Results Reviewed Results Reviewed: Compliance report from 02/16 to 03/17 is reviewed. He used / nights and average use it per night 7 hours 17 minutes. When he does use the CPAP it works well and his residual AHI is 2.9. The compliance report does indicate that he has moderate degree of air leakage. Assessment & Plan Assessment & Plan (1) COPD (chronic obstructive pulmonary disease): Comment: Mild COPD per PFT . Currently using only albuterol HFA as needed, . His shortness of breath is mainly experienced when he climbs 1 flight of stairs or walks up [place] . COPD is actually not causing much symptoms. And he hardly needs to use the rescue inhaler. Code(s): J44.9 - Chronic obstructive pulmonary disease, unspecified Category: Medical Qualifiers: COPD type: unspecified COPD Qualified Code(s): J44.9 - Chronic obstructive pulmonary disease, unspecified Plan: May use albuterol HFA 2 puffs Q 4-6 hours only p.r.n. (2) FAUSTO on CPAP: Comment: He does have obstructive sleep apnea, has been doing very well was using CPAP. Currently is usage has been intermittent, he runs into drinking binges ( mostly beer ) and then he has withdrawal seizure activity thus he does not use the CPAP for a few nights at a time. When he does use the CPAP, he does well. Code(s): G47.33 - Obstructive sleep apnea (adult) (pediatric); Z99.89 - Dependence on other enabling machines and devices Category: Medical Plan: Talked to him at length. Advised to refrain from drinking alcohol. Do use the CPAP very regularly every night. He likes to get a new F 40 mask, and will send an order to the DME supplier. Coding Level of Care Code Est Pt Level 3 (33731) Diagnoses Chronic obstructive pulmonary disease, unspecified COPD type J44.9 COPD type: unspecified COPD FAUSTO on CPAP G47.33; Z99.89
--- OUTSIDE RECORDS SUMMARY | 2025-04-16 16:30 | XMS_ITS | Patient Health Record ---
Author Organization [facility] Address [address] [place] [address] Care Team Providers Care Electrician Underground Name Role Phone BASILIA CAROLINA Primary Care Provider Collins Rivera Jr Unavailable Allergies Allergen (clinical drug ingredient) Drug/Non Drug Allergy documented on EMR Reaction Allergy Type Onset Date Status tetracycline Tetracycline HCl Unknown Drug Allergy Active Results Component Value Reference Range Notes Pathology Reviewed date:12/11/2024 07:50:15 AM Interpretation: Performing Lab:[facility], [address] [place] [id number] Notes/Report: Reason For Referral No Information Medications Medication SIG (Take, Route, Frequency, Duration) Notes Start Date End Date Status Metoprolol Tartrate 25 MG Oral; Duration: 90 Active PARoxetine HCl 30 MG 1 tablet in the mor hellen Orally Once a day Active Vitamin D3 50 MCG (2000 UT) Oral; Duration: 90 Active Atorvastatin Calcium [...] Status Risk Notes Problem Colon cancer screening (726610642) Colon cancer screening (Z12.11) Active confirmed Problem Pre-procedure evaluation check (863055019) Encounter for other preprocedural examination (Z01.818) Active confirmed Problem Pedroza's esophagus (331250851) 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) Active confirmed Problem Gastroesophageal reflux disease without esophagitis (692494223) Gastroesophageal reflux disease without esophagitis (K21.9) Active confirmed Problem Esophageal reflux finding (271064730) Gastroesophageal reflux (K21.9) Active confirmed Problem Benign neoplasm of colon (58159743) Adenomatous polyp of colon, unspecified part of colon (D12.6) Active confirmed Problem Pedroza's esophagus (642978790) 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 Vital Signs Blood pressure diastolic 77 mm Hg 10/09/2024 Height 72 in 10/09/2024 Blood pressure systolic 111 mm Hg 10/09/2024 Weight 216 lbs 10/09/2024 BMI 29.29 kg/m2 10/09/2024 Encounters Encounter Location Date Provider Diagnosis [facility] [address] [place] [id number] 12/09/2024 Collins Salmeron Jr [facility] [address] [place] [phone] 10/09/2024 Collins Salmeron Jr Colon cancer screening Z12.11 and 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 [facility] [address] [place] [phone] 10/09/2024 Collins Salmeron Jr [facility] [address] [place] [phone] 12/11/2024 Collins Salmeron Jr Assessments Encounter Date [...] Insured Coverage Start Date Coverage End Date [employer] (b3 bio) [address] [place] [address] [id number] MARIO SUAREZ Self - patient is [...]
--- OUTSIDE RECORDS SUMMARY | 2025-04-16 16:30 | XMS_ITS | Clinical Summary ---
Author Organization [facility] Address [address] [place] [address] Care Team Providers Care National Basketball Association Scout Name Role Phone Pablo Rivero Primary Care Provider [phone] Allergies Active Allergy Reactions Criticality Noted Date [...] age to complete this topic Care Teams National Basketball Association Scout Relationship Specialty Start Date End Date Pablo Rivero [address] [facility] [place] [address] PCP - General Family Medicine 04/10/18
--- OUTSIDE RECORDS SUMMARY | 2025-04-16 16:30 | XMS_ITS | Encounter Summary ---
Author Organization [facility] Address [address] [place] [address] Care Team Providers Care Glove Operator Name Role Phone Pablo Rivero MD Primary Care Provider [phone] Memo Grant MD Unavailable [phone] Encounter Details Date Type Department Care Team (Late st Contact Info) Description 09/26/2022 Scanned Document [facility] Urologic Surgery [address] [phone] Mamadou Hernandez MD [address] [address] Social History Tobacco Use Types [...] on filedocumented in this encounter Care Teams Glove Operator Relationship Specialty Start Date End Date Pablo Rivero MD [address] [place] [address] PCP - General Family Medicine 06/23/22 Memo Grant [place] [address] Cardiovascular Disease 10/27/22 documented as of this encounter
--- OUTSIDE RECORDS SUMMARY | 2025-04-16 16:30 | XMS_ITS | Clinical Summary ---
Author Organization [facility] Address [address] [place] [phone] Phone Care Team Providers Care [facility] Name Role Phone Jose Alfredo Avila MD Primary Care Provider Unav ailable Allergies Active Allergy Reactions Criticality Noted Date Comments Tetracyclines Hives 02/08/2015 Medications PARoxetine (PAXIL) 30 MG tablet Take 30 mg by mouth every morning. Active lisinopril (PRINIVIL,ZESTR IL) 5 MG tablet Take 5 mg by mouth daily. Active vitamins A,C,E-zinc-shauna er (PRESERVISION AREDS) 14,320226-200 cmoh-cz-lisk Cap Take 1 capsule by mouth 2 [...] topic Medical Devices Not on file Insurance giddy [facility] TOTAL CHOICE INDEMNITY [facility] TOTAL CHOICE INDEMNITY [facility] TOTAL CHOICE INDEMNITY [facility] TOTAL CHOICE INDEMNITY [facility] TOTAL CHOICE INDEMNITY [facility] TOTAL CHOICE INDEMNITY [facility] TOTAL CHOICE INDEMNITY [facility] TOTAL CHOICE [facility]DEMNITY [facility] TOTAL CHOICE INDEMNITY Care Teams [facility] Relationship Specialty Start Date End Date Jose Alfredo Avila MD PCP - General Cardiology 02/08/15 Additional Source Comments The information contained in this document represents components of the legal health record. It is not the complete legal health record.[facility]
--- OUTSIDE RECORDS SUMMARY | 2025-04-16 16:30 | XMS_ITS | Encounter Summary ---
Author Organization [facility] Address [address] [place] [address] Care Team Providers Care Canine Deputy Name Role Phone Pablo Rivero MD Primary Care Provider [phone] Memo Grant MD Unavailable [phone] Encounter Details Date Type Department Care Team (Late st Contact Info) Description 08/28/2023 Scanned Document [facility] Urologic Surgery [address] [place] [address] Guillermina Irving, DO [address] [place] [address] Social History Tobacco Use Types Packs/Day Years [...] on filedocumented in this encounter Care Teams Canine Deputy Relationship Specialty Start Date End Date Pablo Rivero MD [address] [facility] [address] [place] [address] PCP - General Family Medicine 06/23/22 Memo Grant MD [facility] [place] [address] Cardiovascular Disease 10/27/22 documented as of this encounter
--- OUTSIDE RECORDS SUMMARY | 2025-04-16 16:30 | XMS_ITS ---
Author Organization [facility] Address [address] [place] [address] Care Team Providers Care Faculty Research Physician Name Role Phone Pablo Rivero Primary Care Provider [phone] Active Problems Problem Noted Date Diagnosed Date Prostate cancer 01/24/2017 Current Oncology Plans No current plan information found. Past Plans ONCOLOGY INFUSION THERAPY Plan Name Start Date Discontinue Date Treatment Medications Discontinue Reason Plan Provider [facility] BCN LEUPROLIDE 45 MG (ELIGARD) EVERY 6 MONTHS 12/08/2021 07/19/2023 leuprolide (ELIGARD) Therapy Complete Brown Damon MD Radiation Treatments * No radiation treatments are documented for this patient in [facility]. Treatments may have been administered in another system.
--- OUTSIDE RECORDS SUMMARY | 2025-04-16 16:30 | XMS_ITS | Encounter Summary ---
Author Organization [facility] Address [address] [place] [address] Care Team Providers Care Service Electrician Name Role Phone Pablo Rivero MD Primary Care Provider [phone] Memo Grant MD Unavailable [phone] Encounter Details Date Type Department Care Team (Late st Contact Info) Description 06/16/2022 Scanned Document [address] [place] [phone] Tonya Hernandez MD [address] [place] [address] Social History Tobacco Use Types Packs/Day Years [...] on filedocumented in this encounter Care Teams Service Electrician Relationship Specialty Start Date End Date Pablo Rivero MD [address] [place] [address] PCP - General Family Medicine 06/23/22 [place] [address] Cardiovascular Disease 10/27/22 documented as of this encounter
--- OUTSIDE RECORDS SUMMARY | 2025-04-16 16:30 | XMS_ITS | Clinical Summary ---
Author Organization [facility] Address [address] [place], [place] [address] Care Team Providers Care Inside Account Executive Name Role Phone Pablo Rivero MD Primary Care Provider [phone] Memo Grant MD Unavailable [phone] Allergies Active Allergy Reactions Criticality Noted [...] 10:25 AM 11/15/2022 8:03 PM Care Teams Inside Account Executive Relationship Specialty Start Date End Date Pablo Rivero MD [address] [facility] [place] [address] PCP - General Family Medicine 06/23/22 [place] [address] Cardiovascular Disease 10/27/22
--- OUTSIDE RECORDS SUMMARY | 2025-04-16 16:30 | XMS_ITS | Clinical Summary ---
Author Organization [facility] Address [address] [place] [address] Phone Care Team Providers Care Ceramic Coater Name Role Phone Pbalo Rivero NP Primary Care Provider [phone] Allergies Active Allergy Reactions Criticality Noted Date [...] Type Department Care Team Description 03/04/2025 Telephone [facility] Hematology Oncology [address] [place] [address] Guillermina Irving DO 02/16/2025 Telephone [facility] Hematology Oncology [address] [place] [address] Guillermina Irving DO from Last [...] Description 04/21/2025 1:30 PM EST Office Visit [facility] Hematology Oncology [address] [place] [phone] Guillermina Irving DO [address] [place] [address] Health Maintenance Due Date Last Done Comments [...] to complete this topic Insurance [facility] [place] [id number] [facility] Care Teams Ceramic Coater Relationship Specialty Start Date End Date Pablo Rivero NP [address] [facility] [place] PCP - General Family Medicine 04/10/18
== END 2025-04-16 13:58 | disposition home or self-care (01) ==
LOC: HO.HPS 13:34
PROVIDERS: PCP Nurse Practitioner Family; Visit Provider Internal Medicine
DX: J44.9 Chronic obstructive pulmonary disease, unspecified (principal); G47.33 Obstructive sleep apnea (adult) (pediatric); Z99.89 Dependence on other enabling machines and devices
CPT/HCPCS: 99213